=== PATIENT | female | born 1960 | race Caucasian/White ===

== ENCOUNTER 2020-09-07 17:43 | Inpatient (IN) ==
[2020-09-07] MEDS ORDERED: 0.9 % SODIUM CHLORIDE 2,000 ML IV ONE (17:51)
--- NOTE | 2020-09-07 19:08 | Emergency Department Note ---
HPI General Chief complaint: Blood Pressure Problem Stated complaint: low blood pressure Time Seen by Provider: 09/07/20 17:51 Source: EMS Mode of arrival: EMS Limitations: no limitations History of Present Illness HPI Narrative: Narrative: 60-year-old female presents the emergency department via EMS for low blood pressure and generalized weakness. Patient is bedbound and does go up to a wheelchair according to staff at the nursing facility said that she is been falling out of the chair and is not standing to pivot as well as she used to. They noticed the blood pressure was low so they called EMS. They said that she did have a fall just from standing height just down the bed did not hit her head did not lose consciousness approximately 3 hours ago. Patient says she is generally feels weak otherwise there is no other acute complaints by her at this time. Says she is feels tired. There is no pain any where. She has no chest pain or shortness of breath denying any fevers Related Data Home Medications Medication Instructions Recorded Confirmed amlodipine 5 mg PO QDAY 07/20/20 07/20/20 aspirin 81 mg PO QDAY 07/20/20 07/20/20 bisacodyl [Dulcolax (bisacodyl)] 10 mg MD QDAY PRN 07/20/20 07/20/20 calcium carbonate [Tums] 1,000 mg PO Q4HP PRN 07/20/20 07/20/20 cefdinir 300 mg PO BID 07/20/20 07/20/20 cholecalciferol (vitamin D3) 1,000 unit PO BID 07/20/20 07/20/20 cyclobenzaprine 5 mg PO Q8HP PRN 07/20/20 07/20/20 duloxetine [Cymbalta] 60 mg PO QDAY 07/20/20 07/20/20 empagliflozin [Jardiance] 10 mg PO QAM 07/20/20 07/20/20 ferrous sulfate 325 mg PO QDAY 07/20/20 07/20/20 fluconazole [Diflucan] 200 mg PO QDAY 07/20/20 07/20/20 fluticasone propionate [Flovent 1 puff INHALATION BID 07/20/20 07/20/20 HFA] furosemide [Lasix] 40 mg PO QDAY 07/20/20 07/20/20 heparin (porcine) in 0.9% NaCl 10 unit IV Q12H 07/20/20 07/20/20 [Heparin Flush] insulin glargine 15 unit SUBCUT DAILY 07/20/20 07/20/20 ipratropium-albuterol [Combivent 1 puff INHALATION Q4H PRN 07/20/20 07/20/20 Respimat] lisinopril 2.5 mg PO QDAY 07/20/20 07/20/20 magnesium hydroxide [Milk of 30 ml PO PRN PRN 07/20/20 07/20/20 Magnesia] melatonin 5 mg PO HS 07/20/20 07/20/20 meropenem 1 g IV Q12 07/20/20 07/20/20 oxycodone 10 mg PO Q8H PRN 07/20/20 07/20/20 polyethylene glycol 3350 17 g PO QDAY 07/20/20 07/20/20 pregabalin 50 mg PO TID 07/20/20 07/20/20 quetiapine [Seroquel] 100 mg PO DAILY 07/20/20 07/20/20 ropinirole 4 mg PO DAILY 07/20/20 07/20/20 sennosides-docusate sodium [Senna 2 tab-cap PO BID 07/20/20 07/20/20 Plus] sodium phosphates [Fleet Enema] 118 ml MD ONCE PRN 07/20/20 07/20/20 acetaminophen 1,000 mg PO Q6H PRN 09/07/20 09/07/20 Allergies Allergy/AdvReac Type Severity Reaction Status Date / Time doxycycline Allergy Unknown Verified 09/07/20 17:55 morphine Allergy Unknown Verified 09/07/20 17:55 Penicillins Allergy Unknown Verified 09/07/20 17:55 sulfamethoxazole Allergy Unknown Verified 09/07/20 17:55 [From Bactrim] trimethoprim [From Bactrim] Allergy Unknown Verified 09/07/20 17:55 Review of Systems ROS ROS Narrative: Narrative: All systems ED: reviewed and negative except as stated. PFSH Narrative Patient History Narrative: Narrative: Medical/Surgical/Family History All Active Problems (Updated 09/07/20 @ 20:28 by Volodymyr Crawford DO) Feared condition not demonstrated (Acute) Septic shock (Acute) Severe sepsis (Acute) UTI (urinary tract infection) (Acute) Social History Smoking Status: Former smoker Exam Narrative Narrative: Narrative: Vital signs noted General: Awake. Alert. No distress. Skin: Warm. Dry. No rash. Chronic wound to the hip. That is already dressed. HEENT: NCAT. PERRL. EOMI. No conjunctivitis. No nystagmus. No pharyngitis. Membranes moist. Mild blue discoloration to the lips and around the eyes. Neck: No PTP. Good ROM. No meningeal signs. No stridor. No thyromegaly. No JVD. Cardiovascular: RRR. No murmur. No rubs. No gallops. Respiratory: No respiratory distress. Breath sounds equal. Lungs clear. Gastrointestinal: Abdomen soft. No tenderness. No distention. Normal bowel sounds. No palpable organomegaly or masses. Back: No deformity. No CVAT. Musculoskeletal: No tenderness. No swelling. No erythema. No edema. Good peripheral pulses x 4 Lymphatic: No palpable adenopathy. Neurological: No focal neurological deficits observed. General Limitations: no limitations Course Vital Signs Vital signs: Vital Signs Temperature 97.5 F 09/07/20 17:52 Pulse Rate 85 09/07/20 17:52 Respiratory Rate 12 09/07/20 17:52 Blood Pressure 75/56 09/07/20 17:52 Pulse Oximetry (%) 92 09/07/20 17:52 Temperature 97.5 F 09/07/20 17:52 Pulse Rate 68 09/07/20 20:06 Respiratory Rate 13 09/07/20 20:06 Blood Pressure 105/74 09/07/20 20:01 Pulse Oximetry (%) 99 09/07/20 20:06 [facility] MDM Narrative Medical decision making narrative: Narrative: Patient does have chronic wounds. She is in a nursing facility pretty much b edbound mostly. Patient originally presented very hypotensive most likely is probably due to some infection source. She does have a chronic Thomas in and looks very cloudy and my guess is most likely is sepsis secondary to urinary tract infection. Patient originally is presenting she is probably in septic shock. I will hold off on starting antibiotics until I find my source of infection. Patient will receive the 30 mL/kg bolus of IV fluids. She will see if 2000 mL of normal saline via bolus this is based on her ideal body weight which is 141 pounds. Will receive lactate. We will get other basic labs. I do not think she needs further imaging of the head as there was no true fall and s he did not strike her head. Patient upon reexamination at 1910 here in the emergency department after 1500 mL of IV fluid is already doing better her blood pressure is now more stable and her color is a lot better generally. She was never tachycardic pulses remain normal. She has good CMS on reexamination. Heart exam shows regular rate and rhythm, lung exam has normal breath sounds bilaterally, general she is alert oriented able to answer questions seen exam is normal color warm and dry. Urinalysis nitrite positive and dirty otherwise most likely this is her source of infection so patient did receive cefepime. Patient is doing much better with blood pressure after the 30 mL/kg IV fluid bolus. She did have an elevated lactate but no white blood cell count I still think patient did meet criteria for severe sepsis and actually at the beginning was severe septic shock but now is responded well and is no longer in septic shock. Patient does need to be admitted for further evaluation. Patient did not need IV pressors mild elevation in potassium of 5.2 I do not think that needs to be taken care of at this time. Patient skin to be admitted for further evaluation most likely for U TI causing severe sepsis. Total critical care time of 32 min including performance of history and physical exam, review of results, re-examinations, time spent documenting, circuit recorder, review of old records, discussions with patient and family, discussions with retirement consultant(s), discussion with admitting physician, completion of admission/transfer paperwork. This does not include time for any separately documented procedures. Lab Data Result diagrams: 09/07/20 17:59 09/07/20 17:59 Labs: Lab Results 09/07/20 09/07/20 09/07/20 Range/Units 17:59 17:59 17:59 WBC 9.0 (4.5-11.0) K/mcL RBC 3.36 L (4.00-5.20) M/mcL Hgb 10.4 L (12.0-15.0) g/dL Hct 33.4 L (36.0-48.0) % MCV 99.4 (80.0-100.0) fL MCH 31.0 (26.0-34.0) pg MCHC 31.1 (31.0-36.0) g/dL RDW 18.6 H (11.5-14.5) % Plt Count 269 (140-440) K/mcL MPV 12.2 H (7.4-10.4) fL Neut % (Auto) 66.0 (38.0-78.0) % Lymph % (Auto) 22.1 (15.0-49.0) % [place] % (Auto) 5.8 (1.0-12.0) % Eos % (Auto) 5.0 (0.0-7.0) % Baso % (Auto) 1.1 (0.0-2.0) % Lymph # (Auto) 1.98 (1.50-4.80) K/mcL [place] # (Auto) 0.52 (0.10-0.90) K/mcL Eos # (Auto) 0.45 (0.00-0.70) K/mcL Baso # (Auto) 0.10 (0.00-0.20) K/mcL Absolute Neutrophils 5.92 (1.80-8.00) K/mcL VBG Lactic Acid (0.5-2.0) mmol/L Sodium 135 (133-145) mmol/L Potassium 5.2 H (3.3-5.1) mmol/L Chloride 99 (96-108) mmol/L Carbon Dioxide 26 (22-30) mmol/L Anion Gap 10.0 (8.0-16.0) BUN 43 H (6-20) mg/dL Creatinine 2.2 H (0.6-1.1) mg/dL GFR Calculation 24 Glucose 185 H (70-105) mg/dL Calcium 9.6 (8.6-10.4) mg/dL Magnesium 2.3 (1.6-2.5) mg/dL Total Bilirubin 0.2 (0.1-1.0) mg/dL AST 14 (<32) U/L ALT 10 (<40) U/L Alkaline Phosphatase 74 (39-117) U/L Total Creatine Kinase 206 H (24-170) U/L NT-Pro-B Natriuret Pep 166.1 H (<125.0) pg/mL Total Protein 7.3 (5.9-8.4) gm/dL Albumin 3.7 (3.2-5.2) gm/dL Globulin 3.6 (2.2-3.7) gm/dL Albumin/Globulin Ratio 1.0 (1.0-2.3) Procalcitonin 0.15 H (<0.10) ng/mL Urine Color Urine Appearance (Clear) Urine pH (5.0-9.0) Ur Specific [place] (1.000-1.035) Urine Protein (Negative) mg/dL Urine Glucose (UA) (Negative) mg/dL Urine Ketones (Negative) mg/dL Urine Occult Blood (Negative) mg/dL Urine Nitrate (Negative) Urine Bilirubin (Negative) mg/dL Urine Urobilinogen mg/dL Ur Leukocyte Esterase (Negative) /ug Urine RBC (0-1) /hpf Urine WBC (0-4) /hpf Ur Squamous Epith Cells (0-4) /hpf Urine Bacteria (0) /hpf Urine Yeast (Budding) (None) /hpf Ur Culture Indicated? 09/07/20 09/07/20 Range/Units 18:13 18:45 WBC (4.5-11.0) K/mcL RBC (4.00-5.20) M/mcL Hgb (12.0-15.0) g/dL Hct (36.0-48.0) % MCV (80.0-100.0) fL MCH (26.0-34.0) pg MCHC (31.0-36.0) g/dL RDW (11.5-14.5) % Plt Count (140-440) K/mcL MPV (7.4-10.4) fL Neut % (Auto) (38.0-78.0) % Lymph % (Auto) (15.0-49.0) % [place] % (Auto) (1.0-12.0) % Eos % (Auto) (0.0-7.0) % Baso % (Auto) (0.0-2.0) % Lymph # (Auto) (1.50-4.80) K/mcL [place] # (Auto) (0.10-0.90) K/mcL Eos # (Auto) (0.00-0.70) K/mcL Baso # (Auto) (0.00-0.20) K/mcL Absolute Neutrophils (1.80-8.00) K/mcL VBG Lactic Acid 2.6 H (0.5-2.0) mmol/L Sodium (133-145) mmol/L Potassium (3.3-5.1) mmol/L Chloride (96-108) mmol/L Carbon Dioxide (22-30) mmol/L Anion Gap (8.0-16.0) BUN (6-20) mg/dL Creatinine (0.6-1.1) mg/dL GFR Calculation Glucose (70-105) mg/dL Calcium (8.6-10.4) mg/dL Magnesium (1.6-2.5) mg/dL Total Bilirubin (0.1-1.0) mg/dL AST (<32) U/L ALT (<40) U/L Alkaline Phosphatase (39-117) U/L Total Creatine Kinase (24-170) U/L NT-Pro-B Natriuret Pep (<125.0) pg/mL Total Protein (5.9-8.4) gm/dL Albumin (3.2-5.2) gm/dL Globulin (2.2-3.7) gm/dL Albumin/Globulin Ratio (1.0-2.3) Procalcitonin (<0.10) ng/mL Urine Color Yellow Urine Appearance Turbid A (Clear) Urine pH 5.0 (5.0-9.0) Ur Specific [place] 1.019 (1.000-1.035) Urine Protein 100 A (Negative) mg/dL Urine Glucose (UA) 50 A (Negative) mg/dL Urine Ketones Negative (Negative) mg/dL Urine Occult Blood >=1.0 A (Negative) mg/dL Urine Nitrate Pos A (Negative) Urine Bilirubin Negative (Negative) mg/dL Urine Urobilinogen Negative mg/dL Ur Leukocyte Esterase 250 A (Negative) /ug Urine RBC > 182 H (0-1) /hpf Urine WBC > 182 H (0-4) /hpf Ur Squamous Epith Cells 0 (0-4) /hpf Urine Bacteria None (0) /hpf Urine Yeast (Budding) Many A (None) /hpf Ur Culture Indicated? yes EKG Data EKG #1: EKG results narrative: EKG done at 1757 interpreted by myself shows sinus rhythm at a rate of 69, MD interval 241, QRS 92, QTc 536. There is no acute ST changes no acute T wave changes no other signs of ischemia. No signs of hypertrophy, heart strain, heart block. No WPW/Brugada/HOCM. Impression is normal sinus EKG with no ischemia Discharge Plan Patient/Caregiver Discharge Instructions Pt seen by BRANCHER/PA only: No Clinical Impression: Septic shock, Severe sepsis, UTI (urinary tract infection) Patient Disposition: Xfer As Inpt ([facility]) Condition: Fair Follow up with: Johnnie Trent MD [Primary Care Provider] - Prescriptions: No Action fluconazole [Diflucan] 200 mg Tablet 200 mg PO QDAY RF: 0 amlodipine 5 mg Tablet 5 mg PO QDAY RF: 0 bisacodyl [Dulcolax (bisacodyl)] 10 mg Suppository 10 mg MD QDAY PRN (Reason: Constipation) RF: 0 ferrous sulfate 325 mg (65 mg iron) Tablet 325 mg PO QDAY RF: 0 meropenem 1 gram Recon Soln 1 g IV Q12 RF: 0 Fleet Enema 19-7 gram/118 mL Enema 118 ml MD ONCE PRN (Reason: Constipation) RF: 0 aspirin 81 mg Tablet,Chewable 81 mg PO QDAY RF: 0 cefdinir 300 mg Capsule 300 mg PO BID RF: 0 lisinopril 2.5 mg Tablet 2.5 mg PO QDAY RF: 0 Flovent HFA 110 mcg/actuation Hfa Aerosol Inhaler 1 puff INHALATION BID RF: 0 Heparin Flush 10 unit/mL Kit 10 unit IV Q12H RF: 0 cyclobenzaprine 5 mg Tablet 5 mg PO Q8HP PRN (Reason: Spasms) RF: 0 duloxetine [Cymbalta] 60 mg Capsule,Delayed Release(Dr/Ec) 60 mg PO QDAY RF: 0 melatonin 5 mg Tablet 10 mg PO HS RF: 0 Jardiance 10 mg Tablet 10 mg PO QAM RF: 0 Combivent Respimat 20-100 mcg/actuation Mist 1 puff INHALATION Q4H PRN (Reason: shortness of breath) RF: 0 furosemide [Lasix] 40 mg Tablet 40 mg PO QDAY RF: 0 cholecalciferol (vitamin D3) 25 mcg (1,000 unit) Capsule 1,000 unit PO BID RF: 0 magnesium hydroxide [Milk of Magnesia] 400 mg/5 mL suspension 30 ml PO PRN PRN (Reason: Constipation) RF: 0 ropinirole 4 mg tablet 4 mg PO DAILY RF: 0 oxycodone 10 mg tablet 10 mg PO Q4HP PRN (Reason: Pain) RF: 0 polyethylene glycol 3350 17 gram/dose Powder 17 g PO QDAY RF: 0 pregabalin 50 mg Capsule 50 mg PO TID RF: 0 insulin glargine 100 unit/mL Solution 15 unit SUBCUT DAILY RF: 0 Senna Plus 8.6-50 mg Capsule 2 tab-cap PO BID RF: 0 quetiapine [Seroquel] 100 mg Tablet 100 mg PO DAILY RF: 0 calcium carbonate [Tums] 300 mg (750 mg) Tablet,Chewable 1,000 mg PO Q4HP PRN (Reason: gi issues) RF: 0 acetaminophen 500 mg Tablet 1,000 mg PO Q6H PRN (Reason: Pain, Mild) RF: 0
[2020-09-07 19:14] LABS: Basophils % (Auto) 1.1 % (0.0-2.0); Eosinophils # (Auto) 0.45 K/mcL (0.00-0.70); Hematocrit 33.4 % (36.0-48.0); Hemoglobin 10.4 g/dL (12.0-15.0); Lymphocytes # (Auto) 1.98 K/mcL (1.50-4.80); Lymphocytes % (Auto) 22.1 % (15.0-49.0); Mean Cell Volume 99.4 fL (80.0-100.0); Mean Corpuscular HGB Conc 31.1 g/dL (31.0-36.0); Mean Platelet Volume 12.2 fL (7.4-10.4); Monocytes # (Auto) 0.52 K/mcL (0.10-0.90); Monocytes % (Auto) 5.8 % (1.0-12.0); Platelet Count 269 K/mcL (140-440); RBC 3.36 M/mcL (4.00-5.20); Red Cell Distribution Width 18.6 % (11.5-14.5)
[2020-09-07] MEDS ORDERED: CEFEPIME 1 GM VIAL IV ONE ×2 (19:16→22:30)
[2020-09-07 19:32] LABS: proBNP 166.1 pg/mL (<125.0)
[2020-09-07 19:34] LABS: ALT/SGPT 10 U/L (<40); AST/SGOT 14 U/L (<32); Albumin 3.7 gm/dL (3.2-5.2); Alkaline Phosphatase 74 U/L (39-117); Bilirubin,Total 0.2 mg/dL (0.1-1.0); Blood Urea Nitrogen 43 mg/dL (6-20); Calcium 9.6 mg/dL (8.6-10.4); Carbon Dioxide 26 mmol/L (22-30); Chloride 99 mmol/L (96-108); Creatine Kinase 206 U/L (24-170); Globulin 3.6 gm/dL (2.2-3.7); Glomerular Filtration Rate 24; Glucose 185 mg/dL (70-105)
[2020-09-07 20:15] LABS: Appearance,Urine TURBID (Clear); Bilirubin,Urine Negative (Negative); Color,Urine YELLOW; Culture Indicated,Urine yes; Glucose,Urine (UA) 50 mg/dL (Negative); Ketones,Urine Negative (Negative); Leukocyte Esterase,Urine 250 /ug (Negative); Nitrate,Urine POS (Negative); Protein,Urine 100 mg/dL (Negative); Specific Gravity,Urine 1.019 (1.000-1.035); Urine Blood >=1.0 mg/dL (Negative); Urine Budding Yeast MANY /hpf; Urine RBC > 182 /hpf (0-1); Urine Squamous Epithelial Cell 0 /hpf (0-4); Urine WBC > 182 /hpf (0-4); Urobilinogen,Urine Negative
--- NOTE | 2020-09-07 20:42 | Internal Med History&Physical ---
HPI History of Present Illness Patient information: Note initiated : 09/07/20 at 8:34 pm Service Date, if different from initiated Date: [] Patient: Dawn Cabrera a 60 y/o F admitted on for low blood pressure. Chief Complaint: [] History of present illness: Ms. Cabrera is a 60 year old F Presents to the ED from the nursing facility for hypotension, 60/40, and weakness. She did fall but did not hit her head or lose consciousness. She has been complaining of lightheadedness and dizziness. ED had systolics in the 70s. She was given IV normal same bolus with improvement. Creatinine appear to be above baseline. Mild increase in lactate. She is wheelchair-bound and usually is able to transfer from bed to wheelchair. She has been weaker lately and unable to do so. She does have a chronic Valentino. She also has chronic wounds. She denies chest pain or shortness of breath. Urinalysis consistent with infection. Review of Systems: Pertinent positives as above. Denies headache/fever/chills/nausea/vomiting/chest or abdominal pain/cou gh/dyspnea/diarrhea. Remaining 10 point review of system reviewed negative PFSH PFSH All Active Problems (Updated 09/07/20 @ 20:28 by Volodymyr Crawford DO) Feared condition not demonstrated (Acute) Septic shock (Acute) Severe sepsis (Acute) UTI (urinary tract infection) (Acute) Social History (Updated 09/07/20 @ 20:35 by Nakul Bejarano DO) additional history: Past medical history includes chronic kidney disease stage IIIb diabetes chronic anemia morbid obesity poor functional status deconditioning debility she has been wheelchair-bound for years. Depression anxiety hypertension Social history patient denies tobacco or alcohol she is bedbound wheelchair- bound and lives in a nursing facility MEDS/ALLERGIES Home Medications and Allergies Home Medications Medication Instructions Recorded Confirmed Type amlodipine 5 mg PO QDAY 07/20/20 09/07/20 History aspirin 81 mg PO QDAY 07/20/20 09/07/20 History bisacodyl [Dulcolax (bisacodyl)] 10 mg [place] QDAY PRN 07/20/20 09/07/20 History calcium carbonate [Tums] 1,000 mg PO Q4HP PRN 07/20/20 09/07/20 History cefdinir 300 mg PO BID 07/20/20 07/20/20 History cholecalciferol (vitamin D3) 1,000 unit PO BID 07/20/20 09/07/20 History cyclobenzaprine 5 mg PO Q8HP PRN 07/20/20 09/07/20 History duloxetine [Cymbalta] 60 mg PO QDAY 07/20/20 09/07/20 History empagliflozin [Jardiance] 10 mg PO QAM 07/20/20 09/07/20 History ferrous sulfate 325 mg PO QDAY 07/20/20 09/07/20 History fluconazole [Diflucan] 200 mg PO QDAY 07/20/20 07/20/20 History fluticasone propionate [Flovent 1 puff INHALATION BID 07/20/20 09/07/20 History HFA] furosemide [Lasix] 40 mg PO QDAY 07/20/20 09/07/20 History heparin (porcine) in 0.9% NaCl 10 unit IV Q12H 07/20/20 07/20/20 History [Heparin Flush] insulin glargine 15 unit SUBCUT DAILY 07/20/20 09/07/20 History ipratropium-albuterol [Combivent 1 puff INHALATION Q4H PRN 07/20/20 09/07/20 History Respimat] lisinopril 2.5 mg PO QDAY 07/20/20 09/07/20 History magnesium hydroxide [Milk of 30 ml PO PRN PRN 07/20/20 09/07/20 History Magnesia] melatonin 10 mg PO HS 07/20/20 09/07/20 History meropenem 1 g IV Q12 07/20/20 07/20/20 History oxycodone 10 mg PO Q4HP PRN 07/20/20 09/07/20 History polyethylene glycol 3350 17 g PO QDAY 07/20/20 09/07/20 History pregabalin 50 mg PO TID 07/20/20 09/07/20 History quetiapine [Seroquel] 100 mg PO DAILY 07/20/20 09/07/20 History ropinirole 4 mg PO DAILY 07/20/20 09/07/20 History sennosides-docusate sodium [Senna 2 tab-cap PO BID 07/20/20 09/07/20 History Plus] sodium phosphates [Fleet Enema] 118 ml [place] ONCE PRN 07/20/20 09/07/20 History acetaminophen 1,000 mg PO Q6H PRN 09/07/20 09/07/20 History Allergies Allergy/AdvReac Type Severity Reaction Status Date / Time doxycycline Allergy Unknown Verified 09/07/20 17:55 morphine Allergy Unknown Verified 09/07/20 17:55 Penicillins Allergy Unknown Verified 09/07/20 17:55 sulfamethoxazole Allergy Unknown Verified 09/07/20 17:55 [From Bactrim] trimethoprim [From Bactrim] Allergy Unknown Verified 09/07/20 17:55 EXAM Constitutional Vitals: Temp Pulse Resp BP Pulse Ox 97.5 F 68 13 105/74 99 09/07/20 17:52 09/07/20 20:06 09/07/20 20:06 09/07/20 20:01 09/07/20 20:06 Exam: General: Alert, Awake, No acute Distress, morbidly obese Eyes/N/T: EOMI, PERRL, dry MM Head/Neck: neck supple, normocephalic atraumatic CV: RRR, No murmurs, normal s1/s2 Pulm: Clear b/l, no wheezing/rhonchi/rales Abd: soft, nontender, +BS x4 Ext: no clubbing/cyanosis. Bilateral lower extremity wounds Neuro: Alert, no focal deficits, moves all extremities, CN 2-12 grossly intact, symmetrical strength b/l upper/lower, sensations intact b/l upper/lower Skin: warm/dry DATA Data Completed and Pending Labs: Labs from last 24 hours 09/07/20 09/07/20 09/07/20 18:45 18:13 17:59 WBC RBC Hgb Hct MCV MCH MCHC RDW Plt Count MPV Neut % (Auto) Lymph % (Auto) [place] % (Auto) Eos % (Auto) Baso % (Auto) Lymph # (Auto) [place] # (Auto) Eos # (Auto) Baso # (Auto) Absolute Neutrophils VBG Lactic Acid 2.6 H Sodium Potassium Chloride Carbon Dioxide Anion Gap BUN Creatinine GFR Calculation Glucose Calcium Magnesium Total Bilirubin AST ALT Alkaline Phosphatase Total Creatine Kinase NT-Pro-B Natriuret Pep Total Protein Albumin Globulin Albumin/Globulin Ratio Procalcitonin 0.15 H Urine Color Yellow Urine Appearance Turbid A Urine pH 5.0 Ur Specific [place] 1.019 Urine Protein 100 A Urine Glucose (UA) 50 A Urine Ketones Negative Urine Occult Blood >=1.0 A Urine Nitrate Pos A Urine Bilirubin Negative Urine Urobilinogen Negative Ur Leukocyte Esterase 250 A Urine RBC > 182 H Urine WBC > 182 H Ur Squamous Epith Cells 0 Urine Bacteria None Urine Yeast (Budding) Many A Ur Culture Indicated? yes 09/07/20 09/07/20 17:59 17:59 WBC 9.0 RBC 3.36 L Hgb 10.4 L Hct 33.4 L MCV 99.4 MCH 31.0 MCHC 31.1 RDW 18.6 H Plt Count 269 MPV 12.2 H Neut % (Auto) 66.0 Lymph % (Auto) 22.1 [place] % (Auto) 5.8 Eos % (Auto) 5.0 Baso % (Auto) 1.1 Lymph # (Auto) 1.98 [place] # (Auto) 0.52 Eos # (Auto) 0.45 Baso # (Auto) 0.10 Absolute Neutrophils 5.92 VBG Lactic Acid Sodium 135 Potassium 5.2 H Chloride 99 Carbon Dioxide 26 Anion Gap 10.0 BUN 43 H Creatinine 2.2 H GFR Calculation 24 Glucose 185 H Calcium 9.6 Magnesium 2.3 Total Bilirubin 0.2 AST 14 ALT 10 Alkaline Phosphatase 74 Total Creatine Kinase 206 H NT-Pro-B Natriuret Pep 166.1 H Total Protein 7.3 Albumin 3.7 Globulin 3.6 Albumin/Globulin Ratio 1.0 Procalcitonin Urine Color Urine Appearance Urine pH Ur Specific [place] Urine Protein Urine Glucose (UA) Urine Ketones Urine Occult Blood Urine Nitrate Urine Bilirubin Urine Urobilinogen Ur Leukocyte Esterase Urine RBC Urine WBC Ur Squamous Epith Cells Urine Bacteria Urine Yeast (Budding) Ur Culture Indicated? A/P Narrative A/P Narrative: A: *Sepsis w/hypotension: -Hypotension responded to IV fluids in the ED *complicated UTI: catheter associated *REKHA on CKD stage IIIb: *DM: *Anemia, chronic: *Morbidly obese: *Poor functional status/deconditioning/debility: Is wheelchair-bound but is usually able to self transfer *Chronic valentino: has had for years "so i don't pee all over myself" -She just stools in bed and staff clean her up each time as well -[facility] *COPD: *ZAID w/CPAP: *Depression/anxiety: *HTN: On Norvasc Lasix and lisinopril *LE wounds: For which she sees wound clinic at [facility] * P: -Empiric antibiotics, pending BC/UC -IVF, Monitor urine output, follow-up renal function -Hold diuretic / BP meds -change out Valentino -Wound care -Insulin, SSI -address code status - -PT/OT -ppx: Lovenox renal dose Time Spent With Patient Time: Total time spent is greater than 50% in coordination of care (as documented) at patient's floor/unit and/or counseling patient:
[2020-09-07] MEDS ORDERED: [UNRECOGNIZED DRUG - OTHER] PO SCH (21:18)
[2020-09-07] MEDS ORDERED: POTASSIUM CHLORIDE 20 MEQ TABLET PO PRN ×2 (21:18)
[2020-09-07] MEDS ORDERED: IPRATROPIUM/ALBUTEROL 3 ML AMPUL.NEB NEB PRN (21:18)
[2020-09-07] MEDS ORDERED: DEXTROSE 50% 50 ML VIAL IV PRN (21:18)
[2020-09-07] MEDS ORDERED: MAGNESIUM SULFATE 2 GM/50 ML BAG IV PRN (21:18)
[2020-09-07] MEDS ORDERED: ACETAMINOPHEN 325 MG TABLET PO PRN (21:18)
[2020-09-07] MEDS ORDERED: POTASSIUM CHLORIDE 40 MEQ in DEXTROSE 5% IN WATER 500 ML IV PRN (21:18)
[2020-09-07] MEDS ORDERED: ONDANSETRON 4 MG/2 ML VIAL IV PRN (21:18)
[2020-09-07] MEDS ORDERED: BISACODYL 10 MG SUPP.RECT PR PRN (21:18)
[2020-09-07] MEDS ORDERED: DEXTROSE 31 GM ORAL.SUSP PO PRN (21:18)
[2020-09-07] MEDS ORDERED: SENNOSIDES DOCUSATE SODIUM PO SCH (21:18)
[2020-09-07] MEDS ORDERED: SENNOSIDES 1 TABLET PO PRN (21:18)
[2020-09-07] MEDS: 0.9 % SODIUM CHLORIDE 1,000 ML IV SCH (22:05)
[2020-09-07] MEDS ORDERED: CALCIUM CARBONATE 500 MG TAB.CHEW PO PRN (22:07)
[2020-09-07] MEDS ORDERED: CYCLOBENZAPRINE 10 MG TABLET PO PRN (22:07)
[2020-09-07] MEDS ORDERED: oxyCODONE HCL 5 MG TABLET PO PRN (22:09)
[2020-09-07] MEDS: INSULIN LISPRO 1 UNIT/0.01 ML UNIT SQ SCH (22:09)
[2020-09-07 22:10] LABS: Eosinophils % (Manual) 4 % (0-7); Hypochromasia 1+ (None Seen); Lymphocytes % 33 % (15-49); Monocytes % (Manual) 3 % (1-12); Platelet Estimate NORMAL (Normal); RBC Morphology ABNORMAL (Normal); Segmented Neutrophils % 60 % (38-78)
[2020-09-07] MEDS: 0.9 % SODIUM CHLORIDE 10 ML SYRINGE IV SCH (22:11)
[2020-09-07] MEDS: FLUTICASONE HFA 110MCG INHALER INH SCH (22:13)
--- NOTE | 2020-09-08 01:57 | XRay Report ---
CLINICAL INFORMATION: Sepsis COMPARISON: 04/20/2020 TECHNIQUE: Portable FINDINGS: The heart size, mediastinum and pulmonary vessels are unremarkable. The lungs are clear. There are no effusions. The bones and soft tissues are within normal limits. IMPRESSION: Normal chest. Interpreted and Authenticated by: Tod Duran 09/08/20
[2020-09-08 06:42] LABS: Basophils # (Auto) 0.09 K/mcL (0.00-0.20); Basophils % (Auto) 1.1 % (0.0-2.0); Eosinophils # (Auto) 0.47 K/mcL (0.00-0.70); Eosinophils % (Auto) 5.5 % (0.0-7.0); Hematocrit 32.9 % (36.0-48.0); Hemoglobin 10.1 g/dL (12.0-15.0); Lymphocytes # (Auto) 2.54 K/mcL (1.50-4.80); Mean Cell Volume 100.9 fL (80.0-100.0); Mean Corpuscular HGB Conc 30.7 g/dL (31.0-36.0); Monocytes # (Auto) 0.61 K/mcL (0.10-0.90); Monocytes % (Auto) 7.2 % (1.0-12.0); Neutrophils % (Auto) 56.2 % (38.0-78.0); Platelet Count 245 K/mcL (140-440); RBC 3.26 M/mcL (4.00-5.20); Red Cell Distribution Width 18.6 % (11.5-14.5); WBC 8.5 K/mcL (4.5-11.0)
[2020-09-08] MEDS: 0.9 % SODIUM CHLORIDE 10 ML SYRINGE IV SCH ×3 (06:53→20:50)
[2020-09-08 07:07] LABS: ALT/SGPT 9 U/L (<40); AST/SGOT 15 U/L (<32); Albumin 3.4 gm/dL (3.2-5.2); Albumin/Globulin Ratio 0.9 (1.0-2.3); Alkaline Phosphatase 71 U/L (39-117); Bilirubin,Direct < 0.2 mg/dL (0-0.3); Bilirubin,Total 0.2 mg/dL (0.1-1.0); Blood Urea Nitrogen 41 mg/dL (6-20); Calcium 8.9 mg/dL (8.6-10.4); Carbon Dioxide 28 mmol/L (22-30); Chloride 103 mmol/L (96-108); Globulin 3.6 gm/dL (2.2-3.7); Glomerular Filtration Rate 25; Glucose 91 mg/dL (70-105); Lactate Dehydrogenase 197 U/L (135-225); Phosphorous 4.9 mg/dL (2.5-4.5); Triglycerides 185 mg/dL (<150); Uric Acid 7.2 mg/dL (2.5-8.0)
[2020-09-08] MEDS: INSULIN LISPRO 1 UNIT/0.01 ML UNIT SQ SCH ×4 (07:30→21:01)
--- NOTE | 2020-09-08 07:59 | Internal Med Progress Note ---
SUBJECTIVE Subjective Patient information: Note initiated : 09/08/20 at 7:56 am Service Date, if different from initiated Date: [] Patient: Dawn Cabrera a 60 y/o F admitted on 09/07/20 for low blood pressure. Chief Complaint: [] Interval history: History of present illness: Ms. Cabrera is a 60 year old F Presents to the ED from the nursing facility for hypotension, 60/40, and weakness. She did fall but did not hit her head or lose consciousness. She has been complaining of lightheadedness and dizziness. ED had systolics in the 70s. She was given IV normal same bolus with improvement. Creatinine appear to be above baseline. Mild increase in lactate. She is wheelchair-bound and usually is able to transfer from bed to wheelchair. She has been weaker lately and unable to do so. She does have a chronic Valentino. She also has chronic wounds. She denies chest pain or shortness of breath. Urinalysis consistent with infection. 09/08 No overnight event or new complaints. Vital signs stable. Review of Systems: denies headache/fever/chills/nausea/vomiting/chest or abdominal pain/cough/dyspnea/diarrhea. Otherwise see above. Constitutional Vitals: Vital Signs Temp Pulse Resp BP Pulse Ox 96.8 F L 61 10 L 95/52 100 09/08/20 02:01 09/08/20 06:30 09/08/20 07:02 09/08/20 07:02 09/08/20 06:30 Period Temp Pulse Resp BP Sys/Nava Pulse Ox Last 24 Hr 96.8 F-97.5 F 57-85 7-45 66-116/40-92 85-100 Intake and Output 09/07/20 09/08/20 09/08/20 21:59 05:59 13:59 Intake Total 2250 250 Output Total 975 275 Balance 1275 -25 Weight 177.355 kg 170.279 kg Intake & Output: Intake & Output 09/07/20 09/08/20 09/08/20 21:59 05:59 13:59 Intake Total 2250 250 Output Total 975 275 Balance 1275 -25 Weight 177.355 kg 170.279 kg Intake: IV 2000 Sodium Chloride 0.9% 2,000 ml @ 2000 Wide Open IV .Q0M ONE Rx#: [id number] Oral 250 250 Output: Urine Catheter Amount 975 275 Other: Urine Appearance Cloudy Cloudy Sediment Sediment Mucous Threads Mucous Threads Purulent Purulent Uretheral (Valentino) Cloudy Sediment Mucous Threads Purulent Urine Color Dark Yellow Dark Yellow Uretheral (Valentino) Dark Yellow Urine Odor Foul Strong Exam: General: Alert, Awake, No acute Distress, morbidly obese Eyes/N/T: EOMI, Head/Neck: neck supple, CV: RRR, No murmurs, Pulm: Clear b/l, no wheezing/rhonchi/rales Abd: soft, nontender, +BS x4 Ext: no clubbing/cyanosis. Bilateral lower extremity wounds Neuro: Alert, no focal deficits, moves all extremities, Skin: warm/dry OBJ DATA Labs CBC & Chem 7: 09/08/20 05:44 09/08/20 05:44 Labs: Abnormal Lab Results 09/08/20 09/08/20 09/07/20 05:44 05:44 18:45 RBC 3.26 L Hgb 10.1 L Hct 32.9 L MCV 100.9 H MCHC 30.7 L RDW 18.6 H MPV 12.0 H RBC Morphology Hypochromasia VBG Lactic Acid Potassium BUN 41 H Creatinine 2.1 H Glucose Phosphorus 4.9 H Total Creatine Kinase NT-Pro-B Natriuret Pep Albumin/Globulin Ratio 0.9 L Triglycerides 185 H Procalcitonin Urine Appearance Turbid A Urine Protein 100 A Urine Glucose (UA) 50 A Urine Occult Blood >=1.0 A Urine Nitrate Pos A Ur Leukocyte Esterase 250 A Urine RBC > 182 H Urine WBC > 182 H Urine Yeast (Budding) Many A 09/07/20 09/07/20 09/07/20 18:13 17:59 17:59 RBC Hgb Hct MCV MCHC RDW MPV RBC Morphology Abnormal A Hypochromasia 1+ A VBG Lactic Acid 2.6 H Potassium BUN Creatinine Glucose Phosphorus Total Creatine Kinase NT-Pro-B Natriuret Pep Albumin/Globulin Ratio Triglycerides Procalcitonin 0.15 H Urine Appearance Urine Protein Urine Glucose (UA) Urine Occult Blood Urine Nitrate Ur Leukocyte Esterase Urine RBC Urine WBC Urine Yeast (Budding) 09/07/20 09/07/20 17:59 17:59 RBC 3.36 L Hgb 10.4 L Hct 33.4 L MCV MCHC RDW 18.6 H MPV 12.2 H RBC Morphology Hypochromasia VBG Lactic Acid Potassium 5.2 H BUN 43 H Creatinine 2.2 H Glucose 185 H Phosphorus Total Creatine Kinase 206 H NT-Pro-B Natriuret Pep 166.1 H Albumin/Globulin Ratio Triglycerides Procalcitonin Urine Appearance Urine Protein Urine Glucose (UA) Urine Occult Blood Urine Nitrate Ur Leukocyte Esterase Urine RBC Urine WBC Urine Yeast (Budding) Meds: Medications Acetaminophen (Acetaminophen 325 Mg Tablet) 650 mg PO Q6HP PRN PRN Reason: PAIN/FEVER > 101 Albuterol/Ipratropium (Ipratropium/Albuterol 3 Ml Ampul.Neb) 3 ml NEB Q4HP PRN PRN Reason: Shortness Of Breath Aspirin (Aspirin 81 Mg Tab.Chew) 81 mg PO QDAY MAURY Bisacodyl (Bisacodyl 10 Mg Supp.Rect) 10 mg TN QDAY PRN PRN Reason: Constipation Calcium Carbonate/Glycine (Calcium Carbonate 500 Mg Tab.Chew) 1,000 mg PO Q4HP PRN PRN Reason: Dyspepsia Cefepime HCl (Cefepime 2 Gm Vial) 2 gm IV Q12H MAURY; Protocol Cyclobenzaprine HCl (Cyclobenzaprine 10 Mg Tablet) 5 mg PO Q8HP PRN PRN Reason: Spasms Dextrose (Dextrose 50% 50 Ml Vial) 0 ml IV UD PRN PRN Reason: Hypoglycemia Diagnostic Test (Pha) (Accu-Chek 1 Each Strip) 1 each FS ACHS [facility] Last Admin: 09/08/20 07:22 Dose: 1 each Documented by: Duloxetine HCl (Duloxetine 30 Mg Capsule) 60 mg PO DAILY [facility] Enoxaparin Sodium (Enoxaparin 30 Mg/0.3 Ml Syringe) 30 mg SQ DAILY [facility] Fluticasone Propionate (Fluticasone Hfa 110mcg Inhaler) 1 puff INH BID [facility] Last Admin: 09/07/20 22:13 Dose: Not Given Documented by: Glucose (Dextrose 31 Gm Oral.Susp) 15 gm PO PRN PRN PRN Reason: Hypoglycemia Potassium Chloride 40 meq/ (Dextrose) 520 mls @ 130 mls/hr IV UD PRN PRN Reason: Potassium < 3 Magnesium Sulfate (Magnesium Sulfate) 2 gm in 50 mls @ 50 mls/hr IV UD PRN PRN Reason: Magnesium </= 1.6 Sodium Chloride (Sodium Chloride 0.9%) 1,000 mls @ 100 mls/hr IV .Q10H [facility] Last Admin: 09/07/20 22:05 Dose: 100 mls/hr Documented by: Insulin Glargine (Insulin Glargine, Human 1 Unit/0.01 Ml) 15 unit SQ DAILY [facility] Insulin Human Lispro (Insulin Lispro 1 Unit/0.01 Ml Unit) 0 unit SQ ACHS [facility]; Protocol Last Admin: 09/08/20 07:30 Dose: Not Given Documented by: Melatonin (Melatonin 3 Mg Tablet) 9 mg PO HS [facility] Non-Formulary Medication (Ropinirole) 4 mg PO DAILY [facility] Ondansetron HCl (Ondansetron 4 Mg/2 Ml Vial) 4 mg IV Q4HP PRN PRN Reason: Nausea And Vomiting Oxycodone HCl (Oxycodone Hcl 5 Mg Tablet) 10 mg PO Q4HP PRN PRN Reason: Pain Polyethylene Glycol (Polyethylene Glycol 3350 17 Gm Packet) 17 gm PO QDAY [facility] Potassium Chloride (Potassium Chloride 20 Meq Tablet) 40 meq PO UD PRN PRN Reason: Potssium is 3-3.5 Potassium Chloride (Potassium Chloride 20 Meq Tablet) 40 meq PO UD PRN PRN Reason: Potassium < 3 Pregabalin (Pregabalin 25 Mg Capsule) 50 mg PO TID [facility] Quetiapine Fumarate (Quetiapine 100 Mg Tablet) 100 mg PO DAILY [facility] Senna (Sennosides 1 Tablet) 2 tab PO DAILYP PRN PRN Reason: Constipation Senna/Docusate Sodium (Sennosides/Docusate Sodium 1 Tab Tablet) 2 tab PO BID [facility] Sodium Chloride (0.9 % Sodium Chloride 10 Ml Syringe) 10 ml IV Q8 [facility] Last Admin: 09/08/20 06:53 Dose: 10 ml Documented by: A/P Narrative A/P Narrative: A: *Sepsis w/hypotension: -Hypotension responded to IV fluids in the ED *complicated UTI: catheter associated *REKHA on CKD stage IIIb: *DM: *Anemia, chronic: *Morbidly obese: *Poor functional status/deconditioning/debility: Is wheelchair-bound but is usually able to self transfer *Chronic valentino: has had for years "so i don't pee all over myself" -She just stools in bed and staff clean her up each time as well -she likely would be better served by suprapubic cath if she can't get by w/o a catheter *COPD(2L@night ): *ZAID w/BiPAP: *Depression/anxiety: *HTN: On Norvasc/Lasix/Lisinopril *LE wounds: For which she sees wound clinic at [facility] * P: -Empiric antibiotics, pending BC/UC -IVF's, Monitor urine output, follow-up renal function -Hold diuretic / BP meds -change out Valentino -Wound care -Insulin, SSI -address code status - -PT/OT -ppx: Lovenox renal dose Time Spent With Patient Time: Total time spent is greater than 50% in coordination of care (as docu mented) at patient's floor/unit and/or counseling patient: QUALITY Stroke Symptom Onset Unknown: No VTE Deep Vein Thrombosis/Pulmonary Embolism Present on Admission: No
[2020-09-08] MEDS: FLUTICASONE HFA 110MCG INHALER INH SCH ×2 (08:10→20:45)
[2020-09-08] MEDS: ASPIRIN 81 MG TAB.CHEW PO SCH (08:25)
[2020-09-08] MEDS: QUEtiapine 100 MG TABLET PO SCH (08:25)
[2020-09-08] MEDS: PREGABALIN 25 MG CAPSULE PO SCH ×3 (08:25→20:50)
[2020-09-08] MEDS: DULoxetine 30 MG CAPSULE PO SCH (08:25)
[2020-09-08] MEDS: SENNOSIDES/DOCUSATE SODIUM 1 TAB TABLET PO SCH ×2 (08:26→20:45)
[2020-09-08] MEDS: rOPINIRole 1 MG TABLET PO SCH (08:26)
[2020-09-08] MEDS: 0.9 % SODIUM CHLORIDE 1,000 ML IV SCH ×2 (08:31→19:00)
[2020-09-08] MEDS: POLYETHYLENE GLYCOL 3350 17 GM PACKET PO SCH (08:37)
[2020-09-08] MEDS: CEFEPIME 2 GM VIAL IV SCH ×2 (08:43→20:50)
[2020-09-08] MEDS: ENOXAPARIN 30 MG/0.3 ML SYRINGE SQ SCH (08:50)
[2020-09-08] MEDS: INSULIN GLARGINE, HUMAN 1 UNIT/0.01 ML SQ SCH (10:45)
--- NOTE | 2020-09-08 14:24 | General Surgery Consult Note ---
HPI Data of Consult Consult date: 09/08/20 Requesting physician: Nakul Bejarano Primary Care Provider: Johnnie Trent Consult Narrative cc:: CC: Nakul Bejarano I saw this lady for consult in ICU 120-A along with Madhavi NAIR, In patient wound care nurse. This is a super morbid obese female with Chronic massive lymphedema of both legs and VLU / Pressure ulcers of BOTH lower extremities. She is an established patient of wound care center at [facility] in [facility]. She was admitted to [facility], ICU Room 120-A for hemodynamic monitoring and symptomatic management of SIRS, Urosepsis. I reviewed details pertaining to this hospitalization and the treatment, she has had thus far. I EXAMINED HER WOUNDS WITH WOUND CRE NURSE. PFSH PFSH All Active Problems Depression with anxiety (Acute) Diabetic neuropathy (Acute) COPD (chronic obstructive pulmonary disease) (Acute) ZAID on CPAP (Acute) Essential (primary) hypertension (Acute) Chronic kidney disease, stage 4 (severe) (Acute) T2DM (type 2 diabetes mellitus) (Acute) Feared condition not demonstrated (Acute) Septic shock (Acute) Severe sepsis (Acute) UTI (urinary tract infection) (Acute) Social History additional history: Past medical history includes chronic kidney disease stage IIIb diabetes chronic anemia morbid obesity poor functional status deconditioning debility she has been wheelchair-bound for years. Depression anxiety hypertension Social history patient denies tobacco or alcohol she is bedbound wheelchair- bound and lives in a nursing facility MEDS/ALLERGIES Home Medications and Allergies Home Medications Medication Instructions Recorded Confirmed Type amlodipine 5 mg PO QDAY 07/20/20 09/07/20 History aspirin 81 mg PO QDAY 07/20/20 09/07/20 History bisacodyl [Dulcolax (bisacodyl)] 10 mg UT QDAY PRN 07/20/20 09/07/20 History calcium carbonate [Tums] 1,000 mg PO Q4HP PRN 07/20/20 09/07/20 History cholecalciferol (vitamin D3) 1,000 unit PO BID 07/20/20 09/07/20 History cyclobenzaprine 5 mg PO Q8HP PRN 07/20/20 09/07/20 History duloxetine [Cymbalta] 60 mg PO QDAY 07/20/20 09/07/20 History empagliflozin [Jardiance] 10 mg PO QAM 07/20/20 09/07/20 History ferrous sulfate 325 mg PO QDAY 07/20/20 09/07/20 History fluticasone propionate [Flovent 1 puff INHALATION BID 07/20/20 09/07/20 History HFA] furosemide [Lasix] 40 mg PO QDAY 07/20/20 09/07/20 History insulin glargine 15 unit SUBCUT DAILY 07/20/20 09/07/20 History ipratropium-albuterol [Combivent 1 puff INHALATION Q4H PRN 07/20/20 09/07/20 History Respimat] lisinopril 2.5 mg PO QDAY 07/20/20 09/07/20 History magnesium hydroxide [Milk of 30 ml PO PRN PRN 07/20/20 09/07/20 History Magnesia] melatonin 10 mg PO HS 07/20/20 09/07/20 History oxycodone 10 mg PO Q4HP PRN 07/20/20 09/07/20 History polyethylene glycol 3350 17 g PO QDAY 07/20/20 09/07/20 History pregabalin 50 mg PO TID 07/20/20 09/07/20 History quetiapine [Seroquel] 100 mg PO DAILY 07/20/20 09/07/20 History ropinirole 4 mg PO DAILY 07/20/20 09/07/20 History sennosides-docusate sodium [Senna 2 tab-cap PO BID 07/20/20 09/07/20 History Plus] sodium phosphates [Fleet Enema] 118 ml UT ONCE PRN 07/20/20 09/07/20 History acetaminophen 1,000 mg PO Q6H PRN 09/07/20 09/07/20 History Allergies Allergy/AdvReac Type Severity Reaction Status Date / Time Penicillins Allergy Severe Anaphylaxis Verified 09/07/20 22:04 doxycycline Allergy Unknown Verified 09/07/20 17:55 morphine Allergy Unknown Verified 09/07/20 17:55 sulfamethoxazole Allergy Unknown Verified 09/07/20 17:55 [From Bactrim] trimethoprim [From Bactrim] Allergy Unknown Verified 09/07/20 17:55 Physical Examination Vital Signs Vital signs: Temp Pulse Resp BP Pulse Ox 96.8 F L 67 13 122/60 93 09/08/20 02:01 09/08/20 11:34 09/08/20 13:23 09/08/20 13:23 09/08/20 11:34 General physical appearance General physical exam: other (super morbidly obese. VSS. Loose dentures in mouth. ) Eyes Eye exam: PERRL and normal ocular movement ENT ENT exam: normal pinna, normal nares, normal mucosa and other (LOOSE DENTURES. Have recommended to Regla NAIR to remove her dentures and place them in safe, identifiable and accessible site. ) Head Head exam IM: Present atraumatic and normocephalic Neck Neck exam: no masses and no venous distension Cardiovascular Cardiovascular exam IM: Present normal rate and rhythm Respiratory Respiratory exam: normal respiratory effort Abdomen Abdomen: Present soft and bowel sounds Integumentary Integumentary: Present other (Massive lymphedema of both legs. CHRONIC Stage 3 open wounds RIGHT anterior mid leg, LEFT posterior plantar and LEFT posterior calf / leg.) Musculoskeletal Musculoskeletal: Present other (Bed confined. LEFT inverseion. ) Psychiatric Psychiatric: Present other (NOT checked. Patient resting. ) Results Labs Result diagrams: 09/12/20 04:44 09/12/20 04:44 Labs: Abnormal lab results 09/07/20 09/07/20 09/07/20 Range/Units 17:59 17:59 17:59 RBC 3.36 L (4.00-5.20) M/mcL Hgb 10.4 L (12.0-15.0) g/dL Hct 33.4 L (36.0-48.0) % MCV (80.0-100.0) fL MCHC (31.0-36.0) g/dL RDW 18.6 H (11.5-14.5) % MPV 12.2 H (7.4-10.4) fL RBC Morphology (Normal) Hypochromasia (None Seen) VBG Lactic Acid (0.5-2.0) mmol/L Potassium 5.2 H (3.3-5.1) mmol/L BUN 43 H (6-20) mg/dL Creatinine 2.2 H (0.6-1.1) mg/dL Glucose 185 H (70-105) mg/dL Phosphorus (2.5-4.5) mg/dL Total Creatine Kinase 206 H (24-170) U/L NT-Pro-B Natriuret Pep 166.1 H (<125.0) pg/mL Albumin/Globulin Ratio (1.0-2.3) Triglycerides (<150) mg/dL Procalcitonin 0.15 H (<0.10) ng/mL Urine Appearance (Clear) Urine Protein (Negative) mg/dL Urine Glucose (UA) (Negative) mg/dL Urine Occult Blood (Negative) mg/dL Urine Nitrate (Negative) Ur Leukocyte Esterase (Negative) /ug Urine RBC (0-1) /hpf Urine WBC (0-4) /hpf Urine Yeast (Budding) (None) /hpf 09/07/20 09/07/20 09/07/20 Range/Units 17:59 18:13 18:45 RBC (4.00-5.20) M/mcL Hgb (12.0-15.0) g/dL Hct (36.0-48.0) % MCV (80.0-100.0) fL MCHC (31.0-36.0) g/dL RDW (11.5-14.5) % MPV (7.4-10.4) fL RBC Morphology Abnormal A (Normal) Hypochromasia 1+ A (None Seen) VBG Lactic Acid 2.6 H (0.5-2.0) mmol/L Potassium (3.3-5.1) mmol/L BUN (6-20) mg/dL Creatinine (0.6-1.1) mg/dL Glucose (70-105) mg/dL Phosphorus (2.5-4.5) mg/dL Total Creatine Kinase (24-170) U/L NT-Pro-B Natriuret Pep (<125.0) pg/mL Albumin/Globulin Ratio (1.0-2.3) Triglycerides (<150) mg/dL Procalcitonin (<0.10) ng/mL Urine Appearance Turbid A (Clear) Urine Protein 100 A (Negative) mg/dL Urine Glucose (UA) 50 A (Negative) mg/dL Urine Occult Blood >=1.0 A (Negative) mg/dL Urine Nitrate Pos A (Negative) Ur Leukocyte Esterase 250 A (Negative) /ug Urine RBC > 182 H (0-1) /hpf Urine WBC > 182 H (0-4) /hpf Urine Yeast (Budding) Many A (None) /hpf 09/08/20 09/08/20 Range/Units 05:44 05:44 RBC 3.26 L (4.00-5.20) M/mcL Hgb 10.1 L (12.0-15.0) g/dL Hct 32.9 L (36.0-48.0) % MCV 100.9 H (80.0-100.0) fL MCHC 30.7 L (31.0-36.0) g/dL RDW 18.6 H (11.5-14.5) % MPV 12.0 H (7.4-10.4) fL RBC Morphology (Normal) Hypochromasia (None Seen) VBG Lactic Acid (0.5-2.0) mmol/L Potassium (3.3-5.1) mmol/L BUN 41 H (6-20) mg/dL Creatinine 2.1 H (0.6-1.1) mg/dL Glucose (70-105) mg/dL Phosphorus 4.9 H (2.5-4.5) mg/dL Total Creatine Kinase (24-170) U/L NT-Pro-B Natriuret Pep (<125.0) pg/mL Albumin/Globulin Ratio 0.9 L (1.0-2.3) Triglycerides 185 H (<150) mg/dL Procalcitonin (<0.10) ng/mL Urine Appearance (Clear) Urine Protein (Negative) mg/dL Urine Glucose (UA) (Negative) mg/dL Urine Occult Blood (Negative) mg/dL Urine Nitrate (Negative) Ur Leukocyte Esterase (Negative) /ug Urine RBC (0-1) /hpf Urine WBC (0-4) /hpf Urine Yeast (Budding) (None) /hpf Diabetes panel 09/07/20 09/08/20 Range/Units 17:59 05:44 Sodium 135 139 (133-145) mmol/L Potassium 5.2 H 4.8 (3.3-5.1) mmol/L Chloride 99 103 (96-108) mmol/L Carbon Dioxide 26 28 (22-30) mmol/L BUN 43 H 41 H (6-20) mg/dL Creatinine 2.2 H 2.1 H (0.6-1.1) mg/dL Glucose 185 H 91 (70-105) mg/dL Calcium 9.6 8.9 (8.6-10.4) mg/dL AST 14 15 (<32) U/L ALT 10 9 (<40) U/L Alkaline Phosphatase 74 71 (39-117) U/L Total Protein 7.3 7.0 (5.9-8.4) gm/dL Albumin 3.7 3.4 (3.2-5.2) gm/dL Triglycerides 185 H (<150) mg/dL Calcium panel 09/07/20 09/08/20 Range/Units 17:59 05:44 Calcium 9.6 8.9 (8.6-10.4) mg/dL Phosphorus 4.9 H (2.5-4.5) mg/dL Albumin 3.7 3.4 (3.2-5.2) gm/dL Pituitary panel 09/07/20 09/08/20 Range/Units 17:59 05:44 Sodium 135 139 (133-145) mmol/L Potassium 5.2 H 4.8 (3.3-5.1) mmol/L Chloride 99 103 (96-108) mmol/L Carbon Dioxide 26 28 (22-30) mmol/L BUN 43 H 41 H (6-20) mg/dL Creatinine 2.2 H 2.1 H (0.6-1.1) mg/dL Glucose 185 H 91 (70-105) mg/dL Calcium 9.6 8.9 (8.6-10.4) mg/dL Adrenal panel 09/07/20 09/08/20 Range/Units 17:59 05:44 Sodium 135 139 (133-145) mmol/L Potassium 5.2 H 4.8 (3.3-5.1) mmol/L Chloride 99 103 (96-108) mmol/L Carbon Dioxide 26 28 (22-30) mmol/L BUN 43 H 41 H (6-20) mg/dL Creatinine 2.2 H 2.1 H (0.6-1.1) mg/dL Glucose 185 H 91 (70-105) mg/dL Calcium 9.6 8.9 (8.6-10.4) mg/dL Total Bilirubin 0.2 0.2 (0.1-1.0) mg/dL AST 14 15 (<32) U/L ALT 10 9 (<40) U/L Alkaline Phosphatase 74 71 (39-117) U/L Total Protein 7.3 7.0 (5.9-8.4) gm/dL Albumin 3.7 3.4 (3.2-5.2) gm/dL All other labs normal. A/P Narrative A/P Narrative: Assessment: Stage 3 ulcer, RIGHT anterior mid leg, VLU vs PU. Stage 3 ulcer LEFT foot posterior plantar PU / Neuropathy Stage 3 ulcer LEFT posterior calf. PU See nurses note for details. Chronic ulcers. For palliative skin and wound care as ordered. Patient is responding well to aggressive medical management and IV antibiotics for UROSEPSIS / UTI Plan: Wound care as ordered. Patient can f/u at wound care center at [facility] after discharge. I will see her as necessary while she is still at [place], [place] Time Spent With Patient Time: Total time spent is greater than 50% in coordination of care (as documented) at patient's floor/unit and/or counseling patient: Total time spent with greater than 50% in coordination of care (as documented) at patient's floor/unit and/or counseling patient:: 15 - 24 minutes
[2020-09-08] MEDS ORDERED: MELATONIN 3 MG TABLET PO SCH (21:00)
[2020-09-09] MEDS: 0.9 % SODIUM CHLORIDE 10 ML SYRINGE IV SCH ×3 (05:11→20:13)
[2020-09-09] MEDS: 0.9 % SODIUM CHLORIDE 1,000 ML IV SCH (05:17)
[2020-09-09] MEDS: FLUTICASONE HFA 110MCG INHALER INH SCH ×2 (08:06→20:05)
[2020-09-09] MEDS: INSULIN LISPRO 1 UNIT/0.01 ML UNIT SQ SCH ×4 (08:06→20:08)
[2020-09-09] MEDS: SENNOSIDES/DOCUSATE SODIUM 1 TAB TABLET PO SCH ×2 (08:07→20:13)
[2020-09-09] MEDS: CEFEPIME 2 GM VIAL IV SCH (08:30)
[2020-09-09] MEDS: INSULIN GLARGINE, HUMAN 1 UNIT/0.01 ML SQ SCH (08:38)
[2020-09-09] MEDS: POLYETHYLENE GLYCOL 3350 17 GM PACKET PO SCH (08:39)
[2020-09-09] MEDS: ENOXAPARIN 30 MG/0.3 ML SYRINGE SQ SCH (08:39)
[2020-09-09] MEDS ORDERED: LEVOFLOXACIN 750 MG TABLET PO SCH (09:00)
[2020-09-09 09:04] LABS: ALT/SGPT 10 U/L (<40); AST/SGOT 14 U/L (<32); Albumin 3.5 gm/dL (3.2-5.2); Albumin/Globulin Ratio 1.2 (1.0-2.3); Alkaline Phosphatase 70 U/L (39-117); Bilirubin,Total 0.2 mg/dL (0.1-1.0); Blood Urea Nitrogen 40 mg/dL (6-20); Calcium 8.6 mg/dL (8.6-10.4); Carbon Dioxide 25 mmol/L (22-30); Chloride 106 mmol/L (96-108); Glomerular Filtration Rate 27; Glucose 82 mg/dL (70-105)
[2020-09-09 09:07] LABS: ALT/SGPT 9 U/L (<40); AST/SGOT 14 U/L (<32); Albumin 3.4 gm/dL (3.2-5.2); Albumin/Globulin Ratio 1.1 (1.0-2.3); Alkaline Phosphatase 69 U/L (39-117); Bilirubin,Direct < 0.2 mg/dL (0-0.3); Bilirubin,Total 0.2 mg/dL (0.1-1.0); Blood Urea Nitrogen 40 mg/dL (6-20); Calcium 8.7 mg/dL (8.6-10.4); Carbon Dioxide 26 mmol/L (22-30); Chloride 105 mmol/L (96-108); Globulin 3.1 gm/dL (2.2-3.7); Glomerular Filtration Rate 25; Glucose 83 mg/dL (70-105); Lactate Dehydrogenase 190 U/L (135-225); Phosphorous 4.7 mg/dL (2.5-4.5); Triglycerides 184 mg/dL (<150); Uric Acid 6.6 mg/dL (2.5-8.0)
[2020-09-09 09:11] LABS: Basophils % (Auto) 1.3 % (0.0-2.0); Eosinophils # (Auto) 0.51 K/mcL (0.00-0.70); Eosinophils % (Auto) 6.8 % (0.0-7.0); Hematocrit 31.4 % (36.0-48.0); Hemoglobin 9.7 g/dL (12.0-15.0); Lymphocytes # (Auto) 1.98 K/mcL (1.50-4.80); Lymphocytes % (Auto) 26.5 % (15.0-49.0); Mean Corpuscular HGB Conc 30.9 g/dL (31.0-36.0); Monocytes # (Auto) 0.48 K/mcL (0.10-0.90); Monocytes % (Auto) 6.4 % (1.0-12.0); Platelet Count 232 K/mcL (140-440); RBC 3.05 M/mcL (4.00-5.20); Red Cell Distribution Width 18.3 % (11.5-14.5); WBC 7.5 K/mcL (4.5-11.0)
[2020-09-09] MEDS: DULoxetine 30 MG CAPSULE PO SCH (10:38)
[2020-09-09] MEDS: ASPIRIN 81 MG TAB.CHEW PO SCH (10:38)
[2020-09-09] MEDS: rOPINIRole 1 MG TABLET PO SCH (10:39)
[2020-09-09] MEDS: PREGABALIN 25 MG CAPSULE PO SCH ×3 (10:39→20:04)
[2020-09-09] MEDS: QUEtiapine 100 MG TABLET PO SCH (10:40)
--- NOTE | 2020-09-09 11:49 | Internal Med Progress Note ---
SUBJECTIVE Subjective Patient information: Note initiated : 09/09/20 at 11:35 am Service Date, if different from initiated Date: [] Patient: Dawn Cabrera a 60 y/o F admitted on 09/07/20 for low blood pressure. Chief Complaint: [UTI with sepsis] History of present illness: Ms. Cabrera is a 60 year old F Presents to the ED from the nursing facility for hypotension, 60/40, and weakness. She did fall but did not hit her head or lose consciousness. She has been complaining of lightheadedness and dizziness. ED had systolics in the 70s. She was given IV normal same bolus with improvement. Creatinine appear to be above baseline. Mild increase in lactate. She is wheelchair-bound and usually is able to transfer from bed to wheelchair. She has been weaker lately and unable to do so. She does have a chronic Thomas. She also has chronic wounds. She denies chest pain or shortness of breath. Urinalysis consistent with infection. 09/08 No overnight event or new complaints. Vital signs stable. 09/09: Afebrile overnight. Patient took off CPAP mask at time, requiring up to 6L/min supplemental oxygen instead. Urine culture grew E coli. c/o general body weakness and decreased appetite. Denies fever or chills. Denies dysuria. Denies leg pain. Constitutional Vitals: Vital Signs Temp Pulse Resp BP Pulse Ox 36.4 C 61 13 97/49 96 09/09/20 08:00 09/09/20 06:00 09/09/20 10:03 09/09/20 10:03 09/09/20 10:03 Period Temp Pulse Resp BP Sys/Nava Pulse Ox Last 24 Hr 35.8 C-36.6 C 61-72 8-20 83-125/49-95 86-100 Intake and Output 09/08/20 09/09/20 09/09/20 21:59 05:59 13:59 Intake Total 1000 1320 580 Output Total 370 590 Balance 630 730 580 Weight 175.285 kg Intake & Output: Intake & Output 09/08/20 09/09/20 09/09/20 21:59 05:59 13:59 Intake Total 1000 1320 580 Output Total 370 590 Balance 630 730 580 Weight 175.285 kg Intake: IV 1000 1000 Sodium Chloride 0.9% 1,000 ml @ 1000 1000 100 mls/hr IV .Q10H [facility] Rx#: [id number] Oral 320 580 Output: Urine Catheter Amount 370 590 Other: Meal Breakfast Percent of Meal Consumed 100% Feeding Ability Assist with Tray Set Up Urine Appearance Clear Clear Reinserted Thomas Clear Urine Color Bright Yellow Bright Yellow Reinserted Thomas Bright Yellow General appearance: cooperative and no acute distress Head Head exam: Present atraumatic and normocephalic Eye Eye exam: Present EOMI and PERRL ENT ENT exam: Present mucous membranes moist, normal exam and normal external ear exam Additional comments: Nasal cannula in place. Neck Neck exam: Present normal inspection; Absent lymphadenopathy, tenderness and thyromegaly Respiratory Respiratory exam: Absent accessory muscle use, respiratory distress and wheezes Cardiovascular Cardiovascular exam: Present normal rate and rhythm; Absent JVD GI/Abdominal GI/Abdominal exam: Present normal bowel sounds and soft; Absent organomegaly and tenderness Additional comments: Obese abdomen Additional comments: Thomas catheter in place Extremities Exam Extremities exam: Present full ROM, normal capillary refill and normal inspection; Absent tenderness Neurological Exam Neurological exam: Present alert, CN II-XII intact and oriented X3; Absent motor sensory deficit Psychiatric Psychiatric exam: Present normal affect and normal mood; Absent anxious and depressed Skin Skin exam: Present dry; Absent intact Additional comments: Skin ulcers X1 in right leg and X2 in left leg, covered by wound dressings OBJ DATA Labs CBC & Chem 7: 09/09/20 06:10 09/09/20 06:10 Labs: Abnormal Lab Results 09/09/20 09/09/20 09/09/20 06:10 06:10 06:10 RBC 3.05 L Hgb 9.7 L Hct 31.4 L MCV 103.0 H MCHC 30.9 L RDW 18.3 H MPV 12.0 H RBC Morphology Hypochromasia VBG Lactic Acid Potassium BUN 40 H 40 H Creatinine 2.0 H 2.1 H Glucose Phosphorus 4.7 H Total Creatine Kinase NT-Pro-B Natriuret Pep Albumin/Globulin Ratio Triglycerides 184 H Procalcitonin Urine Appearance Urine Protein Urine Glucose (UA) Urine Occult Blood Urine Nitrate Ur Leukocyte Esterase Urine RBC Urine WBC Urine Yeast (Budding) 09/08/20 09/08/20 09/07/20 05:44 05:44 18:45 RBC 3.26 L Hgb 10.1 L Hct 32.9 L MCV 100.9 H MCHC 30.7 L RDW 18.6 H MPV 12.0 H RBC Morphology Hypochromasia VBG Lactic Acid Potassium BUN 41 H Creatinine 2.1 H Glucose Phosphorus 4.9 H Total Creatine Kinase NT-Pro-B Natriuret Pep Albumin/Globulin Ratio 0.9 L Triglycerides 185 H Procalcitonin Urine Appearance Turbid A Urine Protein 100 A Urine Glucose (UA) 50 A Urine Occult Blood >=1.0 A Urine Nitrate Pos A Ur Leukocyte Esterase 250 A Urine RBC > 182 H Urine WBC > 182 H Urine Yeast (Budding) Many A 09/07/20 09/07/20 09/07/20 18:13 17:59 17:59 RBC Hgb Hct MCV MCHC RDW MPV RBC Morphology Abnormal A Hypochromasia 1+ A VBG Lactic Acid 2.6 H Potassium BUN Creatinine Glucose Phosphorus Total Creatine Kinase NT-Pro-B Natriuret Pep Albumin/Globulin Ratio Triglycerides Procalcitonin 0.15 H Urine Appearance Urine Protein Urine Glucose (UA) Urine Occult Blood Urine Nitrate Ur Leukocyte Esterase Urine RBC Urine WBC Urine Yeast (Budding) 09/07/20 09/07/20 17:59 17:59 RBC 3.36 L Hgb 10.4 L Hct 33.4 L MCV MCHC RDW 18.6 H MPV 12.2 H RBC Morphology Hypochromasia VBG Lactic Acid Potassium 5.2 H BUN 43 H Creatinine 2.2 H Glucose 185 H Phosphorus Total Creatine Kinase 206 H NT-Pro-B Natriuret Pep 166.1 H Albumin/Globulin Ratio Triglycerides Procalcitonin Urine Appearance Urine Protein Urine Glucose (UA) Urine Occult Blood Urine Nitrate Ur Leukocyte Esterase Urine RBC Urine WBC Urine Yeast (Budding) Meds: Medications Acetaminophen (Acetaminophen 325 Mg Tablet) 650 mg PO Q6HP PRN PRN Reason: PAIN/FEVER > 101 Albuterol/Ipratropium (Ipratropium/Albuterol 3 Ml Ampul.Neb) 3 ml NEB Q4HP PRN PRN Reason: Shortness Of Breath Aspirin (Aspirin 81 Mg Tab.Chew) 81 mg PO QDAY [facility] Last Admin: 09/09/20 10:38 Dose: 81 mg Documented by: Bisacodyl (Bisacodyl 10 Mg Supp.Rect) 10 mg [place] QDAY PRN PRN Reason: Constipation Calcium Carbonate/Glycine (Calcium Carbonate 500 Mg Tab.Chew) 1,000 mg PO Q4HP PRN PRN Reason: Dyspepsia Cyclobenzaprine HCl (Cyclobenzaprine 10 Mg Tablet) 5 mg PO Q8HP PRN PRN Reason: Spasms Dextrose (Dextrose 50% 50 Ml Vial) 0 ml IV UD PRN PRN Reason: Hypoglycemia Diagnostic Test (Pha) (Accu-Chek 1 Each Strip) 1 each FS [facility] Last Admin: 09/09/20 08:05 Dose: 1 each Documented by: Duloxetine HCl (Duloxetine 30 Mg Capsule) 60 mg PO DAILY [facility] Last Admin: 09/09/20 10:38 Dose: 60 mg Documented by: Enoxaparin Sodium (Enoxaparin 30 Mg/0.3 Ml Syringe) 30 mg SQ DAILY [facility] Last Admin: 09/09/20 08:39 Dose: 30 mg Documented by: Fluticasone Propionate (Fluticasone Hfa 110mcg Inhaler) 1 puff INH BID [facility] Last Admin: 09/09/20 08:06 Dose: Not Given Documented by: Glucose (Dextrose 31 Gm Oral.Susp) 15 gm PO PRN PRN PRN Reason: Hypoglycemia Potassium Chloride 40 meq/ (Dextrose) 520 mls @ 130 mls/hr IV UD PRN PRN Reason: Potassium < 3 Magnesium Sulfate (Magnesium Sulfate) 2 gm in 50 mls @ 50 mls/hr IV UD PRN PRN Reason: Magnesium </= 1.6 Insulin Glargine (Insulin Glargine, Human 1 Unit/0.01 Ml) 10 unit SQ DAILY [facility] Insulin Human Lispro (Insulin Lispro 1 Unit/0.01 Ml Unit) 0 unit SQ [facility]; Protocol Last Admin: 09/09/20 08:06 Dose: Not Given Documented by: Levofloxacin (Levofloxacin 750 Mg Tablet) 750 mg PO DAILY [facility] Last Admin: 09/09/20 10:42 Dose: 750 mg Documented by: Melatonin (Melatonin 3 Mg Tablet) 9 mg PO [facility] Last Admin: 09/08/20 20:50 Dose: 9 mg Documented by: Ondansetron HCl (Ondansetron 4 Mg/2 Ml Vial) 4 mg IV Q4HP PRN PRN Reason: Nausea And Vomiting Oxycodone HCl (Oxycodone Hcl 5 Mg Tablet) 10 mg PO Q4HP PRN PRN Reason: Pain Last Admin: 09/08/20 10:40 Dose: 10 mg Documented by: Polyethylene Glycol (Polyethylene Glycol 3350 17 Gm Packet) 17 gm PO QDAY [facility] Last Admin: 09/09/20 08:39 Dose: Not Given Documented by: Potassium Chloride (Potassium Chloride 20 Meq Tablet) 40 meq PO UD PRN PRN Reason: Potssium is 3-3.5 Potassium Chloride (Potassium Chloride 20 Meq Tablet) 40 meq PO UD PRN PRN Reason: Potassium < 3 Pregabalin (Pregabalin 25 Mg Capsule) 50 mg PO TID [facility] Last Admin: 09/09/20 10:39 Dose: 50 mg Documented by: Quetiapine Fumarate (Quetiapine 100 Mg Tablet) 100 mg PO DAILY [facility] Last Admin: 09/09/20 10:40 Dose: 100 mg Documented by: Ropinirole HCl (Ropinirole 1 Mg Tablet) 4 mg PO DAILY [facility] Last Admin: 09/09/20 10:39 Dose: 4 mg Documented by: Senna (Sennosides 1 Tablet) 2 tab PO DAILYP PRN PRN Reason: Constipation Senna/Docusate Sodium (Sennosides/Docusate Sodium 1 Tab Tablet) 2 tab PO BID [facility] Last Admin: 09/09/20 08:07 Dose: Not Given Documented by: Sodium Chloride (0.9 % Sodium Chloride 10 Ml Syringe) 10 ml IV Q8 [facility] Last Admin: 09/09/20 05:11 Dose: 10 ml Documented by: A/P Assessment and plan (1) UTI (urinary tract infection): Status: Acute Qualifiers: Hematuria presence: with hematuria Urinary tract infection type: acute cystitis Qualified Code(s): N30.01 - Acute cystitis with hematuria (2) Severe sepsis: Status: Acute (3) T2DM (type 2 diabetes mellitus): Status: Acute (4) Chronic kidney disease, stage 4 (severe): Status: Acute (5) Essential (primary) hypertension: Status: Acute (6) ZAID on CPAP: Status: Acute (7) COPD (chronic obstructive pulmonary disease): Status: Acute (8) Diabetic neuropathy: Status: Acute (9) Depression with anxiety: Status: Acute Narrative A/P Narrative: 1. UTI with sepsis: Transfer to inpatient med surg Urine culture grew E coli sensitive to some oral antibiotics such as Ciprofloxacin and Levaquin Switch antibiotics from Cefepime IV to Levaquin PO cbc w/ auto diff in the AM to trend WBC Tylenol PRN fever Hold oral antihypertensives given soft blood pressure Saline lock PT OT evaluation and treatment-->recs. SNF placement 2. T2DM with diabetic neuropathy: HgA1c Insulin Lantus 15-->10 unit daily to achieve goal blood glucose of 140-180 while in hospital Correctional scale insulin AC HS Accu Chek AC HS Hypoglycemia protocol Diabetic diet Lyrica for diabetic neuropathy 3. Essential HTN: Currently soft blood pressure in the context of sepsis with UTI Hold oral antihypertensives given soft blood pressure 4. Chronic kidney disease stage 4: Avoid nephrotoxic agents Saline lock CMP in AM to trend kidney functions daily 5. ZAID with CPAP: Continue CPAP at night while sleeping 6. h/o COPD: Supplemental oxygen via nasal cannula titrate to achieve spo2 >90% DuoNEB 3ml NEB q4hr PRN wheezing or SOB 7. Depression with anxiety: Cymbalta Seroquel GI ppx: Not currently indicated DVT ppx: Lovenox Code status: Full Prognosis: guarded Disposition: inpatient med surg Time Spent With Patient Time: Total time spent is greater than 50% in coordination of care (as documented) at patient's floor/unit and/or counseling patient: Total time spent with greater than 50% in coordination of care (as documented) a t patient's floor/unit and/or counseling patient:: 15 - 24 minutes QUALITY Stroke Symptom Onset Unknown: No VTE Deep Vein Thrombosis/Pulmonary Embolism Present on Admission: No
[2020-09-09] MEDS ORDERED: CALCIUM CARBONATE 500 MG TAB.CHEW PO PRN (13:05)
[2020-09-09] MEDS ORDERED: DEXTROSE 50% 50 ML VIAL IV PRN (13:05)
[2020-09-09] MEDS ORDERED: ACETAMINOPHEN 325 MG TABLET PO PRN (13:05)
[2020-09-09] MEDS ORDERED: IPRATROPIUM/ALBUTEROL 3 ML AMPUL.NEB NEB PRN (13:05)
[2020-09-09] MEDS ORDERED: MAGNESIUM SULFATE 2 GM/50 ML BAG IV PRN (13:05)
[2020-09-09] MEDS ORDERED: POTASSIUM CHLORIDE 40 MEQ in DEXTROSE 5% IN WATER 500 ML IV PRN (13:05)
[2020-09-09] MEDS ORDERED: POTASSIUM CHLORIDE 20 MEQ TABLET PO PRN ×2 (13:05)
[2020-09-09] MEDS ORDERED: CYCLOBENZAPRINE 10 MG TABLET PO PRN (13:05)
[2020-09-09] MEDS ORDERED: ONDANSETRON 4 MG/2 ML VIAL IV PRN (13:05)
[2020-09-09] MEDS ORDERED: BISACODYL 10 MG SUPP.RECT PR PRN (13:05)
[2020-09-09] MEDS ORDERED: SENNOSIDES 1 TABLET PO PRN (13:05)
[2020-09-09] MEDS ORDERED: DEXTROSE 31 GM ORAL.SUSP PO PRN (13:05)
[2020-09-09] MEDS: MELATONIN 3 MG TABLET PO SCH (20:04)
[2020-09-10] MEDS: 0.9 % SODIUM CHLORIDE 10 ML SYRINGE IV SCH ×3 (05:16→20:23)
[2020-09-10 07:28] LABS: Basophils # (Auto) 0.08 K/mcL (0.00-0.20); Basophils % (Auto) 1.3 % (0.0-2.0); Eosinophils # (Auto) 0.47 K/mcL (0.00-0.70); Eosinophils % (Auto) 7.4 % (0.0-7.0); Hematocrit 31.2 % (36.0-48.0); Hemoglobin 9.7 g/dL (12.0-15.0); Lymphocytes # (Auto) 1.86 K/mcL (1.50-4.80); Lymphocytes % (Auto) 29.4 % (15.0-49.0); Mean Cell Volume 103.3 fL (80.0-100.0); Mean Corpuscular HGB Conc 31.1 g/dL (31.0-36.0); Mean Platelet Volume 11.6 fL (7.4-10.4); Monocytes # (Auto) 0.52 K/mcL (0.10-0.90); Monocytes % (Auto) 8.2 % (1.0-12.0); Neutrophils % (Auto) 53.7 % (38.0-78.0); Platelet Count 214 K/mcL (140-440); RBC 3.02 M/mcL (4.00-5.20); Red Cell Distribution Width 18.5 % (11.5-14.5); WBC 6.3 K/mcL (4.5-11.0)
[2020-09-10 07:45] LABS: ALT/SGPT 9 U/L (<40); AST/SGOT 15 U/L (<32); Albumin 3.1 gm/dL (3.2-5.2); Albumin/Globulin Ratio 0.9 (1.0-2.3); Alkaline Phosphatase 68 U/L (39-117); Bilirubin,Total 0.2 mg/dL (0.1-1.0); Blood Urea Nitrogen 34 mg/dL (6-20); Calcium 8.7 mg/dL (8.6-10.4); Carbon Dioxide 23 mmol/L (22-30); Chloride 106 mmol/L (96-108); Globulin 3.6 gm/dL (2.2-3.7); Glomerular Filtration Rate 30; Glucose 104 mg/dL (70-105)
[2020-09-10] MEDS: INSULIN LISPRO 1 UNIT/0.01 ML UNIT SQ SCH ×4 (07:50→21:24)
[2020-09-10] MEDS: FLUTICASONE HFA 110MCG INHALER INH SCH ×2 (07:50→20:23)
[2020-09-10] MEDS ORDERED: INSULIN GLARGINE, HUMAN 1 UNIT/0.01 ML SQ SCH (09:00)
[2020-09-10] MEDS: ASPIRIN 81 MG TAB.CHEW PO SCH (09:32)
[2020-09-10] MEDS: ENOXAPARIN 30 MG/0.3 ML SYRINGE SQ SCH (09:32)
[2020-09-10] MEDS: LEVOFLOXACIN 750 MG TABLET PO SCH (09:32)
[2020-09-10] MEDS: INSULIN GLARGINE, HUMAN 1 UNIT/0.01 ML SQ SCH (09:32)
[2020-09-10] MEDS: POLYETHYLENE GLYCOL 3350 17 GM PACKET PO SCH (09:36)
[2020-09-10] MEDS: DULoxetine 30 MG CAPSULE PO SCH (09:47)
[2020-09-10] MEDS: PREGABALIN 25 MG CAPSULE PO SCH ×3 (09:47→20:23)
[2020-09-10] MEDS: rOPINIRole 1 MG TABLET PO SCH (09:47)
[2020-09-10] MEDS: QUEtiapine 100 MG TABLET PO SCH (09:47)
[2020-09-10] MEDS: SENNOSIDES/DOCUSATE SODIUM 1 TAB TABLET PO SCH ×2 (09:48→21:24)
--- NOTE | 2020-09-10 10:03 | Internal Med Progress Note ---
SUBJECTIVE Subjective Patient information: Note initiated : 09/10/20 at 9:59 am Service Date, if different from initiated Date: [] Patient: Dawn Cabrera a 60 y/o F admitted on 09/07/20 for low blood pressure. Chief Complaint: [UTI with sepsis ] History of present illness: Ms. Cabrera is a 60 year old F Presents to the ED from the nursing facility for hypotension, 60/40, and weakness. She did fall but did not hit her head or lose consciousness. She has been complaining of lightheadedness and dizziness. ED had systolics in the 70s. She was given IV normal same bolus with improvement. Creatinine appear to be above baseline. Mild increase in lactate. She is wheelchair-bound and usually is able to transfer from bed to wheelchair. She has been weaker lately and unable to do so. She does have a chronic Thomas. She also has chronic wounds. She denies chest pain or shortness of breath. Urinalysis consistent with infection. 09/08 No overnight event or new complaints. Vital signs stable. 09/09: Afebrile overnight. Patient took off CPAP mask at time, requiring up to 6L/min supplemental oxygen instead. Urine culture grew E coli. c/o general body weakness and decreased appetite. Denies fever or chills. Denies dysuria. Denies leg pain. 09/10: Afebrile overnight. Patient took off CPAP mask at time, requiring up to 6L/min supplemental oxygen instead. Denies fever or chills. Denies dysuria. Denies leg pain. Denies general body weakness or change in appetite. Constitutional Vitals: Vital Signs Temp Pulse Resp BP Pulse Ox 37.1 C 67 14 118/61 95 09/10/20 08:01 09/10/20 00:00 09/10/20 08:01 09/10/20 08:01 09/10/20 08:01 Period Temp Pulse Resp BP Sys/Nava Pulse Ox Last 24 Hr 36.3 C-37.2 C 66-73 9-20 94-122/49-67 90-98 Intake and Output 09/09/20 09/10/20 09/10/20 21:59 05:59 13:59 Intake Total 1480 240 660 Output Total 1445 730 Balance 35 -490 660 Weight 176.311 kg Intake & Output: Intake & Output 09/09/20 09/10/20 09/10/20 21:59 05:59 13:59 Intake Total 1480 240 660 Output Total 1445 730 Balance 35 -490 660 Weight 176.311 kg Intake: IV 1000 Sodium Chloride 0.9% 1,000 ml @ 1000 100 mls/hr IV .Q10H [facility] Rx#: [id number] Oral 480 240 660 Output: Urine Catheter Amount 1445 730 Other: Meal Dinner Breakfast Percent of Meal Consumed 100% 75% Feeding Ability Independent Independent Urine Appearance Sediment Sediment Reinserted Thomas Sediment Urine Color Bright Yellow Bright Yellow Reinserted Thomas Bright Yellow Urine Odor Normal General appearance: cooperative and no acute distress Head Head exam: Present atraumatic and normocephalic Eye Eye exam: Present EOMI and PERRL ENT ENT exam: Present mucous membranes moist, normal exam and normal external ear exam Additional comments: Nasal cannula in place. Neck Neck exam: Present normal inspection; Absent lymphadenopathy, tenderness and thyromegaly Respiratory Respiratory exam: Absent accessory muscle use, respiratory distress and wheezes Cardiovascular Cardiovascular exam: Present normal rate and rhythm; Absent JVD GI/Abdominal GI/Abdominal exam: Present normal bowel sounds and soft; Absent organomegaly and tenderness Extremities Exam Extremities exam: Present full ROM, normal capillary refill and normal inspection; Absent tenderness Neurological Exam Neurological exam: Present alert, CN II-XII intact and oriented X3; Absent motor sensory deficit Psychiatric Psychiatric exam: Present normal affect and normal mood; Absent anxious and depressed Skin Skin exam: Present dry; Absent intact Additional comments: Skin ulcers X1 in right lower leg and X2 in left lower legs, all covered with wound dressing OBJ DATA Labs CBC & Chem 7: 09/10/20 06:09 09/10/20 06:09 Labs: Abnormal Lab Results 09/10/20 09/10/20 09/09/20 06:09 06:09 06:10 RBC 3.02 L Hgb 9.7 L Hct 31.2 L MCV 103.3 H MCHC RDW 18.5 H MPV 11.6 H Eos % (Auto) 7.4 H RBC Morphology Hypochromasia VBG Lactic Acid Potassium BUN 34 H 40 H Creatinine 1.8 H 2.0 H Glucose Phosphorus Total Creatine Kinase NT-Pro-B Natriuret Pep Albumin 3.1 L Albumin/Globulin Ratio 0.9 L Triglycerides Procalcitonin Urine Appearance Urine Protein Urine Glucose (UA) Urine Occult Blood Urine Nitrate Ur Leukocyte Esterase Urine RBC Urine WBC Urine Yeast (Budding) 09/09/20 09/09/20 09/08/20 06:10 06:10 05:44 RBC 3.05 L Hgb 9.7 L Hct 31.4 L MCV 103.0 H MCHC 30.9 L RDW 18.3 H MPV 12.0 H Eos % (Auto) RBC Morphology Hypochromasia VBG Lactic Acid Potassium BUN 40 H 41 H Creatinine 2.1 H 2.1 H Glucose Phosphorus 4.7 H 4.9 H Total Creatine Kinase NT-Pro-B Natriuret Pep Albumin Albumin/Globulin Ratio 0.9 L Triglycerides 184 H 185 H Procalcitonin Urine Appearance Urine Protein Urine Glucose (UA) Urine Occult Blood Urine Nitrate Ur Leukocyte Esterase Urine RBC Urine WBC Urine Yeast (Budding) 09/08/20 09/07/20 09/07/20 05:44 18:45 18:13 RBC 3.26 L Hgb 10.1 L Hct 32.9 L MCV 100.9 H MCHC 30.7 L RDW 18.6 H MPV 12.0 H Eos % (Auto) RBC Morphology Hypochromasia VBG Lactic Acid 2.6 H Potassium BUN Creatinine Glucose Phosphorus Total Creatine Kinase NT-Pro-B Natriuret Pep Albumin Albumin/Globulin Ratio Triglycerides Procalcitonin Urine Appearance Turbid A Urine Protein 100 A Urine Glucose (UA) 50 A Urine Occult Blood >=1.0 A Urine Nitrate Pos A Ur Leukocyte Esterase 250 A Urine RBC > 182 H Urine WBC > 182 H Urine Yeast (Budding) Many A 09/07/20 09/07/20 09/07/20 17:59 17:59 17:59 RBC Hgb Hct MCV MCHC RDW MPV Eos % (Auto) RBC Morphology Abnormal A Hypochromasia 1+ A VBG Lactic Acid Potassium 5.2 H BUN 43 H Creatinine 2.2 H Glucose 185 H Phosphorus Total Creatine Kinase 206 H NT-Pro-B Natriuret Pep 166.1 H Albumin Albumin/Globulin Ratio Triglycerides Procalcitonin 0.15 H Urine Appearance Urine Protein Urine Glucose (UA) Urine Occult Blood Urine Nitrate Ur Leukocyte Esterase Urine RBC Urine WBC Urine Yeast (Budding) 09/07/20 17:59 RBC 3.36 L Hgb 10.4 L Hct 33.4 L MCV MCHC RDW 18.6 H MPV 12.2 H Eos % (Auto) RBC Morphology Hypochromasia VBG Lactic Acid Potassium BUN Creatinine Glucose Phosphorus Total Creatine Kinase NT-Pro-B Natriuret Pep Albumin Albumin/Globulin Ratio Triglycerides Procalcitonin Urine Appearance Urine Protein Urine Glucose (UA) Urine Occult Blood Urine Nitrate Ur Leukocyte Esterase Urine RBC Urine WBC Urine Yeast (Budding) Meds: Medications Acetaminophen (Acetaminophen 325 Mg Tablet) 650 mg PO Q6HP PRN PRN Reason: PAIN/FEVER > 101 Albuterol/Ipratropium (Ipratropium/Albuterol 3 Ml Ampul.Neb) 3 ml NEB Q4HP PRN PRN Reason: Shortness Of Breath Aspirin (Aspirin 81 Mg Tab.Chew) 81 mg PO QDAY [facility] Last Admin: 09/10/20 09:32 Dose: 81 mg Documented by: Bisacodyl (Bisacodyl 10 Mg Supp.Rect) 10 mg [place] QDAY PRN PRN Reason: Constipation Calcium Carbonate/Glycine (Calcium Carbonate 500 Mg Tab.Chew) 1,000 mg PO Q4HP PRN PRN Reason: Dyspepsia Cyclobenzaprine HCl (Cyclobenzaprine 10 Mg Tablet) 5 mg PO Q8HP PRN PRN Reason: Spasms Dextrose (Dextrose 50% 50 Ml Vial) 0 ml IV UD PRN PRN Reason: Hypoglycemia Diagnostic Test (Pha) (Accu-Chek 1 Each Strip) 1 each FS ACHS [facility] Last Admin: 09/10/20 07:49 Dose: 1 each Documented by: Duloxetine HCl (Duloxetine 30 Mg Capsule) 60 mg PO DAILY [facility] Last Admin: 09/10/20 09:47 Dose: 60 mg Documented by: Enoxaparin Sodium (Enoxaparin 30 Mg/0.3 Ml Syringe) 30 mg SQ DAILY [facility] Last Admin: 09/10/20 09:32 Dose: 30 mg Documented by: Fluticasone Propionate (Fluticasone Hfa 110mcg Inhaler) 1 puff INH BID [facility] Last Admin: 09/10/20 07:50 Dose: Not Given Documented by: Glucose (Dextrose 31 Gm Oral.Susp) 15 gm PO PRN PRN PRN Reason: Hypoglycemia Magnesium Sulfate (Magnesium Sulfate) 2 gm in 50 mls @ 50 mls/hr IV UD PRN PRN Reason: Magnesium </= 1.6 Potassium Chloride 40 meq/ (Dextrose) 520 mls @ 130 mls/hr IV UD PRN PRN Reason: Potassium < 3 Insulin Glargine (Insulin Glargine, Human 1 Unit/0.01 Ml) 10 unit SQ DAILY [facility] Last Admin: 09/10/20 09:32 Dose: 10 unit Documented by: Insulin Human Lispro (Insulin Lispro 1 Unit/0.01 Ml Unit) 0 unit SQ ACHS [facility]; Protocol Last Admin: 09/10/20 07:50 Dose: Not Given Documented by: Levofloxacin (Levofloxacin 750 Mg Tablet) 750 mg PO DAILY [facility] Last Admin: 09/10/20 09:32 Dose: 750 mg Documented by: Melatonin (Melatonin 3 Mg Tablet) 9 mg PO HS [facility] Last Admin: 09/09/20 20:04 Dose: 9 mg Documented by: Ondansetron HCl (Ondansetron 4 Mg/2 Ml Vial) 4 mg IV Q4HP PRN PRN Reason: Nausea And Vomiting Oxycodone HCl (Oxycodone Hcl 5 Mg Tablet) 10 mg PO Q4HP PRN PRN Reason: Pain Polyethylene Glycol (Polyethylene Glycol 3350 17 Gm Packet) 17 gm PO QDAY [facility] Last Admin: 09/10/20 09:36 Dose: Not Given Documented by: Potassium Chloride (Potassium Chloride 20 Meq Tablet) 40 meq PO UD PRN PRN Reason: Potssium is 3-3.5 Potassium Chloride (Potassium Chloride 20 Meq Tablet) 40 meq PO UD PRN PRN Reason: Potassium < 3 Pregabalin (Pregabalin 25 Mg Capsule) 50 mg PO TID [facility] Last Admin: 09/10/20 09:47 Dose: 50 mg Documented by: Quetiapine Fumarate (Quetiapine 100 Mg Tablet) 100 mg PO DAILY [facility] Last Admin: 09/10/20 09:47 Dose: 100 mg Documented by: Ropinirole HCl (Ropinirole 1 Mg Tablet) 4 mg PO DAILY [facility] Last Admin: 09/10/20 09:47 Dose: 4 mg Documented by: Senna/Docusate Sodium (Sennosides/Docusate Sodium 1 Tab Tablet) 2 tab PO BID [facility] Last Admin: 09/10/20 09:48 Dose: 2 tab Documented by: Sodium Chloride (0.9 % Sodium Chloride 10 Ml Syringe) 10 ml IV Q8 [facility] Last Admin: 09/10/20 05:16 Dose: 10 ml Documented by: A/P Assessment and plan (1) UTI (urinary tract infection): Status: Acute Qualifiers: Hematuria presence: with hematuria Urinary tract infection type: acute cystitis Qualified Code(s): N30.01 - Acute cystitis with hematuria (2) Severe sepsis: Status: Acute (3) T2DM (type 2 diabetes mellitus): Status: Acute (4) Chronic kidney disease, stage 4 (severe): Status: Acute (5) Essential (primary) hypertension: Status: Acute (6) ZAID on CPAP: Status: Acute (7) COPD (chronic obstructive pulmonary disease): Status: Acute (8) Diabetic neuropathy: Status: Acute (9) Depression with anxiety: Status: Acute Narrative A/P Narrative: 1. UTI with sepsis: Medically stable, pending discharge back to SNF Urine culture grew E coli sensitive to some oral antibiotics such as Ciprofloxacin and Levaquin Continue Levaquin PO cbc w/ auto diff in the AM to trend WBC Tylenol PRN fever Hold oral antihypertensives given soft blood pressure Saline lock PT OT evaluation and treatment-->recs. SNF placement 2. T2DM with diabetic neuropathy: HgA1c Insulin Lantus 10 unit daily to achieve goal blood glucose of 140-180 while in hospital Correctional scale insulin AC HS Accu Chek AC HS Hypoglycemia protocol Diabetic diet Lyrica for diabetic neuropathy 3. Essential HTN: Currently soft blood pressure in the context of sepsis with UTI Hold oral antihypertensives given soft blood pressure 4. Chronic kidney disease stage 4: Avoid nephrotoxic agents Saline lock CMP in AM to trend kidney functions daily 5. ZAID with CPAP: Continue CPAP at night while sleeping 6. h/o COPD: Supplemental oxygen via nasal cannula titrate to achieve spo2 >90% DuoNEB 3ml NEB q4hr PRN wheezing or SOB 7. Depression with anxiety: Cymbalta Seroquel GI ppx: Not currently indicated DVT ppx: Lovenox Code status: Full Prognosis: stable Disposition: inpatient med surg, pending discharge back to SNF Time Spent With Patient Time: Total time spent is greater than 50% in coordination of care (as documented) at patient's floor/unit and/or counseling patient: QUALITY Stroke Symptom Onset Unknown: No VTE Deep Vein Thrombosis/Pulmonary Embolism Present on Admission: No
[2020-09-10] MEDS: MELATONIN 3 MG TABLET PO SCH (20:23)
[2020-09-11] MEDS: 0.9 % SODIUM CHLORIDE 10 ML SYRINGE IV SCH ×3 (05:45→20:14)
[2020-09-11 07:30] LABS: Basophils # (Auto) 0.09 K/mcL (0.00-0.20); Basophils % (Auto) 1.3 % (0.0-2.0); Eosinophils # (Auto) 0.47 K/mcL (0.00-0.70); Hematocrit 32.1 % (36.0-48.0); Lymphocytes # (Auto) 2.17 K/mcL (1.50-4.80); Lymphocytes % (Auto) 32.4 % (15.0-49.0); Mean Cell Volume 101.3 fL (80.0-100.0); Mean Corpuscular HGB Conc 31.2 g/dL (31.0-36.0); Mean Platelet Volume 11.8 fL (7.4-10.4); Monocytes # (Auto) 0.51 K/mcL (0.10-0.90); Monocytes % (Auto) 7.6 % (1.0-12.0); Neutrophils % (Auto) 51.7 % (38.0-78.0); Platelet Count 226 K/mcL (140-440); RBC 3.17 M/mcL (4.00-5.20); Red Cell Distribution Width 18.3 % (11.5-14.5); WBC 6.7 K/mcL (4.5-11.0)
--- NOTE | 2020-09-11 07:51 | Internal Med Progress Note ---
SUBJECTIVE Subjective Patient information: Note initiated : 09/11/20 at 7:49 am Service Date, if different from initiated Date: [] Patient: Dawn Cabrera a 60 y/o F admitted on 09/07/20 for low blood pressure. Chief Complaint: [UTI with sepsis] History of present illness: Ms. Cabrera is a 60 year old F Presents to the ED from the nursing facility for hypotension, 60/40, and weakness. She did fall but did not hit her head or lose consciousness. She has been complaining of lightheadedness and dizziness. ED had systolics in the 70s. She was given IV normal same bolus with improvement. Creatinine appear to be above baseline. Mild increase in lactate. She is wheelchair-bound and usually is able to transfer from bed to wheelchair. She has been weaker lately and unable to do so. She does have a chronic Thomas. She also has chronic wounds. She denies chest pain or shortness of breath. Urinalysis consistent with infection. 09/08 No overnight event or new complaints. Vital signs stable. 09/09: Afebrile overnight. Patient took off CPAP mask at time, requiring up to 6L/min supplemental oxygen instead. Urine culture grew E coli. c/o general body weakness and decreased appetite. Denies fever or chills. Denies dysuria. Denies leg pain. 09/10: Afebrile overnight. Patient took off CPAP mask at time, requiring up to 6L/min supplemental oxygen instead. Denies fever or chills. Denies dysuria. Denies leg pain. Denies general body weakness or change in appetite. 09/11: Afebrile overnight. Patient took off CPAP mask at time, requiring up to 2L/min supplemental oxygen instead. Otherwise there was no other major overnight events. Denies fever or chills. Denies dysuria. Denies leg pain. Denies general body weakness or change in appetite. Constitutional Vitals: Vital Signs Temp Pulse Resp BP Pulse Ox 36.4 C 66 14 106/76 96 09/11/20 04:58 09/11/20 04:58 09/10/20 23:13 09/11/20 04:58 09/11/20 04:58 Period Temp Pulse Resp BP Sys/Nava Pulse Ox Last 24 Hr 36.4 C-37.2 C 65-70 14-20 93-118/54-76 92-96 Intake and Output 09/10/20 09/11/20 09/11/20 21:59 05:59 13:59 Intake Total 240 200 Output Total 1275 1500 Balance -1035 -1300 Weight 177.099 kg Intake & Output: Intake & Output 09/10/20 09/11/20 09/11/20 21:59 05:59 13:59 Intake Total 240 200 Output Total 1275 1500 Balance -1035 -1300 Weight 177.099 kg Intake: Oral 240 200 Output: Urine Catheter Amount 1275 1500 Other: Meal Dinner Percent of Meal Consumed 100% Urine Appearance Sediment Sediment Reinserted Thomas Sediment Urine Color Bright Yellow Bright Yellow Reinserted Thomas Bright Yellow Urine Odor Normal General appearance: cooperative and no acute distress Head Head exam: Present atraumatic and normocephalic Eye Eye exam: Present EOMI and PERRL ENT ENT exam: Present mucous membranes moist, normal exam and normal external ear exam Neck Neck exam: Present normal inspection; Absent lymphadenopathy, tenderness and thyromegaly Respiratory Respiratory exam: Absent accessory muscle use, respiratory distress and wheezes Cardiovascular Cardiovascular exam: Present normal rate and rhythm; Absent JVD GI/Abdominal GI/Abdominal exam: Present normal bowel sounds and soft; Absent organomegaly and tenderness Additional comments: Obese abdomen Extremities Exam Extremities exam: Present full ROM, normal capillary refill and normal inspection; Absent tenderness Neurological Exam Neurological exam: Present alert, CN II-XII intact and oriented X3; Absent motor sensory deficit Psychiatric Psychiatric exam: Present normal affect and normal mood; Absent anxious and depressed Skin Skin exam: Present dry Additional comments: Ulcer X1 in right lower leg, X2 in left lower leg, all covered in wound dressing OBJ DATA Labs CBC & Chem 7: 09/11/20 04:49 09/10/20 06:09 Labs: Abnormal Lab Results 09/11/20 09/10/20 09/10/20 04:49 06:09 06:09 RBC 3.17 L 3.02 L Hgb 10.0 L 9.7 L Hct 32.1 L 31.2 L MCV 101.3 H 103.3 H MCHC RDW 18.3 H 18.5 H MPV 11.8 H 11.6 H Eos % (Auto) 7.4 H BUN 34 H Creatinine 1.8 H Phosphorus Albumin 3.1 L Albumin/Globulin Ratio 0.9 L Triglycerides 09/09/20 09/09/20 09/09/20 06:10 06:10 06:10 RBC 3.05 L Hgb 9.7 L Hct 31.4 L MCV 103.0 H MCHC 30.9 L RDW 18.3 H MPV 12.0 H Eos % (Auto) BUN 40 H 40 H Creatinine 2.0 H 2.1 H Phosphorus 4.7 H Albumin Albumin/Globulin Ratio Triglycerides 184 H Meds: Medications Acetaminophen (Acetaminophen 325 Mg Tablet) 650 mg PO Q6HP PRN PRN Reason: PAIN/FEVER > 101 Albuterol/Ipratropium (Ipratropium/Albuterol 3 Ml Ampul.Neb) 3 ml NEB Q4HP PRN PRN Reason: Shortness Of Breath Aspirin (Aspirin 81 Mg Tab.Chew) 81 mg PO QDAY [facility] Last Admin: 09/10/20 09:32 Dose: 81 mg Documented by: Bisacodyl (Bisacodyl 10 Mg Supp.Rect) 10 mg [place] QDAY PRN PRN Reason: Constipation Calcium Carbonate/Glycine (Calcium Carbonate 500 Mg Tab.Chew) 1,000 mg PO Q4HP PRN PRN Reason: Dyspepsia Cyclobenzaprine HCl (Cyclobenzaprine 10 Mg Tablet) 5 mg PO Q8HP PRN PRN Reason: Spasms Dextrose (Dextrose 50% 50 Ml Vial) 0 ml IV UD PRN PRN Reason: Hypoglycemia Diagnostic Test (Pha) (Accu-Chek 1 Each Strip) 1 each FS ACHS [facility] Last Admin: 09/10/20 21:24 Dose: 1 each Documented by: Duloxetine HCl (Duloxetine 30 Mg Capsule) 60 mg PO DAILY [facility] Last Admin: 09/10/20 09:47 Dose: 60 mg Documented by: Enoxaparin Sodium (Enoxaparin 30 Mg/0.3 Ml Syringe) 30 mg SQ DAILY [facility] Last Admin: 09/10/20 09:32 Dose: 30 mg Documented by: Fluticasone Propionate (Fluticasone Hfa 110mcg Inhaler) 1 puff INH BID [facility] Last Admin: 09/10/20 20:23 Dose: Not Given Documented by: Glucose (Dextrose 31 Gm Oral.Susp) 15 gm PO PRN PRN PRN Reason: Hypoglycemia Magnesium Sulfate (Magnesium Sulfate) 2 gm in 50 mls @ 50 mls/hr IV UD PRN PRN Reason: Magnesium </= 1.6 Potassium Chloride 40 meq/ (Dextrose) 520 mls @ 130 mls/hr IV UD PRN PRN Reason: Potassium < 3 Insulin Glargine (Insulin Glargine, Human 1 Unit/0.01 Ml) 10 unit SQ DAILY [facility] Last Admin: 09/10/20 09:32 Dose: 10 unit Documented by: Insulin Human Lispro (Insulin Lispro 1 Unit/0.01 Ml Unit) 0 unit SQ ACHS [facility]; Protocol Last Admin: 09/10/20 21:24 Dose: Not Given Documented by: Levofloxacin (Levofloxacin 750 Mg Tablet) 750 mg PO DAILY [facility] Last Admin: 09/10/20 09:32 Dose: 750 mg Documented by: Melatonin (Melatonin 3 Mg Tablet) 9 mg PO HS [facility] Last Admin: 09/10/20 20:23 Dose: 9 mg Documented by: Ondansetron HCl (Ondansetron 4 Mg/2 Ml Vial) 4 mg IV Q4HP PRN PRN Reason: Nausea And Vomiting Oxycodone HCl (Oxycodone Hcl 5 Mg Tablet) 10 mg PO Q4HP PRN PRN Reason: Pain Polyethylene Glycol (Polyethylene Glycol 3350 17 Gm Packet) 17 gm PO QDAY [facility] Last Admin: 09/10/20 09:36 Dose: Not Given Documented by: Potassium Chloride (Potassium Chloride 20 Meq Tablet) 40 meq PO UD PRN PRN Reason: Potssium is 3-3.5 Potassium Chloride (Potassium Chloride 20 Meq Tablet) 40 meq PO UD PRN PRN Reason: Potassium < 3 Pregabalin (Pregabalin 25 Mg Capsule) 50 mg PO TID [facility] Last Admin: 09/10/20 20:23 Dose: 50 mg Documented by: Quetiapine Fumarate (Quetiapine 100 Mg Tablet) 100 mg PO DAILY [facility] Last Admin: 09/10/20 09:47 Dose: 100 mg Documented by: Ropinirole HCl (Ropinirole 1 Mg Tablet) 4 mg PO DAILY [facility] Last Admin: 09/10/20 09:47 Dose: 4 mg Documented by: Senna/Docusate Sodium (Sennosides/Docusate Sodium 1 Tab Tablet) 2 tab PO BID [facility] Last Admin: 09/10/20 21:24 Dose: Not Given Documented by: Sodium Chloride (0.9 % Sodium Chloride 10 Ml Syringe) 10 ml IV Q8 [facility] Last Admin: 09/11/20 05:45 Dose: Not Given Documented by: A/P Assessment and plan (1) UTI (urinary tract infection): Status: Acute Qualifiers: Hematuria presence: with hematuria Urinary tract infection type: acute cystitis Qualified Code(s): N30.01 - Acute cystitis with hematuria (2) Severe sepsis: Status: Acute (3) T2DM (type 2 diabetes mellitus): Status: Acute (4) Chronic kidney disease, stage 4 (severe): Status: Acute (5) Essential (primary) hypertension: Status: Acute (6) ZAID on CPAP: Status: Acute (7) COPD (chronic obstructive pulmonary disease): Status: Acute (8) Diabetic neuropathy: Status: Acute (9) Depression with anxiety: Status: Acute Narrative A/P Narrative: 1. UTI with sepsis: Medically stable, pending discharge back to SNF Urine culture grew E coli sensitive to some oral antibiotics such as Ciprofloxacin and Levaquin Continue Levaquin PO cbc w/ auto diff in the AM to trend WBC Tylenol PRN fever Hold oral antihypertensives given soft blood pressure Saline lock PT OT evaluation and treatment-->recs. SNF placement 2. T2DM with diabetic neuropathy: HgA1c Insulin Lantus 10 unit daily to achieve goal blood glucose of 140-180 while in hospital Correctional scale insulin AC HS Accu Chek AC HS Hypoglycemia protocol Diabetic diet Lyrica for diabetic neuropathy 3. Essential HTN: Currently soft blood pressure in the context of sepsis with UTI Hold oral antihypertensives given soft blood pressure 4. Chronic kidney disease stage 4: Avoid nephrotoxic agents Saline lock CMP in AM to trend kidney functions daily 5. ZAID with CPAP: Continue CPAP at night while sleeping 6. h/o COPD: Supplemental oxygen via nasal cannula titrate to achieve spo2 >90% DuoNEB 3ml NEB q4hr PRN wheezing or SOB 7. Depression with anxiety: Cymbalta Seroquel GI ppx: Not currently indicated DVT ppx: Lovenox Code status: Full Prognosis: stable Disposition: inpatient med surg, pending discharge back to SNF Time Spent With Patient Time: Total time spent is greater than 50% in coordination of care (as do cumented) at patient's floor/unit and/or counseling patient: QUALITY Stroke Symptom Onset Unknown: No VTE Deep Vein Thrombosis/Pulmonary Embolism Present on Admission: No
[2020-09-11 08:01] LABS: ALT/SGPT 10 U/L (<40); AST/SGOT 19 U/L (<32); Albumin 3.4 gm/dL (3.2-5.2); Albumin/Globulin Ratio 0.9 (1.0-2.3); Alkaline Phosphatase 65 U/L (39-117); Bilirubin,Total 0.2 mg/dL (0.1-1.0); Blood Urea Nitrogen 30 mg/dL (6-20); Calcium 8.8 mg/dL (8.6-10.4); Carbon Dioxide 22 mmol/L (22-30); Chloride 105 mmol/L (96-108); Globulin 3.6 gm/dL (2.2-3.7); Glomerular Filtration Rate 32; Glucose 78 mg/dL (70-105)
[2020-09-11] MEDS: INSULIN LISPRO 1 UNIT/0.01 ML UNIT SQ SCH ×4 (08:41→20:13)
[2020-09-11] MEDS: FLUTICASONE HFA 110MCG INHALER INH SCH ×2 (09:17→20:31)
[2020-09-11] MEDS: rOPINIRole 1 MG TABLET PO SCH (09:30)
[2020-09-11] MEDS: SENNOSIDES/DOCUSATE SODIUM 1 TAB TABLET PO SCH ×2 (09:30→20:27)
[2020-09-11] MEDS: LEVOFLOXACIN 750 MG TABLET PO SCH (09:30)
[2020-09-11] MEDS: ASPIRIN 81 MG TAB.CHEW PO SCH (09:30)
[2020-09-11] MEDS: QUEtiapine 100 MG TABLET PO SCH (09:31)
[2020-09-11] MEDS: ENOXAPARIN 30 MG/0.3 ML SYRINGE SQ SCH (09:31)
[2020-09-11] MEDS: INSULIN GLARGINE, HUMAN 1 UNIT/0.01 ML SQ SCH (09:31)
[2020-09-11] MEDS: DULoxetine 30 MG CAPSULE PO SCH (09:31)
[2020-09-11] MEDS: PREGABALIN 25 MG CAPSULE PO SCH ×3 (09:31→20:08)
[2020-09-11] MEDS: POLYETHYLENE GLYCOL 3350 17 GM PACKET PO SCH (09:32)
[2020-09-11] MEDS: oxyCODONE HCL 5 MG TABLET PO PRN (18:49)
[2020-09-11] MEDS: MELATONIN 3 MG TABLET PO SCH (20:08)
[2020-09-12] MEDS: 0.9 % SODIUM CHLORIDE 10 ML SYRINGE IV SCH ×3 (05:26→20:15)
[2020-09-12 07:14] LABS: ALT/SGPT 10 U/L (<40); AST/SGOT 14 U/L (<32); Albumin 3.2 gm/dL (3.2-5.2); Albumin/Globulin Ratio 0.8 (1.0-2.3); Alkaline Phosphatase 68 U/L (39-117); Bilirubin,Total 0.2 mg/dL (0.1-1.0); Blood Urea Nitrogen 27 mg/dL (6-20); Calcium 9.1 mg/dL (8.6-10.4); Carbon Dioxide 25 mmol/L (22-30); Chloride 103 mmol/L (96-108); Globulin 3.8 gm/dL (2.2-3.7); Glomerular Filtration Rate 38; Glucose 99 mg/dL (70-105)
[2020-09-12 07:18] LABS: Basophils # (Auto) 0.12 K/mcL (0.00-0.20); Basophils % (Auto) 1.6 % (0.0-2.0); Eosinophils # (Auto) 0.55 K/mcL (0.00-0.70); Eosinophils % (Auto) 7.4 % (0.0-7.0); Hematocrit 31.6 % (36.0-48.0); Hemoglobin 9.7 g/dL (12.0-15.0); Lymphocytes # (Auto) 2.58 K/mcL (1.50-4.80); Lymphocytes % (Auto) 34.5 % (15.0-49.0); Mean Cell Volume 103.3 fL (80.0-100.0); Mean Corpuscular HGB Conc 30.7 g/dL (31.0-36.0); Mean Platelet Volume 11.5 fL (7.4-10.4); Monocytes # (Auto) 0.65 K/mcL (0.10-0.90); Monocytes % (Auto) 8.7 % (1.0-12.0); Neutrophils % (Auto) 47.8 % (38.0-78.0); Platelet Count 232 K/mcL (140-440); RBC 3.06 M/mcL (4.00-5.20); Red Cell Distribution Width 18.2 % (11.5-14.5); WBC 7.5 K/mcL (4.5-11.0)
[2020-09-12] MEDS: INSULIN LISPRO 1 UNIT/0.01 ML UNIT SQ SCH ×4 (07:49→20:15)
[2020-09-12] MEDS: FLUTICASONE HFA 110MCG INHALER INH SCH ×2 (07:52→20:15)
[2020-09-12] MEDS: LEVOFLOXACIN 750 MG TABLET PO SCH (08:16)
[2020-09-12] MEDS: ENOXAPARIN 30 MG/0.3 ML SYRINGE SQ SCH (08:16)
[2020-09-12] MEDS: rOPINIRole 1 MG TABLET PO SCH (08:16)
[2020-09-12] MEDS: ASPIRIN 81 MG TAB.CHEW PO SCH (08:16)
[2020-09-12] MEDS: PREGABALIN 25 MG CAPSULE PO SCH ×3 (08:16→20:09)
[2020-09-12] MEDS: SENNOSIDES/DOCUSATE SODIUM 1 TAB TABLET PO SCH ×2 (08:17→20:09)
[2020-09-12] MEDS: QUEtiapine 100 MG TABLET PO SCH (08:17)
[2020-09-12] MEDS: DULoxetine 30 MG CAPSULE PO SCH (08:17)
[2020-09-12] MEDS: INSULIN GLARGINE, HUMAN 1 UNIT/0.01 ML SQ SCH (08:20)
[2020-09-12] MEDS: POLYETHYLENE GLYCOL 3350 17 GM PACKET PO SCH (08:22)
--- NOTE | 2020-09-12 09:28 | Internal Med Progress Note ---
SUBJECTIVE Subjective Patient information: Note initiated : 09/12/20 at 9:24 am Service Date, if different from initiated Date: [] Patient: Dawn Cabrera a 60 y/o F admitted on 09/07/20 for low blood pressure. Chief Complaint: [UTI with sepsis] History of present illness: Ms. Cabrera is a 60 year old F Presents to the ED from the nursing facility for hypotension, 60/40, and weakness. She did fall but did not hit her head or lose consciousness. She has been complaining of lightheadedness and dizziness. ED had systolics in the 70s. She was given IV normal same bolus with improvement. Creatinine appear to be above baseline. Mild increase in lactate. She is wheelchair-bound and usually is able to transfer from bed to wheelchair. She has been weaker lately and unable to do so. She does have a chronic Thomas. She also has chronic wounds. She denies chest pain or shortness of breath. Urinalysis consistent with infection. 09/08 No overnight event or new complaints. Vital signs stable. 09/09: Afebrile overnight. Patient took off CPAP mask at time, requiring up to 6L/min supplemental oxygen instead. Urine culture grew E coli. c/o general body weakness and decreased appetite. Denies fever or chills. Denies dysuria. Denies leg pain. 09/10: Afebrile overnight. Patient took off CPAP mask at time, requiring up to 6L/min supplemental oxygen instead. Denies fever or chills. Denies dysuria. Denies leg pain. Denies general body weakness or change in appetite. 09/11: Afebrile overnight. Patient took off CPAP mask at time, requiring up to 2L/min supplemental oxygen instead. Otherwise there was no other major overnight events. Denies fever or chills. Denies dysuria. Denies leg pain. Denies general body weakness or change in appetite. 09/12: Afebrile overnight. Medically stable and ready to be discharged back to SNF. Otherwise no other major overnight events. Constitutional Vitals: Vital Signs Temp Pulse Resp BP Pulse Ox 36.0 C L 66 14 120/67 96 09/12/20 08:41 09/12/20 04:00 09/12/20 08:41 09/12/20 08:41 09/12/20 08:41 Period Temp Pulse Resp BP Sys/Nava Pulse Ox Last 24 Hr 36.0 C-36.7 C 64-72 14-20 119-137/64-78 94-98 Intake and Output 09/11/20 09/12/20 09/12/20 21:59 05:59 13:59 Intake Total 450 100 240 Output Total 1400 425 Balance -950 -325 240 Weight 176.311 kg Intake & Output: Intake & Output 09/11/20 09/12/20 09/12/20 21:59 05:59 13:59 Intake Total 450 100 240 Output Total 1400 425 Balance -950 -325 240 Weight 176.311 kg Intake: Oral 450 100 240 Output: Urine Catheter Amount 1400 225 Void Amount 200 Other: Meal snack Percent of Meal Consumed 100% 75% Feeding Ability Assist with Tray Set Up Urine Appearance Clear Clear Urine Color Bright Yellow Bright Yellow Urine Odor Strong General appearance: cooperative and no acute distress Head Head exam: Present atraumatic and normocephalic Eye Eye exam: Present EOMI and PERRL ENT ENT exam: Present mucous membranes moist, normal exam and normal external ear exam Additional comments: Nasal cannula oxygen in place. Neck Neck exam: Present normal inspection; Absent lymphadenopathy, tenderness and thyromegaly Respiratory Respiratory exam: Absent accessory muscle use, respiratory distress and wheezes Cardiovascular Cardiovascular exam: Present normal rate and rhythm; Absent JVD GI/Abdominal GI/Abdominal exam: Present normal bowel sounds and soft; Absent organomegaly and tenderness Additional comments: obese abdomen Extremities Exam Extremities exam: Present full ROM, normal capillary refill and normal inspection; Absent tenderness Neurological Exam Neurological exam: Present alert, CN II-XII intact and oriented X3; Absent motor sensory deficit Psychiatric Psychiatric exam: Present normal affect and normal mood; Absent anxious and depressed Skin Skin exam: Present dry; Absent intact Additional comments: stage 3 decubitus ulcers, X2 in left lower leg/ankle, and X1 in right ankle OBJ DATA Labs CBC & Chem 7: 09/12/20 04:44 09/12/20 04:44 Labs: Abnormal Lab Results 09/12/20 09/12/20 09/11/20 04:44 04:44 04:49 RBC 3.06 L Hgb 9.7 L Hct 31.6 L MCV 103.3 H MCHC 30.7 L RDW 18.2 H MPV 11.5 H Eos % (Auto) 7.4 H Anion Gap 7.0 L BUN 27 H 30 H Creatinine 1.5 H 1.7 H Albumin Globulin 3.8 H Albumin/Globulin Ratio 0.8 L 0.9 L 09/11/20 09/10/20 09/10/20 04:49 06:09 06:09 RBC 3.17 L 3.02 L Hgb 10.0 L 9.7 L Hct 32.1 L 31.2 L MCV 101.3 H 103.3 H MCHC RDW 18.3 H 18.5 H MPV 11.8 H 11.6 H Eos % (Auto) 7.4 H Anion Gap BUN 34 H Creatinine 1.8 H Albumin 3.1 L Globulin Albumin/Globulin Ratio 0.9 L Meds: Medications Acetaminophen (Acetaminophen 325 Mg Tablet) 650 mg PO Q6HP PRN PRN Reason: PAIN/FEVER > 101 Albuterol/Ipratropium (Ipratropium/Albuterol 3 Ml Ampul.Neb) 3 ml NEB Q4HP PRN PRN Reason: Shortness Of Breath Aspirin (Aspirin 81 Mg Tab.Chew) 81 mg PO QDAY [facility] Last Admin: 09/12/20 08:16 Dose: 81 mg Documented by: Bisacodyl (Bisacodyl 10 Mg Supp.Rect) 10 mg [place] QDAY PRN PRN Reason: Constipation Calcium Carbonate/Glycine (Calcium Carbonate 500 Mg Tab.Chew) 1,000 mg PO Q4HP PRN PRN Reason: Dyspepsia Cyclobenzaprine HCl (Cyclobenzaprine 10 Mg Tablet) 5 mg PO Q8HP PRN PRN Reason: Spasms Dextrose (Dextrose 50% 50 Ml Vial) 0 ml IV UD PRN PRN Reason: Hypoglycemia Diagnostic Test (Pha) (Accu-Chek 1 Each Strip) 1 each FS ACHS [facility] Last Admin: 09/12/20 07:46 Dose: 1 each Documented by: Duloxetine HCl (Duloxetine 30 Mg Capsule) 60 mg PO DAILY [facility] Last Admin: 09/12/20 08:17 Dose: 60 mg Documented by: Enoxaparin Sodium (Enoxaparin 30 Mg/0.3 Ml Syringe) 30 mg SQ DAILY [facility] Last Admin: 09/12/20 08:16 Dose: 30 mg Documented by: Fluticasone Propionate (Fluticasone Hfa 110mcg Inhaler) 1 puff INH BID [facility] Last Admin: 09/12/20 07:52 Dose: Not Given Documented by: Glucose (Dextrose 31 Gm Oral.Susp) 15 gm PO PRN PRN PRN Reason: Hypoglycemia Magnesium Sulfate (Magnesium Sulfate) 2 gm in 50 mls @ 50 mls/hr IV UD PRN PRN Reason: Magnesium </= 1.6 Potassium Chloride 40 meq/ (Dextrose) 520 mls @ 130 mls/hr IV UD PRN PRN Reason: Potassium < 3 Insulin Glargine (Insulin Glargine, Human 1 Unit/0.01 Ml) 10 unit SQ DAILY [facility] Last Admin: 09/12/20 08:20 Dose: 10 unit Documented by: Insulin Human Lispro (Insulin Lispro 1 Unit/0.01 Ml Unit) 0 unit SQ ACHS [facility]; Protocol Last Admin: 09/12/20 07:49 Dose: Not Given Documented by: Levofloxacin (Levofloxacin 750 Mg Tablet) 750 mg PO DAILY [facility] Last Admin: 09/12/20 08:16 Dose: 750 mg Documented by: Melatonin (Melatonin 3 Mg Tablet) 9 mg PO HS [facility] Last Admin: 09/11/20 20:08 Dose: 9 mg Documented by: Ondansetron HCl (Ondansetron 4 Mg/2 Ml Vial) 4 mg IV Q4HP PRN PRN Reason: Nausea And Vomiting Oxycodone HCl (Oxycodone Hcl 5 Mg Tablet) 10 mg PO Q4HP PRN PRN Reason: Pain Last Admin: 09/11/20 18:49 Dose: 10 mg Documented by: Polyethylene Glycol (Polyethylene Glycol 3350 17 Gm Packet) 17 gm PO QDAY [facility] Last Admin: 09/12/20 08:22 Dose: 17 gm Documented by: Potassium Chloride (Potassium Chloride 20 Meq Tablet) 40 meq PO UD PRN PRN Reason: Potssium is 3-3.5 Potassium Chloride (Potassium Chloride 20 Meq Tablet) 40 meq PO UD PRN PRN Reason: Potassium < 3 Pregabalin (Pregabalin 25 Mg Capsule) 50 mg PO TID [facility] Last Admin: 09/12/20 08:16 Dose: 50 mg Documented by: Quetiapine Fumarate (Quetiapine 100 Mg Tablet) 100 mg PO DAILY [facility] Last Admin: 09/12/20 08:17 Dose: 100 mg Documented by: Ropinirole HCl (Ropinirole 1 Mg Tablet) 4 mg PO DAILY [facility] Last Admin: 09/12/20 08:16 Dose: 4 mg Documented by: Senna/Docusate Sodium (Sennosides/Docusate Sodium 1 Tab Tablet) 2 tab PO BID [facility] Last Admin: 09/12/20 08:17 Dose: 2 tab Documented by: Sodium Chloride (0.9 % Sodium Chloride 10 Ml Syringe) 10 ml IV Q8 [facility] Last Admin: 09/12/20 05:26 Dose: 10 ml Documented by: A/P Assessment and plan (1) UTI (urinary tract infection): Status: Acute Qualifiers: Hematuria presence: with hematuria Urinary tract infection type: acute cystitis Qualified Code(s): N30.01 - Acute cystitis with hematuria (2) Severe sepsis: Status: Acute (3) T2DM (type 2 diabetes mellitus): Status: Acute (4) Chronic kidney disease, stage 4 (severe): Status: Acute (5) Essential (primary) hypertension: Status: Acute (6) ZAID on CPAP: Status: Acute (7) COPD (chronic obstructive pulmonary disease): Status: Acute (8) Diabetic neuropathy: Status: Acute (9) Depression with anxiety: Status: Acute Narrative A/P Narrative: 1. UTI with sepsis: Medically stable, pending discharge back to [facility] Urine culture grew E coli sensitive to some oral antibiotics such as Ciprofloxacin and Levaquin Continue Levaquin PO cbc w/ auto diff in the AM to trend WBC Tylenol PRN fever Hold oral antihypertensives given soft blood pressure Saline lock PT OT evaluation and treatment-->recs. SNF placement 2. T2DM with diabetic neuropathy: HgA1c Insulin Lantus 10 unit daily to achieve goal blood glucose of 140-180 while in hospital Correctional scale insulin AC HS Accu Chek AC HS Hypoglycemia protocol Diabetic diet Lyrica for diabetic neuropathy 3. Essential HTN: Currently soft blood pressure in the context of sepsis with UTI Hold oral antihypertensives given soft blood pressure 4. Chronic kidney disease stage 4: Avoid nephrotoxic agents Saline lock CMP in AM to trend kidney functions daily 5. ZAID with CPAP: Continue CPAP at night while sleeping 6. h/o COPD: Supplemental oxygen via nasal cannula titrate to achieve spo2 >90% DuoNEB 3ml NEB q4hr PRN wheezing or SOB 7. Depression with anxiety: Cymbalta Seroquel 8. Stage 3 decubitus ulcers bilateral lower extremities: X2 in left lower leg/ankle, X1 right ankle. Came from SNF with those lesions. Dr. Garcia consulted, recs. appreciated. Continue routine wound care with inpatient GI ppx: Not currently indicated DVT ppx: Lovenox Code status: Full Prognosis: stable Disposition: inpatient med surg, pending discharge back to SNF Time Spent With Patient Time: Total time spent is greater than 50% in coordination of care (as documented) at patient's floor/unit and/or counseling patient: QUALITY Stroke Symptom Onset Unknown: No VTE Deep Vein Thrombosis/Pulmonary Embolism Present on Admission: No
--- NOTE | 2020-09-12 09:53 | Discharge Summary ---
Discharge Provider Provider Patient information: Note initiated : 09/12/20 at 9:48 am Service Date, if different from initiated Date: [] Patient: Dawn Cabrera 60 y/o F admitted on 09/07/20 for low blood pressure. Chief Complaint: [UTI with sepsis] Date of admission: 09/07/20 21:14 Discharge date: 09/12/20 Primary care physician: Johnnie Trent Consults: 09/07/20 Consult to Physician [CONS] Stat Comment: Consulting Provider: Nakul Bejarano Reason For Exam: Physician to Consult 09/08/20 09:52 Consult to Physician [CONS] Routine Comment: Consulting Provider: Martin Garcia Reason For Exam: BLE wounds Discharge Meds Discharge Medications Home Medications Combivent Respimat 1 puff INHALATION Q4H PRN 07/20/20 [History Confirmed 09/07/20 Last Taken Unknown] Fleet Enema 118 ml [place] ONCE PRN 07/20/20 [History Confirmed 09/07/20 Last Taken Unknown] Flovent HFA 1 puff INHALATION BID 07/20/20 [History Confirmed 09/07/20 Last Taken Unknown] Jardiance 10 mg PO QAM 07/20/20 [History Confirmed 09/07/20 Last Taken Unknown] Senna Plus 2 tab-cap PO BID 07/20/20 [History Confirmed 09/07/20 Last Taken Unknown] aspirin 81 mg PO QDAY 07/20/20 [History Confirmed 09/07/20 Last Taken Unknown] bisacodyl [Dulcolax (bisacodyl)] 10 mg NJ QDAY PRN 07/20/20 [History Confirmed 09/07/20 Last Taken Unknown] calcium carbonate [Tums] 1,000 mg PO Q4HP PRN 07/20/20 [History Confirmed 09/07/20 Last Taken Unknown] cholecalciferol (vitamin D3) 1,000 unit PO BID 07/20/20 [History Confirmed 09/07/20 Last Taken Unknown] cyclobenzaprine 5 mg PO Q8HP PRN 07/20/20 [History Confirmed 09/07/20 Last Taken Unknown] duloxetine [Cymbalta] 60 mg PO QDAY 07/20/20 [History Confirmed 09/07/20 Last Taken Unknown] ferrous sulfate 325 mg PO QDAY 07/20/20 [History Confirmed 09/07/20 Last Taken Unknown] furosemide [Lasix] 40 mg PO QDAY 07/20/20 [History Confirmed 09/07/20 Last Taken Unknown] insulin glargine 15 unit SUBCUT DAILY 07/20/20 [History Confirmed 09/07/20 Last Taken Unknown] magnesium hydroxide [Milk of Magnesia] 30 ml PO PRN PRN 07/20/20 [History Confirmed 09/07/20 Last Taken Unknown] melatonin 10 mg PO HS 07/20/20 [History Confirmed 09/07/20 Last Taken Unknown] oxycodone 10 mg PO Q4HP PRN 07/20/20 [History Confirmed 09/07/20 Last Taken Unknown] polyethylene glycol 3350 17 g PO QDAY 07/20/20 [History Confirmed 09/07/20 Last Taken Unknown] pregabalin 50 mg PO TID 07/20/20 [History Confirmed 09/07/20 Last Taken Unknown] quetiapine [Seroquel] 100 mg PO DAILY 07/20/20 [History Confirmed 09/07/20 Last Taken Unknown] ropinirole 4 mg PO DAILY 07/20/20 [History Confirmed 09/07/20 Last Taken Unknown] acetaminophen 1,000 mg PO Q6H PRN 09/07/20 [History Confirmed 09/07/20 Last Taken Unknown] levofloxacin 750 mg PO DAILY #5 tab 09/12/20 [Rx Last Taken Unknown] COURSE Hospital Course Hospital course: Admitted for UTI with sepsis. After blood and urine cultures collected, patient was started on Cefepime IV as well as IV fluid replacement. Urine culture later grew E coli. Antibiotics switched to PO Levaquin. By 09/12/20, patient had been afebrile for more than 24 hours, leukocytosis resolved, and reached clinical stability. As such, the decision was made to discharge her back to SNF with Rx Levaquin PO given to her. 2 week PCP follow up appointment requested. All questions were answered prior to patient being physically discharged. Discharge diagnosis: UTI sepsis Time Spent with Patient Time attestation: Total time spent providing and/or coordinating discharge services: Time spent: Less than 30 minutes EXAM Constitutional Vitals: Temp Pulse Resp BP Pulse Ox 36.0 C L 66 14 120/67 96 09/12/20 08:41 09/12/20 04:00 09/12/20 08:41 09/12/20 08:41 09/12/20 08:41 General appearance: cooperative and no acute distress Head Head exam: Present atraumatic and normocephalic Eye Eye exam: Present EOMI and PERRL ENT ENT exam: Present mucous membranes moist, normal exam and normal external ear exam Additional comments: Nasal cannula oxygen in place Neck Neck exam: Present normal inspection; Absent lymphadenopathy, tenderness and thyromegaly Respiratory Respiratory exam: Absent accessory muscle use, respiratory distress and wheezes Cardiovascular Cardiovascular exam: Present normal rate and rhythm; Absent JVD GI/Abdominal GI/Abdominal exam: Present normal bowel sounds and soft; Absent organomegaly and tenderness Additional comments: obese abdomen Extremities Exam Extremities exam: Present full ROM, normal capillary refill and normal inspection; Absent tenderness Neurological Exam Neurological exam: Present alert, CN II-XII intact and oriented X3; Absent motor sensory deficit Psychiatric Psychiatric exam: Present normal affect and normal mood; Absent anxious and depressed Skin Skin exam: Present dry; Absent intact Additional comments: stage 3 decubitus ulcers, X2 in left lower leg/ankle, and X1 in right ankle Discharge Data Data Completed and Pending Labs on day of discharge: Labs from last 24 hours 09/12/20 09/12/20 04:44 04:44 WBC 7.5 RBC 3.06 L Hgb 9.7 L Hct 31.6 L MCV 103.3 H MCH 31.7 MCHC 30.7 L RDW 18.2 H Plt Count 232 MPV 11.5 H Neut % (Auto) 47.8 Lymph % (Auto) 34.5 [place] % (Auto) 8.7 Eos % (Auto) 7.4 H Baso % (Auto) 1.6 Lymph # (Auto) 2.58 [place] # (Auto) 0.65 Eos # (Auto) 0.55 Baso # (Auto) 0.12 Absolute Neutrophils 3.58 Sodium 135 Potassium 4.6 Chloride 103 Carbon Dioxide 25 Anion Gap 7.0 L BUN 27 H Creatinine 1.5 H GFR Calculation 38 Glucose 99 Calcium 9.1 Total Bilirubin 0.2 AST 14 ALT 10 Alkaline Phosphatase 68 Total Protein 7.0 Albumin 3.2 Globulin 3.8 H Albumin/Globulin Ratio 0.8 L Preliminary micro results at discharge 09/07/20 18:19 Blood Culture - Preliminary Blood 09/07/20 18:13 Blood Culture - Preliminary Blood Discharge Plan Patient/Caregiver Discharge Instructions Activity: as per physical therapy Diet: Consistent Carbohydrate Activity Restrictions/Additional Instructions: 2 week PCP follow up appointment Prescriptions: New levofloxacin 750 mg Tablet 750 mg PO DAILY Qty: 5 RF: 0 Continued bisacodyl [Dulcolax (bisacodyl)] 10 mg Suppository 10 mg NJ QDAY PRN (Reason: Constipation) RF: 0 ferrous sulfate 325 mg (65 mg iron) Tablet 325 mg PO QDAY RF: 0 Fleet Enema 19-7 gram/118 mL Enema 118 ml NJ ONCE PRN (Reason: Constipation) RF: 0 aspirin 81 mg Tablet,Chewable 81 mg PO QDAY RF: 0 Flovent HFA 110 mcg/actuation Hfa Aerosol Inhaler 1 puff INHALATION BID RF: 0 cyclobenzaprine 5 mg Tablet 5 mg PO Q8HP PRN (Reason: Spasms) RF: 0 duloxetine [Cymbalta] 60 mg Capsule,Delayed Release(Dr/Ec) 60 mg PO QDAY RF: 0 melatonin 5 mg Tablet 10 mg PO HS RF: 0 Jardiance 10 mg Tablet 10 mg PO QAM RF: 0 Combivent Respimat 20-100 mcg/actuation Mist 1 puff INHALATION Q4H PRN (Reason: shortness of breath) RF: 0 furosemide [Lasix] 40 mg Tablet 40 mg PO QDAY RF: 0 cholecalciferol (vitamin D3) 25 mcg (1,000 unit) Capsule 1,000 unit PO BID RF: 0 magnesium hydroxide [Milk of Magnesia] 400 mg/5 mL suspension 30 ml PO PRN PRN (Reason: Constipation) RF: 0 ropinirole 4 mg tablet 4 mg PO DAILY RF: 0 oxycodone 10 mg tablet 10 mg PO Q4HP PRN (Reason: Pain) RF: 0 polyethylene glycol 3350 17 gram/dose Powder 17 g PO QDAY RF: 0 pregabalin 50 mg Capsule 50 mg PO TID RF: 0 insulin glargine 100 unit/mL Solution 15 unit SUBCUT DAILY RF: 0 Senna Plus 8.6-50 mg Capsule 2 tab-cap PO BID RF: 0 quetiapine [Seroquel] 100 mg Tablet 100 mg PO DAILY RF: 0 calcium carbonate [Tums] 300 mg (750 mg) Tablet,Chewable 1,000 mg PO Q4HP PRN (Reason: gi issues) RF: 0 acetaminophen 500 mg Tablet 1,000 mg PO Q6H PRN (Reason: Pain, Mild) RF: 0 Discontinued amlodipine 5 mg Tablet 5 mg PO QDAY RF: 0 lisinopril 2.5 mg Tablet 2.5 mg PO QDAY RF: 0 Other Ambulatory Orders: Wound Care Instructions (CONT) Location: None Selected Ordered By: Martin Garcia Follow Up Plan Follow up with: Johnnie Trent MD [Primary Care Provider] - Patient Disposition: [facility] Prognosis: Fair Rehab Potential: Good Overall status at discharge: patient is back to baseline Discharge Orders: Discharge Order (Routine); Ordered 09/12/20 Ordered By: Eduard MANJARREZ VTE Deep Vein Thrombosis/Pulmonary Embolism Present on Admission: No
[2020-09-12] MEDS: oxyCODONE HCL 5 MG TABLET PO PRN (18:17)
[2020-09-12] MEDS: MELATONIN 3 MG TABLET PO SCH (20:09)
[2020-09-13] MEDS: 0.9 % SODIUM CHLORIDE 10 ML SYRINGE IV SCH ×3 (05:03→23:13)
[2020-09-13 07:09] LABS: Basophils # (Auto) 0.12 K/mcL (0.00-0.20); Basophils % (Auto) 1.5 % (0.0-2.0); Eosinophils # (Auto) 0.61 K/mcL (0.00-0.70); Eosinophils % (Auto) 7.5 % (0.0-7.0); Hematocrit 31.4 % (36.0-48.0); Hemoglobin 9.6 g/dL (12.0-15.0); Lymphocytes # (Auto) 2.95 K/mcL (1.50-4.80); Lymphocytes % (Auto) 36.3 % (15.0-49.0); Mean Cell Volume 103.3 fL (80.0-100.0); Mean Corpuscular HGB Conc 30.6 g/dL (31.0-36.0); Mean Platelet Volume 11.6 fL (7.4-10.4); Monocytes # (Auto) 0.74 K/mcL (0.10-0.90); Monocytes % (Auto) 9.1 % (1.0-12.0); Neutrophils % (Auto) 45.6 % (38.0-78.0); Platelet Count 235 K/mcL (140-440); RBC 3.04 M/mcL (4.00-5.20); Red Cell Distribution Width 18.4 % (11.5-14.5); WBC 8.1 K/mcL (4.5-11.0)
[2020-09-13] MEDS: INSULIN LISPRO 1 UNIT/0.01 ML UNIT SQ SCH ×4 (07:11→20:20)
[2020-09-13 07:55] LABS: ALT/SGPT 9 U/L (<40); AST/SGOT 16 U/L (<32); Albumin 3.4 gm/dL (3.2-5.2); Albumin/Globulin Ratio 0.9 (1.0-2.3); Alkaline Phosphatase 63 U/L (39-117); Bilirubin,Direct < 0.2 mg/dL (0-0.3); Bilirubin,Total 0.2 mg/dL (0.1-1.0); Blood Urea Nitrogen 27 mg/dL (6-20); Calcium 9.3 mg/dL (8.6-10.4); Carbon Dioxide 24 mmol/L (22-30); Chloride 105 mmol/L (96-108); Globulin 3.7 gm/dL (2.2-3.7); Glomerular Filtration Rate 38; Glucose 88 mg/dL (70-105); Lactate Dehydrogenase 277 U/L (135-225); Phosphorous 2.7 mg/dL (2.5-4.5); Triglycerides 176 mg/dL (<150); Uric Acid 5.5 mg/dL (2.5-8.0)
[2020-09-13] MEDS: POLYETHYLENE GLYCOL 3350 17 GM PACKET PO SCH (08:23)
[2020-09-13] MEDS: ASPIRIN 81 MG TAB.CHEW PO SCH (08:24)
[2020-09-13] MEDS: ENOXAPARIN 30 MG/0.3 ML SYRINGE SQ SCH (08:24)
[2020-09-13] MEDS: LEVOFLOXACIN 750 MG TABLET PO SCH (08:24)
[2020-09-13] MEDS: FLUTICASONE HFA 110MCG INHALER INH SCH ×2 (08:24→20:21)
[2020-09-13] MEDS: rOPINIRole 1 MG TABLET PO SCH (08:35)
[2020-09-13] MEDS: DULoxetine 30 MG CAPSULE PO SCH (08:36)
[2020-09-13] MEDS: QUEtiapine 100 MG TABLET PO SCH (08:36)
[2020-09-13] MEDS: PREGABALIN 25 MG CAPSULE PO SCH ×3 (08:36→20:20)
[2020-09-13] MEDS: INSULIN GLARGINE, HUMAN 1 UNIT/0.01 ML SQ SCH (08:36)
[2020-09-13] MEDS: SENNOSIDES/DOCUSATE SODIUM 1 TAB TABLET PO SCH ×2 (08:37→20:16)
--- NOTE | 2020-09-13 10:43 | Discharge Summary ---
Discharge Provider Provider Patient information: Note initiated : 09/13/20 at 10:41 am Service Date, if different from initiated Date: [] Patient: Dawn Cabrera 60 y/o F admitted on 09/07/20 for low blood pressure. Discharge diagnosis 1. Complicated E. coli UTI with sepsis: Clinically resolved. Discharging to SNF. 2. T2DM with diabetic neuropathy: Stable 3. Essential HTN: Restart home meds 4. Chronic kidney disease stage 4: Clinically at baseline 5. ZAID with CPAP: Continue CPAP at night while sleeping 6. h/o COPD: Continue as needed bronchodilators 7. Depression with anxiety: Stable on Cymbalta/Seroquel 8. Stage 3 decubitus ulcers bilateral lower extremities: Continue frequent offloading/outpatient wound care follow-up and decubitus care Dr. Garcia consulted, recs. appreciated. Continue routine wound care with inpatient Brief hospital course Admitted for UTI with sepsis. After blood and urine cultures collected, patient was started on Cefepime IV as well as IV fluid replacement. Urine culture later grew E coli. Antibiotics switched to PO Levaquin. By 09/12/20, patient had been afebrile for more than 24 hours, leukocytosis resolved, and reached clinical stability. As such, the decision was made to discharge her back to SNF with Rx Levaquin PO given to her. 2 week PCP follow up appointment requested. All questions were answered prior to patient being physically discharged. Patient discharge was delayed due to lack of bed availability. She has been doing stable. Has for chronic indwelling Thomas's catheter. Will require follow-up with wound care as outpatient. Discharging to SNF Date of admission: 09/07/20 21:14 Discharge date: 09/14/20 Primary care physician: Johnnie Trent Consults: 09/07/20 Consult to Physician [CONS] Stat Comment: Consulting Provider: Nakul Bejarano Reason For Exam: Physician to Consult 09/08/20 09:52 Consult to Physician [CONS] Routine Comment: Consulting Provider: Martin Garcia Reason For Exam: BLE wounds Discharge Meds Discharge Medications Home Medications Combivent Respimat 1 puff INHALATION Q4H PRN 07/20/20 [History Confirmed 09/07/20 Last Taken Unknown] Fleet Enema 118 ml MD ONCE PRN 07/20/20 [History Confirmed 09/07/20 Last Taken Unknown] Flovent HFA 1 puff INHALATION BID 07/20/20 [History Confirmed 09/07/20 Last Taken Unknown] Jardiance 10 mg PO QAM 07/20/20 [History Confirmed 09/07/20 Last Taken Unknown] Senna Plus 2 tab-cap PO BID 07/20/20 [History Confirmed 09/07/20 Last Taken Unknown] aspirin 81 mg PO QDAY 07/20/20 [History Confirmed 09/07/20 Last Taken Unknown] bisacodyl [Dulcolax (bisacodyl)] 10 mg MD QDAY PRN 07/20/20 [History Confirmed 09/07/20 Last Taken Unknown] calcium carbonate [Tums] 1,000 mg PO Q4HP PRN 07/20/20 [History Confirmed 09/07 Last Taken Unknown] cholecalciferol (vitamin D3) 1,000 unit PO BID 07/20/20 [History Confirmed 09/07/20 Last Taken Unknown] cyclobenzaprine 5 mg PO Q8HP PRN 07/20/20 [History Confirmed 09/07/20 Last Taken Unknown] duloxetine [Cymbalta] 60 mg PO QDAY 07/20/20 [History Confirmed 09/07/20 Last Taken Unknown] ferrous sulfate 325 mg PO QDAY 07/20/20 [History Confirmed 09/07/20 Last Taken Unknown] furosemide [Lasix] 40 mg PO QDAY 07/20/20 [History Confirmed 09/07/20 Last Taken Unknown] insulin glargine 15 unit SUBCUT DAILY 07/20/20 [History Confirmed 09/07/20 Last Taken Unknown] magnesium hydroxide [Milk of Magnesia] 30 ml PO PRN PRN 07/20/20 [History Confirmed 09/07/20 Last Taken Unknown] melatonin 10 mg PO HS 07/20/20 [History Confirmed 09/07/20 Last Taken Unknown] oxycodone 10 mg PO Q4HP PRN 07/20/20 [History Confirmed 09/07/20 Last Taken Unknown] polyethylene glycol 3350 17 g PO QDAY 07/20/20 [History Confirmed 09/07/20 Last Taken Unknown] pregabalin 50 mg PO TID 07/20/20 [History Confirmed 09/07/20 Last Taken Unknown] quetiapine [Seroquel] 100 mg PO DAILY 07/20/20 [History Confirmed 09/07/20 Last Taken Unknown] ropinirole 4 mg PO DAILY 07/20/20 [History Confirmed 09/07/20 Last Taken Unknown] acetaminophen 1,000 mg PO Q6H PRN 09/07/20 [History Confirmed 09/07/20 Last Taken Unknown] levofloxacin 750 mg PO DAILY #5 tab 09/12/20 [Rx Last Taken Unknown] oxycodone 10 mg PO Q4H PRN #10 tab 09/12/20 [Rx Last Taken Unknown] pregabalin 50 mg PO TID #14 cap 09/12/20 [Rx Last Taken Unknown] COURSE Hospital Course Hospital course: . Discharge diagnosis: Complicated E. coli UTI with sepsis Time Spent with Patient Time attestation: Total time spent providing and/or coordinating discharge services: EXAM Constitutional Vitals: Temp Pulse Resp BP Pulse Ox 96.9 F L 58 L 18 114/68 91 09/13/20 07:31 09/13/20 07:31 09/13/20 04:00 09/13/20 07:31 09/13/20 07:31 Discharge Data Data Completed and Pending Labs on day of discharge: Labs from last 24 hours 09/13/20 09/13/20 05:05 05:05 WBC 8.1 RBC 3.04 L Hgb 9.6 L Hct 31.4 L MCV 103.3 H MCH 31.6 MCHC 30.6 L RDW 18.4 H Plt Count 235 MPV 11.6 H Neut % (Auto) 45.6 Lymph % (Auto) 36.3 [place] % (Auto) 9.1 Eos % (Auto) 7.5 H Baso % (Auto) 1.5 Lymph # (Auto) 2.95 [place] # (Auto) 0.74 Eos # (Auto) 0.61 Baso # (Auto) 0.12 Absolute Neutrophils 3.71 Sodium 137 Potassium 4.9 Chloride 105 Carbon Dioxide 24 Anion Gap 8.0 BUN 27 H Creatinine 1.5 H GFR Calculation 38 Glucose 88 Uric Acid 5.5 Calcium 9.3 Phosphorus 2.7 Magnesium 2.4 Total Bilirubin 0.2 Direct Bilirubin < 0.2 GGT 10 AST 16 ALT 9 Alkaline Phosphatase 63 Lactate Dehydrogenase 277 H Total Protein 7.1 Albumin 3.4 Globulin 3.7 Albumin/Globulin Ratio 0.9 L Triglycerides 176 H Discharge Plan Patient/Caregiver Discharge Instructions Activity: as per physical therapy Diet: Consistent Carbohydrate Instructions: Urinary Tract Infection in Women (DC), Sepsis (GEN) Activity Restrictions/Additional Instructions: Activity as per physical therapy. Consistent diet as tolerated. Follow-up wound care for decubitus management Dr. Garcia. Continue frequent offloading 2 week PCP follow up appointment. Call your physician for sustained fever greater than 100.5, pain with urination, or any questions/concerns. This discharge packet is provided to you to help keep you informed about your care. We want to ensure you get everything you need when you go home. You will also be receiving a call from us in a few days to follow up with you and see how you are doing since your discharge. This gives us a chance to listen to any concerns you maybe experiencing since you were discharged or any additional needs you may have, as well as providing us feedback on your care experience. We strive to always provide excellent care and thank you for your feedback and for choosing [facility]. Prescriptions: New levofloxacin 750 mg Tablet 750 mg PO DAILY Qty: 5 RF: 0 oxycodone 10 mg tablet 10 mg PO Q4H PRN (Reason: pain) Qty: 10 RF: 0 pregabalin 50 mg capsule 50 mg PO TID Qty: 14 RF: 0 Continued bisacodyl [Dulcolax (bisacodyl)] 10 mg Suppository 10 mg MD QDAY PRN (Reason: Constipation) RF: 0 ferrous sulfate 325 mg (65 mg iron) Tablet 325 mg PO QDAY RF: 0 Fleet Enema 19-7 gram/118 mL Enema 118 ml MD ONCE PRN (Reason: Constipation) RF: 0 aspirin 81 mg Tablet,Chewable 81 mg PO QDAY RF: 0 Flovent HFA 110 mcg/actuation Hfa Aerosol Inhaler 1 puff INHALATION BID RF: 0 cyclobenzaprine 5 mg Tablet 5 mg PO Q8HP PRN (Reason: Spasms) RF: 0 duloxetine [Cymbalta] 60 mg Capsule,Delayed Release(Dr/Ec) 60 mg PO QDAY RF: 0 melatonin 5 mg Tablet 10 mg PO HS RF: 0 Jardiance 10 mg Tablet 10 mg PO QAM RF: 0 Combivent Respimat 20-100 mcg/actuation Mist 1 puff INHALATION Q4H PRN (Reason: shortness of breath) RF: 0 furosemide [Lasix] 40 mg Tablet 40 mg PO QDAY RF: 0 cholecalciferol (vitamin D3) 25 mcg (1,000 unit) Capsule 1,000 unit PO BID RF: 0 magnesium hydroxide [Milk of Magnesia] 400 mg/5 mL suspension 30 ml PO PRN PRN (Reason: Constipation) RF: 0 ropinirole 4 mg tablet 4 mg PO DAILY RF: 0 oxycodone 10 mg tablet 10 mg PO Q4HP PRN (Reason: Pain) RF: 0 polyethylene glycol 3350 17 gram/dose Powder 17 g PO QDAY RF: 0 pregabalin 50 mg Capsule 50 mg PO TID RF: 0 insulin glargine 100 unit/mL Solution 15 unit SUBCUT DAILY RF: 0 Senna Plus 8.6-50 mg Capsule 2 tab-cap PO BID RF: 0 quetiapine [Seroquel] 100 mg Tablet 100 mg PO DAILY RF: 0 calcium carbonate [Tums] 300 mg (750 mg) Tablet,Chewable 1,000 mg PO Q4HP PRN (Reason: gi issues) RF: 0 acetaminophen 500 mg Tablet 1,000 mg PO Q6H PRN (Reason: Pain, Mild) RF: 0 Discontinued amlodipine 5 mg Tablet 5 mg PO QDAY RF: 0 lisinopril 2.5 mg Tablet 2.5 mg PO QDAY RF: 0 Other Ambulatory Orders: Wound Care Instructions (CONT) Location: None Selected Ordered By: Martin Garcia OT Discharge Order (Routine) Facility: [facility] - Location: Conversion-Long Term Ordered By: Eduard Pettit Physical Therapy at Discharge - General (Routine) Facility: [facility] - Location: Conversion-Long Term Ordered By: Eduard Pettit Follow Up Plan Follow up with: Johnnie Trent MD [Primary Care Provider] - (Please call and schedule a hospital follow up to be seen in two weeks.) Patient Disposition: Xfer SNF Prognosis: Fair Rehab Potential: Good I certify that the patient requires SNF services: Yes Overall status at discharge: patient is back to baseline Discharge Orders: Discharge Order (Routine); Ordered 09/14/20 Ordered By: Jet MANJARREZ VTE Deep Vein Thrombosis/Pulmonary Embolism Present on Admission: No
[2020-09-13] MEDS: oxyCODONE HCL 5 MG TABLET PO PRN ×2 (18:40→23:12)
[2020-09-13] MEDS: MELATONIN 3 MG TABLET PO SCH (20:16)
[2020-09-14 07:11] LABS: Basophils % (Auto) 1.3 % (0.0-2.0); Eosinophils # (Auto) 0.52 K/mcL (0.00-0.70); Eosinophils % (Auto) 6.7 % (0.0-7.0); Hematocrit 34.1 % (36.0-48.0); Hemoglobin 10.5 g/dL (12.0-15.0); Lymphocytes # (Auto) 2.78 K/mcL (1.50-4.80); Lymphocytes % (Auto) 35.6 % (15.0-49.0); Mean Cell Volume 102.7 fL (80.0-100.0); Mean Corpuscular HGB Conc 30.8 g/dL (31.0-36.0); Mean Platelet Volume 11.5 fL (7.4-10.4); Monocytes # (Auto) 0.66 K/mcL (0.10-0.90); Monocytes % (Auto) 8.5 % (1.0-12.0); Neutrophils % (Auto) 47.9 % (38.0-78.0); Platelet Count 238 K/mcL (140-440); RBC 3.32 M/mcL (4.00-5.20); Red Cell Distribution Width 18.1 % (11.5-14.5); WBC 7.8 K/mcL (4.5-11.0)
[2020-09-14] MEDS: INSULIN LISPRO 1 UNIT/0.01 ML UNIT SQ SCH ×2 (07:18→11:29)
[2020-09-14] MEDS ORDERED: LORazepam 0.5 MG TABLET PO PRN (07:21)
[2020-09-14] MEDS: 0.9 % SODIUM CHLORIDE 10 ML SYRINGE IV SCH (07:23)
[2020-09-14 07:49] LABS: ALT/SGPT 9 U/L (<40); AST/SGOT 21 U/L (<32); Albumin 3.3 gm/dL (3.2-5.2); Albumin/Globulin Ratio 0.9 (1.0-2.3); Alkaline Phosphatase 64 U/L (39-117); Bilirubin,Direct < 0.2 mg/dL (0-0.3); Bilirubin,Total 0.2 mg/dL (0.1-1.0); Blood Urea Nitrogen 28 mg/dL (6-20); Calcium 9.3 mg/dL (8.6-10.4); Carbon Dioxide 23 mmol/L (22-30); Chloride 103 mmol/L (96-108); Globulin 3.8 gm/dL (2.2-3.7); Glomerular Filtration Rate 38; Glucose 93 mg/dL (70-105); Lactate Dehydrogenase 317 U/L (135-225); Phosphorous 2.6 mg/dL (2.5-4.5); Triglycerides 196 mg/dL (<150); Uric Acid 5.1 mg/dL (2.5-8.0)
[2020-09-14] MEDS: ENOXAPARIN 30 MG/0.3 ML SYRINGE SQ SCH (08:51)
[2020-09-14] MEDS: POLYETHYLENE GLYCOL 3350 17 GM PACKET PO SCH (08:51)
[2020-09-14] MEDS: DULoxetine 30 MG CAPSULE PO SCH (08:52)
[2020-09-14] MEDS: INSULIN GLARGINE, HUMAN 1 UNIT/0.01 ML SQ SCH (08:52)
[2020-09-14] MEDS: SENNOSIDES/DOCUSATE SODIUM 1 TAB TABLET PO SCH (08:52)
[2020-09-14] MEDS: rOPINIRole 1 MG TABLET PO SCH (08:52)
[2020-09-14] MEDS: PREGABALIN 25 MG CAPSULE PO SCH (08:53)
[2020-09-14] MEDS: LEVOFLOXACIN 750 MG TABLET PO SCH (08:53)
[2020-09-14] MEDS: FLUTICASONE HFA 110MCG INHALER INH SCH (08:53)
[2020-09-14] MEDS: ASPIRIN 81 MG TAB.CHEW PO SCH (08:53)
[2020-09-14] MEDS: QUEtiapine 100 MG TABLET PO SCH (08:53)
--- NOTE | 2020-09-14 12:46 | Internal Med Progress Note ---
SUBJECTIVE Subjective Patient information: Note initiated : 09/13/20 at 12:44 pm Service Date, if different from initiated Date: [] Patient: Dawn Cabrera a 60 y/o F admitted on 09/07/20 for low blood pressure. Chief Complaint: [] Interval history: Ms. Cabrera is a 60 year old F Presents to the ED from the nursing facility for hypotension, 60/40, and weakness. She did fall but did not hit her head or lose consciousness. She has been complaining of lightheadedness and dizziness. ED had systolics in the 70s. She was given IV normal same bolus with improvement. Creatinine appear to be above baseline. Mild increase in lactate. She is wheelchair-bound and usually is able to transfer from bed to wheelchair. She has been weaker lately and unable to do so. She does have a chronic Thomas. She also has chronic wounds. She denies chest pain or shortness of breath. Urinalysis consistent with infection. 09/08 No overnight event or new complaints. Vital signs stable. 09/09: Afebrile overnight. Patient took off CPAP mask at time, requiring up to 6L/min supplemental oxygen instead. Urine culture grew E coli. c/o general body weakness and decreased appetite. Denies fever or chills. Denies dysuria. Denies leg pain. 09/10: Afebrile overnight. Patient took off CPAP mask at time, requiring up to 6L/min supplemental oxygen instead. Denies fever or chills. Denies dysuria. Denies leg pain. Denies general body weakness or change in appetite. 09/11: Afebrile overnight. Patient took off CPAP mask at time, requiring up to 2L/min supplemental oxygen instead. Otherwise there was no other major overnight events. Denies fever or chills. Denies dysuria. Denies leg pain. Denies general body weakness or change in appetite. 09/12: Afebrile overnight. Medically stable and ready to be discharged back to SNF. Otherwise no other major overnight events. 09/13-patient awaiting SNF placement. On antibiotic coverage for complicated E. coli UTI. Anticipate discharge in 24 hours to SNF. No overnight fever chills or concerns per staff. Ongoing therapies. Constitutional Vitals: Vital Signs Temp Pulse Resp BP Pulse Ox 98.1 F 61 20 100/71 94 09/14/20 07:23 09/14/20 07:23 09/14/20 07:23 09/14/20 07:23 09/14/20 07:23 Period Temp Pulse Resp BP Sys/Nava Pulse Ox Last 24 Hr 97.1 F-99.5 F 61-76 12-20 100-135/56-71 91-95 Intake and Output 09/13/20 09/14/20 09/14/20 21:59 05:59 13:59 Intake Total 1000 200 360 Output Total 1400 1050 Balance -400 -850 360 Weight 176.992 kg Alert and respond to commands Nonlabored breathing Morbidly obese Thomas draining clear urine Occasionally uncooperative Intake & Output: Intake & Output 09/13/20 09/14/20 09/14/20 21:59 05:59 13:59 Intake Total 1000 200 360 Output Total 1400 1050 Balance -400 -850 360 Weight 176.992 kg Intake: Oral 1000 200 360 Output: Urine Catheter Amount 1400 1050 Other: Meal Dinner Breakfast Percent of Meal Consumed 50% 100% Feeding Ability Independent Assist with Tray Set Up Urine Appearance Sediment Reinserted Thomas Clear Urine Color Bright Yellow Straw Reinserted Thomas Bright Yellow Urine Odor Normal Stool Size Large Stool Color Brown Stool Consistency Dry and Hard Formed # of times incontinent of 1 Bowels OBJ DATA Labs CBC & Chem 7: 09/14/20 05:15 09/14/20 05:15 Labs: Abnormal Lab Results 09/14/20 09/14/20 09/13/20 05:15 05:15 05:05 RBC 3.32 L 3.04 L Hgb 10.5 L 9.6 L Hct 34.1 L 31.4 L MCV 102.7 H 103.3 H MCHC 30.8 L 30.6 L RDW 18.1 H 18.4 H MPV 11.5 H 11.6 H Eos % (Auto) 7.5 H Anion Gap BUN 28 H Creatinine 1.5 H Lactate Dehydrogenase 317 H Globulin 3.8 H Albumin/Globulin Ratio 0.9 L Triglycerides 196 H 09/13/20 09/12/20 09/12/20 05:05 04:44 04:44 RBC 3.06 L Hgb 9.7 L Hct 31.6 L MCV 103.3 H MCHC 30.7 L RDW 18.2 H MPV 11.5 H Eos % (Auto) 7.4 H Anion Gap 7.0 L BUN 27 H 27 H Creatinine 1.5 H 1.5 H Lactate Dehydrogenase 277 H Globulin 3.8 H Albumin/Globulin Ratio 0.9 L 0.8 L Triglycerides 176 H Meds: Medications Acetaminophen (Acetaminophen 325 Mg Tablet) 650 mg PO Q6HP PRN PRN Reason: PAIN/FEVER > 101 Albuterol/Ipratropium (Ipratropium/Albuterol 3 Ml Ampul.Neb) 3 ml NEB Q4HP PRN PRN Reason: Shortness Of Breath Aspirin (Aspirin 81 Mg Tab.Chew) 81 mg PO QDAY [facility] Last Admin: 09/14/20 08:53 Dose: 81 mg Documented by: Bisacodyl (Bisacodyl 10 Mg Supp.Rect) 10 mg IN QDAY PRN PRN Reason: Constipation Last Admin: 09/13/20 19:43 Dose: 10 mg Documented by: Calcium Carbonate/Glycine (Calcium Carbonate 500 Mg Tab.Chew) 1,000 mg PO Q4HP PRN PRN Reason: Dyspepsia Cyclobenzaprine HCl (Cyclobenzaprine 10 Mg Tablet) 5 mg PO Q8HP PRN PRN Reason: Spasms Dextrose (Dextrose 50% 50 Ml Vial) 0 ml IV UD PRN PRN Reason: Hypoglycemia Diagnostic Test (Pha) (Accu-Chek 1 Each Strip) 1 each FS ACHS [facility] Last Admin: 09/14/20 11:29 Dose: 1 each Documented by: Duloxetine HCl (Duloxetine 30 Mg Capsule) 60 mg PO DAILY [facility] Last Admin: 09/14/20 08:52 Dose: 60 mg Documented by: Enoxaparin Sodium (Enoxaparin 30 Mg/0.3 Ml Syringe) 30 mg SQ DAILY [facility] Last Admin: 09/14/20 08:51 Dose: 30 mg Documented by: Fluticasone Propionate (Fluticasone Hfa 110mcg Inhaler) 1 puff INH BID [facility] Last Admin: 09/14/20 08:53 Dose: Not Given Documented by: Glucose (Dextrose 31 Gm Oral.Susp) 15 gm PO PRN PRN PRN Reason: Hypoglycemia Magnesium Sulfate (Magnesium Sulfate) 2 gm in 50 mls @ 50 mls/hr IV UD PRN PRN Reason: Magnesium </= 1.6 Potassium Chloride 40 meq/ (Dextrose) 520 mls @ 130 mls/hr IV UD PRN PRN Reason: Potassium < 3 Insulin Glargine (Insulin Glargine, Human 1 Unit/0.01 Ml) 10 unit SQ DAILY [facility] Last Admin: 09/14/20 08:52 Dose: 10 unit Documented by: Insulin Human Lispro (Insulin Lispro 1 Unit/0.01 Ml Unit) 0 unit SQ ACHS [facility]; Protocol Last Admin: 09/14/20 11:29 Dose: Not Given Documented by: Levofloxacin (Levofloxacin 750 Mg Tablet) 750 mg PO DAILY [facility] Last Admin: 09/14/20 08:53 Dose: 750 mg Documented by: Lorazepam (Lorazepam 0.5 Mg Tablet) 0.5 mg PO Q6HP PRN PRN Reason: ANXIETY/SEDATION Last Admin: 09/14/20 07:30 Dose: 0.5 mg Documented by: Melatonin (Melatonin 3 Mg Tablet) 9 mg PO HS [facility] Last Admin: 09/13/20 20:16 Dose: 9 mg Documented by: Ondansetron HCl (Ondansetron 4 Mg/2 Ml Vial) 4 mg IV Q4HP PRN PRN Reason: Nausea And Vomiting Oxycodone HCl (Oxycodone Hcl 5 Mg Tablet) 10 mg PO Q4HP PRN PRN Reason: Pain Last Admin: 09/13/20 23:12 Dose: 10 mg Documented by: Polyethylene Glycol (Polyethylene Glycol 3350 17 Gm Packet) 17 gm PO QDAY [facility] Last Admin: 09/14/20 08:51 Dose: 17 gm Documented by: Potassium Chloride (Potassium Chloride 20 Meq Tablet) 40 meq PO UD PRN PRN Reason: Potssium is 3-3.5 Potassium Chloride (Potassium Chloride 20 Meq Tablet) 40 meq PO UD PRN PRN Reason: Potassium < 3 Pregabalin (Pregabalin 25 Mg Capsule) 50 mg PO TID [facility] Last Admin: 09/14/20 08:53 Dose: 50 mg Documented by: Quetiapine Fumarate (Quetiapine 100 Mg Tablet) 100 mg PO DAILY [facility] Last Admin: 09/14/20 08:53 Dose: 100 mg Documented by: Ropinirole HCl (Ropinirole 1 Mg Tablet) 4 mg PO DAILY [facility] Last Admin: 09/14/20 08:52 Dose: 4 mg Documented by: Senna/Docusate Sodium (Sennosides/Docusate Sodium 1 Tab Tablet) 2 tab PO BID [facility] Last Admin: 09/14/20 08:52 Dose: 2 tab Documented by: Sodium Chloride (0.9 % Sodium Chloride 10 Ml Syringe) 10 ml IV Q8 [facility] Last Admin: 09/14/20 07:23 Dose: Not Given Documented by: A/P Narrative A/P Narrative: 1. Complicated E. coli UTI with sepsis: Clinically resolved. Discharging to SNF. 2. T2DM with diabetic neuropathy: Stable 3. Essential HTN: Restart home meds 4. Chronic kidney disease stage 4: Clinically at baseline 5. ZAID with CPAP: Continue CPAP at night while sleeping 6. h/o COPD: Continue as needed bronchodilators 7. Depression with anxiety: Stable on Cymbalta/Seroquel 8. Stage 3 decubitus ulcers bilateral lower extremities: Continue frequent offloading/outpatient wound care follow-up and decubitus care Dr. Garcia consulted, recs. appreciated. Continue routine wound care with inpatient Plan * DC antibiotics * Frequent offloading * Pre-existing medical condition management as above * Case management coordinate SNF transfer likely in 24 hours Time Spent With Patient Time: Total time spent is greater than 50% in coordination of care (as documented) at patient's floor/unit and/or counseling patient: Total time spent with greater than 50% in coordination of care (as documented) at patient's floor/unit and/or counseling patient:: 25 - 35 minutes QUALITY Stroke Symptom Onset Unknown: No VTE Deep Vein Thrombosis/Pulmonary Embolism Present on Admission: No
== END 2020-09-14 14:25 | DRG 871 ==
LOC: ED 17:43 → ICU 21:14 → MEDSUR 09-13 17:00
PROVIDERS: ADMIT Internal Medicine; ATTEND Internal Medicine

== ENCOUNTER 2020-10-26 01:19 | Inpatient (IN) ==
--- NOTE | 2020-10-26 02:51 | Emergency Department Note ---
HPI General Chief complaint: Vaginal Bleeding Stated complaint: vaginal bleeding Time Seen by Provider: 10/26/20 01:32 Source: patient Mode of arrival: EMS Limitations: no limitations History of Present Illness HPI Narrative: Narrative: Patient presents from long term for evaluation of hematuria. nursing staff noticed it when they changed her earlier today that there was some hematuria. Although patient reports it may be vaginal bleeding, she is not quite sure, patient admits some slight suprapubic discomfort. Patient denies any blood thinners or other bleeding. Patient denies any obvious dysuria but does have a known history of hemorrhagic cystitis recently treated with cefuroxime twice daily for 1 week, ending on October 10. Has some slight low back pain but no flank pain, no fever no chills no nausea no vomiting, denies any rectal bleeding denies any vaginal discharge or other complaints. Related Data Home Medications Medication Instructions Recorded Confirmed Combivent Respimat 1 puff INHALATION Q4H PRN 07/20/20 10/26/20 Fleet Enema 118 ml IN ONCE PRN 07/20/20 10/26/20 Flovent HFA 1 puff INHALATION BID 07/20/20 10/26/20 Jardiance 10 mg PO QAM 07/20/20 10/26/20 Senna Plus 2 tab-cap PO BID 07/20/20 10/26/20 aspirin 81 mg PO QDAY 07/20/20 10/26/20 bisacodyl [Dulcolax (bisacodyl)] 10 mg IN QDAY PRN 07/20/20 10/26/20 calcium carbonate [Tums] 1,000 mg PO Q4HP PRN 07/20/20 10/26/20 cholecalciferol (vitamin D3) 1,000 unit PO BID 07/20/20 10/26/20 duloxetine [Cymbalta] 60 mg PO QDAY 07/20/20 10/26/20 ferrous sulfate 325 mg PO QDAY 07/20/20 10/26/20 furosemide [Lasix] 40 mg PO QDAY 07/20/20 10/26/20 insulin glargine 15 unit SUBCUT DAILY 07/20/20 10/26/20 magnesium hydroxide [Milk of 30 ml PO PRN PRN 07/20/20 10/26/20 Magnesia] melatonin 10 mg PO HS 07/20/20 10/26/20 polyethylene glycol 3350 17 g PO QDAY 07/20/20 10/26/20 ropinirole 4 mg PO DAILY 07/20/20 10/26/20 acetaminophen 1,000 mg PO Q6H PRN 09/07/20 10/26/20 Previous Rx's Medication Instructions Recorded oxycodone 10 mg PO Q4H PRN #10 tab 09/12/20 Allergies Allergy/AdvReac Type Severity Reaction Status Date / Time Penicillins Allergy Severe Anaphylaxis Verified 10/26/20 01:21 cefuroxime Allergy Intermediate Rash Verified 10/26/20 01:39 doxycycline Allergy Unknown Verified 10/26/20 01:21 morphine Allergy Unknown Verified 10/26/20 01:21 sulfamethoxazole Allergy Unknown Verified 10/26/20 01:21 [From Bactrim] trimethoprim [From Bactrim] Allergy Unknown Verified 10/26/20 01:21 Review of Systems ROS ROS Narrative: Narrative: At least 10 systems reviewed and otherwise acutely negative except as in the HPI PFSH Narrative Patient History Narrative: Narrative: Medical/Surgical/Family History All Active Problems (Updated 10/26/20 @ 06:50 by Cole Phan DO) Acute cystitis (Acute) REKHA (acute kidney injury) (Acute) Depression with anxiety (Acute) Diabetic neuropathy (Acute) COPD (chronic obstructive pulmonary disease) (Acute) ZAID on CPAP (Acute) Essential (primary) hypertension (Acute) Chronic kidney disease, stage 4 (severe) (Acute) T2DM (type 2 diabetes mellitus) (Acute) Feared condition not demonstrated (Acute) Septic shock (Acute) Severe sepsis (Acute) UTI (urinary tract infection) (Acute) Social History Smoking Status: Heavy tobacco smoker Exam Narrative Narrative: Narrative: Constitutional: normally developed, no acute distress, morbidly obese Head: Normocephalic, atraumatic, Eyes: No Icterus, no pallor ENT: Moist mucus membranes, Neck: Supple, Cardiac: Normal heart sounds, palpable radial pulses, chronic lower extremity edema Pulmonary: Normal respiratory effort. Breath sounds clear, no wheeze, rhonchi, rales, Gastrointestinal: Abdomen soft, non-distended, non-tender, Genitourinary: Slight trace blood at the urethra, no obvious vaginal bleeding, on bimanual exam there is no vaginal blood or obvious discharge, perineal region, skin is well-appearing and intact no sign of infection, no signs of bleeding, rectal exam grossly nonbloody light brown stool Musculoskeletal: No gross deformities, well perfused Skin: warm, dry, some old petechiae to upper extremities and lower abdomen Neuro: Alert and oriented. General Limitations: no limitations Course Vital Signs Vital signs: Vital Signs Temperature 36.3 C 10/26/20 01:21 Pulse Rate 77 10/26/20 01:21 Respiratory Rate 20 10/26/20 01:21 Blood Pressure 140/89 10/26/20 01:21 Pulse Oximetry (%) 99 10/26/20 01:21 Temperature 36.3 C 10/26/20 01:21 Pulse Rate 74 10/26/20 06:14 Respiratory Rate 20 10/26/20 01:21 Blood Pressure 109/67 10/26/20 06:31 Pulse Oximetry (%) 95 10/26/20 06:14 [facility] MDM Narrative Medical decision making narrative: Narrative: Patient presented in for evaluation of some hematuria that was noticed by nursing staff at her long term; with a recent history of cystitis with hematuria Her vitals are stable does not appear anemic genitourinary exam performed with female nursing snow blower present throughout shows suspected hematuria as the source there is no evidence of vaginal bleeding or rectal bleeding no evidence of soft tissue infection Clinically does not appear acutely anemic, however given the hematuria will obtain urinalysis as well as CBC and electrolytes to assess her renal function as she does have some CKD Straight cath urine is light pink in color. CBC does show leukocytosis of 11.7, hemoglobin is actually up trending 12.2 from 10.5, and has a normal platelet count no thrombocytopenia Electrolytes do show an REKHA on CKD creatinine 2.1 baseline is around 1.5; of note she did previously have a creatinine of 2.2 when she was admitted for sepsis secondary to UTI in August. Urinalysis does show hematuria and acute UTI with leukocyte esterase, greater than 180 WBCs, Given patient does have a UTI despite her recent outpatient course of oral antibiotics, the associated REKHA with hematuria and her known history of urinary tract related sepsis, I do believe admission for IV antibiotics at this point and monitoring of her kidney function is appropriate I did review her previous urine culture and her multiple antibiotic allergies, given she is allergic to penicillins, Bactrim and failed an outpatient course of cephalosporins we will start her at this time on Levaquin which she has tolerated well in the past Did give her 1 L of LR, will obtain a CT of the abdomen without contrast as well Patient does not meet sepsis criteria as she does not have sirs criteria at this time 0630: Prelim CT read shows findings suggestive of severe acute cystitis suggest urologic evaluation; I did speak with Dr. Davis with urology who will follow once admitted 0645: Spoken with Dr. Bejarano who accepts admission. VS remain stable at this time. Lab Data Lab results reviewed: Yes I reviewed the patient's lab results. Result diagrams: 10/26/20 02:09 10/26/20 02:09 Labs: Lab Results 10/26/20 10/26/20 10/26/20 Range/Units 02:00 02:09 02:09 WBC 11.7 H (4.5-11.0) K/mcL RBC 3.76 L (4.00-5.20) M/mcL Hgb 12.2 (12.0-15.0) g/dL Hct 38.6 (36.0-48.0) % MCV 102.7 H (80.0-100.0) fL MCH 32.4 (26.0-34.0) pg MCHC 31.6 (31.0-36.0) g/dL RDW 13.3 (11.5-14.5) % Plt Count 192 (140-440) K/mcL MPV 11.4 H (7.4-10.4) fL Neut % (Auto) 73.5 (38.0-78.0) % Lymph % (Auto) 14.3 L (15.0-49.0) % [place] % (Auto) 7.2 (1.0-12.0) % Eos % (Auto) 4.2 (0.0-7.0) % Baso % (Auto) 0.8 (0.0-2.0) % Lymph # (Auto) 1.68 (1.50-4.80) K/mcL [place] # (Auto) 0.85 (0.10-0.90) K/mcL Eos # (Auto) 0.49 (0.00-0.70) K/mcL Baso # (Auto) 0.09 (0.00-0.20) K/mcL Absolute Neutrophils 8.62 H (1.80-8.00) K/mcL Sodium 136 (133-145) mmol/L Potassium 5.0 (3.3-5.1) mmol/L Chloride 97 (96-108) mmol/L Carbon Dioxide 27 (22-30) mmol/L Anion Gap 12.0 (8.0-16.0) BUN 24 H (6-20) mg/dL Creatinine 2.1 H (0.6-1.1) mg/dL GFR Calculation 25 Glucose 149 H (70-105) mg/dL Calcium 9.1 (8.6-10.4) mg/dL Urine Color Red Urine Appearance Cloudy A (Clear) Urine pH 6.0 (5.0-9.0) Ur Specific [place] 1.025 (1.000-1.035) Urine Protein >=500 A (Negative) mg/dL Urine Glucose (UA) >=500 A (Negative) mg/dL Urine Ketones 5 A (Negative) mg/dL Urine Occult Blood >=1.0 A (Negative) mg/dL Urine Nitrate Neg (Negative) Urine Bilirubin Neg (Negative) mg/dL Urine Urobilinogen Neg mg/dL Ur Leukocyte Esterase 25 A (Negative) /ug Urine RBC > 182 H (0-1) /hpf Urine WBC > 182 H (0-4) /hpf Ur Squamous Epith Cells 0 (0-4) /hpf Ur Transition Epith Cell 3 H (0-2) /hpf Urine Bacteria Few A (0) /hpf Urine Mucus Mod A (None) /hpf Discharge Plan Patient/Caregiver Discharge Instructions Pt seen by [facility] ADMINISTRATOR/PA only: No Clinical Impression: REKHA (acute kidney injury) Acute cystitis Qualifiers: Hematuria presence: with hematuria Qualified Code(s): N30.01 - Acute cystitis with hematuria Patient Disposition: Xfer As Inpt ([facility]) Condition: Fair Follow up with: Johnnie Trent MD [Primary Care Provider] - Prescriptions: No Action bisacodyl [Dulcolax (bisacodyl)] 10 mg Suppository 10 mg IN QDAY PRN (Reason: Constipation) RF: 0 ferrous sulfate 325 mg (65 mg iron) Tablet 325 mg PO QDAY RF: 0 Fleet Enema 19-7 gram/118 mL Enema 118 ml IN ONCE PRN (Reason: Constipation) RF: 0 aspirin 81 mg Tablet,Chewable 81 mg PO QDAY RF: 0 Flovent HFA 110 mcg/actuation Hfa Aerosol Inhaler 1 puff INHALATION BID RF: 0 duloxetine [Cymbalta] 60 mg Capsule,Delayed Release(Dr/Ec) 60 mg PO QDAY RF: 0 melatonin 5 mg Tablet 10 mg PO HS RF: 0 Jardiance 10 mg Tablet 10 mg PO QAM RF: 0 Combivent Respimat 20-100 mcg/actuation Mist 1 puff INHALATION Q4H PRN (Reason: shortness of breath) RF: 0 furosemide [Lasix] 40 mg Tablet 40 mg PO QDAY RF: 0 cholecalciferol (vitamin D3) 25 mcg (1,000 unit) Capsule 1,000 unit PO BID RF: 0 magnesium hydroxide [Milk of Magnesia] 400 mg/5 mL suspension 30 ml PO PRN PRN (Reason: Constipation) RF: 0 ropinirole 4 mg tablet 4 mg PO DAILY RF: 0 polyethylene glycol 3350 17 gram/dose Powder 17 g PO QDAY RF: 0 insulin glargine 100 unit/mL Solution 15 unit SUBCUT DAILY RF: 0 Senna Plus 8.6-50 mg Capsule 2 tab-cap PO BID RF: 0 calcium carbonate [Tums] 300 mg (750 mg) Tablet,Chewable 1,000 mg PO Q4HP PRN (Reason: gi issues) RF: 0 acetaminophen 500 mg Tablet 1,000 mg PO Q6H PRN (Reason: Pain, Mild) RF: 0 oxycodone 10 mg tablet 10 mg PO Q4H PRN (Reason: pain) Qty: 10 RF: 0
[2020-10-26 03:04] LABS: Basophils # (Auto) 0.09 K/mcL (0.00-0.20); Basophils % (Auto) 0.8 % (0.0-2.0); Eosinophils # (Auto) 0.49 K/mcL (0.00-0.70); Eosinophils % (Auto) 4.2 % (0.0-7.0); Hematocrit 38.6 % (36.0-48.0); Hemoglobin 12.2 g/dL (12.0-15.0); Lymphocytes # (Auto) 1.68 K/mcL (1.50-4.80); Lymphocytes % (Auto) 14.3 % (15.0-49.0); Mean Cell Volume 102.7 fL (80.0-100.0); Mean Corpuscular HGB Conc 31.6 g/dL (31.0-36.0); Mean Platelet Volume 11.4 fL (7.4-10.4); Monocytes # (Auto) 0.85 K/mcL (0.10-0.90); Monocytes % (Auto) 7.2 % (1.0-12.0); Neutrophils % (Auto) 73.5 % (38.0-78.0); Platelet Count 192 K/mcL (140-440); RBC 3.76 M/mcL (4.00-5.20); Red Cell Distribution Width 13.3 % (11.5-14.5); WBC 11.7 K/mcL (4.5-11.0)
[2020-10-26 03:14] LABS: Appearance,Urine CLOUDY (Clear); Bacteria,Urine FEW /hpf (0); Bilirubin,Urine NEG (Negative); Color,Urine RED; Glucose,Urine (UA) >=500 mg/dL (Negative); Ketones,Urine 5 mg/dL (Negative); Leukocyte Esterase,Urine 25 /ug (Negative); Mucus,Urine MOD /hpf; Nitrate,Urine NEG (Negative); Protein,Urine >=500 mg/dL (Negative); Specific Gravity,Urine 1.025 (1.000-1.035); Urine Blood >=1.0 mg/dL (Negative); Urine RBC > 182 /hpf (0-1); Urine Squamous Epithelial Cell 0 /hpf (0-4); Urine Transitional Epi Cells 3 /hpf (0-2); Urine WBC > 182 /hpf (0-4); Urobilinogen,Urine NEG
[2020-10-26 03:44] LABS: Blood Urea Nitrogen 24 mg/dL (6-20); Calcium 9.1 mg/dL (8.6-10.4); Carbon Dioxide 27 mmol/L (22-30); Chloride 97 mmol/L (96-108); Glomerular Filtration Rate 25; Glucose 149 mg/dL (70-105)
[2020-10-26] MEDS ORDERED: LACTATED RINGERS 1,000 ML IV ONE (04:15)
[2020-10-26] MEDS ORDERED: LEVOFLOXACIN 750 MG/150 ML BAG IV ONE (04:15)
--- NOTE | 2020-10-26 08:12 | Cat Scan Report ---
History: Abdominal pain, vaginal bleeding, urinary tract infection TECHNIQUE: The patient was imaged without contrast from the diaphragm through the symphysis pubis at 2.5 mm intervals. Sagittal and coronal reformats were created. The radiation exposure was limited using dose reduction technology. FINDINGS: Lung bases are clear. The heart size is normal. There is fatty infiltration of the intra-atrial septum of the heart. There are few calcified plaques in the coronary arteries. Patient is morbidly obese and the body wall extends beyond the field of view. There is a large very wide neck hernia in the right anterior abdominal wall. The neck is approximately two 22 cm in width. There is protrusion of the antrum of stomach, portion of the liver as well as both large and small intestine into the hernia sac. There is no associated bowel obstruction or inflammation. There are multiple surgical clips and sutures along the wall of the cardia and fundus of the stomach which may be related to prior gastric reduction surgery. There are also clips around the hilum of the spleen. The liver contour is distorted and there is mild hepatomegaly. No mass or inflammation are seen within the liver. The spleen is normal in size and homogeneous. The gallbladder is contracted. Within the fundus there is a 1 x 1.5 cm calculus. There is no associated inflammation. The bile ducts are nondilated. No abnormality is seen within the pancreas. The adrenals are normal. Both kidneys are relatively small. There is no evidence kidney stone, cyst, mass, hydronephrosis or pyelonephritis. There are couple calcified plaques in the right renal artery. Both ureters are decompressed. Urinary bladder is decompressed. There is abnormal circumferential thickening of the wall of the bladder and some stranding of the adjacent fat. The wall measures up to 1.8 cm in width. No stone is seen within the lumen. There is a tiny bubble of air within the lumen of the bladder. There is no evidence of inflammation or obstruction large or small intestine. Uterus and adnexa appear normal. No ascites is present. There is arthritis at multiple levels in the thoracic and lumbar spine. Disc space narrowing is seen at L4-5 and there is gas in the nucleus pulposus. IMPRESSION: Thickened and inflamed wall of the bladder which is probably due to cystitis. However, neoplasm cannot be excluded. Anatomically normal but relatively small kidneys. Giant ventral hernia in the right anterior abdominal wall with protrusion of liver stomach and intestine into the hernia sac Cholelithiasis Interpreted and Authenticated by: Nate Maldonado 10/26/20
--- NOTE | 2020-10-26 10:18 | Internal Med History&Physical ---
HPI History of Present Illness Patient information: Note initiated : 10/26/20 at 10:08 am Service Date, if different from initiated Date: [] Patient: Dawn Cabrera a 60 y/o F admitted on 10/26/20 for Vaginal Bleeding . Chief Complaint: [] History of present illness: Ms. Cabrera is a 60 year old F Sent from [employer] for bleeding was noticed when the nurse changed her depends. She was also recently treated for acute cystitis with hematuria. Patient report abdominal pain after breakfast low back pain. Denied fever chills nausea vomiting chest pain shortness of breath. Patient seen in the ED and diagnosed with hemorrhagic cystitis. Dr. Davis urologist was contacted for consultation. ET abdomen pelvis was done which did not show any stones but showed thickening and inflamed wall of the bladder. She does say that she has had pain when she is urinated for the past few days. H&H stable in the ED. Review of Systems: Pertinent positives as above. Denies headache/fever/chills/nausea/vomiting/chest or abdominal pain/cough/dyspnea/di arrhea. Remaining 10 point review of system reviewed negative PFSH PFSH All Active Problems (Updated 10/26/20 @ 06:50 by Cole Phan DO) Acute cystitis (Acute) REKHA (acute kidney injury) (Acute) Depression with anxiety (Acute) Diabetic neuropathy (Acute) COPD (chronic obstructive pulmonary disease) (Acute) ZAID on CPAP (Acute) Essential (primary) hypertension (Acute) Chronic kidney disease, stage 4 (severe) (Acute) T2DM (type 2 diabetes mellitus) (Acute) Feared condition not demonstrated (Acute) Septic shock (Acute) Severe sepsis (Acute) UTI (urinary tract infection) (Acute) Social History additional history: Past medical history includes chronic kidney disease stage IIIb diabetes chronic anemia morbid obesity poor functional status deconditioning debility she has been wheelchair-bound for years. Depression anxiety hypertension Social history patient denies tobacco or alcohol she is bedbound wheelchair- bound and lives in a nursing facility MEDS/ALLERGIES Home Medications and Allergies Home Medications Medication Instructions Recorded Confirmed Type Combivent Respimat 1 puff INHALATION Q4H PRN 07/20/20 10/26/20 History Fleet Enema 118 ml [place] ONCE PRN 07/20/20 10/26/20 History Flovent HFA 1 puff INHALATION BID 07/20/20 10/26/20 History Jardiance 10 mg PO QAM 07/20/20 10/26/20 History Senna Plus 2 tab-cap PO BID 07/20/20 10/26/20 History aspirin 81 mg PO QDAY 07/20/20 10/26/20 History bisacodyl [Dulcolax (bisacodyl)] 10 mg [place] QDAY PRN 07/20/20 10/26/20 History calcium carbonate [Tums] 1,000 mg PO Q4HP PRN 07/20/20 10/26/20 History cholecalciferol (vitamin D3) 1,000 unit PO BID 07/20/20 10/26/20 History duloxetine [Cymbalta] 60 mg PO QDAY 07/20/20 10/26/20 History ferrous sulfate 325 mg PO QDAY 07/20/20 10/26/20 History furosemide [Lasix] 40 mg PO QDAY 07/20/20 10/26/20 History insulin glargine 15 unit SUBCUT DAILY 07/20/20 10/26/20 History magnesium hydroxide [Milk of 30 ml PO PRN PRN 07/20/20 10/26/20 History Magnesia] melatonin 10 mg PO HS 07/20/20 10/26/20 History polyethylene glycol 3350 17 g PO QDAY 07/20/20 10/26/20 History ropinirole 4 mg PO DAILY 07/20/20 10/26/20 History acetaminophen 1,000 mg PO Q6H PRN 09/07/20 10/26/20 History oxycodone 10 mg PO Q4H PRN #10 tab 09/12/20 10/26/20 Rx Allergies Allergy/AdvReac Type Severity Reaction Status Date / Time Penicillins Allergy Severe Anaphylaxis Verified 10/26/20 01:21 cefuroxime Allergy Intermediate Rash Verified 10/26/20 01:39 doxycycline Allergy Unknown Verified 10/26/20 01:21 morphine Allergy Unknown Verified 10/26/20 01:21 sulfamethoxazole Allergy Unknown Verified 10/26/20 01:21 [From Bactrim] trimethoprim [From Bactrim] Allergy Unknown Verified 10/26/20 01:21 EXAM Constitutional Vitals: Temp Pulse Resp BP Pulse Ox 97.2 F 16 L 16 102/54 98 10/26/20 08:30 10/26/20 08:30 10/26/20 08:30 10/26/20 08:30 10/26/20 08:30 Exam: General: Alert, Awake, No acute Distress, morbidly obese Eyes/N/T: EOMI, PERRL, Head/Neck: neck supple, normocephalic atraumatic CV: RRR, No murmurs, normal s1/s2 Pulm: Clear b/l, no wheezing/rhonchi/rales Abd: soft, nontender, +BS x4 Ext: no clubbing/cyanosis. Bilateral lower extremity wounds Neuro: Alert, no focal deficits, moves all extremities, CN 2-12 grossly intact, symmetrical strength b/l upper/lower, sensations intact b/l upper/lower Skin: warm/dry DATA Data Completed and Pending Labs: Labs from last 24 hours 10/26/20 10/26/20 10/26/20 02:09 02:09 02:00 WBC 11.7 H RBC 3.76 L Hgb 12.2 Hct 38.6 MCV 102.7 H MCH 32.4 MCHC 31.6 RDW 13.3 Plt Count 192 MPV 11.4 H Neut % (Auto) 73.5 Lymph % (Auto) 14.3 L Josephine % (Auto) 7.2 Eos % (Auto) 4.2 Baso % (Auto) 0.8 Lymph # (Auto) 1.68 Josephine # (Auto) 0.85 Eos # (Auto) 0.49 Baso # (Auto) 0.09 Absolute Neutrophils 8.62 H Sodium 136 Potassium 5.0 Chloride 97 Carbon Dioxide 27 Anion Gap 12.0 BUN 24 H Creatinine 2.1 H GFR Calculation 25 Glucose 149 H Calcium 9.1 Urine Color Red Urine Appearance Cloudy A Urine pH 6.0 Ur Specific [place] 1.025 Urine Protein >=500 A Urine Glucose (UA) >=500 A Urine Ketones 5 A Urine Occult Blood >=1.0 A Urine Nitrate Neg Urine Bilirubin Neg Urine Urobilinogen Neg Ur Leukocyte Esterase 25 A Urine RBC > 182 H Urine WBC > 182 H Ur Squamous Epith Cells 0 Ur Transition Epith Cell 3 H Urine Bacteria Few A Urine Mucus Mod A A/P Narrative A/P Narrative: A: *Hemorrhagic cystitis: *REKHA on CKD IV(base Cr~1.5-1.8): Follows with Dr. Irvin *Anemia, chronic: *DM w/neuropathy: *COPD (not on home O2): Follows with Dr. Mejia *ZAID with CPAP: *Depression/anxiety: *LE wounds: For which she sees wound clinic at [facility] *Morbid obesity: *Poor functional status/deconditioning/debility: Is wheelchair-bound and requires abhinav lift * P: -Urology consulted -Empiric antibiotics, pending BC/UC -IVF, Monitor urine output, follow-up renal function -Hold lasix for now -hold ASA for now d/t bleeding -Wound care -Insulin, SSI - -PT/OT -ppx: SCD DNR Time Spent With Patient Time: Total time spent is greater than 50% in coordination of care (as documented) at patient's floor/unit and/or counseling patient:
[2020-10-26] MEDS ORDERED: MAGNESIUM SULFATE 2 GM/50 ML BAG IV PRN (10:37)
[2020-10-26] MEDS ORDERED: ACETAMINOPHEN 325 MG TABLET PO PRN (10:37)
[2020-10-26] MEDS ORDERED: LACTULOSE 20 GM/30 ML ORAL.SOL PO PRN (10:37)
[2020-10-26] MEDS ORDERED: SENNOSIDES 1 TABLET PO PRN (10:37)
[2020-10-26] MEDS ORDERED: POTASSIUM CHLORIDE 40 MEQ in DEXTROSE 5% IN WATER 500 ML IV PRN (10:37)
[2020-10-26] MEDS ORDERED: POLYETHYLENE GLYCOL 3350 17 GM PACKET PO PRN (10:37)
[2020-10-26] MEDS ORDERED: IPRATROPIUM/ALBUTEROL 3 ML AMPUL.NEB NEB PRN (10:37)
[2020-10-26] MEDS ORDERED: DEXTROSE 50% 50 ML VIAL IV PRN (10:37)
[2020-10-26] MEDS ORDERED: DEXTROSE 31 GM ORAL.SUSP PO PRN (10:37)
[2020-10-26] MEDS ORDERED: POTASSIUM CHLORIDE 20 MEQ TABLET PO PRN ×2 (10:37)
[2020-10-26] MEDS ORDERED: NON FORMULARY MEDICATION 1 DOSE MISCELL (Oxycodone 10 mg tablet) PO PRN (10:41)
[2020-10-26] MEDS ORDERED: FLEETS ADULT ENEMA PR PRN (10:41)
[2020-10-26] MEDS ORDERED: IPRATROPIUM/ALBUTEROL SULFATE 1 PUFF INHALER INH PRN (10:41)
[2020-10-26] MEDS ORDERED: MAGNESIUM HYDROXIDE 30 ML ORAL.SUSP PO PRN (10:41)
[2020-10-26] MEDS ORDERED: LEVOFLOXACIN 750 MG/150 ML BAG IV SCH (10:45)
[2020-10-26] MEDS ORDERED: CALCIUM CARBONATE 500 MG TAB.CHEW CHEWED PRN (10:53)
[2020-10-26] MEDS: 0.9 % SODIUM CHLORIDE 1,000 ML IV SCH ×2 (11:08→19:10)
[2020-10-26] MEDS: INSULIN LISPRO 1 UNIT/0.01 ML UNIT SQ SCH ×3 (11:11→20:37)
--- NOTE | 2020-10-26 12:28 | General Surgery Consult Note ---
HPI Data of Consult Primary Care Provider: Johnnie Trent Consult Narrative Chief complaint: Urinary tract infection Reason for consult: Gross hematuria History of present illness: Patient with history of sepsis and recurrent urinary tract infection is now admitted for gross hematuria management with bladder wall thickening consistent with cystitis CT demonstrates no stones or upper tract anomalies other than some atrophic changes cc:: CC: Gregg [facility] PFSH All Active Problems (Updated 10/26/20 @ 06:50 by Cole Phan DO) Acute cystitis (Acute) REKHA (acute kidney injury) (Acute) Depression with anxiety (Acute) Diabetic neuropathy (Acute) COPD (chronic obstructive pulmonary disease) (Acute) ZAID on CPAP (Acute) Essential (primary) hypertension (Acute) Chronic kidney disease, stage 4 (severe) (Acute) T2DM (type 2 diabetes mellitus) (Acute) Feared condition not demonstrated (Acute) Septic shock (Acute) Severe sepsis (Acute) UTI (urinary tract infection) (Acute) Social History additional history: Past medical history includes chronic kidney disease stage IIIb diabetes chronic anemia morbid obesity poor functional status deconditioning debility she has been wheelchair-bound for years. Depression anxiety hypertension Social history patient denies tobacco or alcohol she is bedbound wheelchair- bound and lives in a nursing facility MEDS/ALLERGIES Home Medications and Allergies Home Medications Medication Instructions Recorded Confirmed Type Combivent Respimat 1 puff INHALATION Q4H PRN 07/20/20 10/26/20 History Fleet Enema 118 ml [place] ONCE PRN 07/20/20 10/26/20 History Flovent HFA 1 puff INHALATION BID 07/20/20 10/26/20 History Jardiance 10 mg PO QAM 07/20/20 10/26/20 History Senna Plus 2 tab-cap PO BID 07/20/20 10/26/20 History aspirin 81 mg PO QDAY 07/20/20 10/26/20 History bisacodyl [Dulcolax (bisacodyl)] 10 mg [place] QDAY PRN 07/20/20 10/26/20 History calcium carbonate [Tums] 1,000 mg PO Q4HP PRN 07/20/20 10/26/20 History cholecalciferol (vitamin D3) 1,000 unit PO BID 07/20/20 10/26/20 History duloxetine [Cymbalta] 60 mg PO QDAY 07/20/20 10/26/20 History ferrous sulfate 325 mg PO QDAY 07/20/20 10/26/20 History furosemide [Lasix] 40 mg PO QDAY 07/20/20 10/26/20 History insulin glargine 15 unit SUBCUT DAILY 07/20/20 10/26/20 History magnesium hydroxide [Milk of 30 ml PO PRN PRN 07/20/20 10/26/20 History Magnesia] melatonin 10 mg PO HS 07/20/20 10/26/20 History polyethylene glycol 3350 17 g PO QDAY 07/20/20 10/26/20 History ropinirole 4 mg PO DAILY 07/20/20 10/26/20 History acetaminophen 1,000 mg PO Q6H PRN 09/07/20 10/26/20 History oxycodone 10 mg PO Q4H PRN #10 tab 09/12/20 10/26/20 Rx Allergies Allergy/AdvReac Type Severity Reaction Status Date / Time Penicillins Allergy Severe Anaphylaxis Verified 10/26/20 01:21 cefuroxime Allergy Intermediate Rash Verified 10/26/20 01:39 doxycycline Allergy Unknown Verified 10/26/20 01:21 morphine Allergy Unknown Verified 10/26/20 01:21 sulfamethoxazole Allergy Unknown Verified 10/26/20 01:21 [From Bactrim] trimethoprim [From Bactrim] Allergy Unknown Verified 10/26/20 01:21 Physical Examination Vital Signs Vital signs: Temp Pulse Resp BP Pulse Ox 97.2 F 65 16 102/54 97 10/26/20 08:30 10/26/20 08:30 10/26/20 08:30 10/26/20 08:30 10/26/20 10:53 Additional Findings Additional exam: Patient presently afebrile uncomfortable but no acute distress HEENT within normal limits Morbidly obese but no respiratory distress or abdominal rebound tenderness Patient has somewhat slowed speech but is oriented and cooperative Patient with incontinence presently and pads Results Labs Result diagrams: 10/26/20 02:09 10/26/20 02:09 Labs: Abnormal lab results 10/26/20 10/26/20 10/26/20 Range/Units 02:00 02:09 02:09 WBC 11.7 H (4.5-11.0) K/mcL RBC 3.76 L (4.00-5.20) M/mcL MCV 102.7 H (80.0-100.0) fL MPV 11.4 H (7.4-10.4) fL Lymph % (Auto) 14.3 L (15.0-49.0) % Absolute Neutrophils 8.62 H (1.80-8.00) K/mcL BUN 24 H (6-20) mg/dL Creatinine 2.1 H (0.6-1.1) mg/dL Glucose 149 H (70-105) mg/dL Urine Appearance Cloudy A (Clear) Urine Protein >=500 A (Negative) mg/dL Urine Glucose (UA) >=500 A (Negative) mg/dL Urine Ketones 5 A (Negative) mg/dL Urine Occult Blood >=1.0 A (Negative) mg/dL Ur Leukocyte Esterase 25 A (Negative) /ug Urine RBC > 182 H (0-1) /hpf Urine WBC > 182 H (0-4) /hpf Ur Transition Epith Cell 3 H (0-2) /hpf Urine Bacteria Few A (0) /hpf Urine Mucus Mod A (None) /hpf Diabetes panel 10/26/20 Range/Units 02:09 Sodium 136 (133-145) mmol/L Potassium 5.0 (3.3-5.1) mmol/L Chloride 97 (96-108) mmol/L Carbon Dioxide 27 (22-30) mmol/L BUN 24 H (6-20) mg/dL Creatinine 2.1 H (0.6-1.1) mg/dL Glucose 149 H (70-105) mg/dL Calcium 9.1 (8.6-10.4) mg/dL Calcium panel 10/26/20 Range/Units 02:09 Calcium 9.1 (8.6-10.4) mg/dL Pituitary panel 10/26/20 Range/Units 02:09 Sodium 136 (133-145) mmol/L Potassium 5.0 (3.3-5.1) mmol/L Chloride 97 (96-108) mmol/L Carbon Dioxide 27 (22-30) mmol/L BUN 24 H (6-20) mg/dL Creatinine 2.1 H (0.6-1.1) mg/dL Glucose 149 H (70-105) mg/dL Calcium 9.1 (8.6-10.4) mg/dL Adrenal panel 10/26/20 Range/Units 02:09 Sodium 136 (133-145) mmol/L Potassium 5.0 (3.3-5.1) mmol/L Chloride 97 (96-108) mmol/L Carbon Dioxide 27 (22-30) mmol/L BUN 24 H (6-20) mg/dL Creatinine 2.1 H (0.6-1.1) mg/dL Glucose 149 H (70-105) mg/dL Calcium 9.1 (8.6-10.4) mg/dL All other labs normal. A/P Narrative A/P Narrative: Assessment: Patient with multiple medical problems and renal dysfunction as well as recurrent urinary tract infections recently Patient with incontinence history worsening likely neuropathic given her body habitus and back pathology Constipation additionally contributing factor--multiple antibiotic allergies also troublesome Should respond more appropriately with trial on anticholinergic medications and hopefully keep constipation issues to a minimum Treat present UTI as per culture when available and will work on constipation issues as well Renal dysfunction trouble some men will continue to monitor while in hospital with repeat labs in conjunction with hospitalist service Plan as above and will continue to follow Time Spent With Patient Time: Total time spent is greater than 50% in coordination of care (as documented) at patient's floor/unit and/or counseling patient:
[2020-10-26] MEDS: 0.9 % SODIUM CHLORIDE 10 ML SYRINGE IV SCH ×2 (13:04→20:33)
[2020-10-26] MEDS: oxyCODONE HCL 5 MG TABLET PO PRN (19:05)
[2020-10-26] MEDS: FLUTICASONE HFA 110MCG INHALER INH SCH (20:31)
[2020-10-26] MEDS: DOCUSATE SODIUM 100 MG CAPSULE PO SCH (20:36)
[2020-10-26] MEDS ORDERED: [UNRECOGNIZED DRUG - OTHER] PO SCH (21:00)
[2020-10-26] MEDS ORDERED: SENNOSIDES DOCUSATE SODIUM PO SCH (21:00)
[2020-10-26] MEDS: MELATONIN 3 MG TABLET PO SCH (23:10)
[2020-10-27] MEDS: oxyCODONE HCL 5 MG TABLET PO PRN ×3 (03:07→20:32)
[2020-10-27] MEDS: 0.9 % SODIUM CHLORIDE 10 ML SYRINGE IV SCH ×3 (05:35→21:59)
[2020-10-27 07:08] LABS: Basophils # (Auto) 0.07 K/mcL (0.00-0.20); Basophils % (Auto) 0.9 % (0.0-2.0); Eosinophils # (Auto) 0.57 K/mcL (0.00-0.70); Eosinophils % (Auto) 7.4 % (0.0-7.0); Hematocrit 30.9 % (36.0-48.0); Lymphocytes # (Auto) 2.13 K/mcL (1.50-4.80); Lymphocytes % (Auto) 27.8 % (15.0-49.0); Mean Cell Volume 99.4 fL (80.0-100.0); Mean Corpuscular HGB Conc 32.4 g/dL (31.0-36.0); Mean Platelet Volume 11.1 fL (7.4-10.4); Monocytes # (Auto) 0.56 K/mcL (0.10-0.90); Monocytes % (Auto) 7.3 % (1.0-12.0); Neutrophils % (Auto) 56.6 % (38.0-78.0); Platelet Count 226 K/mcL (140-440); RBC 3.11 M/mcL (4.00-5.20); Red Cell Distribution Width 13.2 % (11.5-14.5); WBC 7.7 K/mcL (4.5-11.0)
--- NOTE | 2020-10-27 07:23 | Internal Med Progress Note ---
SUBJECTIVE Subjective Patient information: Note initiated : 10/27/20 at 7:21 am Service Date, if different from initiated Date: [] Patient: Dawn Cabrera a 60 y/o F admitted on 10/26/20 for Vaginal Bleeding . Chief Complaint: [] Interval history: History of present illness: Ms. Cabrera is a 60 year old F Sent from [place] for bleeding was noticed when the nurse changed her depends. She was also recently treated for acute cystitis with hematuria. Patient report abdominal pain after breakfast low back pain. Denied fever chills nausea vomiting chest pain shortness of breath. Patient seen in the ED and diagnosed with hemorrhagic cystitis. Dr. Davis urologist was contacted for consultation. ET abdomen pelvis was done which did not show any stones but showed thickening and inflamed wall of the bladder. She does say that she has had pain when she is urinated for the past few days. H&H stable in the ED. 10/27 Patient feeling better. Feels like she is not having as much urinary bleeding. No overnight event or new complaints. Review of Systems: denies headache/fever/chills/nausea/vomiting/chest or abdominal pain/cough/dyspnea/diarrhea. Otherwise see above. Constitutional Vitals: Vital Signs Temp Pulse Resp BP Pulse Ox 97.0 F 63 12 111/59 96 10/27/20 03:05 10/27/20 03:05 10/27/20 03:05 10/27/20 03:05 10/27/20 03:05 Period Temp Pulse Resp BP Sys/Nava Pulse Ox Last 24 Hr 96.9 F-98.5 F 63-96 12-16 98-113/50-69 93-98 Intake and Output 10/26/20 10/27/20 10/27/20 21:59 05:59 13:59 Intake Total 1300 1300 Output Total 3 2 Balance 1297 1298 Weight 173.272 kg Intake & Output: Intake & Output 10/26/20 10/27/20 10/27/20 21:59 05:59 13:59 Intake Total 1300 1300 Output Total 3 2 Balance 1297 1298 Weight 173.272 kg Intake: IV 1000 1000 Sodium Chloride 0.9% 1,000 ml @ 1000 1000 125 mls/hr IV .Q8H MAURY Rx#: [id number] Oral 300 300 Output: # of times incontinent of urine 3 2 Other: Meal Dinner Percent of Meal Consumed 100% Feeding Ability Independent Urine Appearance Hematuria Exam: General: Alert, Awake, No acute Distress, morbidly obese Eyes/N/T: EOMI, Head/Neck: neck supple, CV: RRR, No murmurs, Pulm: Clear b/l, no wheezing/rhonchi/rales Abd: soft, nontender, +BS x4 Ext: no clubbing/cyanosis. Bilateral lower extremity wounds Neuro: Alert, no focal deficits, moves all extremities, Skin: warm/dry OBJ DATA Labs CBC & Chem 7: 10/27/20 05:31 10/27/20 05:31 Labs: Abnormal Lab Results 10/27/20 10/26/20 10/26/20 05:31 02:09 02:09 WBC 11.7 H RBC 3.11 L 3.76 L Hgb 10.0 L Hct 30.9 L MCV 102.7 H MPV 11.1 H 11.4 H Lymph % (Auto) 14.3 L Eos % (Auto) 7.4 H Absolute Neutrophils 8.62 H BUN 24 H Creatinine 2.1 H Glucose 149 H Urine Appearance Urine Protein Urine Glucose (UA) Urine Ketones Urine Occult Blood Ur Leukocyte Esterase Urine RBC Urine WBC Ur Transition Epith Cell Urine Bacteria Urine Mucus 10/26/20 02:00 WBC RBC Hgb Hct MCV MPV Lymph % (Auto) Eos % (Auto) Absolute Neutrophils BUN Creatinine Glucose Urine Appearance Cloudy A Urine Protein >=500 A Urine Glucose (UA) >=500 A Urine Ketones 5 A Urine Occult Blood >=1.0 A Ur Leukocyte Esterase 25 A Urine RBC > 182 H Urine WBC > 182 H Ur Transition Epith Cell 3 H Urine Bacteria Few A Urine Mucus Mod A Meds: Medications Acetaminophen (Acetaminophen 325 Mg Tablet) 650 mg PO Q6HP PRN PRN Reason: PAIN/FEVER > 101 Albuterol/Ipratropium (Ipratropium/Albuterol 3 Ml Ampul.Neb) 3 ml NEB Q4HP PRN PRN Reason: Shortness Of Breath Albuterol/Ipratropium (Ipratropium/Albuterol Sulfate 1 Puff Inhaler) 1 puff INH Q4HP PRN PRN Reason: shortness of breath Bisacodyl (Bisacodyl 10 Mg Supp.Rect) 10 mg [place] QDAY PRN PRN Reason: Constipation Calcium Carbonate/Glycine (Calcium Carbonate 500 Mg Tab.Chew) 1,000 mg CHEWED Q4HP PRN PRN Reason: Dyspepsia Dextrose (Dextrose 50% 50 Ml Vial) 0 ml IV UD PRN PRN Reason: Hypoglycemia Diagnostic Test (Pha) (Accu-Chek 1 Each Strip) 1 each FS [facility] Last Admin: 10/26/20 20:32 Dose: 1 each Documented by: Docusate Sodium (Docusate Sodium 100 Mg Capsule) 100 mg PO BID [facility] Last Admin: 10/26/20 20:36 Dose: 100 mg Documented by: Duloxetine HCl (Duloxetine 30 Mg Capsule) 60 mg PO DAILY [facility] Fluticasone Propionate (Fluticasone Hfa 110mcg Inhaler) 1 puff INH BID [facility] Last Admin: 10/26/20 20:31 Dose: Not Given Documented by: Furosemide (Furosemide 40 Mg Tablet) 40 mg PO QDAY [facility] Glucose (Dextrose 31 Gm Oral.Susp) 15 gm PO PRN PRN PRN Reason: Hypoglycemia Potassium Chloride 40 meq/ (Dextrose) 520 mls @ 130 mls/hr IV UD PRN PRN Reason: Potassium < 3 Magnesium Sulfate (Magnesium Sulfate) 2 gm in 50 mls @ 50 mls/hr IV UD PRN PRN Reason: Magnesium </= 1.6 Levofloxacin (Levaquin) 750 mg in 150 mls @ 100 mls/hr IV Q48H [facility]; Protocol Insulin Glargine (Insulin Glargine, Human 1 Unit/0.01 Ml) 15 unit SQ DAILY [facility] Insulin Human Lispro (Insulin Lispro 1 Unit/0.01 Ml Unit) 0 unit SQ [facility]; Protocol Last Admin: 10/26/20 20:37 Dose: 2 units Documented by: Lactulose (Lactulose 20 Gm/30 Ml Oral.Gina) 20 gm PO DAILYP PRN PRN Reason: Constipation Magnesium Hydroxide (Magnesium Hydroxide 30 Ml Oral.Susp) 30 ml PO PRN PRN PRN Reason: Constipation Melatonin (Melatonin 3 Mg Tablet) 9 mg PO HS [facility] Last Admin: 10/26/20 23:10 Dose: Not Given Documented by: Ondansetron HCl (Ondansetron 4 Mg/2 Ml Vial) 4 mg IV Q4HP PRN PRN Reason: Nausea And Vomiting Oxybutynin Chloride (Oxybutynin Chloride 5 Mg Tab.Xl.24h) 10 mg PO DAILY [facility] Oxycodone HCl (Oxycodone Hcl 5 Mg Tablet) 10 mg PO Q4HP PRN; Protocol PRN Reason: Per Pain Protocol Last Admin: 10/27/20 03:07 Dose: 10 mg Documented by: Empagliflozin [ Jardiance] 10 Mg Tablet 1 dose PO DAILY [facility] Polyethylene Glycol (Polyethylene Glycol 3350 17 Gm Packet) 17 gm PO DAILY [facility] Potassium Chloride (Potassium Chloride 20 Meq Tablet) 40 meq PO UD PRN PRN Reason: Potssium is 3-3.5 Potassium Chloride (Potassium Chloride 20 Meq Tablet) 40 meq PO UD PRN PRN Reason: Potassium < 3 Ropinirole HCl (Ropinirole 1 Mg Tablet) 4 mg PO DAILY [facility] Senna (Sennosides 1 Tablet) 2 tab PO DAILYP PRN PRN Reason: Constipation Sodium Biphosphate/Sodium Phosphate (Fleets Adult Enema) 1 dose [place] DAILYP PRN PRN Reason: Constipation Sodium Chloride (0.9 % Sodium Chloride 10 Ml Syringe) 10 ml IV Q8 [facility] Last Admin: 10/27/20 05:35 Dose: 10 ml Documented by: A/P Narrative A/P Narrative: A: *Hemorrhagic cystitis: -leukocytosis resolved, H&H stable *REKHA on CKD IV(base Cr~1.5-1.8): Follows with Dr. Irvin *Anemia, chronic: *DM w/neuropathy: *COPD (not on home O2): Follows with Dr. Mejia *ZAID w/CPAP: *Depression/anxiety: *Stage 3 Chronic Pressure injury LLE: For which she sees wound clinic at [facility] *Morbid obesity: *Poor functional status/deconditioning/debility: Is wheelchair-bound and requires abhinav lift * P: -Urology following -Empiric antibiotics, pending BC/UC -Monitor urine output, follow-up renal function -Hold lasix for now -hold ASA for now d/t bleeding -Wound care -Insulin, SSI - -PT/OT -ppx: SCD DNR Time Spent With Patient Time: Total time spent is greater than 50% in coordination of care (as documented) at patient's floor/unit and/or counseling patient:
[2020-10-27] MEDS: POLYETHYLENE GLYCOL 3350 17 GM PACKET PO SCH (07:46)
[2020-10-27] MEDS: OXYBUTYNIN CHLORIDE 5 MG TAB.XL.24H PO SCH (07:47)
[2020-10-27] MEDS: rOPINIRole 1 MG TABLET PO SCH (07:47)
[2020-10-27] MEDS: DULoxetine 30 MG CAPSULE PO SCH (07:48)
[2020-10-27] MEDS: DOCUSATE SODIUM 100 MG CAPSULE PO SCH ×2 (07:48→20:32)
[2020-10-27 07:59] LABS: ALT/SGPT 21 U/L (<40); AST/SGOT 22 U/L (<32); Albumin 3.1 gm/dL (3.2-5.2); Albumin/Globulin Ratio 0.8 (1.0-2.3); Alkaline Phosphatase 85 U/L (39-117); Bilirubin,Direct < 0.2 mg/dL (0-0.3); Bilirubin,Total 0.3 mg/dL (0.1-1.0); Blood Urea Nitrogen 23 mg/dL (6-20); Calcium 8.8 mg/dL (8.6-10.4); Carbon Dioxide 27 mmol/L (22-30); Chloride 102 mmol/L (96-108); Globulin 3.7 gm/dL (2.2-3.7); Glomerular Filtration Rate 27; Glucose 116 mg/dL (70-105); Lactate Dehydrogenase 264 U/L (135-225); Phosphorous 2.8 mg/dL (2.5-4.5); Triglycerides 166 mg/dL (<150); Uric Acid 6.9 mg/dL (2.5-8.0)
[2020-10-27] MEDS: INSULIN LISPRO 1 UNIT/0.01 ML UNIT SQ SCH ×4 (08:34→20:22)
[2020-10-27] MEDS: FLUTICASONE HFA 110MCG INHALER INH SCH ×2 (08:35→20:21)
[2020-10-27] MEDS: ONDANSETRON 4 MG/2 ML VIAL IV PRN (10:47)
[2020-10-27] MEDS: INSULIN GLARGINE, HUMAN 1 UNIT/0.01 ML SQ SCH (12:04)
--- NOTE | 2020-10-27 14:33 | Internal Med Progress Note ---
SUBJECTIVE Subjective Patient information: Note initiated : 10/28/20 at 2:30 pm Service Date, if different from initiated Date: [] Patient: Dawn Cabrera a 60 y/o F admitted on 10/26/20 for Vaginal Bleeding . Chief Complaint: [] Interval history: History of present illness: Ms. Cabrera is a 60 year old female who was sent over from [facility] for bleeding was noticed when the nurse changed her depends. She was also recently treated for acute cystitis with hematuria. Patient report abdominal pain after breakfast low back pain. Denied fever chills nausea vomiting chest pain shortness of breath. Patient seen in the ED and diagnosed with hemorrhagic cystitis. Dr. Davis urologist was contacted for consultation. ET abdomen pelvis was done which did not show any stones but showed thickening and inflamed wall of the bladder. She does say that she has had pain when she is urinated for the past few days. H&H stable in the ED. 10/27 Patient feeling better. Feels like she is not having as much urinary bleeding. No overnight event or new complaints. 10/28 Waiting for urine culture, patient feels ok, no more bleeding. Renal function function is about the same. Constitutional Vitals: Vital Signs Temp Pulse Resp BP Pulse Ox 97.9 F 70 16 102/60 99 10/27/20 13:31 10/27/20 13:31 10/27/20 13:31 10/27/20 13:31 10/27/20 13:31 Period Temp Pulse Resp BP Sys/Nava Pulse Ox Last 24 Hr 97.0 F-98.5 F 63-96 12-20 98-130/50-73 91-99 Intake and Output 10/27/20 10/27/20 10/27/20 05:59 13:59 21:59 Intake Total 1300 800 Output Total 2 Balance 1298 800 Weight 173.272 kg Intake & Output: Intake & Output 10/27/20 10/27/20 10/27/20 05:59 13:59 21:59 Intake Total 1300 800 Output Total 2 Balance 1298 800 Weight 173.272 kg Intake: IV 1000 Sodium Chloride 0.9% 1,000 ml @ 1000 125 mls/hr IV .Q8H MAURY Rx#: [id number] Oral 300 800 Output: # of times incontinent of urine 2 Other: Urine Appearance Hematuria Hematuria Exam: General: Alert, Awake, No acute Distress, morbidly obese Eyes/N/T: EOMI, Head/Neck: neck supple, CV: RRR, No murmurs, Pulm: Clear b/l, no wheezing/rhonchi/rales Abd: soft, nontender, +BS x4 Ext: no clubbing/cyanosis. Bilateral lower extremity wounds Neuro: Alert, no focal deficits, moves all extremities, Skin: warm/dry OBJ DATA Labs CBC & Chem 7: 10/27/20 05:31 10/28/20 05:53 Labs: Abnormal Lab Results 10/27/20 10/27/20 10/26/20 05:31 05:31 02:09 WBC RBC 3.11 L Hgb 10.0 L Hct 30.9 L MCV MPV 11.1 H Lymph % (Auto) Eos % (Auto) 7.4 H Absolute Neutrophils BUN 23 H 24 H Creatinine 2.0 H 2.1 H Glucose 116 H 149 H Lactate Dehydrogenase 264 H Albumin 3.1 L Albumin/Globulin Ratio 0.8 L Triglycerides 166 H Urine Appearance Urine Protein Urine Glucose (UA) Urine Ketones Urine Occult Blood Ur Leukocyte Esterase Urine RBC Urine WBC Ur Transition Epith Cell Urine Bacteria Urine Mucus 10/26/20 10/26/20 02:09 02:00 WBC 11.7 H RBC 3.76 L Hgb Hct MCV 102.7 H MPV 11.4 H Lymph % (Auto) 14.3 L Eos % (Auto) Absolute Neutrophils 8.62 H BUN Creatinine Glucose Lactate Dehydrogenase Albumin Albumin/Globulin Ratio Triglycerides Urine Appearance Cloudy A Urine Protein >=500 A Urine Glucose (UA) >=500 A Urine Ketones 5 A Urine Occult Blood >=1.0 A Ur Leukocyte Esterase 25 A Urine RBC > 182 H Urine WBC > 182 H Ur Transition Epith Cell 3 H Urine Bacteria Few A Urine Mucus Mod A Meds: Medications Acetaminophen (Acetaminophen 325 Mg Tablet) 650 mg PO Q6HP PRN PRN Reason: PAIN/FEVER > 101 Albuterol/Ipratropium (Ipratropium/Albuterol 3 Ml Ampul.Neb) 3 ml NEB Q4HP PRN PRN Reason: Shortness Of Breath Albuterol/Ipratropium (Ipratropium/Albuterol Sulfate 1 Puff Inhaler) 1 puff INH Q4HP PRN PRN Reason: shortness of breath Bisacodyl (Bisacodyl 10 Mg Supp.Rect) 10 mg MD QDAY PRN PRN Reason: Constipation Calcium Carbonate/Glycine (Calcium Carbonate 500 Mg Tab.Chew) 1,000 mg CHEWED Q4HP PRN PRN Reason: Dyspepsia Dextrose (Dextrose 50% 50 Ml Vial) 0 ml IV UD PRN PRN Reason: Hypoglycemia Diagnostic Test (Pha) (Accu-Chek 1 Each Strip) 1 each FS ACHS [facility] Last Admin: 10/27/20 12:04 Dose: 1 each Documented by: Docusate Sodium (Docusate Sodium 100 Mg Capsule) 100 mg PO BID [facility] Last Admin: 10/27/20 07:48 Dose: 100 mg Documented by: Duloxetine HCl (Duloxetine 30 Mg Capsule) 60 mg PO DAILY [facility] Last Admin: 10/27/20 07:48 Dose: 60 mg Documented by: Fluticasone Propionate (Fluticasone Hfa 110mcg Inhaler) 1 puff INH BID [facility] Last Admin: 10/27/20 08:35 Dose: Not Given Documented by: Furosemide (Furosemide 40 Mg Tablet) 40 mg PO QDAY [facility] Glucose (Dextrose 31 Gm Oral.Susp) 15 gm PO PRN PRN PRN Reason: Hypoglycemia Potassium Chloride 40 meq/ (Dextrose) 520 mls @ 130 mls/hr IV UD PRN PRN Reason: Potassium < 3 Magnesium Sulfate (Magnesium Sulfate) 2 gm in 50 mls @ 50 mls/hr IV UD PRN PRN Reason: Magnesium </= 1.6 Levofloxacin (Levaquin) 750 mg in 150 mls @ 100 mls/hr IV Q48H [facility]; Protocol Insulin Glargine (Insulin Glargine, Human 1 Unit/0.01 Ml) 15 unit SQ DAILY [facility] Last Admin: 10/27/20 12:04 Dose: 15 unit Documented by: Insulin Human Lispro (Insulin Lispro 1 Unit/0.01 Ml Unit) 0 unit SQ [facility]; Protocol Last Admin: 10/27/20 12:05 Dose: Not Given Documented by: Lactulose (Lactulose 20 Gm/30 Ml Oral.Gina) 20 gm PO DAILYP PRN PRN Reason: Constipation Magnesium Hydroxide (Magnesium Hydroxide 30 Ml Oral.Susp) 30 ml PO PRN PRN PRN Reason: Constipation Melatonin (Melatonin 3 Mg Tablet) 9 mg PO HS [facility] Last Admin: 10/26/20 23:10 Dose: Not Given Documented by: Ondansetron HCl (Ondansetron 4 Mg/2 Ml Vial) 4 mg IV Q4HP PRN PRN Reason: Nausea And Vomiting Last Admin: 10/27/20 10:47 Dose: 4 mg Documented by: Oxybutynin Chloride (Oxybutynin Chloride 5 Mg Tab.Xl.24h) 10 mg PO DAILY [facility] Last Admin: 10/27/20 07:47 Dose: 10 mg Documented by: Oxycodone HCl (Oxycodone Hcl 5 Mg Tablet) 10 mg PO Q4HP PRN; Protocol PRN Reason: Per Pain Protocol Last Admin: 10/27/20 07:46 Dose: 10 mg Documented by: Empagliflozin [ Jardiance] 10 Mg Tablet 1 dose PO DAILY [facility] Last Admin: 10/27/20 12:09 Dose: Not Given Documented by: Polyethylene Glycol (Polyethylene Glycol 3350 17 Gm Packet) 17 gm PO DAILY [facility] Last Admin: 10/27/20 07:46 Dose: 17 gm Documented by: Potassium Chloride (Potassium Chloride 20 Meq Tablet) 40 meq PO UD PRN PRN Reason: Potssium is 3-3.5 Potassium Chloride (Potassium Chloride 20 Meq Tablet) 40 meq PO UD PRN PRN Reason: Potassium < 3 Ropinirole HCl (Ropinirole 1 Mg Tablet) 4 mg PO DAILY [facility] Last Admin: 10/27/20 07:47 Dose: 4 mg Documented by: Senna (Sennosides 1 Tablet) 2 tab PO DAILYP PRN PRN Reason: Constipation Sodium Biphosphate/Sodium Phosphate (Fleets Adult Enema) 1 dose MD DAILYP PRN PRN Reason: Constipation Sodium Chloride (0.9 % Sodium Chloride 10 Ml Syringe) 10 ml IV Q8 [facility] Last Admin: 10/27/20 05:35 Dose: 10 ml Documented by: A/P Narrative A/P Narrative: Assessment: 60 year old female who was recently treated for acute cystitis was sent over from [facility] for bleeding was noticed when the nurse changed her depends. The cause of bleeding is felt to be hemorrhagic cystitis. The patient also had an acute on chronic kidney injury. #Hemorrhagic cystitis: -leukocytosis resolved, H&H stable -on levofloxacin #REKHA on CKD IV(base Cr~1.5-1.8): Follows with Dr. Irvin #Anemia, chronic: #DM w/neuropathy: #COPD (not on home O2): Follows with Dr. Mejia #ZAID w/CPAP: #Depression/anxiety: #Stage 3 Chronic Pressure injury LLE: For which she sees wound clinic at [facility] #Morbid obesity: #Poor functional status/deconditioning/debility: Is wheelchair-bound and requires abhinav lift P: -Urology following -Empiric antibiotics, pending BC/UC -Monitor urine output, follow-up renal function -Hold lasix for now -hold ASA for now d/t bleeding -Wound care -Insulin, SSI -PT/OT -ppx: SCD -code status: DNR Time Spent With Patient Time: Total time spent is greater than 50% in coordination of care (as documented) at patient's floor/unit and/or counseling patient:
--- NOTE | 2020-10-27 15:00 | General Surgery Progress Note ---
SUBJECTIVE Subjective Patient information: Note initiated : 10/27/20 at 2:57 pm Service Date, if different from initiated Date: [] Patient: Dawn Cabrera a 60 y/o F admitted on 10/26/20 for Vaginal Bleeding . Chief Complaint: [] Interval history: Patient presently stable with no new complaints and clearing of her urine on antibiotics Following for urology coverage Constitutional Vitals: Vital Signs Temp Pulse Resp BP Pulse Ox 97.9 F 70 16 102/60 99 10/27/20 13:31 10/27/20 13:31 10/27/20 13:31 10/27/20 13:31 10/27/20 13:31 Period Temp Pulse Resp BP Sys/Nava Pulse Ox Last 24 Hr 97.0 F-98.5 F 63-96 12-20 98-130/50-73 91-99 Intake and Output 10/27/20 10/27/20 10/27/20 05:59 13:59 21:59 Intake Total 1300 800 Output Total 2 Balance 1298 800 Weight 382 lb Intake & Output: Intake & Output 10/27/20 10/27/20 10/27/20 05:59 13:59 21:59 Intake Total 1300 800 Output Total 2 Balance 1298 800 Weight 382 lb Intake: IV 1000 Sodium Chloride 0.9% 1,000 ml @ 1000 125 mls/hr IV .Q8H MAURY Rx#: [id number] Oral 300 800 Output: # of times incontinent of urine 2 Other: Urine Appearance Hematuria Hematuria Additional findings Additional findings: Patient remains with morbid obesity but in no acute distress and alert cooperative Chest no breathing difficulties Abdomen markedly obese but no tenderness A/P Narrative A/P Narrative: Assessment: Continues on regimen with resolving cystitis Continue present fluid management and glucose control Await urine culture results Plan: Continue with medical regimen as per hospitalist Time Spent With Patient Time: Total time spent is greater than 50% in coordination of care (as documented) at patient's floor/unit and/or counseling patient:
--- NOTE | 2020-10-27 17:34 | General Surgery Consult Note ---
HPI Data of Consult Primary Care Provider: Johnnie Trent Consult Narrative Chief complaint: REKHA. CYSTITIS / UTI Sepsis. Chronic wounds Right leg and LEFT plantar Reason for consult: Wound Care. History of present illness: This patient has chronic Stage 1 / 2 ulcer of RIGHT mid lateral leg and LEFT posterior plantar heel. I have been following this patient at [facility] in [facility] I saw this patient along with Madhavi RN and Elijah RN in room 109 earlier this mo rning. Examined wounds and debrided LEFT heel plantar ulcer. cc:: CC: Gregg Davis MD PFSH PFSH All Active Problems Acute cystitis (Acute) REKHA (acute kidney injury) (Acute) Depression with anxiety (Acute) Diabetic neuropathy (Acute) COPD (chronic obstructive pulmonary disease) (Acute) ZAID on CPAP (Acute) Essential (primary) hypertension (Acute) Chronic kidney disease, stage 4 (severe) (Acute) T2DM (type 2 diabetes mellitus) (Acute) Feared condition not demonstrated (Acute) Septic shock (Acute) Severe sepsis (Acute) UTI (urinary tract infection) (Acute) Social History additional history: Past medical history includes chronic kidney disease stage IIIb diabetes chronic anemia morbid obesity poor functional status deconditioning debility she has been wheelchair-bound for years. Depression anxiety hypertension Social history patient denies tobacco or alcohol she is bedbound wheelchair- bound and lives in a nursing facility MEDS/ALLERGIES Home Medications and Allergies Home Medications Medication Instructions Recorded Confirmed Type Combivent Respimat 1 puff INHALATION Q4H PRN 07/20/20 10/27/20 History Fleet Enema 118 ml CO ONCE PRN 07/20/20 10/27/20 History Flovent HFA 1 puff INHALATION BID 07/20/20 10/27/20 History Jardiance 10 mg PO QAM 07/20/20 10/27/20 History Senna Plus 2 tab-cap PO BID 07/20/20 10/27/20 History aspirin 81 mg PO QDAY 07/20/20 10/27/20 History bisacodyl [Dulcolax (bisacodyl)] 10 mg CO QDAY PRN 07/20/20 10/27/20 History calcium carbonate [Tums] 1,000 mg PO Q4HP PRN 07/20/20 10/27/20 History cholecalciferol (vitamin D3) 1,000 unit PO BID 07/20/20 10/27/20 History duloxetine [Cymbalta] 60 mg PO QDAY 07/20/20 10/27/20 History ferrous sulfate 325 mg PO QDAY 07/20/20 10/27/20 History furosemide [Lasix] 20 mg PO QDAY 07/20/20 10/27/20 History insulin glargine 15 unit SUBCUT DAILY 07/20/20 10/27/20 History magnesium hydroxide [Milk of 30 ml PO PRN PRN 07/20/20 10/27/20 History Magnesia] melatonin 10 mg PO HS 07/20/20 10/27/20 History polyethylene glycol 3350 17 g PO QDAY 07/20/20 10/27/20 History ropinirole 4 mg PO DAILY 07/20/20 10/27/20 History acetaminophen 1,000 mg PO Q6H PRN 09/07/20 10/27/20 History oxycodone 10 mg PO Q4H PRN #10 tab 09/12/20 10/27/20 Rx blood sugar diagnostic 10/27/20 10/27/20 History glucagon [Glucagon Emergency Kit] 1 mg IM PRN PRN 10/27/20 10/27/20 History melatonin 5 mg PO HS PRN 10/27/20 10/27/20 History Allergies Allergy/AdvReac Type Severity Reaction Status Date / Time Penicillins Allergy Severe Anaphylaxis Verified 10/26/20 01:21 cefuroxime Allergy Intermediate Rash Verified 10/26/20 01:39 doxycycline Allergy Unknown Verified 10/26/20 01:21 morphine Allergy Unknown Verified 10/26/20 01:21 sulfamethoxazole Allergy Unknown Verified 10/26/20 01:21 [From Bactrim] trimethoprim [From Bactrim] Allergy Unknown Verified 10/26/20 01:21 Physical Examination Vital Signs Vital signs: Temp Pulse Resp BP Pulse Ox 97.9 F 70 16 102/60 99 10/27/20 13:31 10/27/20 13:31 10/27/20 13:31 10/27/20 13:31 10/27/20 13:31 General physical appearance General physical exam: no distress, no pain, chronically ill and other (Super morbidly obese, Bed confined. Mainly sitting up during meals or had been OOB in wheelchair.) Eyes Eye exam: PERRL and normal ocular movement ENT ENT exam: normal pinna, normal mucosa and no congestion Head Head exam IM: Present atraumatic and normocephalic Neck Neck exam: no masses, trachea midline and no venous distension Cardiovascular Cardiovascular exam IM: Present normal rate and rhythm Respiratory Respiratory exam: normal expansion and normal respiratory effort Abdomen Abdomen: Present soft, non tender and bowel sounds Integumentary Integumentary: Present other (HEALED wound LEFT posterior calf ( pressure ulcer ) IMPROVED wound RIGHT mid anterior / lateral leg Granulated and epithelialized over 90% over a prolonged period of time. ( Local wound care + GCB dressings. LEFT FOOT plantar posterior heel Stage 3 ulcer . Chronic with marginal callus. f) Neurologic Neurologic: Present other (Moves all extremities and can roll over in bed. LEFT foot drop and inversion of foot. ( Chronic )) Musculoskeletal Musculoskeletal: Present other (NON ambulatory. Left foot ?? drop and inversion: Stage 3 pressure ulcer. Fascia / Covered withthick biofilm) Psychiatric Psychiatric: Present oriented to time, oriented to person, oriented to place and speech is normal Additional Findings Additional exam: Debrided LEFT plantar ulcer on 10/27/2020 Wound c/s Staph and swarming Proteus. Patient is on IV Levaquin for UTI / Cystitis Results Labs Result diagrams: 10/27/20 05:31 10/28/20 05:53 Labs: Abnormal lab results 10/27/20 10/27/20 Range/Units 05:31 05:31 RBC 3.11 L (4.00-5.20) M/mcL Hgb 10.0 L (12.0-15.0) g/dL Hct 30.9 L (36.0-48.0) % MPV 11.1 H (7.4-10.4) fL Eos % (Auto) 7.4 H (0.0-7.0) % BUN 23 H (6-20) mg/dL Creatinine 2.0 H (0.6-1.1) mg/dL Glucose 116 H (70-105) mg/dL Lactate Dehydrogenase 264 H (135-225) U/L Albumin 3.1 L (3.2-5.2) gm/dL Albumin/Globulin Ratio 0.8 L (1.0-2.3) Triglycerides 166 H (<150) mg/dL Diabetes panel 10/27/20 Range/Units 05:31 Sodium 138 (133-145) mmol/L Potassium 4.0 (3.3-5.1) mmol/L Chloride 102 (96-108) mmol/L Carbon Dioxide 27 (22-30) mmol/L BUN 23 H (6-20) mg/dL Creatinine 2.0 H (0.6-1.1) mg/dL Glucose 116 H (70-105) mg/dL Calcium 8.8 (8.6-10.4) mg/dL AST 22 (<32) U/L ALT 21 (<40) U/L Alkaline Phosphatase 85 (39-117) U/L Total Protein 6.8 (5.9-8.4) gm/dL Albumin 3.1 L (3.2-5.2) gm/dL Triglycerides 166 H (<150) mg/dL Calcium panel 10/27/20 Range/Units 05:31 Calcium 8.8 (8.6-10.4) mg/dL Phosphorus 2.8 (2.5-4.5) mg/dL Albumin 3.1 L (3.2-5.2) gm/dL Pituitary panel 10/27/20 Range/Units 05:31 Sodium 138 (133-145) mmol/L Potassium 4.0 (3.3-5.1) mmol/L Chloride 102 (96-108) mmol/L Carbon Dioxide 27 (22-30) mmol/L BUN 23 H (6-20) mg/dL Creatinine 2.0 H (0.6-1.1) mg/dL Glucose 116 H (70-105) mg/dL Calcium 8.8 (8.6-10.4) mg/dL Adrenal panel 10/27/20 Range/Units 05:31 Sodium 138 (133-145) mmol/L Potassium 4.0 (3.3-5.1) mmol/L Chloride 102 (96-108) mmol/L Carbon Dioxide 27 (22-30) mmol/L BUN 23 H (6-20) mg/dL Creatinine 2.0 H (0.6-1.1) mg/dL Glucose 116 H (70-105) mg/dL Calcium 8.8 (8.6-10.4) mg/dL Total Bilirubin 0.3 (0.1-1.0) mg/dL AST 22 (<32) U/L ALT 21 (<40) U/L Alkaline Phosphatase 85 (39-117) U/L Total Protein 6.8 (5.9-8.4) gm/dL Albumin 3.1 L (3.2-5.2) gm/dL All other labs normal. A/P Narrative A/P Narrative: Assessment: Patient being treated for UROSEPSIS, UTI. Chronic wounds Right mid anterior / lateral leg and LEFT posterior plantar heel. Wound c/s from LEFT heel : SO far positive for Staph and proteus. Se nsitivities pending. Patient in on Levaquin IV for Cystitis. / Urosepsis. Urine c/s awaited. Plan: Continue with local wound care. Will follow, while she is in hospital. Please notify wound care clinic, when she is discharged and or transferred back to Rehab. Time Spent With Patient Time: Total time spent is greater than 50% in coordination of care (as documented) at patient's floor/unit and/or counseling patient: Total time spent with greater than 50% in coordination of care (as documented) at patient's floor/unit and/or counseling patient:: 25 - 35 minutes
[2020-10-27] MEDS: MELATONIN 3 MG TABLET PO SCH (20:31)
[2020-10-28] MEDS: 0.9 % SODIUM CHLORIDE 10 ML SYRINGE IV SCH ×3 (05:55→20:56)
[2020-10-28] MEDS: INSULIN LISPRO 1 UNIT/0.01 ML UNIT SQ SCH ×4 (07:18→20:55)
--- NOTE | 2020-10-28 07:41 | General Surgery Progress Note ---
SUBJECTIVE Subjective Patient information: Note initiated : 10/28/20 at 7:37 am Service Date, if different from initiated Date: [] Patient: Dawn Cabrera a 60 y/o F admitted on 10/26/20 for Vaginal Bleeding . Chief Complaint: [] Interval history: Patient continues to improve now having much less voiding problem and leaking Patient seen no more gross blood since yesterday late morning Urine culture still pending Constitutional Vitals: Vital Signs Temp Pulse Resp BP Pulse Ox 97.8 F 62 12 107/61 94 10/28/20 02:40 10/28/20 02:40 10/28/20 02:40 10/28/20 02:40 10/28/20 02:40 Period Temp Pulse Resp BP Sys/Nava Pulse Ox Last 24 Hr 97.1 F-97.9 F 62-75 12-20 102-130/60-73 91-99 Intake and Output 10/27/20 10/28/20 10/28/20 21:59 05:59 13:59 Intake Total 240 800 Output Total 1 2 1 Balance 239 798 -1 Weight 382 lb 8 oz Intake & Output: Intake & Output 10/27/20 10/28/20 10/28/20 21:59 05:59 13:59 Intake Total 240 800 Output Total 1 2 1 Balance 239 798 -1 Weight 382 lb 8 oz Intake: Oral 240 800 Output: # of times incontinent of urine 1 2 1 Other: Meal Dinner Percent of Meal Consumed 50% Feeding Ability Assist with Tray Set Up Additional findings Additional findings: Afebrile vital signs stable Patient alert cooperative and in no distress HEENT within normal limits Minimal CVA tenderness Abdomen remains with massive obesity but nontender A/P Narrative A/P Narrative: Assessment: Continued improvement in presumed cystitis secondary hemorrhagic cystitis With voiding symptoms improved would continue present management pending urine culture results and patient not unlikely to have some neurogenic component especially given her neurologic status and continued anticholinergic or alternate bladder management would likely improve her recurrent cystitis Consideration for local hormone therapy as well would be reasonable Plan: Continue present management pending urine culture results and encourage increased fluid intake We will continue to follow as needed while in-house Time Spent With Patient Time: Total time spent is greater than 50% in coordination of care (as documented) at patient's floor/unit and/or counseling patient:
[2020-10-28 07:59] LABS: Blood Urea Nitrogen 21 mg/dL (6-20); Calcium 8.9 mg/dL (8.6-10.4); Carbon Dioxide 25 mmol/L (22-30); Chloride 105 mmol/L (96-108); Glomerular Filtration Rate 27; Glucose 101 mg/dL (70-105)
[2020-10-28] MEDS: OXYBUTYNIN CHLORIDE 5 MG TAB.XL.24H PO SCH (08:30)
[2020-10-28] MEDS: FUROSEMIDE 40 MG TABLET PO SCH (08:39)
[2020-10-28] MEDS: DULoxetine 30 MG CAPSULE PO SCH (08:39)
[2020-10-28] MEDS: DOCUSATE SODIUM 100 MG CAPSULE PO SCH ×2 (08:39→20:55)
[2020-10-28] MEDS: POLYETHYLENE GLYCOL 3350 17 GM PACKET PO SCH (08:41)
[2020-10-28] MEDS: rOPINIRole 1 MG TABLET PO SCH (08:41)
[2020-10-28] MEDS: INSULIN GLARGINE, HUMAN 1 UNIT/0.01 ML SQ SCH (08:42)
[2020-10-28] MEDS: BISACODYL 10 MG SUPP.RECT PR PRN (08:43)
[2020-10-28] MEDS: LEVOFLOXACIN 750 MG/150 ML BAG IV SCH (09:00)
[2020-10-28] MEDS: FLUTICASONE HFA 110MCG INHALER INH SCH ×2 (09:01→20:56)
--- NOTE | 2020-10-28 10:27 | XRay Report ---
HISTORY: Nonhealing stage IV pressure injury FINDINGS: AP and crosstable lateral images were obtained. On the lateral view the posterior half of the calcaneus is obscured by a fat roll artifact. There is mild sclerosis of bone along the inferior weightbearing portion of the calcaneus. No obvious calcaneal erosion is seen in the visualized portion of the bone. There is moderate deformity in the ankle joint due to arthritis. There is an old healed fracture at the distal end of the proximal phalanx of the fifth toe. No acute fracture is seen. There is severe soft tissue swelling seen on the lateral view overlying the metatarsal phalangeal joints. Cortical erosion is seen at the base of the medial side of the navicular. Adjacent to this there is a small spur. Patient has diffuse osteoporosis throughout the foot. There is no gas in the soft tissues. IMPRESSION: Nonspecific sclerosis in the inferior margin of the calcaneus which may be due to chronic osteomyelitis or arthritis. Small cortical erosion at the base of the navicular Cellulitis/edema throughout the foot and ankle Interpreted and Authenticated by: Nate Maldonado 10/28/20
[2020-10-28] MEDS: oxyCODONE HCL 5 MG TABLET PO PRN ×2 (10:45→15:26)
[2020-10-28] MEDS: ONDANSETRON 4 MG/2 ML VIAL IV PRN ×2 (12:50→16:57)
[2020-10-28] MEDS: MELATONIN 3 MG TABLET PO SCH (20:55)
[2020-10-29] MEDS: 0.9 % SODIUM CHLORIDE 10 ML SYRINGE IV SCH ×3 (04:20→21:14)
[2020-10-29] MEDS: INSULIN LISPRO 1 UNIT/0.01 ML UNIT SQ SCH ×4 (06:57→21:12)
[2020-10-29] MEDS: DOCUSATE SODIUM 100 MG CAPSULE PO SCH ×2 (08:45→21:11)
[2020-10-29] MEDS: POLYETHYLENE GLYCOL 3350 17 GM PACKET PO SCH (08:45)
[2020-10-29] MEDS: rOPINIRole 1 MG TABLET PO SCH (08:45)
[2020-10-29] MEDS: DULoxetine 30 MG CAPSULE PO SCH (08:46)
[2020-10-29] MEDS: FLUTICASONE HFA 110MCG INHALER INH SCH ×2 (08:46→21:11)
[2020-10-29] MEDS: OXYBUTYNIN CHLORIDE 5 MG TAB.XL.24H PO SCH (08:46)
[2020-10-29] MEDS: FUROSEMIDE 40 MG TABLET PO SCH (08:46)
[2020-10-29] MEDS: BISACODYL 10 MG SUPP.RECT PR PRN (08:47)
[2020-10-29] MEDS: INSULIN GLARGINE, HUMAN 1 UNIT/0.01 ML SQ SCH (08:47)
[2020-10-29] MEDS: oxyCODONE HCL 5 MG TABLET PO PRN (10:50)
--- NOTE | 2020-10-29 11:38 | General Surgery Progress Note ---
SUBJECTIVE Subjective Patient information: Note initiated : 10/29/20 at 11:34 am Service Date, if different from initiated Date: [] Patient: Dawn Cabrera a 60 y/o F admitted on 10/26/20 for Vaginal Bleeding . Chief Complaint: [] Interval history: Cont to improve and no new voiding complaints Constitutional Vitals: Vital Signs Temp Pulse Resp BP Pulse Ox 97.4 F 57 L 16 105/58 97 10/29/20 07:34 10/29/20 07:34 10/29/20 07:34 10/29/20 07:34 10/29/20 07:34 Period Temp Pulse Resp BP Sys/Nava Pulse Ox Last 24 Hr 96.8 F-98.9 F 57-74 16-20 105-130/58-70 90-97 Intake and Output 10/28/20 10/29/20 10/29/20 21:59 05:59 13:59 Intake Total 400 400 50 Output Total 1 1 Balance 399 399 50 Weight 384 lb 3.2 oz Intake & Output: Intake & Output 10/28/20 10/29/20 10/29/20 21:59 05:59 13:59 Intake Total 400 400 50 Output Total 1 1 Balance 399 399 50 Weight 384 lb 3.2 oz Intake: Oral 400 400 50 Output: # of times incontinent of urine 1 1 Other: Meal Lunch Breakfast Percent of Meal Consumed 50% 50% Feeding Ability Independent Assist with Tray Set Up Urine Color Pale Urine Odor Normal # Voids 1 # of times incontinent of 1 Bowels Additional findings Additional findings: AFVSS alert cooperative abd no tenderness--obese A/P Narrative A/P Narrative: Ass:urine culture with Gram Neg bacillus --await sensitivity- OK to cont Levaquin Plan: cont hydration and medical management as symptoms and overall clinically responding Time Spent With Patient Time: Total time spent is greater than 50% in coordination of care (as documented) at patient's floor/unit and/or counseling patient:
--- NOTE | 2020-10-29 12:46 | Internal Med Progress Note ---
SUBJECTIVE Subjective Patient information: Note initiated : 10/29/20 at 12:45 pm Service Date, if different from initiated Date: [] Patient: Dawn Cabrera a 60 y/o F admitted on 10/26/20 for Vaginal Bleeding . Chief Complaint: [] Interval history: History of present illness: Ms. Cabrera is a 60 year old female who was sent over from [facility] for bleeding was noticed when the nurse changed her depends. She was also recently treated for acute cystitis with hematuria. Patient report abdominal pain after breakfast low back pain. Denied fever chills nausea vomiting chest pain shortness of breath. Patient seen in the ED and diagnosed with hemorrhagic cystitis. Dr. Davis urologist was contacted for consultation. ET abdomen pelvis was done which did not show any stones but showed thickening and inflamed wall of the bladder. She does say that she has had pain when she is urinated for the past few days. H&H stable in the ED. 10/27 Patient feeling better. Feels like she is not having as much urinary bleeding. No overnight event or new complaints. 10/28 Waiting for urine culture, patient feels ok, no more bleeding. Renal function function is about the same. 10/29 Feels good today, no more bleeding. Urine culture positive for gram negative bacillus. Constitutional Vitals: Vital Signs Temp Pulse Resp BP Pulse Ox 97.4 F 61 16 112/60 96 10/29/20 12:00 10/29/20 12:00 10/29/20 12:00 10/29/20 12:00 10/29/20 12:00 Period Temp Pulse Resp BP Sys/Nava Pulse Ox Last 24 Hr 96.8 F-98.9 F 57-74 16-20 105-130/58-70 90-97 Intake and Output 10/28/20 10/29/20 10/29/20 21:59 05:59 13:59 Intake Total 400 400 50 Output Total 1 1 Balance 399 399 50 Weight 174.27 kg Intake & Output: Intake & Output 10/28/20 10/29/20 10/29/20 21:59 05:59 13:59 Intake Total 400 400 50 Output Total 1 1 Balance 399 399 50 Weight 174.27 kg Intake: Oral 400 400 50 Output: # of times incontinent of urine 1 1 Other: Meal Lunch Breakfast Percent of Meal Consumed 50% 50% Feeding Ability Independent Assist with Tray Set Up Urine Color Pale Urine Odor Normal # Voids 1 # of times incontinent of 1 Bowels Exam: General: Alert, Awake, No acute Distress, morbidly obese Eyes/N/T: EOMI, Head/Neck: neck supple, CV: RRR, No murmurs, Pulm: Clear b/l, no wheezing/rhonchi/rales Abd: soft, nontender, +BS x4 Ext: no clubbing/cyanosis. Bilateral lower extremity wounds Neuro: Alert, no focal deficits, moves all extremities, Skin: warm/dry OBJ DATA Labs CBC & Chem 7: 10/27/20 05:31 10/28/20 05:53 Labs: Abnormal Lab Results 10/28/20 10/27/20 10/27/20 05:53 05:31 05:31 RBC 3.11 L Hgb 10.0 L Hct 30.9 L MPV 11.1 H Eos % (Auto) 7.4 H BUN 21 H 23 H Creatinine 2.0 H 2.0 H Glucose 116 H Lactate Dehydrogenase 264 H Albumin 3.1 L Albumin/Globulin Ratio 0.8 L Triglycerides 166 H Meds: Medications Acetaminophen (Acetaminophen 325 Mg Tablet) 650 mg PO Q6HP PRN PRN Reason: PAIN/FEVER > 101 Albuterol/Ipratropium (Ipratropium/Albuterol 3 Ml Ampul.Neb) 3 ml NEB Q4HP PRN PRN Reason: Shortness Of Breath Albuterol/Ipratropium (Ipratropium/Albuterol Sulfate 1 Puff Inhaler) 1 puff INH Q4HP PRN PRN Reason: shortness of breath Bisacodyl (Bisacodyl 10 Mg Supp.Rect) 10 mg ID QDAY PRN PRN Reason: Constipation Last Admin: 10/29/20 08:47 Dose: 10 mg Documented by: Calcium Carbonate/Glycine (Calcium Carbonate 500 Mg Tab.Chew) 1,000 mg CHEWED Q4HP PRN PRN Reason: Dyspepsia Dextrose (Dextrose 50% 50 Ml Vial) 0 ml IV UD PRN PRN Reason: Hypoglycemia Diagnostic Test (Pha) (Accu-Chek 1 Each Strip) 1 each FS ACHS [facility] Last Admin: 10/29/20 10:55 Dose: 1 each Documented by: Docusate Sodium (Docusate Sodium 100 Mg Capsule) 100 mg PO BID [facility] Last Admin: 10/29/20 08:45 Dose: 100 mg Documented by: Duloxetine HCl (Duloxetine 30 Mg Capsule) 60 mg PO DAILY [facility] Last Admin: 10/29/20 08:46 Dose: 60 mg Documented by: Fluticasone Propionate (Fluticasone Hfa 110mcg Inhaler) 1 puff INH BID [facility] Last Admin: 10/29/20 08:46 Dose: Not Given Documented by: Furosemide (Furosemide 40 Mg Tablet) 40 mg PO QDAY [facility] Last Admin: 10/29/20 08:46 Dose: 40 mg Documented by: Glucose (Dextrose 31 Gm Oral.Susp) 15 gm PO PRN PRN PRN Reason: Hypoglycemia Potassium Chloride 40 meq/ (Dextrose) 520 mls @ 130 mls/hr IV UD PRN PRN Reason: Potassium < 3 Magnesium Sulfate (Magnesium Sulfate) 2 gm in 50 mls @ 50 mls/hr IV UD PRN PRN Reason: Magnesium </= 1.6 Levofloxacin (Levaquin) 750 mg in 150 mls @ 100 mls/hr IV Q48H [facility]; Protocol Last Infusion: 10/28/20 12:26 Dose: Infused Documented by: Insulin Glargine (Insulin Glargine, Human 1 Unit/0.01 Ml) 15 unit SQ DAILY [facility] Last Admin: 10/29/20 08:47 Dose: 15 unit Documented by: Insulin Human Lispro (Insulin Lispro 1 Unit/0.01 Ml Unit) 0 unit SQ ACHS [facility]; Protocol Last Admin: 10/29/20 10:55 Dose: Not Given Documented by: Lactulose (Lactulose 20 Gm/30 Ml Oral.Gina) 20 gm PO DAILYP PRN PRN Reason: Constipation Magnesium Hydroxide (Magnesium Hydroxide 30 Ml Oral.Susp) 30 ml PO PRN PRN PRN Reason: Constipation Melatonin (Melatonin 3 Mg Tablet) 9 mg PO HS [facility] Last Admin: 10/28/20 20:55 Dose: 9 mg Documented by: Ondansetron HCl (Ondansetron 4 Mg/2 Ml Vial) 4 mg IV Q4HP PRN PRN Reason: Nausea And Vomiting Last Admin: 10/28/20 16:57 Dose: 4 mg Documented by: Oxybutynin Chloride (Oxybutynin Chloride 5 Mg Tab.Xl.24h) 10 mg PO DAILY [facility] Last Admin: 10/29/20 08:46 Dose: 10 mg Documented by: Oxycodone HCl (Oxycodone Hcl 5 Mg Tablet) 10 mg PO Q4HP PRN; Protocol PRN Reason: Per Pain Protocol Last Admin: 10/29/20 10:50 Dose: 10 mg Documented by: Empagliflozin [ Jardiance] 10 Mg Tablet 1 dose PO DAILY [facility] Last Admin: 10/29/20 09:07 Dose: Not Given Documented by: Polyethylene Glycol (Polyethylene Glycol 3350 17 Gm Packet) 17 gm PO DAILY [facility] Last Admin: 10/29/20 08:45 Dose: 17 gm Documented by: Potassium Chloride (Potassium Chloride 20 Meq Tablet) 40 meq PO UD PRN PRN Reason: Potssium is 3-3.5 Potassium Chloride (Potassium Chloride 20 Meq Tablet) 40 meq PO UD PRN PRN Reason: Potassium < 3 Ropinirole HCl (Ropinirole 1 Mg Tablet) 4 mg PO DAILY [facility] Last Admin: 10/29/20 08:45 Dose: 4 mg Documented by: Senna (Sennosides 1 Tablet) 2 tab PO DAILYP PRN PRN Reason: Constipation Sodium Biphosphate/Sodium Phosphate (Fleets Adult Enema) 1 dose ID DAILYP PRN PRN Reason: Constipation Sodium Chloride (0.9 % Sodium Chloride 10 Ml Syringe) 10 ml IV Q8 [facility] Last Admin: 10/29/20 04:20 Dose: 10 ml Documented by: A/P Narrative A/P Narrative: Assessment: 60 year old female who was recently treated for acute cystitis was sent over from [facility] for bleeding was noticed when the nurse changed her depends. The cause of bleeding is felt to be hemorrhagic cystitis. The patient also had an acute on chronic kidney injury. #Hemorrhagic cystitis: -urine culture: gram negative bacillus -on levofloxacin #REKHA on CKD IV(base Cr~1.5-1.8): Follows with Dr. Irvin #Anemia, chronic: #DM w/neuropathy: #COPD (not on home O2): Follows with Dr. Mejia #ZAID w/CPAP: #Depression/anxiety: #Stage 3 Chronic Pressure injury LLE: For which she sees wound clinic at [facility] -wound culture growing MRSA and proteus #Morbid obesity: #Poor functional status/deconditioning/debility: Is wheelchair-bound and requires abhinav lift P: -Urology following -Empiric antibiotics, also for left heel wound -Monitor urine output, follow-up renal function -Hold lasix for now -hold ASA for now d/t bleeding -Wound care -Insulin, SSI -PT/OT -ppx: SCD -code status: DNR -Disposition: return to SNF, complete 5-7 days of abx. Time Spent With Patient Time: Total time spent is greater than 50% in coordination of care (as documented) at patient's floor/unit and/or counseling patient:
[2020-10-29] MEDS: LINEZOLID 600 MG TABLET PO SCH ×2 (16:10→21:11)
[2020-10-29] MEDS: MELATONIN 3 MG TABLET PO SCH (21:11)
[2020-10-30] MEDS: 0.9 % SODIUM CHLORIDE 10 ML SYRINGE IV SCH ×3 (05:07→22:09)
[2020-10-30 06:39] LABS: Hematocrit 32.2 % (36.0-48.0); Mean Cell Volume 100.9 fL (80.0-100.0); Mean Corpuscular HGB Conc 31.1 g/dL (31.0-36.0); Mean Platelet Volume 10.8 fL (7.4-10.4); Platelet Count 280 K/mcL (140-440); RBC 3.19 M/mcL (4.00-5.20); Red Cell Distribution Width 12.9 % (11.5-14.5); WBC 6.2 K/mcL (4.5-11.0)
[2020-10-30 07:13] LABS: Blood Urea Nitrogen 20 mg/dL (6-20); Calcium 9.2 mg/dL (8.6-10.4); Carbon Dioxide 27 mmol/L (22-30); Chloride 100 mmol/L (96-108); Glomerular Filtration Rate 25; Glucose 84 mg/dL (70-105)
[2020-10-30] MEDS: INSULIN LISPRO 1 UNIT/0.01 ML UNIT SQ SCH ×4 (07:15→22:09)
[2020-10-30 07:39] LABS: Eosinophils % (Manual) 7 % (0-7); Lymphocytes % 27 % (15-49); Macrocytosis FEW (None Seen); Monocytes % (Manual) 6 % (1-12); Platelet Estimate NORMAL (Normal); RBC Morphology ABNORMAL (Normal); Segmented Neutrophils % 60 % (38-78)
[2020-10-30] MEDS: DOCUSATE SODIUM 100 MG CAPSULE PO SCH ×2 (08:43→22:07)
[2020-10-30] MEDS: DULoxetine 30 MG CAPSULE PO SCH (08:43)
[2020-10-30] MEDS: rOPINIRole 1 MG TABLET PO SCH (08:43)
[2020-10-30] MEDS: OXYBUTYNIN CHLORIDE 5 MG TAB.XL.24H PO SCH (08:44)
[2020-10-30] MEDS: POLYETHYLENE GLYCOL 3350 17 GM PACKET PO SCH (08:44)
[2020-10-30] MEDS: FUROSEMIDE 40 MG TABLET PO SCH (08:44)
[2020-10-30] MEDS: LINEZOLID 600 MG TABLET PO SCH ×2 (08:44→22:07)
[2020-10-30] MEDS: INSULIN GLARGINE, HUMAN 1 UNIT/0.01 ML SQ SCH (08:45)
[2020-10-30] MEDS: FLUTICASONE HFA 110MCG INHALER INH SCH ×2 (08:45→22:09)
[2020-10-30] MEDS: LEVOFLOXACIN 750 MG/150 ML BAG IV SCH ×2 (08:46→11:12)
[2020-10-30] MEDS ORDERED: LEVOFLOXACIN 750 MG/150 ML BAG IV SCH (09:00)
[2020-10-30] MEDS: oxyCODONE HCL 5 MG TABLET PO PRN ×2 (09:46→16:48)
--- NOTE | 2020-10-30 14:28 | Internal Med Progress Note ---
SUBJECTIVE Subjective Patient information: Note initiated : 10/30/20 at 2:27 pm Service Date, if different from initiated Date: [] Patient: Dawn Cabrera a 60 y/o F admitted on 10/26/20 for Vaginal Bleeding . Chief Complaint: [] Interval history: History of present illness: Ms. Cabrera is a 60 year old female who was sent over from [facility] nursing [facility] for bleeding was noticed when the nurse changed her depends. She was also recently treated for acute cystitis with hematuria. Patient report abdominal pain after breakfast low back pain. Denied fever chills nausea vomiting chest pain shortness of breath. Patient seen in the ED and diagnosed with hemorrhagic cystitis. Dr. Davis urologist was contacted for consultation. ET abdomen pelvis was done which did not show any stones but showed thickening and inflamed wall of the bladder. She does say that she has had pain when she is urinated for the past few days. H&H stable in the ED. 10/27 Patient feeling better. Feels like she is not having as much urinary bleeding. No overnight event or new complaints. 10/28 Waiting for urine culture, patient feels ok, no more bleeding. Renal function function is about the same. 10/29 Feels good today, no more bleeding. Urine culture positive for gram negative bacillus. Wound swab was positive for MRSA-added linezolid PO BID. 10/30 About the same as yesterday, on track for discharge to SNF tomorrow. Constitutional Vitals: Vital Signs Temp Pulse Resp BP Pulse Ox 98.9 F 62 16 112/59 92 10/30/20 12:00 10/30/20 12:00 10/30/20 12:00 10/30/20 12:00 10/30/20 12:00 Period Temp Pulse Resp BP Sys/Nava Pulse Ox Last 24 Hr 97.5 F-98.9 F 62-70 -20 110-140/56-74 92-94 Intake and Output 10/30/20 10/30/20 10/30/20 05:59 13:59 21:59 Intake Total 550 150 Output Total 2 Balance 548 150 Intake & Output: Intake & Output 10/30/20 10/30/20 10/30/20 05:59 13:59 21:59 Intake Total 550 150 Output Total 2 Balance 548 150 Intake: IV 150 Oral 550 Output: # of times incontinent of urine 2 Other: Urine Appearance Clear Urine Color Bright Yellow # Voids 1 Exam: General: Alert, Awake, No acute Distress, morbidly obese Eyes/N/T: EOMI, Head/Neck: neck supple, CV: RRR, No murmurs, Pulm: Clear b/l, no wheezing/rhonchi/rales Abd: soft, nontender, +BS x4 Ext: no clubbing/cyanosis. Bilateral lower extremity wounds Neuro: Alert, no focal deficits, moves all extremities, Skin: warm/dry OBJ DATA Labs CBC & Chem 7: 10/30/20 05:18 10/30/20 05:18 Labs: Abnormal Lab Results 10/30/20 10/30/20 10/28/20 05:18 05:18 05:53 RBC 3.19 L Hgb 10.0 L Hct 32.2 L MCV 100.9 H MPV 10.8 H RBC Morphology Abnormal A Macrocytosis Few A BUN 21 H Creatinine 2.1 H 2.0 H Meds: Medications Acetaminophen (Acetaminophen 325 Mg Tablet) 650 mg PO Q6HP PRN PRN Reason: PAIN/FEVER > 101 Albuterol/Ipratropium (Ipratropium/Albuterol 3 Ml Ampul.Neb) 3 ml NEB Q4HP PRN PRN Reason: Shortness Of Breath Albuterol/Ipratropium (Ipratropium/Albuterol Sulfate 1 Puff Inhaler) 1 puff INH Q4HP PRN PRN Reason: shortness of breath Bisacodyl (Bisacodyl 10 Mg Supp.Rect) 10 mg [place] QDAY PRN PRN Reason: Constipation Last Admin: 10/29/20 08:47 Dose: 10 mg Documented by: Calcium Carbonate/Glycine (Calcium Carbonate 500 Mg Tab.Chew) 1,000 mg CHEWED Q4HP PRN PRN Reason: Dyspepsia Dextrose (Dextrose 50% 50 Ml Vial) 0 ml IV UD PRN PRN Reason: Hypoglycemia Diagnostic Test (Pha) (Accu-Chek 1 Each Strip) 1 each FS ACHS [facility] Last Admin: 10/30/20 12:23 Dose: 1 each Documented by: Docusate Sodium (Docusate Sodium 100 Mg Capsule) 100 mg PO BID [facility] Last Admin: 10/30/20 08:43 Dose: 100 mg Documented by: Duloxetine HCl (Duloxetine 30 Mg Capsule) 60 mg PO DAILY [facility] Last Admin: 10/30/20 08:43 Dose: 60 mg Documented by: Fluticasone Propionate (Fluticasone Hfa 110mcg Inhaler) 1 puff INH BID [facility] Last Admin: 10/30/20 08:45 Dose: Not Given Documented by: Furosemide (Furosemide 40 Mg Tablet) 40 mg PO QDAY [facility] Last Admin: 10/30/20 08:44 Dose: 40 mg Documented by: Glucose (Dextrose 31 Gm Oral.Susp) 15 gm PO PRN PRN PRN Reason: Hypoglycemia Potassium Chloride 40 meq/ (Dextrose) 520 mls @ 130 mls/hr IV UD PRN PRN Reason: Potassium < 3 Magnesium Sulfate (Magnesium Sulfate) 2 gm in 50 mls @ 50 mls/hr IV UD PRN PRN Reason: Magnesium </= 1.6 Levofloxacin (Levaquin) 750 mg in 150 mls @ 100 mls/hr IV Q48H [facility]; Protocol Last Infusion: 10/30/20 11:10 Dose: Infused Documented by: Insulin Glargine (Insulin Glargine, Human 1 Unit/0.01 Ml) 15 unit SQ DAILY [facility] Last Admin: 10/30/20 08:45 Dose: 15 unit Documented by: Insulin Human Lispro (Insulin Lispro 1 Unit/0.01 Ml Unit) 0 unit SQ ACHS [facility]; Protocol Last Admin: 10/30/20 12:23 Dose: Not Given Documented by: Lactulose (Lactulose 20 Gm/30 Ml Oral.Gina) 20 gm PO DAILYP PRN PRN Reason: Constipation Linezolid (Linezolid 600 Mg Tablet) 600 mg PO Q12 [facility]; Protocol Stop: 11/05/20 13:09 Last Admin: 10/30/20 08:44 Dose: 600 mg Documented by: Magnesium Hydroxide (Magnesium Hydroxide 30 Ml Oral.Susp) 30 ml PO PRN PRN PRN Reason: Constipation Melatonin (Melatonin 3 Mg Tablet) 9 mg PO HS [facility] Last Admin: 10/29/20 21:11 Dose: 9 mg Documented by: Ondansetron HCl (Ondansetron 4 Mg/2 Ml Vial) 4 mg IV Q4HP PRN PRN Reason: Nausea And Vomiting Last Admin: 10/28/20 16:57 Dose: 4 mg Documented by: Oxybutynin Chloride (Oxybutynin Chloride 5 Mg Tab.Xl.24h) 10 mg PO DAILY [facility] Last Admin: 10/30/20 08:44 Dose: 10 mg Documented by: Oxycodone HCl (Oxycodone Hcl 5 Mg Tablet) 10 mg PO Q4HP PRN; Protocol PRN Reason: Per Pain Protocol Last Admin: 10/30/20 09:46 Dose: 10 mg Documented by: Empagliflozin [ Jardiance] 10 Mg Tablet 1 dose PO DAILY [facility] Last Admin: 10/30/20 08:46 Dose: Not Given Documented by: Polyethylene Glycol (Polyethylene Glycol 3350 17 Gm Packet) 17 gm PO DAILY [facility] Last Admin: 10/30/20 08:44 Dose: 17 gm Documented by: Potassium Chloride (Potassium Chloride 20 Meq Tablet) 40 meq PO UD PRN PRN Reason: Potssium is 3-3.5 Potassium Chloride (Potassium Chloride 20 Meq Tablet) 40 meq PO UD PRN PRN Reason: Potassium < 3 Ropinirole HCl (Ropinirole 1 Mg Tablet) 4 mg PO DAILY [facility] Last Admin: 10/30/20 08:43 Dose: 4 mg Documented by: Senna (Sennosides 1 Tablet) 2 tab PO DAILYP PRN PRN Reason: Constipation Sodium Biphosphate/Sodium Phosphate (Fleets Adult Enema) 1 dose [place] DAILYP PRN PRN Reason: Constipation Sodium Chloride (0.9 % Sodium Chloride 10 Ml Syringe) 10 ml IV Q8 [facility] Last Admin: 10/30/20 05:07 Dose: 10 ml Documented by: A/P Narrative A/P Narrative: Assessment: 60 year old female who was recently treated for acute cystitis was sent over from [facility] for bleeding was noticed when the nurse changed her depends. The cause of bleeding is felt to be hemorrhagic cystitis. The patient also had an acute on chronic kidney injury. #Hemorrhagic cystitis: -urine culture: gram negative bacillus -on levofloxacin #REKHA on CKD IV(base Cr~1.5-1.8): Follows with Dr. Irvin #Anemia, chronic: #DM w/neuropathy: #COPD (not on home O2): Follows with Dr. Mejia #ZAID w/CPAP: #Depression/anxiety: #Stage 3 Chronic Pressure injury LLE: For which she sees wound clinic at [facility] -wound culture growing MRSA and proteus #Morbid obesity: #Poor functional status/deconditioning/debility: Is wheelchair-bound and requires abhinav lift P: -Urology following. -Levofloxacin for cystitis -Linezolid for left heel wound w/ MRSA -Monitor urine output, follow-up renal function -Hold lasix for now -hold ASA for now d/t bleeding -Wound care -Insulin, SSI -PT/OT -ppx: SCD -code status: DNR -Disposition: return to SNF, complete 5-7 days of abx. Time Spent With Patient Time: Total time spent is greater than 50% in coordination of care (as documented) at patient's floor/unit and/or counseling patient:
[2020-10-30] MEDS: MELATONIN 3 MG TABLET PO SCH (22:07)
[2020-10-31] MEDS: 0.9 % SODIUM CHLORIDE 10 ML SYRINGE IV SCH ×2 (06:04→13:46)
[2020-10-31] MEDS ORDERED: LORazepam 2 MG/ML VIAL IV PRN (07:07)
[2020-10-31] MEDS ORDERED: DIAZEPAM 5 MG TABLET PO PRN (07:10)
[2020-10-31] MEDS: INSULIN LISPRO 1 UNIT/0.01 ML UNIT SQ SCH ×2 (07:17→11:58)
[2020-10-31 07:18] LABS: Blood Urea Nitrogen 18 mg/dL (6-20); Calcium 9.1 mg/dL (8.6-10.4); Carbon Dioxide 28 mmol/L (22-30); Chloride 98 mmol/L (96-108); Glomerular Filtration Rate 25; Glucose 87 mg/dL (70-105)
--- NOTE | 2020-10-31 07:37 | General Surgery Progress Note ---
SUBJECTIVE Subjective Patient information: Note initiated : 10/31/20 at 7:34 am Service Date, if different from initiated Date: [] Patient: Dawn Cabrera 60 y/o F admitted on 10/26/20 for Vaginal Bleeding . Chief Complaint: [] Principal diagnosis: Hemorrhagic cystitis Interval history: Patient remains afebrile and nontoxic from standpoint No new gross hematuria noted Gram-negative bacilli culture still pending final resulting Constitutional Vitals: Vital Signs Temp Pulse Resp BP Pulse Ox 98.1 F 67 22 93/57 94 10/31/20 06:51 10/31/20 06:51 10/31/20 06:51 10/31/20 06:51 10/31/20 06:51 Period Temp Pulse Resp BP Sys/Nava Pulse Ox Last 24 Hr 97.8 F-98.9 F 61-67 16-22 93-120/57-66 92-95 Intake and Output 10/30/20 10/31/20 10/31/20 21:59 05:59 13:59 Intake Total 230 Output Total 4 Balance 226 Weight 380 lb 8 oz Intake & Output: Intake & Output 10/30/20 10/31/20 10/31/20 21:59 05:59 13:59 Intake Total 230 Output Total 4 Balance 226 Weight 380 lb 8 oz Intake: Oral 230 Output: # of times incontinent of urine 4 Other: Meal Dinner Percent of Meal Consumed 25% Urine Color Dark Yellow Urine Odor Normal Normal # Voids 2 Additional findings Additional findings: Patient remains comfortable without chief complaint HEENT within normal Abdomen nontender remains obese A/P Narrative A/P Narrative: Assessment: Hemorrhagic cystitis resolving on present antibiotic regimen awaiting final culture and sensitivity results Continue hydration and ambulation as able Continue wound care Plan: Await final urine culture results and sensitivity for final antibiotic recommendations Time Spent With Patient Time: Total time spent is greater than 50% in coordination of care (as documented) at patient's floor/unit and/or counseling patient:
[2020-10-31] MEDS: INSULIN GLARGINE, HUMAN 1 UNIT/0.01 ML SQ SCH (09:13)
[2020-10-31] MEDS: POLYETHYLENE GLYCOL 3350 17 GM PACKET PO SCH (09:13)
[2020-10-31] MEDS: OXYBUTYNIN CHLORIDE 5 MG TAB.XL.24H PO SCH (09:14)
[2020-10-31] MEDS: FUROSEMIDE 40 MG TABLET PO SCH (09:14)
[2020-10-31] MEDS: rOPINIRole 1 MG TABLET PO SCH (09:14)
[2020-10-31] MEDS: LINEZOLID 600 MG TABLET PO SCH (09:14)
[2020-10-31] MEDS: FLUTICASONE HFA 110MCG INHALER INH SCH (09:14)
[2020-10-31] MEDS: DULoxetine 30 MG CAPSULE PO SCH (09:14)
[2020-10-31] MEDS: DOCUSATE SODIUM 100 MG CAPSULE PO SCH (09:14)
--- NOTE | 2020-10-31 10:58 | Discharge Summary ---
Discharge Provider Provider Patient information: Note initiated : 10/31/20 at 10:53 am Service Date, if different from initiated Date: [] Patient: Dawn Cabrera 60 y/o F admitted on 10/26/20 for Vaginal Bleeding . Chief Complaint: [] Date of admission: 10/26/20 08:15 Discharge date: 10/31/20 Primary care physician: Johnnie Trent Consults: 10/26/20 Consult to Physician [CONS] Stat Comment: Consulting Provider: Gregg Davis Reason For Exam: Physician to Consult Consult to Physician [CONS] Stat Comment: Consulting Provider: Nakul Bejarano Reason For Exam: Physician to Consult 10/27/20 08:34 Consult to Physician [CONS] Routine Comment: Consulting Provider: Martin Garcia Reason For Exam: pressure ulcer left heel Discharge Meds Discharge Medications Home Medications Combivent Respimat 1 puff INHALATION Q4H PRN 07/20/20 [History Confirmed 10/27/20 Last Taken Unknown] Fleet Enema 118 ml RI ONCE PRN 07/20/20 [History Confirmed 10/27/20 Last Taken Unknown] Flovent HFA 1 puff INHALATION BID 07/20/20 [History Confirmed 10/27/20 Last Taken 10/25/20 21:00] Jardiance 10 mg PO QAM 07/20/20 [History Confirmed 10/27/20 Last Taken 10/25/20 09:00] Senna Plus 2 tab-cap PO BID 07/20/20 [History Confirmed 10/27/20 Last Taken 10/25/20 21:00] aspirin 81 mg PO QDAY 07/20/20 [History Confirmed 10/27/20 Last Taken 10/25/20 09:00] bisacodyl [Dulcolax (bisacodyl)] 10 mg RI QDAY PRN 07/20/20 [History Confirmed 10/27/20 Last Taken 10/23/20 04:00] calcium carbonate [Tums] 1,000 mg PO Q4HP PRN 07/20/20 [History Confirmed 10/27/20 Last Taken Unknown] cholecalciferol (vitamin D3) 1,000 unit PO BID 07/20/20 [History Confirmed 10/27/20 Last Taken 10/25/20 21:00] duloxetine [Cymbalta] 60 mg PO QDAY 07/20/20 [History Confirmed 10/27/20 Last Taken 10/25/20 09:00] ferrous sulfate 325 mg PO QDAY 07/20/20 [History Confirmed 10/27/20 Last Taken 10/25/20 09:00] furosemide [Lasix] 20 mg PO QDAY 07/20/20 [History Confirmed 10/27/20 Last Taken 10/25/20 09:00] insulin glargine 15 unit SUBCUT DAILY 07/20/20 [History Confirmed 10/27/20 Last Taken 10/25/20 09:00] magnesium hydroxide [Milk of Magnesia] 30 ml PO PRN PRN 07/20/20 [History Confirmed 10/27/20 Last Taken 10/23/20 13:15] melatonin 10 mg PO HS 07/20/20 [History Confirmed 10/27/20 Last Taken 10/25/20 21:00] polyethylene glycol 3350 17 g PO QDAY 07/20/20 [History Confirmed 10/27/20 Last Taken 10/25/20 09:00] ropinirole 4 mg PO DAILY 07/20/20 [History Confirmed 10/27/20 Last Taken 10/25/20 09:00] acetaminophen 1,000 mg PO Q6H PRN 09/07/20 [History Confirmed 10/27/20 Last Taken 10/19/20 12:00] oxycodone 10 mg PO Q4H PRN #10 tab 09/12/20 [Rx Confirmed 10/27/20 Last Taken 10/25/20 15:10] blood sugar diagnostic 10/27/20 [History Confirmed 10/27/20 Last Taken Unknown] glucagon 1 mg IM PRN PRN 10/27/20 [History Confirmed 10/27/20 Last Taken Unknown] melatonin 5 mg PO HS PRN 10/27/20 [History Confirmed 10/27/20 Last Taken Unknown] linezolid 600 mg PO Q12 4 Days #8 tab 10/31/20 [Rx Last Taken Unknown] COURSE Hospital Course Hospital course: Ms. Cabrera is a 60 year old female who was sent over from [facility] nursing facility for bleeding was noticed when the nurse changed her depends. She was also recently treated for acute cystitis with hematuria. Patient report abdominal pain after breakfast low back pain. Denied fever chills nausea vomiting chest pain shortness of breath. Patient seen in the ED and diagnosed with hemorrhagic cystitis. Dr. Davis urologist was contacted for consultation. ET abdomen pelvis was done which did not show any stones but showed thickening and inflamed wall of the bladder. She does say that she has had pain when she is urinated for the past few days. H&H stable in the ED. 10/27 Patient feeling better. Feels like she is not having as much urinary bleeding. No overnight event or new complaints. 10/28 Waiting for urine culture, patient feels ok, no more bleeding. Renal function function is about the same. 10/29 Feels good today, no more bleeding. Urine culture positive for gram negative bacillus. Wound swab was positive for MRSA-added linezolid PO BID. 10/30 About the same as yesterday, on track for discharge to SNF tomorrow. 10/31 Discharged to SNF, follow up with wound care clinic and urology. Physical Exam Head: Atraumatic, normal inspection. Eyes: normal appearance, no scleral icterus. Neck: full ROM Respiratory: no respiratory distress. Cardiovascular: normal rate and rhythm, S1, S2. GI/Abdominal: obesely distended, soft, nontender, no guarding. Extremities: left lower extremity heel wound Neurological: CN II-XII intact, intact motor, intact sensation. Psychiatric: normal mood. Skin: warm, normal color Discharge diagnosis: Acute cystitis Secondary discharge diagnosis: Hematuria chronic left heel wound Time Spent with Patient Time attestation: Total time spent providing and/or coordinating discharge services: EXAM Constitutional Vitals: Temp Pulse Resp BP Pulse Ox 98.1 F 67 22 93/57 94 10/31/20 06:51 10/31/20 06:51 10/31/20 06:51 10/31/20 06:51 10/31/20 06:51 Discharge Data Data Completed and Pending Labs on day of discharge: Labs from last 24 hours 10/31/20 05:19 Sodium 136 Potassium 3.8 Chloride 98 Carbon Dioxide 28 Anion Gap 10.0 BUN 18 Creatinine 2.1 H GFR Calculation 25 Glucose 87 Calcium 9.1 Preliminary micro results at discharge 10/26/20 03:07 Urine Culture - Preliminary Urine - Catheterized Escherichia coli Discharge Plan Patient/Caregiver Discharge Instructions Activity: as per physical therapy Diet: Consistent Carbohydrate Prescriptions: New linezolid 600 mg Tablet 600 mg PO Q12 4 Days Qty: 8 RF: 0 Continued bisacodyl [Dulcolax (bisacodyl)] 10 mg Suppository 10 mg RI QDAY PRN (Reason: Constipation) RF: 0 ferrous sulfate 325 mg (65 mg iron) Tablet 325 mg PO QDAY RF: 0 Fleet Enema 19-7 gram/118 mL Enema 118 ml RI ONCE PRN (Reason: Constipation) RF: 0 aspirin 81 mg Tablet,Chewable 81 mg PO QDAY RF: 0 Flovent HFA 110 mcg/actuation Hfa Aerosol Inhaler 1 puff INHALATION BID RF: 0 duloxetine [Cymbalta] 60 mg Capsule,Delayed Release(Dr/Ec) 60 mg PO QDAY RF: 0 melatonin 5 mg Tablet 10 mg PO HS RF: 0 Jardiance 10 mg Tablet 10 mg PO QAM RF: 0 Combivent Respimat 20-100 mcg/actuation Mist 1 puff INHALATION Q4H PRN (Reason: shortness of breath) RF: 0 furosemide [Lasix] 40 mg Tablet 20 mg PO QDAY RF: 0 cholecalciferol (vitamin D3) 25 mcg (1,000 unit) Capsule 1,000 unit PO BID RF: 0 magnesium hydroxide [Milk of Magnesia] 400 mg/5 mL suspension 30 ml PO PRN PRN (Reason: Constipation) RF: 0 ropinirole 4 mg tablet 4 mg PO DAILY RF: 0 polyethylene glycol 3350 17 gram/dose Powder 17 g PO QDAY RF: 0 insulin glargine 100 unit/mL Solution 15 unit SUBCUT DAILY RF: 0 Senna Plus 8.6-50 mg Capsule 2 tab-cap PO BID RF: 0 calcium carbonate [Tums] 300 mg (750 mg) Tablet,Chewable 1,000 mg PO Q4HP PRN (Reason: gi issues) RF: 0 acetaminophen 500 mg Tablet 1,000 mg PO Q6H PRN (Reason: Pain, Mild) RF: 0 oxycodone 10 mg tablet 10 mg PO Q4H PRN (Reason: pain) Qty: 10 RF: 0 (DME) blood sugar diagnostic Strip MISCELLANEOUS RF: 0 glucagon 1 mg Kit 1 mg IM PRN PRN (Reason: Hypoglycemia) RF: 0 melatonin 5 mg Tablet 5 mg PO HS PRN (Reason: Sleep) RF: 0 Other Ambulatory Orders: Wound Care/Dressings (Daily) Location: None Selected Ordered By: Jan Camacho OT Discharge Order (Routine) Location: None Selected Ordered By: Jan Camacho Physical Therapy at Discharge - General (Routine) Location: None Selected Ordered By: Jan Camacho Follow Up Plan Follow up with: Martin Garcia MD [Physician] - Johnnie Trent MD [Primary Care Provider] - Gregg Davis MD [Physician] - Patient Disposition: Xfer SNF Prognosis: Fair Rehab Potential: Fair I certify that the patient requires SNF services: Yes Overall status at discharge: patient is progressing back to baseline Discharge Orders: Discharge Order (Routine); Ordered 10/31/20 Ordered By: Jan Camacho
--- NOTE | 2020-10-31 11:59 | General Surgery Progress Note ---
SUBJECTIVE Subjective Patient information: Note initiated : 10/31/20 at 11:53 am Service Date, if different from initiated Date: [] Patient: Dawn Cabrera 60 y/o F admitted on 10/26/20 for Vaginal Bleeding . Chief Complaint: [] Principal diagnosis: Hemorrhagic cystitis Additional PMFSH (Level 3 Only): Patient had an uneventful night. No interval developments over weekend. Constitutional Vitals: Vital Signs Temp Pulse Resp BP Pulse Ox 98.1 F 67 22 93/57 94 10/31/20 06:51 10/31/20 06:51 10/31/20 06:51 10/31/20 06:51 10/31/20 06:51 Period Temp Pulse Resp BP Sys/Nava Pulse Ox Last 24 Hr 98 F-98.9 F 61-67 16-22 93-120/57-66 92-95 Intake and Output 10/30/20 10/31/20 10/31/20 21:59 05:59 13:59 Intake Total 230 200 Output Total 4 Balance 226 200 Weight 380 lb 8 oz Intake & Output: Intake & Output 10/30/20 10/31/20 10/31/20 21:59 05:59 13:59 Intake Total 230 200 Output Total 4 Balance 226 200 Weight 380 lb 8 oz Intake: Oral 230 200 Output: # of times incontinent of urine 4 Other: Meal Dinner Breakfast Percent of Meal Consumed 25% 50% Feeding Ability Independent Urine Color Dark Yellow Urine Odor Normal Normal # Voids 2 Exam: NO changes in TEE. Local wound care is ongoing. Microbiology: Wound C/S Proteus and MRSA ( Colonized ) Both are sensitive to Gentamicin. UTI treatment per hospitalist and Urologist. A/P Narrative A/P Narrative: Assessment: Satisfactory progress from wound care point of view. Plan: Continue current treatment. Out patient f/u at [facility] in [place], [place] Time Spent With Patient Time: Total time spent is greater than 50% in coordination of care (as documented) at patient's floor/unit and/or counseling patient: Total time spent with greater than 50% in coordination of care (as documented) at patient's floor/unit and/or counseling patient:: 15 - 24 minutes
== END 2020-10-31 14:15 | DRG 689 ==
LOC: ED 01:19 → MEDSUR 01:19 → OBSVTOIN 08:15 → MEDSUR 08:27
PROVIDERS: ADMIT Urology; ATTEND Internal Medicine

== ENCOUNTER 2020-11-28 11:55 | Inpatient (IN) ==
[2020-11-28] MEDS ORDERED: DEXTROSE 5%-NS 1,000 ML IV SCH (12:30)
[2020-11-28] MEDS ORDERED: GLUCAGON,HUMAN RECOMBINANT 1 MG VIAL IV ONE (12:39)
[2020-11-28] MEDS ORDERED: DEXTROSE 50% 50 ML VIAL IV ONE ×3 (12:43→13:39)
[2020-11-28 13:24] LABS: Appearance,Urine CLOUDY (Clear); Bilirubin,Urine Negative (Negative); Color,Urine YELLOW; Culture Indicated,Urine No; Glucose,Urine (UA) Negative (Negative); Ketones,Urine Negative (Negative); Leukocyte Esterase,Urine 250 /ug (Negative); Mucus,Urine MOD /hpf; Nitrate,Urine Negative (Negative); Protein,Urine >=500 mg/dL (Negative); Urine Blood >=1.0 mg/dL (Negative); Urine Hyaline Cast 15 /lph (0-2); Urine RBC > 182 /hpf (0-1); Urine Squamous Epithelial Cell 16 /hpf (0-4); Urine Transitional Epi Cells 7 /hpf (0-2); Urine WBC 87 /hpf (0-4); Urobilinogen,Urine Negative
[2020-11-28] MEDS ORDERED: DEXTROSE 50% 50 ML SYRINGE IV ONE (13:27)
[2020-11-28 13:43] LABS: ALT/SGPT 22 U/L (<40); AST/SGOT 39 U/L (<32); Albumin 2.6 gm/dL (3.2-5.2); Albumin/Globulin Ratio 0.6 (1.0-2.3); Alkaline Phosphatase 201 U/L (39-117); Bilirubin,Total 0.5 mg/dL (0.1-1.0); Blood Urea Nitrogen 52 mg/dL (6-20); Calcium 8.1 mg/dL (8.6-10.4); Carbon Dioxide 26 mmol/L (22-30); Chloride 93 mmol/L (96-108); Globulin 4.5 gm/dL (2.2-3.7); Glomerular Filtration Rate 6; Glucose 56 mg/dL (70-105)
[2020-11-28 13:44] LABS: Hematocrit 30.1 % (36.0-48.0); Hemoglobin 9.4 g/dL (12.0-15.0); Mean Cell Volume 99.3 fL (80.0-100.0); Mean Corpuscular HGB Conc 31.2 g/dL (31.0-36.0); Platelet Count 110 K/mcL (140-440); RBC 3.03 M/mcL (4.00-5.20); Red Cell Distribution Width 15.2 % (11.5-14.5)
[2020-11-28 13:49] LABS: Anisocytosis RARE (None Seen); Basophils % (Manual) 1 % (0-2); Eosinophils % (Manual) 11 % (0-7); Lymphocytes % 16 % (15-49); Monocytes % (Manual) 2 % (1-12); Platelet Estimate DECREASED (Normal); RBC Morphology ABNORMAL (Normal); Segmented Neutrophils % 70 % (38-78)
[2020-11-28] MEDS ORDERED: DEXTROSE 10 % IN WATER 1,000 ML IV SCH ×2 (14:15→18:47)
--- NOTE | 2020-11-28 14:27 | Emergency Department Note ---
HPI General Chief complaint: Weakness Stated complaint: weakness Time Seen by Provider: 11/28/20 12:18 Source: EMS Mode of arrival: EMS Limitations: no limitations History of Present Illness HPI Narrative: This a 60-year-old female patient resident at [facility] with a history of CKD, COPD, T2DM, chronic lower extremity diabetic ulcerations, and recurrent UTIs who was sent over by the nurse practitioner for signs of bilateral lower extremity petechiae and concerns for vasculitis. She is also noted to have altered mental status. They were unable to draw blood at [facility], so sent her over to the emergency room for evaluation. On my examination the patient is slurring her words and confused. She is a type II diabetic, and a blood glucose [id number] it is 45 mg/DL. She is urgently administered 50 A D50 and started on continuous D5 one half normal saline infusion. Patient is on Januvia, Jardiance, and 15 units of glargine insulin in the a.m. Per report from her care facility, her blood glucose was 45 mg/DL this morning and she was administered her antihyperglycemic medications in spite of this blood sugar. Patient is a chronic right lower extremity ulceration on the anterior diaz. Patient is a poor historian with baseline confusion and cannot tell me much more about this. Review of systems is not obtainable secondary to her altered mental status. Per chart review she has been seeing Dr. Fuchs at wound care for chronic heel ulcerations. She does have a left poorly healing heel ulceration. An x-ray from 10/28/2020 shows possible chronic osteomyelitis versus arthritis. She was noted to have lower extremity edema versus cellulitis at that time. Patient is currently not on antibiotic therapies. Patient had recent admission in October 2020 for acute hemorrhagic cystitis. I discussed patient's CODE STATUS. She is DNR/DNI with limited interventions. POLST form is available in her chart. Related Data Home Medications Medication Instructions Recorded Confirmed Combivent Respimat 1 puff INHALATION Q4H PRN 07/20/20 10/27/20 Fleet Enema 118 ml NC ONCE PRN 07/20/20 10/27/20 Flovent HFA 1 puff INHALATION BID 07/20/20 10/27/20 Jardiance 10 mg PO QAM 07/20/20 10/27/20 Senna Plus 2 tab-cap PO BID 07/20/20 10/27/20 aspirin 81 mg PO QDAY 07/20/20 10/27/20 bisacodyl [Dulcolax (bisacodyl)] 10 mg NC QDAY PRN 07/20/20 10/27/20 calcium carbonate [Tums] 1,000 mg PO Q4HP PRN 07/20/20 10/27/20 cholecalciferol (vitamin D3) 1,000 unit PO BID 07/20/20 10/27/20 duloxetine [Cymbalta] 60 mg PO QDAY 07/20/20 10/27/20 ferrous sulfate 325 mg PO QDAY 07/20/20 10/27/20 furosemide [Lasix] 20 mg PO QDAY 07/20/20 10/27/20 insulin glargine 15 unit SUBCUT DAILY 07/20/20 10/27/20 magnesium hydroxide [Milk of 30 ml PO PRN PRN 07/20/20 10/27/20 Magnesia] melatonin 10 mg PO HS 07/20/20 10/27/20 polyethylene glycol 3350 17 g PO QDAY 07/20/20 10/27/20 ropinirole 4 mg PO DAILY 07/20/20 10/27/20 acetaminophen 1,000 mg PO Q6H PRN 09/07/20 10/27/20 blood sugar diagnostic 10/27/20 10/27/20 glucagon 1 mg IM PRN PRN 10/27/20 10/27/20 melatonin 5 mg PO HS PRN 10/27/20 10/27/20 Previous Rx's Medication Instructions Recorded oxycodone 10 mg PO Q4H PRN #10 tab 09/12/20 oxycodone 10 mg PO Q4H PRN #7 tab 10/31/20 Allergies Allergy/AdvReac Type Severity Reaction Status Date / Time Penicillins Allergy Severe Anaphylaxis Verified 11/28/20 11:59 cefuroxime Allergy Mild Rash Verified 11/28/20 11:59 doxycycline Allergy Unknown Unknown Verified 11/28/20 11:59 morphine Allergy Unknown Unknown Verified 11/28/20 11:59 sulfamethoxazole Allergy Unknown Unknown Verified 11/28/20 11:59 [From Bactrim] trimethoprim [From Bactrim] Allergy Unknown Unknown Verified 11/28/20 11:59 Review of Systems ROS ROS Narrative: Narrative: Limitations: ROS unobtainable due to patients medical condition [facility] Narrative Patient History Narrative: Narrative: Medical/Surgical/Family History All Active Problems (Updated 11/28/20 @ 19:04 by Anny Paulino PA-C) Petechiae (Acute) Acute kidney injury (Acute) Hypoglycemia associated with diabetes (Acute) Altered mental status (Acute) Thrombocytopenia (Acute) Acute renal failure superimposed on stage 4 chronic kidney disease (Acute) Acute cystitis (Acute) REKHA (acute kidney injury) (Acute) Depression with anxiety (Acute) Diabetic neuropathy (Acute) COPD (chronic obstructive pulmonary disease) (Acute) ZAID on CPAP (Acute) Essential (primary) hypertension (Acute) Chronic kidney disease, stage 4 (severe) (Acute) T2DM (type 2 diabetes mellitus) (Acute) Feared condition not demonstrated (Acute) Septic shock (Acute) Severe sepsis (Acute) UTI (urinary tract infection) (Acute) Social History Smoking Status: Former smoker Exam Narrative Narrative: General: Alert and oriented to self and year, not to month NAD, somnolent, confused. Pleasant and conversant. HEENT: PERRLA, EOMI, normocephalic. Moist mucous membranes. Normal facies and normal dentition. Chest: Symmetric, no pain to palpation Respiratory: Lungs clear to auscultation bilaterally. No respiratory distress. Unlabored breathing. Heart: Regular rate and rhythm, no murmurs/clicks/rubs. Abdomen: Non-tender, Non distended, normal bowel tones. No organomegaly. Extremities: Warm and well perfused. No edema. DP 2+ bilaterally. No venous stasis. Neuro: No focal deficits. Cranial nerves II-XII normal. Skin: Warm dry, no rashes or lesions, no cyanosis. Psych: Normal mood and affect Heme/Lymph: No bruising General Limitations: no limitations Course Course Course Narrative: 60-year-old female patient presents with lethargy, and lower extremity petechiae with concerns with thrombocytopenia. Reevaluation(s) Reevaluation #1: Patient is somnolent on my exam with lethargy and word slurring. Her blood glucose was 43 mg/dL on [id number] check. She was urgently given one amp of D50 started on D5 one half normal saline and blood glucose improved to 72. Time: 12:51 Reevaluation #2: Patient dipped down to 32 with her blood glucose in another D50 amp was administered. Blood glucose improved to 184. She was given a meal and 10% dextrose and water was started in addition to D5W one half normal saline. Time: 13:20 Reevaluation #3: Patient's CMP came back with a REKHA with a creatinine of 6.6 up from 2.1 in October. Patient's BUN is 52. She has a normal lactate of 0.9. CBC without leukocytosis or left shift and shows a normocytic normochromic anemia, which appears to be chronic. Platelet count is 110 down from 280 in October. I have ordered a CT scan of the abdomen pelvis without contrast per the hospitalist request to query renal causes for her REKHA and the results are pendin g. Additional Reevaluation(s): Spoke with hospitalist who is asked me to consult nephrology and hematology for REKHA and petechiae work-up. Dr. Regalado does not feel that there is anything urgently they would do that would require transfer. He does recommend a peripheral smear review, reticulocyte count, haptoglobin, and LDH. He has asked to be informed of the results tomorrow. I spoke with Dr. Mehta, nephrology, and he will consult on the patient during the patient's admission. Vital Signs Vital signs: Vital Signs Temperature 96.8 F L 11/28/20 11:56 Pulse Rate 60 11/28/20 11:56 Respiratory Rate 16 11/28/20 11:56 Blood Pressure 112/58 11/28/20 11:56 Pulse Oximetry (%) 95 11/28/20 11:56 Temperature 96.8 F L 11/28/20 11:56 Pulse Rate 72 11/28/20 18:16 Respiratory Rate 15 11/28/20 18:16 Blood Pressure 108/88 11/28/20 18:16 Pulse Oximetry (%) 98 11/28/20 18:16 [facility] MDM Narrative Medical decision making narrative: Altered mental status Petechiae Iatrogenic hypoglycemia Acute kidney injury Thrombocytopenia Patient's disposition will be admission to the hospitalist service. Dr. Regalado, hematology was consulted with the recommendations above. Dr. Mehta, nephrology has also been consulted and will follow the patient during her admission. The patient has been signed out to the hospitalist service, Dr. Bejarano for admission. Lab Data Result diagrams: 11/28/20 12:39 11/28/20 12:39 Labs: Lab Results 11/28/20 11/28/20 11/28/20 Range/Units 12:27 12:39 12:39 WBC 9.0 (4.5-11.0) K/mcL RBC 3.03 L (4.00-5.20) M/mcL Hgb 9.4 L (12.0-15.0) g/dL Hct 30.1 L (36.0-48.0) % MCV 99.3 (80.0-100.0) fL MCH 31.0 (26.0-34.0) pg MCHC 31.2 (31.0-36.0) g/dL RDW 15.2 H (11.5-14.5) % Plt Count 110 L (140-440) K/mcL MPV 12.0 H (7.4-10.4) fL Seg Neutrophils % 70 (38-78) % Lymphocytes % 16 (15-49) % Monocytes % (Manual) 2 (1-12) % Eosinophils % (Manual) 11 H (0-7) % Basophils % (Manual) 1 (0-2) % Platelet Estimate Decreased A (Normal) RBC Morphology Abnormal A (Normal) Anisocytosis Rare A (None Seen) ESR (0-20) mm/hr VBG Lactic Acid (0.5-2.0) mmol/L Sodium 133 (133-145) mmol/L Potassium 4.6 (3.3-5.1) mmol/L Chloride 93 L (96-108) mmol/L Carbon Dioxide 26 (22-30) mmol/L Anion Gap 14.0 (8.0-16.0) BUN 52 H (6-20) mg/dL Creatinine 6.6 H* (0.6-1.1) mg/dL GFR Calculation 6 Glucose 56 L (70-105) mg/dL Calcium 8.1 L (8.6-10.4) mg/dL Total Bilirubin 0.5 (0.1-1.0) mg/dL AST 39 H (<32) U/L ALT 22 (<40) U/L Alkaline Phosphatase 201 H (39-117) U/L C-Reactive Protein (0.03-0.80) mg/dL Total Protein 7.1 (5.9-8.4) gm/dL Albumin 2.6 L (3.2-5.2) gm/dL Globulin 4.5 H (2.2-3.7) gm/dL Albumin/Globulin Ratio 0.6 L (1.0-2.3) Urine Color Yellow Urine Appearance Cloudy A (Clear) Urine pH 6.0 (5.0-9.0) Ur Specific [place] 1.010 (1.000-1.035) Urine Protein >=500 A (Negative) mg/dL Urine Glucose (UA) Negative (Negative) mg/dL Urine Ketones Negative (Negative) mg/dL Urine Occult Blood >=1.0 A (Negative) mg/dL Urine Nitrate Negative (Negative) Urine Bilirubin Negative (Negative) mg/dL Urine Urobilinogen Negative mg/dL Ur Leukocyte Esterase 250 A (Negative) /ug Urine RBC > 182 H (0-1) /hpf Urine WBC 87 H (0-4) /hpf Ur Squamous Epith Cells 16 H (0-4) /hpf Ur Transition Epith Cell 7 H (0-2) /hpf Urine Bacteria None (0) /hpf Hyaline Casts 15 H (0-2) /lph Urine Mucus Mod A (None) /hpf Ur Culture Indicated? No 11/28/20 11/28/20 11/28/20 Range/Units 12:39 13:10 16:55 WBC (4.5-11.0) K/mcL RBC (4.00-5.20) M/mcL Hgb (12.0-15.0) g/dL Hct (36.0-48.0) % MCV (80.0-100.0) fL MCH (26.0-34.0) pg MCHC (31.0-36.0) g/dL RDW (11.5-14.5) % Plt Count (140-440) K/mcL MPV (7.4-10.4) fL Seg Neutrophils % (38-78) % Lymphocytes % (15-49) % Monocytes % (Manual) (1-12) % Eosinophils % (Manual) (0-7) % Basophils % (Manual) (0-2) % Platelet Estimate (Normal) RBC Morphology (Normal) Anisocytosis (None Seen) ESR 115 H (0-20) mm/hr VBG Lactic Acid 0.9 (0.5-2.0) mmol/L Sodium (133-145) mmol/L Potassium (3.3-5.1) mmol/L Chloride (96-108) mmol/L Carbon Dioxide (22-30) mmol/L Anion Gap (8.0-16.0) BUN (6-20) mg/dL Creatinine (0.6-1.1) mg/dL GFR Calculation Glucose (70-105) mg/dL Calcium (8.6-10.4) mg/dL Total Bilirubin (0.1-1.0) mg/dL AST (<32) U/L ALT (<40) U/L Alkaline Phosphatase (39-117) U/L C-Reactive Protein 16.50 H (0.03-0.80) mg/dL Total Protein (5.9-8.4) gm/dL Albumin (3.2-5.2) gm/dL Globulin (2.2-3.7) gm/dL Albumin/Globulin Ratio (1.0-2.3) Urine Color Urine Appearance (Clear) Urine pH (5.0-9.0) Ur Specific [place] (1.000-1.035) Urine Protein (Negative) mg/dL Urine Glucose (UA) (Negative) mg/dL Urine Ketones (Negative) mg/dL Urine Occult Blood (Negative) mg/dL Urine Nitrate (Negative) Urine Bilirubin (Negative) mg/dL Urine Urobilinogen mg/dL Ur Leukocyte Esterase (Negative) /ug Urine RBC (0-1) /hpf Urine WBC (0-4) /hpf Ur Squamous Epith Cells (0-4) /hpf Ur Transition Epith Cell (0-2) /hpf Urine Bacteria (0) /hpf Hyaline Casts (0-2) /lph Urine Mucus (None) /hpf Ur Culture Indicated? ED POC Tests ED POC Tests: PATRICA - SARS Antigen Negative Discharge Plan Patient/Caregiver Discharge Instructions Pt seen by PRACTICING DERMATOLOGIST/PA only: Yes Clinical Impression: Petechiae, Acute kidney injury, Hypoglycemia associated with diabetes, Altered mental status, Thrombocytopenia Patient Disposition: Xfer As Inpt ([facility]) Condition: Fair Discharge Date/Time: 11/28/20 19:00
--- NOTE | 2020-11-28 16:09 | XRay Report ---
CLINICAL INFORMATION: query worsening osteomyelitis COMPARISON: 02/27/2021 FINDINGS: There is calcification of the Achilles tendon insertion. There is minimal subcortical sclerosis in the posterior inferior calcaneus is most likely a stress response and not osteomyelitis. No definite osteomyelitis seen throughout the foot and ankle. Moderate hallux valgus, severe metatarsus abductus and pes cavus seen as before. Mild degenerative change noted first MTP and all interphalangeal joints. There is marked diffuse soft tissue swelling the foot and ankle which presumably represents cellulitis IMPRESSION: Severe diffuse soft tissue swelling likely due to cellulitis. No definite evidence of osteomyelitis-please see above Hallux valgus metatarsus abductus and pes cavus. Interpreted and Authenticated by: Tod Duran 11/28/20
--- NOTE | 2020-11-28 16:16 | Nephrology Consult Note ---
HPI Data of Consult Patient: new to practice Consult date: 11/28/20 Requesting physician: Rickie Green Primary Care Provider: Unknown Unknown Consult Narrative Chief complaint: Weakness Reason for consult: Acute kidney injury History of present illness: Dawn Cabrera is a 60-year-old female with hypertension, chronic obstructive pulmonary disease, diabetes mellitus type 2, chronic kidney disease stage 4, recurrent urinary tract infections, morbid obesity (BMI 56), obstructive sleep apnea on CPAP admitted on 11/28/20. Baseline serum creatinine: 1.5 to 2.1 (eGFR 24-38) July to October 2020. Nephrology consultation was requested for acute kidney injury. cc:: CC: Constitutional Constitutional: Present weakness; Absent fever(s) EENT Nose, mouth and throat: Absent nasal congestion and sore throat Cardiovascular Cardiovascular: Absent chest pain and palpatations Respiratory Respiratory: Absent cough and dyspnea Gastrointestinal Gastrointestinal: Absent nausea and vomiting Genitourinary Genitourinary: Absent flank pain and hematuria Integumentary Integumentary: Present lesions Additional comments: petechia especially lower extremities Neurological Neurological: Present weakness; Absent confusion Psychiatric Psychiatric: Absent anxiety and panic attacks Hematologic/Lymphatic Hematologic/Lymphatic: Absent easy bleeding Allergic/Immunologic Allergic/Immunologic: Absent tongue swelling and uticaria PFSH PFSH All Active Problems (Updated 11/28/20 @ 16:15 by Johnna Mehta MD) Acute renal failure superimposed on stage 4 chronic kidney disease (Acute) Acute cystitis (Acute) REKHA (acute kidney injury) (Acute) Depression with anxiety (Acute) Diabetic neuropathy (Acute) COPD (chronic obstructive pulmonary disease) (Acute) ZAID on CPAP (Acute) Essential (primary) hypertension (Acute) Chronic kidney disease, stage 4 (severe) (Acute) T2DM (type 2 diabetes mellitus) (Acute) Feared condition not demonstrated (Acute) Septic shock (Acute) Severe sepsis (Acute) UTI (urinary tract infection) (Acute) Social History additional history: Past medical history includes chronic kidney disease stage IIIb diabetes chronic anemia morbid obesity poor functional status deconditioning debility she has been wheelchair-bound for years. Depression anxiety hypertension Social history patient denies tobacco or alcohol she is bedbound wheelchair- bound and lives in a nursing facility MEDS/ALLERGIES Home Medications and Allergies Home Medications Medication Instructions Recorded Confirmed Type Combivent Respimat 1 puff INHALATION Q4H PRN 07/20/20 10/27/20 History Fleet Enema 118 ml MT ONCE PRN 07/20/20 10/27/20 History Flovent HFA 1 puff INHALATION BID 07/20/20 10/27/20 History Jardiance 10 mg PO QAM 07/20/20 10/27/20 History Senna Plus 2 tab-cap PO BID 07/20/20 10/27/20 History aspirin 81 mg PO QDAY 07/20/20 10/27/20 History bisacodyl [Dulcolax (bisacodyl)] 10 mg MT QDAY PRN 07/20/20 10/27/20 History calcium carbonate [Tums] 1,000 mg PO Q4HP PRN 07/20/20 10/27/20 History cholecalciferol (vitamin D3) 1,000 unit PO BID 07/20/20 10/27/20 History duloxetine [Cymbalta] 60 mg PO QDAY 07/20/20 10/27/20 History ferrous sulfate 325 mg PO QDAY 07/20/20 10/27/20 History furosemide [Lasix] 20 mg PO QDAY 07/20/20 10/27/20 History insulin glargine 15 unit SUBCUT DAILY 07/20/20 10/27/20 History magnesium hydroxide [Milk of 30 ml PO PRN PRN 07/20/20 10/27/20 History Magnesia] melatonin 10 mg PO HS 07/20/20 10/27/20 History polyethylene glycol 3350 17 g PO QDAY 07/20/20 10/27/20 History ropinirole 4 mg PO DAILY 07/20/20 10/27/20 History acetaminophen 1,000 mg PO Q6H PRN 09/07/20 10/27/20 History oxycodone 10 mg PO Q4H PRN #10 tab 09/12/20 10/27/20 Rx blood sugar diagnostic 10/27/20 10/27/20 History glucagon 1 mg IM PRN PRN 10/27/20 10/27/20 History melatonin 5 mg PO HS PRN 10/27/20 10/27/20 History oxycodone 10 mg PO Q4H PRN #7 tab 10/31/20 Rx Allergies Allergy/AdvReac Type Severity Reaction Status Date / Time Penicillins Allergy Severe Anaphylaxis Verified 11/28/20 11:59 cefuroxime Allergy Mild Rash Verified 11/28/20 11:59 doxycycline Allergy Unknown Unknown Verified 11/28/20 11:59 morphine Allergy Unknown Unknown Verified 11/28/20 11:59 sulfamethoxazole Allergy Unknown Unknown Verified 11/28/20 11:59 [From Bactrim] trimethoprim [From Bactrim] Allergy Unknown Unknown Verified 11/28/20 11:59 Physical Examination Vital Signs Vital signs: Temp Pulse Resp BP Pulse Ox 96.8 F L 70 20 142/76 100 11/28/20 11:56 11/28/20 15:27 11/28/20 15:06 11/28/20 15:16 11/28/20 15:27 General Appearance General appearance: obese and chronically ill EENT EENT: mucous membranes moist Neck Neck: no JVD Respiratory Respiratory: course breath sounds Cardiovascular Cardiology: edema Gastrointestinal Gastrointestinal: no tenderness and obese Integumentary Integumentary: rash and warm and dry Neurologic Neurologic: no focal deficit and alert and oriented x3 Psychiatric Psychiatric: mood/affect appropriate and cooperative Results Lab Results Result Diagrams: 11/28/20 12:39 11/28/20 12:39 Lab results: Most recent lab results Calcium 8.1 mg/dL (8.6-10.4) L 11/28/20 12:39 A/P Assessment and plan (1) Acute renal failure superimposed on stage 4 chronic kidney disease: Assessment and plan: Dawn Cabrera is a 60-year-old female with hypertension, chronic obstructive pulmonary disease, diabetes mellitus type 2, chronic kidney disease stage 4, recurrent urinary tract infections, morbid obesity (BMI 56), obstructive sleep apnea on CPAP admitted on 11/28/20. Baseline serum creatinine: 1.5 to 2.1 (eGFR 24-38) July to October 2020. Nephrology consultation was requested for acute kidney injury. Acute kidney injury on chronic kidney disease stage 4, present on arrival. There is no recent history of IV contrast administration or NSAID use. Intravascular volume depletion is unlikely. Acute interstitial nephritis considered with eosinophilia. Acute toxic nephropathy due to Gentamicin bladder irrigation considered. Work up: Urinalysis (dipstick) on 11/28/20: pH 6.0, SG 1.025, protein 300, blood large, leukocyte esterase trace. Urinalysis on 11/28/20: Yellow, cloudy, pH 6.0, SG 1.010, protein >500, blood >1.0, leukocyte esterase 250. Progress: Serum creatinine increased from a baseline of 1.5 to 2.1 to 6.6 (11/28/20). Baseline serum creatinine: 1.5 to 2.1 (eGFR 24-38) July to October 2020. Urine output: Some yellow urine in the Thomas bag. No uremic symptoms. Discussion: Possible need for acute hemodialysis with risks and benefits discussed with the patient. She is hesitant, but will consider. Recommendations/Plan: No urgent acute hemodialysis need. Work up with renal imaging, urine eosinophil smear. Avoid NSAIDs, nephrotoxic medications and IV contrast. Monitor BMP and urine output. Status: Acute Time Spent With Patient Time: Total time spent is greater than 50% in coordination of care (as documented) at patient's floor/unit and/or counseling patient:
--- NOTE | 2020-11-28 16:20 | Cat Scan Report ---
CLINICAL INFORMATION: Weakness COMPARISON: Noncontrast abdomen and pelvic CT one month prior-10/26/2020. TECHNIQUE: 0.625 mm helical slices were obtained from the mid heart through the subtrochanteric regions. Following reconstruction, 2.5 mm sagittal, coronal and axial reformatted images were processed and reviewed at bone and soft tissue windows.The exam was performed using radiation dose optimization techniques including, but not limited to, automated exposure control, adjustment of the mA and/or kV according to patient size and use of iterative reconstruction technique. FINDINGS: Small bilateral pleural effusions are new from the previous exam recess of atelectasis in both posterior lower lobes. The heart is normal in size with lipomatous infiltration of the interatrial septum. Abdominal images show the noncontrasted liver to be normal in size and attenuation. 15 mm calcification likely within a collapsed gallbladder fundus is seen before. Intrahepatic and common bile ducts are normal caliber CBD is 5 mm. The noncontrasted pancreas, spleen and aorta are normal. Both noncontrasted kidneys are normal and symmetric in size position and configuration: the left is 10 cm in length and the right is 11 cm in length. No focal renal lesions. There is no free air, free fluid or adenopathy Pelvic images show a Thomas catheter properly positioned in the urinary bladder. Bladder wall mildly thickened as previously seen. Anteflexed uterus is normal in size 7 x 4 cm. Region of both ovaries is normal. A massive anterior abdominal wall hernia, at midline, spanned 19 cm. It contains a few loops of small bowel and the mid transverse colon segments which do not appear obstructed or incarcerated. It has increased in size in the previous study however. The remainder of the stomach small and large bowel are grossly normal. Bone windows show moderate degenerative change in both hips. No focal osseous lesions. IMPRESSION: 1. Both kidneys are unremarkable. 2. 15 mm solitary stone within a collapsed gallbladder 3. Massive (19 cm) mid anterior abdominal wall hernia containing nonincarcerated small bowel loops and transverse colon. This has increased since the CT just one month prior. 4. Mild urinary bladder wall thickening Interpreted and Authenticated by: Tod Duran 11/28/20
--- NOTE | 2020-11-28 17:43 | Internal Med History&Physical ---
HPI History of Present Illness Patient information: Note initiated : 11/28/20 at 5:28 pm Service Date, if different from initiated Date: [] Patient: Dawn Cabrera a 60 y/o F admitted on for Weakness. Chief Complaint: [] History of present illness: Ms. Cabrera is a 60 year old F presents to the ED sent over by nurse practitioner with concern for vasculitis as she had lower extremity petechiae. Also a bit lethargic. She was here in October for hemorrhagic cystitis and discharged on Zyvox. Work-up in the ED was significant for creatinine 6.6 with baseline around 2. She does have chronic anemia but it is similar to the past. Her platelets are typically in the low to mid twos and they have dropped to 110. Lactate was normal. Elevated CRP. No bilirubinemia. Review of Systems: Pertinent positives above. Denies headache/fever/chills/nausea/vomiting/chest or abdominal pain/cough/dyspnea/diarrhea. Many 10 point review of system reviewed negative. PFSH PFSH All Active Problems (Updated 11/28/20 @ 16:15 by Johnna Mehta MD) Acute renal failure superimposed on stage 4 chronic kidney disease (Acute) Acute cystitis (Acute) REKHA (acute kidney injury) (Acute) Depression with anxiety (Acute) Diabetic neuropathy (Acute) COPD (chronic obstructive pulmonary disease) (Acute) ZAID on CPAP (Acute) Essential (primary) hypertension (Acute) Chronic kidney disease, stage 4 (severe) (Acute) T2DM (type 2 diabetes mellitus) (Acute) Feared condition not demonstrated (Acute) Septic shock (Acute) Severe sepsis (Acute) UTI (urinary tract infection) (Acute) Social History additional history: Past medical history includes chronic kidney disease stage IIIb diabetes chronic anemia morbid obesity poor functional status deconditioning debility she has been wheelchair-bound for years. Depression anxiety hypertension Social history patient denies tobacco or alcohol she is bedbound wheelchair- bound and lives in a nursing facility MEDS/ALLERGIES Home Medications and Allergies Home Medications Medication Instructions Recorded Confirmed Type Combivent Respimat 1 puff INHALATION Q4H PRN 07/20/20 10/27/20 History Fleet Enema 118 ml CO ONCE PRN 07/20/20 10/27/20 History Flovent HFA 1 puff INHALATION BID 07/20/20 10/27/20 History Jardiance 10 mg PO QAM 07/20/20 10/27/20 History Senna Plus 2 tab-cap PO BID 07/20/20 10/27/20 History aspirin 81 mg PO QDAY 07/20/20 10/27/20 History bisacodyl [Dulcolax (bisacodyl)] 10 mg CO QDAY PRN 07/20/20 10/27/20 History calcium carbonate [Tums] 1,000 mg PO Q4HP PRN 07/20/20 10/27/20 History cholecalciferol (vitamin D3) 1,000 unit PO BID 07/20/20 10/27/20 History duloxetine [Cymbalta] 60 mg PO QDAY 07/20/20 10/27/20 History ferrous sulfate 325 mg PO QDAY 07/20/20 10/27/20 History furosemide [Lasix] 20 mg PO QDAY 07/20/20 10/27/20 History insulin glargine 15 unit SUBCUT DAILY 07/20/20 10/27/20 History magnesium hydroxide [Milk of 30 ml PO PRN PRN 07/20/20 10/27/20 History Magnesia] melatonin 10 mg PO HS 07/20/20 10/27/20 History polyethylene glycol 3350 17 g PO QDAY 07/20/20 10/27/20 History ropinirole 4 mg PO DAILY 07/20/20 10/27/20 History acetaminophen 1,000 mg PO Q6H PRN 09/07/20 10/27/20 History oxycodone 10 mg PO Q4H PRN #10 tab 09/12/20 10/27/20 Rx blood sugar diagnostic 10/27/20 10/27/20 History glucagon 1 mg IM PRN PRN 10/27/20 10/27/20 History melatonin 5 mg PO HS PRN 10/27/20 10/27/20 History oxycodone 10 mg PO Q4H PRN #7 tab 10/31/20 Rx Allergies Allergy/AdvReac Type Severity Reaction Status Date / Time Penicillins Allergy Severe Anaphylaxis Verified 11/28/20 11:59 cefuroxime Allergy Mild Rash Verified 11/28/20 11:59 doxycycline Allergy Unknown Unknown Verified 11/28/20 11:59 morphine Allergy Unknown Unknown Verified 11/28/20 11:59 sulfamethoxazole Allergy Unknown Unknown Verified 11/28/20 11:59 [From Bactrim] trimethoprim [From Bactrim] Allergy Unknown Unknown Verified 11/28/20 11:59 EXAM Constitutional Vitals: Temp Pulse Resp BP Pulse Ox 96.8 F L 68 16 145/78 96 11/28/20 11:56 11/28/20 16:57 11/28/20 16:57 11/28/20 16:46 11/28/20 16:57 Exam: General: Awake, No acute Distress, morbidly obese Eyes/N/T: EOMI, PERRL, dry mucous membranes Head/Neck: neck supple, normocephalic atraumatic CV: RRR, No murmurs, normal s1/s2 Pulm: Clear b/l, no wheezing/rhonchi/rales Abd: soft, nontender, +BS x4 Ext: no clubbing/cyanosis. b/l LE petechiae and chronic wounds Neuro: Bit lethargic but answers questions appropriately but slowly, no focal deficits, moves all extremities, CN 2-12 grossly Skin: warm/dry DATA Data Completed and Pending Labs: Labs from last 24 hours 11/28/20 11/28/20 11/28/20 16:55 13:10 12:39 WBC RBC Hgb Hct MCV MCH MCHC RDW Plt Count MPV Seg Neutrophils % Lymphocytes % Monocytes % (Manual) Eosinophils % (Manual) Basophils % (Manual) Platelet Estimate RBC Morphology Anisocytosis ESR Pending VBG Lactic Acid 0.9 Sodium Potassium Chloride Carbon Dioxide Anion Gap BUN Creatinine GFR Calculation Glucose Calcium Total Bilirubin AST ALT Alkaline Phosphatase C-Reactive Protein 16.50 H Total Protein Albumin Globulin Albumin/Globulin Ratio Urine Color Urine Appearance Urine pH Ur Specific [place] Urine Protein Urine Glucose (UA) Urine Ketones Urine Occult Blood Urine Nitrate Urine Bilirubin Urine Urobilinogen Ur Leukocyte Esterase Urine RBC Urine WBC Ur Squamous Epith Cells Ur Transition Epith Cell Urine Bacteria Hyaline Casts Urine Mucus Ur Culture Indicated? 11/28/20 11/28/20 11/28/20 12:39 12:39 12:27 WBC 9.0 RBC 3.03 L Hgb 9.4 L Hct 30.1 L MCV 99.3 MCH 31.0 MCHC 31.2 RDW 15.2 H Plt Count 110 L MPV 12.0 H Seg Neutrophils % 70 Lymphocytes % 16 Monocytes % (Manual) 2 Eosinophils % (Manual) 11 H Basophils % (Manual) 1 Platelet Estimate Decreased A RBC Morphology Abnormal A Anisocytosis Rare A ESR VBG Lactic Acid Sodium 133 Potassium 4.6 Chloride 93 L Carbon Dioxide 26 Anion Gap 14.0 BUN 52 H Creatinine 6.6 H* GFR Calculation 6 Glucose 56 L Calcium 8.1 L Total Bilirubin 0.5 AST 39 H ALT 22 Alkaline Phosphatase 201 H C-Reactive Protein Total Protein 7.1 Albumin 2.6 L Globulin 4.5 H Albumin/Globulin Ratio 0.6 L Urine Color Yellow Urine Appearance Cloudy A Urine pH 6.0 Ur Specific [place] 1.010 Urine Protein >=500 A Urine Glucose (UA) Negative Urine Ketones Negative Urine Occult Blood >=1.0 A Urine Nitrate Negative Urine Bilirubin Negative Urine Urobilinogen Negative Ur Leukocyte Esterase 250 A Urine RBC > 182 H Urine WBC 87 H Ur Squamous Epith Cells 16 H Ur Transition Epith Cell 7 H Urine Bacteria None Hyaline Casts 15 H Urine Mucus Mod A Ur Culture Indicated? No A/P Narrative A/P Narrative: A: *REKHA on CKD IV(base Cr~2): etiology drug reaction (?zyvox) vs vasculitis - Follows with Dr. Irvin *Thrombocytopenia with b/l LE petechia: ?drug reaction *Anemia, chronic: appears stable *Encephalopathy: metabolic from above + hypoglycemia *Poor functional status/deconditioning/debility: Is wheelchair-bound and requires abhinav lift *DM w/neuropathy: Hypoglycemia on admit, received home insulin but was not eating *COPD (not on home O2): Follows with Dr. Mejia *ZAID w/CPAP: *Morbid obesity: *Depression/anxiety: *UA difficult to interpret d/t chronic valentino, was recently on abx for UTI + has contamination *Chronic LLE wounds: follows with wound care P: -IVF including D10 gtt wean -Nephrology consulted -monitor UOP -consider skin biopsy -vasculitis studies ordered -case also discussed with Dr. Regalado, would like f/u on haptoglobin/peripheral smear/ldh/rectic count -replace valentino, and repeat UA -Radha for wound care -hold home lasix for now -SSI, hold basal insulin until PO intake and hypoglycemia resolved - -CM -ppx: SCD tonight, hold chemical until f/u platelet and cbc DNR Time Spent With Patient Time: Total time spent is greater than 50% in coordination of care (as documented) at patient's floor/unit and/or counseling patient:
[2020-11-28] MEDS ORDERED: POTASSIUM CHLORIDE 40 MEQ in DEXTROSE 5% IN WATER 500 ML IV PRN (18:47)
[2020-11-28] MEDS ORDERED: IPRATROPIUM/ALBUTEROL 3 ML AMPUL.NEB NEB PRN (18:47)
[2020-11-28] MEDS ORDERED: ONDANSETRON 4 MG/2 ML VIAL IV PRN (18:47)
[2020-11-28] MEDS ORDERED: METOCLOPRAMIDE 10 MG/2 ML VIAL IV PRN (18:47)
[2020-11-28] MEDS ORDERED: MAGNESIUM SULFATE 2 GM/50 ML BAG IV PRN (18:47)
[2020-11-28] MEDS ORDERED: DEXTROSE 31 GM ORAL.SUSP PO PRN (18:47)
[2020-11-28] MEDS ORDERED: POTASSIUM CHLORIDE 20 MEQ TABLET PO PRN ×2 (18:47)
[2020-11-28] MEDS ORDERED: ACETAMINOPHEN 325 MG TABLET PO PRN (18:47)
[2020-11-28] MEDS ORDERED: SENNOSIDES 1 TABLET PO PRN (18:47)
[2020-11-28] MEDS ORDERED: POLYETHYLENE GLYCOL 3350 17 GM PACKET PO PRN (18:47)
[2020-11-28] MEDS: 0.9 % SODIUM CHLORIDE 1,000 ML IV SCH (19:07)
[2020-11-28 19:14] LABS: Retic Absolute 0.09 M/mcL (0.02-0.10)
[2020-11-28 19:22] LABS: Complement C3 152.6 mg/dL (90.0-180.0)
[2020-11-28 19:30] LABS: Prothrombin Time 13.8 sec (11.9-14.5)
[2020-11-28 19:37] LABS: Hepatitis C Virus Antibody Non-Reactive (Non-Reactive)
[2020-11-28 20:01] LABS: Hepatitis B Surface Antigen Negative (Negative)
[2020-11-28] MEDS ORDERED: IPRATROPIUM/ALBUTEROL SULFATE 1 PUFF INHALER INH PRN (20:05)
[2020-11-28] MEDS ORDERED: MAGNESIUM HYDROXIDE 30 ML ORAL.SUSP PO PRN (20:05)
[2020-11-28] MEDS ORDERED: FLEETS ADULT ENEMA PR PRN (20:05)
[2020-11-28] MEDS ORDERED: LORazepam 0.5 MG TABLET PO PRN (20:05)
[2020-11-28] MEDS ORDERED: BISACODYL 10 MG SUPP.RECT PR PRN (20:05)
[2020-11-28] MEDS ORDERED: diphenhydrAMINE 25 MG CAPSULE PO PRN (20:13)
[2020-11-28] MEDS ORDERED: CALCIUM CARBONATE 500 MG TAB.CHEW PO PRN (20:17)
[2020-11-28] MEDS ORDERED: MELATONIN 3 MG TABLET PO PRN (20:19)
[2020-11-28] MEDS: 0.9 % SODIUM CHLORIDE 10 ML SYRINGE IV SCH (23:12)
[2020-11-28] MEDS: oxyCODONE HCL 5 MG TABLET PO PRN (23:13)
[2020-11-28] MEDS: FLUTICASONE HFA 110MCG INHALER INH SCH (23:13)
[2020-11-28] MEDS: DOCUSATE SODIUM 100 MG CAPSULE PO SCH (23:31)
[2020-11-28] MEDS: INSULIN LISPRO 1 UNIT/0.01 ML UNIT SQ SCH (23:32)
[2020-11-29] MEDS: DEXTROSE 50% 50 ML VIAL IV PRN ×3 (00:29→22:18)
[2020-11-29] MEDS ORDERED: MELATONIN 3 MG TABLET PO PRN (01:13)
[2020-11-29 02:03] LABS: Appearance,Urine CLOUDY (Clear); Bilirubin,Urine Negative (Negative); Color,Urine YELLOW; Culture Indicated,Urine No; Glucose,Urine (UA) 50 mg/dL (Negative); Ketones,Urine Negative (Negative); Leukocyte Esterase,Urine 500 /ug (Negative); Mucus,Urine FEW /hpf; Nitrate,Urine Negative (Negative); Protein,Urine 100 mg/dL (Negative); Specific Gravity,Urine 1.006 (1.000-1.035); Urine Blood >=1.0 mg/dL (Negative); Urine Hyaline Cast 4 /lph (0-2); Urine RBC 83 /hpf (0-3); Urine Squamous Epithelial Cell 17 /hpf (0-4); Urine WBC 49 /hpf (0-4); Urobilinogen,Urine Negative
[2020-11-29] MEDS: 0.9 % SODIUM CHLORIDE 1,000 ML IV SCH ×3 (03:15→20:06)
--- NOTE | 2020-11-29 04:36 | Nephrology Progress Note ---
SUBJECTIVE Subjective Patient information: Note initiated : 11/29/20 at 4:30 am Patient: Dawn Cabrera 60 y/o F admitted on 11/28/20 for Weakness. Chief Complaint: Weakness Pertinent ROS: Thomas catheter Skin rash Weakness Obesity Constitutional Vitals: Vital Signs Temp Pulse Resp BP Pulse Ox 97.5 F 67 18 148/74 97 11/29/20 00:00 11/29/20 00:00 11/29/20 00:00 11/29/20 00:00 11/29/20 00:00 Period Temp Pulse Resp BP Sys/Nava Pulse Ox Last 24 Hr 96.8 F-97.5 F 59-77 12-20 100-148/57-88 90-100 Intake and Output 11/28/20 11/28/20 11/29/20 13:59 21:59 05:59 Intake Total 1524 1240 Output Total 175 Balance 1524 1065 Weight 378 lb 374 lb 14.4 oz Patient Weight 11/29/20 05:59 Weight 374 lb 14.4 oz Intake & Output: Intake & Output 11/28/20 11/28/20 11/29/20 13:59 21:59 05:59 Intake Total 1524 1240 Output Total 175 Balance 1524 1065 Weight 378 lb 374 lb 14.4 oz Intake: IV 1524 1000 Sodium Chloride 0.9% 1,000 ml @ 1000 125 mls/hr IV .Q8H MAURY Rx#: [id number] Dextrose 10%-Water IV Solution 524 1,000 ml @ 50 mls/hr IV .Q20H MAURY Rx#:[id number] Dextrose 5%-Ns IV Solution 1, 1000 000 ml @ Wide Open IV BOLUS MAURY Rx#:[id number] Oral 240 Output: Urine Catheter Amount 175 Other: Urine Appearance Clear Uretheral (Thomas) Clear Urine Color Dark Yellow Uretheral (Thomas) Dark Yellow General appearance: cooperative and no acute distress Head Head exam: Present normal inspection Eye Eye exam: Present normal appearance ENT ENT exam: Present mucous membranes moist Respiratory Respiratory exam: Absent respiratory distress Cardiovascular Cardiovascular exam: Present normal rate and rhythm GI/Abdominal GI/Abdominal exam: Present soft; Absent tenderness Extremities Exam Extremities exam: Present pedal edema; Absent joint swelling Neurological Exam Neurological exam: Present alert and oriented X3 Psychiatric Psychiatric exam: Present normal affect and normal mood Skin Skin exam: Present petechiae and rash A/P Assessment and plan (1) Acute renal failure superimposed on stage 4 chronic kidney disease: Assessment and plan: Dawn Cabrera is a 60-year-old female with hyp ertension, chronic obstructive pulmonary disease, diabetes mellitus type 2, chronic kidney disease stage 4, recurrent urinary tract infections, morbid obesity (BMI 56), obstructive sleep apnea on CPAP admitted on 11/28/20. Baseline serum creatinine: 1.5 to 2.1 (eGFR 24-38) July to October 2020. Nephrology consultation was requested for acute kidney injury. Acute kidney injury on chronic kidney disease stage 4, present on arrival. There is no recent history of IV contrast administration or NSAID use. Intravascular volume depletion is unlikely. Acute toxic nephropathy due to Gentamicin bladder irrigation considered, but less likely. Acute interstitial nephritis considered with eosinophilia and skin rash. Serologic work up is pending. Linezolid is the only new medication reported. Renal vasculitis is unlikely. ANCA screen requested. She stated having a kidney biopsy at age 11 in [place]. She does not remember the clinic or diagnosis. Work up: Urinalysis on 11/28/20: Yellow, cloudy, pH 6.0, SG 1.010, protein >500, blood >1.0, leukocyte esterase 250. Urinalysis on 11/29/20: Yellow, cloudy, pH 6.0, SG 1.006, protein 100, blood >1.0, leukocyte esterase 500. Labs on 11/28/20: WBC 9.0 (Eosinophils 11%), Hb 9.4, PLT 110, D-Dimer >20, Fibrinogen 688, aPTT 51.3, PT 13.8. Labs on 11/28/20: C3 34.1 (N), C4 152.6 (N), HBsAg negative, anti-HCV Ab non reactive, ESR 115, CRP 16.5, ANCA Screen pending, cryoglobulin pending. CT Abdomen and Pelvis wo contrast on 11/28/20: Both kidneys are unremarkable. Mild urinary bladder wall thickening, Progress: Serum creatinine increased from a baseline of 1.5-2.1 to 6.6 (11/28/20), 6.1 (11/29/20). Baseline serum creatinine: 1.5 to 2.1 (eGFR 24-38) July to October 2020. Urine output: 375 ml reported in the past 12 hours. No uremic symptoms. Discussion: Possible need for acute hemodialysis with risks and benefits discussed with the patient. She is hesitant. Possible need for kidney biopsy with risks and benefits discussed with the patient. Bleeding risk is high with elevated aPTT and obesity. She did not give me an answer. Recommendations/Plan: No urgent acute hemodialysis need. Avoid NSAIDs, nephrotoxic medications and IV contrast. Monitor BMP and urine output. Status: Acute Time Spent With Patient Time: Total time spent is greater than 50% in coordination of care (as documented) at patient's floor/unit and/or counseling patient:
[2020-11-29] MEDS: 0.9 % SODIUM CHLORIDE 10 ML SYRINGE IV SCH ×3 (05:46→21:43)
[2020-11-29 06:52] LABS: Hematocrit 32.9 % (36.0-48.0); Hemoglobin 10.7 g/dL (12.0-15.0); Mean Cell Volume 94.5 fL (80.0-100.0); Mean Corpuscular HGB Conc 32.5 g/dL (31.0-36.0); Mean Platelet Volume 12.3 fL (7.4-10.4); Platelet Count 88 K/mcL (140-440); RBC 3.48 M/mcL (4.00-5.20); WBC 11.3 K/mcL (4.5-11.0)
[2020-11-29 07:13] LABS: Partial Thromboplastin Time 54.8 sec (20.0-37.0)
[2020-11-29 07:24] LABS: Prothrombin Time 13.2 sec (11.9-14.5)
--- NOTE | 2020-11-29 07:40 | Ultrasound Report ---
History: Leg pain, wound in the right anterior mid tibial region FINDINGS: Patient was difficult to examine due to very large body habitus. She also stopped the examination while scanning the left calf and popliteal region due to pain. The visualized veins in the right leg from the groin through the lower calf appear normal without evidence of thrombosis. There is normal augmentation and compressibility. In the left leg from the groin through the distal thigh the visualized veins are normal without evidence of thrombosis and they have normal augmentation and compressibility. The left popliteal and calf vessels were not evaluated due to the patient's request to stop. IMPRESSION: Incomplete examination but without evidence of thrombosis in either leg Interpreted and Authenticated by: Nate Maldonado 11/29/20
[2020-11-29 07:46] LABS: ALT/SGPT 32 U/L (<40); AST/SGOT 83 U/L (<32); Albumin 2.8 gm/dL (3.2-5.2); Albumin/Globulin Ratio 0.7 (1.0-2.3); Alkaline Phosphatase 195 U/L (39-117); Bilirubin,Direct 0.3 mg/dL (<0.3); Bilirubin,Total 0.6 mg/dL (0.1-1.0); Blood Urea Nitrogen 51 mg/dL (6-20); Calcium 7.9 mg/dL (8.6-10.4); Carbon Dioxide 25 mmol/L (22-30); Chloride 94 mmol/L (96-108); Glomerular Filtration Rate 7; Glucose 103 mg/dL (70-105); Lactate Dehydrogenase 442 U/L (135-225); Phosphorous 5.1 mg/dL (2.5-4.5); Triglycerides 129 mg/dL (<150); Uric Acid 8.8 mg/dL (2.5-8.0)
[2020-11-29] MEDS: oxyCODONE HCL 5 MG TABLET PO PRN ×2 (07:53→21:45)
[2020-11-29] MEDS: INSULIN LISPRO 1 UNIT/0.01 ML UNIT SQ SCH ×4 (07:54→21:43)
--- NOTE | 2020-11-29 07:56 | Internal Med Progress Note ---
SUBJECTIVE Subjective Patient information: Note initiated : 11/29/20 at 7:48 am Service Date, if different from initiated Date: [] Patient: Dawn Cabrera a 60 y/o F admitted on 11/28/20 for Weakness. Chief Complaint: [] Interval history: History of present illness: Ms. Cabrera is a 60 year old F presents to the ED sent over by nurse practitioner with concern for vasculitis as she had lower extremity petechiae. Also a bit lethargic. She was here in October for hemorrhagic cystitis and discharged on Zyvox. Work-up in the ED was significant for creatinine 6.6 with baseline around 2. She does have chronic anemia but it is similar to the past. Her platelets are typically in the low to mid twos and they have dropped to 110. Lactate was normal. Elevated CRP. No bilirubinemia. 11/29 Feeling a little better but still quite tired. When asked about the rash on her chest and how long its been there she thinks about 2 weeks. No new complaints. Review of Systems: denies headache/fever/chills/nausea/vomiting/chest or abdominal pain/cough/ dyspnea/diarrhea. Otherwise see above. Constitutional Vitals: Vital Signs Temp Pulse Resp BP Pulse Ox 95.8 F L 67 12 155/78 98 11/29/20 04:22 11/29/20 04:22 11/29/20 04:22 11/29/20 04:22 11/29/20 05:56 Period Temp Pulse Resp BP Sys/Nava Pulse Ox Last 24 Hr 95.8 F-97.5 F 59-77 12-20 100-155/57-88 90-100 Intake and Output 11/28/20 11/29/20 11/29/20 21:59 05:59 13:59 Intake Total 1524 1340 Output Total 375 Balance 1524 965 Weight 170.052 kg Intake & Output: Intake & Output 11/28/20 11/29/20 11/29/20 21:59 05:59 13:59 Intake Total 1524 1340 Output Total 375 Balance 1524 965 Weight 170.052 kg Intake: IV 1524 1000 Sodium Chloride 0.9% 1,000 ml @ 1000 125 mls/hr IV .Q8H [facility] Rx#: [id number] Dextrose 10%-Water IV Solution 524 1,000 ml @ 50 mls/hr IV .Q20H [facility] Rx#:[id number] Dextrose 5%-Ns IV Solution 1, 1000 000 ml @ Wide Open IV BOLUS [facility] Rx#:[id number] Oral 340 Output: Urine Catheter Amount 375 Other: Urine Appearance Clear Uretheral (Valentino) Clear Urine Color Pale [place] Uretheral (Valentino) Dark Yellow Exam: General: Awake, No acute Distress, morbidly obese Eyes/N/T: EOMI, Head/Neck: neck supple, CV: RRR, No murmurs, Pulm: Clear b/l, no wheezing/rhonchi/rales Abd: soft, nontender, +BS x4 Ext: no clubbing/cyanosis. b/l LE rash more petechiae/purpura than morbilliform and chronic wounds Neuro: mentation improving more clear, still a little slow to respond to questions, no focal deficits, moves all extremities, Skin: warm/dry. Chest with morbilliform rash. leg rash more petechiae/purpura than morbilliform OBJ DATA Labs CBC & Chem 7: 11/29/20 04:56 11/29/20 04:56 Labs: Abnormal Lab Results 11/29/20 11/29/20 11/29/20 04:57 04:56 04:56 WBC 11.3 H RBC 3.48 L Hgb 10.7 L Hct 32.9 L RDW 15.0 H Plt Count 88 L MPV 12.3 H Eosinophils % (Manual) Platelet Estimate RBC Morphology Anisocytosis ESR Percent Retic APTT 54.8 H Fibrinogen 643 H D-Dimer Sodium 132 L Chloride 94 L BUN 51 H Creatinine 6.1 H* Glucose Uric Acid 8.8 H Calcium 7.9 L Phosphorus 5.1 H Magnesium 2.9 H Direct Bilirubin 0.3 H AST 83 H Alkaline Phosphatase 195 H Lactate Dehydrogenase 442 H C-Reactive Protein 12.30 H Albumin 2.8 L Globulin 4.0 H Albumin/Globulin Ratio 0.7 L Urine Appearance Urine Protein Urine Glucose (UA) Urine Occult Blood Ur Leukocyte Esterase Urine RBC Urine WBC Ur Squamous Epith Cells Ur Transition Epith Cell Hyaline Casts Urine Mucus 11/29/20 11/28/20 11/28/20 01:13 18:00 17:26 WBC RBC Hgb Hct RDW Plt Count MPV Eosinophils % (Manual) Platelet Estimate RBC Morphology Anisocytosis ESR Percent Retic 2.64 H APTT Fibrinogen D-Dimer > 20.0 H Sodium Chloride BUN Creatinine Glucose Uric Acid Calcium Phosphorus Magnesium Direct Bilirubin AST Alkaline Phosphatase Lactate Dehydrogenase C-Reactive Protein Albumin Globulin Albumin/Globulin Ratio Urine Appearance Cloudy A Urine Protein 100 A Urine Glucose (UA) 50 A Urine Occult Blood >=1.0 A Ur Leukocyte Esterase 500 A Urine RBC 83 H Urine WBC 49 H Ur Squamous Epith Cells 17 H Ur Transition Epith Cell Hyaline Casts 4 H Urine Mucus Few A 11/28/20 11/28/20 11/28/20 16:55 13:10 13:10 WBC RBC Hgb Hct RDW Plt Count MPV Eosinophils % (Manual) Platelet Estimate RBC Morphology Anisocytosis ESR 115 H Percent Retic APTT 51.3 H Fibrinogen 688 H D-Dimer Sodium Chloride BUN Creatinine Glucose Uric Acid Calcium Phosphorus Magnesium Direct Bilirubin AST Alkaline Phosphatase Lactate Dehydrogenase C-Reactive Protein Albumin Globulin Albumin/Globulin Ratio Urine Appearance Urine Protein Urine Glucose (UA) Urine Occult Blood Ur Leukocyte Esterase Urine RBC Urine WBC Ur Squamous Epith Cells Ur Transition Epith Cell Hyaline Casts Urine Mucus 11/28/20 11/28/20 11/28/20 12:39 12:39 12:39 WBC RBC 3.03 L Hgb 9.4 L Hct 30.1 L RDW 15.2 H Plt Count 110 L MPV 12.0 H Eosinophils % (Manual) 11 H Platelet Estimate Decreased A RBC Morphology Abnormal A Anisocytosis Rare A ESR Percent Retic APTT Fibrinogen D-Dimer Sodium Chloride 93 L BUN 52 H Creatinine 6.6 H* Glucose 56 L Uric Acid Calcium 8.1 L Phosphorus Magnesium Direct Bilirubin AST 39 H Alkaline Phosphatase 201 H Lactate Dehydrogenase C-Reactive Protein 16.50 H Albumin 2.6 L Globulin 4.5 H Albumin/Globulin Ratio 0.6 L Urine Appearance Urine Protein Urine Glucose (UA) Urine Occult Blood Ur Leukocyte Esterase Urine RBC Urine WBC Ur Squamous Epith Cells Ur Transition Epith Cell Hyaline Casts Urine Mucus 11/28/20 12:27 WBC RBC Hgb Hct RDW Plt Count MPV Eosinophils % (Manual) Platelet Estimate RBC Morphology Anisocytosis ESR Percent Retic APTT Fibrinogen D-Dimer Sodium Chloride BUN Creatinine Glucose Uric Acid Calcium Phosphorus Magnesium Direct Bilirubin AST Alkaline Phosphatase Lactate Dehydrogenase C-Reactive Protein Albumin Globulin Albumin/Globulin Ratio Urine Appearance Cloudy A Urine Protein >=500 A Urine Glucose (UA) Urine Occult Blood >=1.0 A Ur Leukocyte Esterase 250 A Urine RBC > 182 H Urine WBC 87 H Ur Squamous Epith Cells 16 H Ur Transition Epith Cell 7 H Hyaline Casts 15 H Urine Mucus Mod A Meds: Medications Acetaminophen (Acetaminophen 325 Mg Tablet) 650 mg PO Q6HP PRN PRN Reason: PAIN/FEVER > 101 Albuterol/Ipratropium (Ipratropium/Albuterol 3 Ml Ampul.Neb) 3 ml NEB Q4HP PRN PRN Reason: Shortness Of Breath Albuterol/Ipratropium (Ipratropium/Albuterol Sulfate 1 Puff Inhaler) 1 puff INH Q4HP PRN PRN Reason: shortness of breath Aspirin (Aspirin 81 Mg Tab.Chew) 81 mg PO QDAY MAURY Bisacodyl (Bisacodyl 10 Mg Supp.Rect) 10 mg W[place] QDAY PRN PRN Reason: Constipation Calcium Carbonate/Glycine (Calcium Carbonate 500 Mg Tab.Chew) 1,000 mg PO Q4HP PRN PRN Reason: gi issues Dextrose (Dextrose 50% 50 Ml Vial) 0 ml IV UD PRN PRN Reason: Hypoglycemia Last Admin: 11/29/20 00:29 Dose: 25 ml Documented by: Diagnostic Test (Pha) (Accu-Chek 1 Each Strip) 1 each FS ACHS [facility] Last Admin: 11/29/20 03:15 Dose: 1 each Documented by: Diphenhydramine HCl (Diphenhydramine 25 Mg Capsule) 25 mg PO Q6HP PRN PRN Reason: Allergy Symptoms Docusate Sodium (Docusate Sodium 100 Mg Capsule) 100 mg PO BID [facility] Last Admin: 11/28/20 23:31 Dose: Not Given Documented by: Duloxetine HCl (Duloxetine 30 Mg Capsule) 60 mg PO QDAY [facility] Fluticasone Propionate (Fluticasone Hfa 110mcg Inhaler) 1 puff INH BID [facility] Last Admin: 11/28/20 23:13 Dose: Not Given Documented by: Glucose (Dextrose 31 Gm Oral.Susp) 15 gm PO PRN PRN PRN Reason: Hypoglycemia Dextrose (Dextrose 10%-Water Iv Solution) 1,000 mls @ 30 mls/hr IV .Q24H [facility] Last Admin: 11/28/20 19:42 Dose: Not Given Documented by: Potassium Chloride 40 meq/ (Dextrose) 520 mls @ 130 mls/hr IV UD PRN PRN Reason: Potassium < 3 Magnesium Sulfate (Magnesium Sulfate) 2 gm in 50 mls @ 50 mls/hr IV UD PRN PRN Reason: Magnesium </= 1.6 Sodium Chloride (Sodium Chloride 0.9%) 1,000 mls @ 125 mls/hr IV .Q8H [facility] Last Admin: 11/29/20 03:15 Dose: 125 mls/hr Documented by: Insulin Human Lispro (Insulin Lispro 1 Unit/0.01 Ml Unit) 0 unit SQ ACHS [facility]; Protocol Last Admin: 11/28/20 23:32 Dose: Not Given Documented by: Lactobacillus Rhamnosus (Lactobacillus 1 Capsule) 1 cap PO QDAY MAURY Lorazepam (Lorazepam 0.5 Mg Tablet) 0.5 mg PO Q6HP PRN PRN Reason: Anxiety Last Admin: 11/28/20 23:13 Dose: 0.5 mg Documented by: Magnesium Hydroxide (Magnesium Hydroxide 30 Ml Oral.Susp) 30 ml PO PRN PRN PRN Reason: Constipation Melatonin (Melatonin 3 Mg Tablet) 6 mg PO HSP PRN PRN Reason: Sleep Metoclopramide HCl (Metoclopramide 10 Mg/2 Ml Vial) 10 mg IV Q6HP PRN PRN Reason: Nausea And Vomiting Ondansetron HCl (Ondansetron 4 Mg/2 Ml Vial) 4 mg IV Q4HP PRN PRN Reason: Nausea And Vomiting Oxycodone HCl (Oxycodone Hcl 5 Mg Tablet) 10 mg PO Q4HP PRN PRN Reason: pain Last Admin: 11/28/20 23:13 Dose: 10 mg Documented by: Polyethylene Glycol (Polyethylene Glycol 3350 17 Gm Packet) 17 gm PO DAILYP PRN PRN Reason: Constipation Potassium Chloride (Potassium Chloride 20 Meq Tablet) 40 meq PO UD PRN PRN Reason: Potssium is 3-3.5 Potassium Chloride (Potassium Chloride 20 Meq Tablet) 40 meq PO UD PRN PRN Reason: Potassium < 3 Ropinirole HCl (Ropinirole 1 Mg Tablet) 4 mg PO DAILY MAURY Senna (Sennosides 1 Tablet) 2 tab PO DAILYP PRN PRN Reason: Constipation Sodium Biphosphate/Sodium Phosphate (Fleets Adult Enema) 1 dose [place] ONCE PRN PRN Reason: Constipation Sodium Chloride (0.9 % Sodium Chloride 10 Ml Syringe) 10 ml IV Q8 MAURY Last Admin: 11/29/20 05:46 Dose: 10 ml Documented by: A/P Narrative A/P Narrative: A: *REKHA on CKD IV(base Cr~2): etiology drug reaction (zyvox) vs vasculitis -Follows with Dr. Irvin -Cr 6.1<6.6 -hepatitis/complements neg *Thrombocytopenia with b/l LE petechia: ?drug reaction (zyvox) *Morbilliform rash chest/arms: suspect drug reaction (zyvox) *Anemia, chronic: appears stable *Encephalopathy: metabolic from above + hypoglycemia *Poor functional status/deconditioning/debility: Is wheelchair-bound and requires abhinav lift *DM w/neuropathy: Hypoglycemia on admit, received home insulin but was not eating *COPD (not on home O2): Follows with Dr. Mejia *ZAID w/CPAP: *Morbid obesity: *Depression/anxiety: *UA difficult to interpret d/t chronic valentino, was recently on abx for UTI + has contamination *Chronic LLE wounds: follows with wound care P: -IVF -Nephrology consulted -monitor UOP -consider skin biopsy if felt to be vasculitis vs simple drug reaction -vasculitis studies ordered -case also discussed with Dr. Regalado from ED, would like f/u on haptoglobin/p eripheral smear/ldh/rectic count -Radha for wound care -hold home lasix for now -SSI, hold basal insulin until PO intake and hypoglycemia resolved - -CM -ppx: SCD tonight, hold chemical until f/u platelet and cbc DNR Time Spent With Patient Time: Total time spent is greater than 50% in coordination of care (as document ed) at patient's floor/unit and/or counseling patient: QUALITY VTE Deep Vein Thrombosis/Pulmonary Embolism Present on Admission: No
[2020-11-29 08:15] LABS: Band Neutrophils % 3 % (0-10); Basophils % (Manual) 1 % (0-2); Eosinophils % (Manual) 10 % (0-7); Lymphocytes % 10 % (15-49); Monocytes % (Manual) 6 % (1-12); Platelet Estimate DECREASED (Normal); RBC Morphology NORMAL (Normal); Segmented Neutrophils % 70 % (38-78)
[2020-11-29] MEDS: DOCUSATE SODIUM 100 MG CAPSULE PO SCH ×2 (08:33→21:44)
[2020-11-29] MEDS: FLUTICASONE HFA 110MCG INHALER INH SCH ×2 (08:39→21:42)
[2020-11-29] MEDS: LACTOBACILLUS 1 CAPSULE PO SCH (08:42)
[2020-11-29] MEDS: ASPIRIN 81 MG TAB.CHEW PO SCH (08:42)
[2020-11-29] MEDS: DULoxetine 30 MG CAPSULE PO SCH (08:42)
[2020-11-29] MEDS: rOPINIRole 1 MG TABLET PO SCH (08:42)
--- NOTE | 2020-11-29 13:05 | General Surgery Consult Note ---
HPI Data of Consult Consult date: 11/29/20 Requesting physician: Nakul Bejarano Primary Care Provider: Unknown Unknown Family Provider: WOUND CARE F/U. I saw this lady in room 116 with Madhavi NAIR, Inpatient wound care nurse. I know this patient from prior encounters in [facility] and at [facility]. Patient admitted with REKHA, superimposed on Stage CKD. She has chronic wound of LEFT posterior plantar heel. RIGHT mid lateral leg and LEFT posterior calf wounds have HEALED. Consult Narrative cc:: CC: Nakul Bejarano PFSH PFSH All Active Problems (Updated 11/28/20 @ 19:04 by Anny Paulino PA-C) Petechiae (Acute) Acute kidney injury (Acute) Hypoglycemia associated with diabetes (Acute) Altered mental status (Acute) Thrombocytopenia (Acute) Acute renal failure superimposed on stage 4 chronic kidney disease (Acute) Acute cystitis (Acute) REKHA (acute kidney injury) (Acute) Depression with anxiety (Acute) Diabetic neuropathy (Acute) COPD (chronic obstructive pulmonary disease) (Acute) ZAID on CPAP (Acute) Essential (primary) hypertension (Acute) Chronic kidney disease, stage 4 (severe) (Acute) T2DM (type 2 diabetes mellitus) (Acute) Feared condition not demonstrated (Acute) Septic shock (Acute) Severe sepsis (Acute) UTI (urinary tract infection) (Acute) Social History additional history: Past medical history includes chronic kidney disease stage IIIb diabetes chronic anemia morbid obesity poor functional status deconditioning debility she has been wheelchair-bound for years. Depression anxiety hypertension Social history patient denies tobacco or alcohol she is bedbound wheelchair- bound and lives in a nursing facility MEDS/ALLERGIES Home Medications and Allergies Home Medications Medication Instructions Recorded Confirmed Type Combivent Respimat 1 puff INHALATION Q4H PRN 07/20/20 11/28/20 History Fleet Enema 118 ml AZ ONCE PRN 07/20/20 11/28/20 History Flovent HFA 1 puff INHALATION BID 07/20/20 11/28/20 History Jardiance 10 mg PO QAM 07/20/20 11/28/20 History Senna Plus 2 tab-cap PO BID 07/20/20 11/28/20 History aspirin 81 mg PO QDAY 07/20/20 11/28/20 History bisacodyl [Dulcolax (bisacodyl)] 10 mg AZ QDAY PRN 07/20/20 11/28/20 History calcium carbonate [Tums] 1,000 mg PO Q4HP PRN 07/20/20 11/28/20 History cholecalciferol (vitamin D3) 1,000 unit PO QDAY 07/20/20 11/28/20 History duloxetine [Cymbalta] 60 mg PO QDAY 07/20/20 11/28/20 History ferrous sulfate 325 mg PO QDAY 07/20/20 11/28/20 History furosemide [Lasix] 20 mg PO QDAY 07/20/20 11/28/20 History insulin glargine 15 unit SUBCUT DAILY 07/20/20 11/28/20 History magnesium hydroxide [Milk of 30 ml PO PRN PRN 07/20/20 11/28/20 History Magnesia] melatonin 10 mg PO HS 07/20/20 11/28/20 History polyethylene glycol 3350 17 g PO QDAY 07/20/20 11/28/20 History ropinirole 4 mg PO DAILY 07/20/20 11/28/20 History acetaminophen 1,000 mg PO Q6H PRN 09/07/20 11/28/20 History oxycodone 10 mg PO Q4H PRN #10 tab 09/12/20 11/28/20 Rx blood sugar diagnostic 10/27/20 11/28/20 History glucagon 1 mg IM PRN PRN 10/27/20 11/28/20 History melatonin 5 mg PO HS PRN 10/27/20 11/28/20 History Lacto.acidophilus-Bif.animalis 1 cap PO QDAY 11/28/20 11/28/20 History [Daily Probiotic] diphenhydramine HCl 25 mg PO Q6H PRN 11/28/20 11/28/20 History linezolid 600 mg PO BID 11/28/20 11/28/20 History lorazepam 0.5 mg PO Q6H PRN 11/28/20 11/28/20 History Allergies Allergy/AdvReac Type Severity Reaction Status Date / Time Penicillins Allergy Severe Anaphylaxis Verified 11/28/20 11:59 cefuroxime Allergy Mild Rash Verified 11/28/20 11:59 doxycycline Allergy Unknown Unknown Verified 11/28/20 11:59 morphine Allergy Unknown Unknown Verified 11/28/20 11:59 sulfamethoxazole Allergy Unknown Unknown Verified 11/28/20 11:59 [From Bactrim] trimethoprim [From Bactrim] Allergy Unknown Unknown Verified 11/28/20 11:59 Physical Examination Vital Signs Vital signs: Temp Pulse Resp BP Pulse Ox 96.1 F L 64 14 152/62 95 11/29/20 12:00 11/29/20 12:00 11/29/20 12:00 11/29/20 12:00 11/29/20 12:00 General physical appearance General physical exam: chronically ill, obese (Super morbidly obese, BMI over 60. ) and other (Generalized petichael rash torso and extremtities. ( Drug induced vs purpuric )) Eyes Eye exam: PERRL and normal ocular movement ENT ENT exam: normal nares, normal mucosa and no congestion Head Head exam IM: Present atraumatic and normocephalic Neck Neck exam: no masses and no venous distension Cardiovascular Cardiovascular exam IM: Present bradycardia Respiratory Respiratory exam: normal respiratory effort Respiratory exam: dullness: bilateral (Bases. SOB when speaking) Abdomen Abdomen: Present soft Integumentary Integumentary: Present other (Generalized petichael rash torso / extremities. ELIZA chronic wounds of RIGHT mid lateral leg and LEFT posterior calf. LEFT plantar DFU Of heel has epithelailiaed over 70%. ) Neurologic Neurologic: Present other (Moves all extrememities. Alert and oriented. ) Musculoskeletal Musculoskeletal: Present other (Non ambulatory. LEFT foot in equinus deformity. Chronic. ) Results Labs Result diagrams: 11/29/20 04:56 11/29/20 04:56 Labs: Abnormal lab results 11/28/20 11/28/20 11/28/20 Range/Units 12:27 12:39 12:39 WBC (4.5-11.0) K/mcL RBC 3.03 L (4.00-5.20) M/mcL Hgb 9.4 L (12.0-15.0) g/dL Hct 30.1 L (36.0-48.0) % RDW 15.2 H (11.5-14.5) % Plt Count 110 L (140-440) K/mcL MPV 12.0 H (7.4-10.4) fL Lymphocytes % (15-49) % Eosinophils % (Manual) 11 H (0-7) % Platelet Estimate Decreased A (Normal) RBC Morphology Abnormal A (Normal) Anisocytosis Rare A (None Seen) ESR (0-20) mm/hr Percent Retic (0.50-1.50) % APTT (20.0-37.0) sec Fibrinogen (200-400) mg/dL D-Dimer (0.27-0.5) ug/mL Sodium (133-145) mmol/L Chloride 93 L (96-108) mmol/L BUN 52 H (6-20) mg/dL Creatinine 6.6 H* (0.6-1.1) mg/dL Glucose 56 L (70-105) mg/dL Uric Acid (2.5-8.0) mg/dL Calcium 8.1 L (8.6-10.4) mg/dL Phosphorus (2.5-4.5) mg/dL Magnesium (1.6-2.5) mg/dL Direct Bilirubin (<0.3) mg/dL AST 39 H (<32) U/L Alkaline Phosphatase 201 H (39-117) U/L Lactate Dehydrogenase (135-225) U/L C-Reactive Protein (0.03-0.80) mg/dL Albumin 2.6 L (3.2-5.2) gm/dL Globulin 4.5 H (2.2-3.7) gm/dL Albumin/Globulin Ratio 0.6 L (1.0-2.3) Urine Appearance Cloudy A (Clear) Urine Protein >=500 A (Negative) mg/dL Urine Glucose (UA) (Negative) mg/dL Urine Occult Blood >=1.0 A (Negative) mg/dL Ur Leukocyte Esterase 250 A (Negative) /ug Urine RBC > 182 H (0-1) /hpf Urine WBC 87 H (0-4) /hpf Ur Squamous Epith Cells 16 H (0-4) /hpf Ur Transition Epith Cell 7 H (0-2) /hpf Hyaline Casts 15 H (0-2) /lph Urine Mucus Mod A (None) /hpf 11/28/20 11/28/20 11/28/20 Range/Units 12:39 13:10 13:10 WBC (4.5-11.0) K/mcL RBC (4.00-5.20) M/mcL Hgb (12.0-15.0) g/dL Hct (36.0-48.0) % RDW (11.5-14.5) % Plt Count (140-440) K/mcL MPV (7.4-10.4) fL Lymphocytes % (15-49) % Eosinophils % (Manual) (0-7) % Platelet Estimate (Normal) RBC Morphology (Normal) Anisocytosis (None Seen) ESR (0-20) mm/hr Percent Retic (0.50-1.50) % APTT 51.3 H (20.0-37.0) sec Fibrinogen 688 H (200-400) mg/dL D-Dimer (0.27-0.5) ug/mL Sodium (133-145) mmol/L Chloride (96-108) mmol/L BUN (6-20) mg/dL Creatinine (0.6-1.1) mg/dL Glucose (70-105) mg/dL Uric Acid (2.5-8.0) mg/dL Calcium (8.6-10.4) mg/dL Phosphorus (2.5-4.5) mg/dL Magnesium (1.6-2.5) mg/dL Direct Bilirubin (<0.3) mg/dL AST (<32) U/L Alkaline Phosphatase (39-117) U/L Lactate Dehydrogenase (135-225) U/L C-Reactive Protein 16.50 H (0.03-0.80) mg/dL Albumin (3.2-5.2) gm/dL Globulin (2.2-3.7) gm/dL Albumin/Globulin Ratio (1.0-2.3) Urine Appearance (Clear) Urine Protein (Negative) mg/dL Urine Glucose (UA) (Negative) mg/dL Urine Occult Blood (Negative) mg/dL Ur Leukocyte Esterase (Negative) /ug Urine RBC (0-1) /hpf Urine WBC (0-4) /hpf Ur Squamous Epith Cells (0-4) /hpf Ur Transition Epith Cell (0-2) /hpf Hyaline Casts (0-2) /lph Urine Mucus (None) /hpf 11/28/20 11/28/20 11/28/20 Range/Units 16:55 17:26 18:00 WBC (4.5-11.0) K/mcL RBC (4.00-5.20) M/mcL Hgb (12.0-15.0) g/dL Hct (36.0-48.0) % RDW (11.5-14.5) % Plt Count (140-440) K/mcL MPV (7.4-10.4) fL Lymphocytes % (15-49) % Eosinophils % (Manual) (0-7) % Platelet Estimate (Normal) RBC Morphology (Normal) Anisocytosis (None Seen) ESR 115 H (0-20) mm/hr Percent Retic 2.64 H (0.50-1.50) % APTT (20.0-37.0) sec Fibrinogen (200-400) mg/dL D-Dimer > 20.0 H (0.27-0.5) ug/mL Sodium (133-145) mmol/L Chloride (96-108) mmol/L BUN (6-20) mg/dL Creatinine (0.6-1.1) mg/dL Glucose (70-105) mg/dL Uric Acid (2.5-8.0) mg/dL Calcium (8.6-10.4) mg/dL Phosphorus (2.5-4.5) mg/dL Magnesium (1.6-2.5) mg/dL Direct Bilirubin (<0.3) mg/dL AST (<32) U/L Alkaline Phosphatase (39-117) U/L Lactate Dehydrogenase (135-225) U/L C-Reactive Protein (0.03-0.80) mg/dL Albumin (3.2-5.2) gm/dL Globulin (2.2-3.7) gm/dL Albumin/Globulin Ratio (1.0-2.3) Urine Appearance (Clear) Urine Protein (Negative) mg/dL Urine Glucose (UA) (Negative) mg/dL Urine Occult Blood (Negative) mg/dL Ur Leukocyte Esterase (Negative) /ug Urine RBC (0-1) /hpf Urine WBC (0-4) /hpf Ur Squamous Epith Cells (0-4) /hpf Ur Transition Epith Cell (0-2) /hpf Hyaline Casts (0-2) /lph Urine Mucus (None) /hpf 11/29/20 11/29/20 11/29/20 Range/Units 01:13 04:56 04:56 WBC 11.3 H (4.5-11.0) K/mcL RBC 3.48 L (4.00-5.20) M/mcL Hgb 10.7 L (12.0-15.0) g/dL Hct 32.9 L (36.0-48.0) % RDW 15.0 H (11.5-14.5) % Plt Count 88 L (140-440) K/mcL MPV 12.3 H (7.4-10.4) fL Lymphocytes % 10 L (15-49) % Eosinophils % (Manual) 10 H (0-7) % Platelet Estimate Decreased A (Normal) RBC Morphology (Normal) Anisocytosis (None Seen) ESR (0-20) mm/hr Percent Retic (0.50-1.50) % APTT (20.0-37.0) sec Fibrinogen (200-400) mg/dL D-Dimer (0.27-0.5) ug/mL Sodium 132 L (133-145) mmol/L Chloride 94 L (96-108) mmol/L BUN 51 H (6-20) mg/dL Creatinine 6.1 H* (0.6-1.1) mg/dL Glucose (70-105) mg/dL Uric Acid 8.8 H (2.5-8.0) mg/dL Calcium 7.9 L (8.6-10.4) mg/dL Phosphorus 5.1 H (2.5-4.5) mg/dL Magnesium 2.9 H (1.6-2.5) mg/dL Direct Bilirubin 0.3 H (<0.3) mg/dL AST 83 H (<32) U/L Alkaline Phosphatase 195 H (39-117) U/L Lactate Dehydrogenase 442 H (135-225) U/L C-Reactive Protein 12.30 H (0.03-0.80) mg/dL Albumin 2.8 L (3.2-5.2) gm/dL Globulin 4.0 H (2.2-3.7) gm/dL Albumin/Globulin Ratio 0.7 L (1.0-2.3) Urine Appearance Cloudy A (Clear) Urine Protein 100 A (Negative) mg/dL Urine Glucose (UA) 50 A (Negative) mg/dL Urine Occult Blood >=1.0 A (Negative) mg/dL Ur Leukocyte Esterase 500 A (Negative) /ug Urine RBC 83 H (0-1) /hpf Urine WBC 49 H (0-4) /hpf Ur Squamous Epith Cells 17 H (0-4) /hpf Ur Transition Epith Cell (0-2) /hpf Hyaline Casts 4 H (0-2) /lph Urine Mucus Few A (None) /hpf 11/29/20 11/29/20 Range/Units 04:57 04:57 WBC (4.5-11.0) K/mcL RBC (4.00-5.20) M/mcL Hgb (12.0-15.0) g/dL Hct (36.0-48.0) % RDW (11.5-14.5) % Plt Count (140-440) K/mcL MPV (7.4-10.4) fL Lymphocytes % (15-49) % Eosinophils % (Manual) (0-7) % Platelet Estimate (Normal) RBC Morphology (Normal) Anisocytosis (None Seen) ESR (0-20) mm/hr Percent Retic (0.50-1.50) % APTT 54.8 H (20.0-37.0) sec Fibrinogen 643 H (200-400) mg/dL D-Dimer > 20.0 H (0.27-0.5) ug/mL Sodium (133-145) mmol/L Chloride (96-108) mmol/L BUN (6-20) mg/dL Creatinine (0.6-1.1) mg/dL Glucose (70-105) mg/dL Uric Acid (2.5-8.0) mg/dL Calcium (8.6-10.4) mg/dL Phosphorus (2.5-4.5) mg/dL Magnesium (1.6-2.5) mg/dL Direct Bilirubin (<0.3) mg/dL AST (<32) U/L Alkaline Phosphatase (39-117) U/L Lactate Dehydrogenase (135-225) U/L C-Reactive Protein (0.03-0.80) mg/dL Albumin (3.2-5.2) gm/dL Globulin (2.2-3.7) gm/dL Albumin/Globulin Ratio (1.0-2.3) Urine Appearance (Clear) Urine Protein (Negative) mg/dL Urine Glucose (UA) (Negative) mg/dL Urine Occult Blood (Negative) mg/dL Ur Leukocyte Esterase (Negative) /ug Urine RBC (0-1) /hpf Urine WBC (0-4) /hpf Ur Squamous Epith Cells (0-4) /hpf Ur Transition Epith Cell (0-2) /hpf Hyaline Casts (0-2) /lph Urine Mucus (None) /hpf Diabetes panel 11/28/20 11/29/20 Range/Units 12:39 04:56 Sodium 133 132 L (133-145) mmol/L Potassium 4.6 4.5 (3.3-5.1) mmol/L Chloride 93 L 94 L (96-108) mmol/L Carbon Dioxide 26 25 (22-30) mmol/L BUN 52 H 51 H (6-20) mg/dL Creatinine 6.6 H* 6.1 H* (0.6-1.1) mg/dL Glucose 56 L 103 (70-105) mg/dL Calcium 8.1 L 7.9 L (8.6-10.4) mg/dL AST 39 H 83 H (<32) U/L ALT 22 32 (<40) U/L Alkaline Phosphatase 201 H 195 H (39-117) U/L Total Protein 7.1 6.8 (5.9-8.4) gm/dL Albumin 2.6 L 2.8 L (3.2-5.2) gm/dL Triglycerides 129 (<150) mg/dL Calcium panel 11/28/20 11/29/20 Range/Units 12:39 04:56 Calcium 8.1 L 7.9 L (8.6-10.4) mg/dL Phosphorus 5.1 H (2.5-4.5) mg/dL Albumin 2.6 L 2.8 L (3.2-5.2) gm/dL Pituitary panel 11/28/20 11/29/20 Range/Units 12:39 04:56 Sodium 133 132 L (133-145) mmol/L Potassium 4.6 4.5 (3.3-5.1) mmol/L Chloride 93 L 94 L (96-108) mmol/L Carbon Dioxide 26 25 (22-30) mmol/L BUN 52 H 51 H (6-20) mg/dL Creatinine 6.6 H* 6.1 H* (0.6-1.1) mg/dL Glucose 56 L 103 (70-105) mg/dL Calcium 8.1 L 7.9 L (8.6-10.4) mg/dL Adrenal panel 11/28/20 11/29/20 Range/Units 12:39 04:56 Sodium 133 132 L (133-145) mmol/L Potassium 4.6 4.5 (3.3-5.1) mmol/L Chloride 93 L 94 L (96-108) mmol/L Carbon Dioxide 26 25 (22-30) mmol/L BUN 52 H 51 H (6-20) mg/dL Creatinine 6.6 H* 6.1 H* (0.6-1.1) mg/dL Glucose 56 L 103 (70-105) mg/dL Calcium 8.1 L 7.9 L (8.6-10.4) mg/dL Total Bilirubin 0.5 0.6 (0.1-1.0) mg/dL AST 39 H 83 H (<32) U/L ALT 22 32 (<40) U/L Alkaline Phosphatase 201 H 195 H (39-117) U/L Total Protein 7.1 6.8 (5.9-8.4) gm/dL Albumin 2.6 L 2.8 L (3.2-5.2) gm/dL All other labs normal. A/P Narrative A/P Narrative: Assessment: Generalized petechial rash. ( ?? Drug induced / purpuric ) REKHA Superimposed on Stage 4 CKD. Creatinine > 6.0 Healed wounds Right and Left legs. Healing wound DFU plantar LEFT posterior heel. Stable. Plan: Clean wounds with Hibiclens. Cavilon topical skin prep application as discussed. Nothing more to add from wound care point at this time. Will see again PRN, Time Spent With Patient Time: Total time spent is greater than 50% in coordination of care (as documented) at patient's floor/unit and/or counseling patient: Total time spent with greater than 50% in coordination of care (as documented) at patient's floor/unit and/or counseling patient:: 25 - 35 minutes
[2020-11-30] MEDS: oxyCODONE HCL 5 MG TABLET PO PRN (03:17)
[2020-11-30] MEDS: 0.9 % SODIUM CHLORIDE 1,000 ML IV SCH (03:20)
[2020-11-30] MEDS: 0.9 % SODIUM CHLORIDE 10 ML SYRINGE IV SCH ×3 (04:05→21:41)
--- NOTE | 2020-11-30 07:18 | Internal Med Progress Note ---
SUBJECTIVE Subjective Patient information: Note initiated : 11/30/20 at 7:15 am Service Date, if different from initiated Date: [] Patient: Dawn Cabrera a 60 y/o F admitted on 11/28/20 for Weakness. Chief Complaint: [] Interval history: History of present illness: Ms. Cabrera is a 60 year old F presents to the ED sent over by nurse practitioner with concern for vasculitis as she had lower extremity petechiae. Also a bit lethargic. She was here in October for hemorrhagic cystitis and discharged on Zyvox. Work-up in the ED was significant for creatinine 6.6 with baseline around 2. She does have chronic anemia but it is similar to the past. Her platelets are typically in the low to mid twos and they have dropped to 110. Lactate was normal. Elevated CRP. No bilirubinemia. 11/29 Feeling a little better but still quite tired. When asked about the rash on her chest and how long its been there she thinks about 2 weeks. No new complaints. 11/30 She says she is feeling fine. Per nurses notes she is irritable at times and refusing certain cares last night. Rash seems to be showing a little bit of clearing. Review of Systems: denies headache/fever/chills/nausea/vomiting/chest or abdominal pain/cough/dyspnea/diarrhea. Otherwise see above. Constitutional Vitals: Vital Signs Temp Pulse Resp BP Pulse Ox 97.6 F 69 14 111/62 97 11/30/20 04:22 11/30/20 04:22 11/30/20 04:22 11/30/20 04:22 11/30/20 04:22 Period Temp Pulse Resp BP Sys/Nava Pulse Ox Last 24 Hr 95.8 F-97.6 F 64-75 12-16 104-152/41-80 92-100 Intake and Output 11/29/20 11/30/20 11/30/20 21:59 05:59 13:59 Intake Total 1000 1104 Output Total 850 475 Balance 150 629 Weight 174.86 kg Intake & Output: Intake & Output 11/29/20 11/30/20 11/30/20 21:59 05:59 13:59 Intake Total 1000 1104 Output Total 850 475 Balance 150 629 Weight 174.86 kg Intake: IV 1000 904 Sodium Chloride 0.9% 1,000 ml @ 1000 904 125 mls/hr IV .Q8H [facility] Rx#: [id number] Oral 200 Output: Urine Catheter Amount 850 475 Other: Meal Dinner Percent of Meal Consumed 0% Urine Appearance Small Blood Clots Urine Color Dark Red Blood Tinged Uretheral (Valentino) [place] Blood Tinged Exam: General: Awake, No acute Distress, morbidly obese Eyes/N/T: EOMI, Head/Neck: neck supple, CV: RRR, No murmurs, Pulm: Clear b/l, no wheezing/rhonchi/rales Abd: soft, nontender, +BS x4 Ext: no clubbing/cyanosis. b/l LE rash more petechiae/purpura than morbilliform (seems to have some improvement) and chronic wounds Neuro: mentation improving more clear, still a little slow to respond to ques tions, no focal deficits, moves all extremities, Skin: warm/dry. Chest with morbilliform rash. leg rash more petechiae/purpura than morbilliform OBJ DATA Labs CBC & Chem 7: 11/30/20 04:53 11/30/20 04:54 Labs: Abnormal Lab Results 11/29/20 11/29/20 11/29/20 04:57 04:57 04:56 WBC RBC Hgb Hct RDW Plt Count MPV Lymphocytes % Eosinophils % (Manual) Platelet Estimate RBC Morphology Anisocytosis ESR Percent Retic APTT 54.8 H Fibrinogen 643 H D-Dimer > 20.0 H Sodium 132 L Chloride 94 L BUN 51 H Creatinine 6.1 H* Glucose Uric Acid 8.8 H Calcium 7.9 L Phosphorus 5.1 H Magnesium 2.9 H Direct Bilirubin 0.3 H AST 83 H Alkaline Phosphatase 195 H Lactate Dehydrogenase 442 H C-Reactive Protein 12.30 H Albumin 2.8 L Globulin 4.0 H Albumin/Globulin Ratio 0.7 L Urine Appearance Urine Protein Urine Glucose (UA) Urine Occult Blood Ur Leukocyte Esterase Urine RBC Urine WBC Ur Squamous Epith Cells Ur Transition Epith Cell Hyaline Casts Urine Mucus 11/29/20 11/29/20 11/28/20 04:56 01:13 18:00 WBC 11.3 H RBC 3.48 L Hgb 10.7 L Hct 32.9 L RDW 15.0 H Plt Count 88 L MPV 12.3 H Lymphocytes % 10 L Eosinophils % (Manual) 10 H Platelet Estimate Decreased A RBC Morphology Anisocytosis ESR Percent Retic APTT Fibrinogen D-Dimer > 20.0 H Sodium Chloride BUN Creatinine Glucose Uric Acid Calcium Phosphorus Magnesium Direct Bilirubin AST Alkaline Phosphatase Lactate Dehydrogenase C-Reactive Protein Albumin Globulin Albumin/Globulin Ratio Urine Appearance Cloudy A Urine Protein 100 A Urine Glucose (UA) 50 A Urine Occult Blood >=1.0 A Ur Leukocyte Esterase 500 A Urine RBC 83 H Urine WBC 49 H Ur Squamous Epith Cells 17 H Ur Transition Epith Cell Hyaline Casts 4 H Urine Mucus Few A 11/28/20 11/28/20 11/28/20 17:26 16:55 13:10 WBC RBC Hgb Hct RDW Plt Count MPV Lymphocytes % Eosinophils % (Manual) Platelet Estimate RBC Morphology Anisocytosis ESR 115 H Percent Retic 2.64 H APTT Fibrinogen 688 H D-Dimer Sodium Chloride BUN Creatinine Glucose Uric Acid Calcium Phosphorus Magnesium Direct Bilirubin AST Alkaline Phosphatase Lactate Dehydrogenase C-Reactive Protein Albumin Globulin Albumin/Globulin Ratio Urine Appearance Urine Protein Urine Glucose (UA) Urine Occult Blood Ur Leukocyte Esterase Urine RBC Urine WBC Ur Squamous Epith Cells Ur Transition Epith Cell Hyaline Casts Urine Mucus 11/28/20 11/28/20 11/28/20 13:10 12:39 12:39 WBC RBC Hgb Hct RDW Plt Count MPV Lymphocytes % Eosinophils % (Manual) Platelet Estimate RBC Morphology Anisocytosis ESR Percent Retic APTT 51.3 H Fibrinogen D-Dimer Sodium Chloride 93 L BUN 52 H Creatinine 6.6 H* Glucose 56 L Uric Acid Calcium 8.1 L Phosphorus Magnesium Direct Bilirubin AST 39 H Alkaline Phosphatase 201 H Lactate Dehydrogenase C-Reactive Protein 16.50 H Albumin 2.6 L Globulin 4.5 H Albumin/Globulin Ratio 0.6 L Urine Appearance Urine Protein Urine Glucose (UA) Urine Occult Blood Ur Leukocyte Esterase Urine RBC Urine WBC Ur Squamous Epith Cells Ur Transition Epith Cell Hyaline Casts Urine Mucus 11/28/20 11/28/20 12:39 12:27 WBC RBC 3.03 L Hgb 9.4 L Hct 30.1 L RDW 15.2 H Plt Count 110 L MPV 12.0 H Lymphocytes % Eosinophils % (Manual) 11 H Platelet Estimate Decreased A RBC Morphology Abnormal A Anisocytosis Rare A ESR Percent Retic APTT Fibrinogen D-Dimer Sodium Chloride BUN Creatinine Glucose Uric Acid Calcium Phosphorus Magnesium Direct Bilirubin AST Alkaline Phosphatase Lactate Dehydrogenase C-Reactive Protein Albumin Globulin Albumin/Globulin Ratio Urine Appearance Cloudy A Urine Protein >=500 A Urine Glucose (UA) Urine Occult Blood >=1.0 A Ur Leukocyte Esterase 250 A Urine RBC > 182 H Urine WBC 87 H Ur Squamous Epith Cells 16 H Ur Transition Epith Cell 7 H Hyaline Casts 15 H Urine Mucus Mod A Meds: Medications Acetaminophen (Acetaminophen 325 Mg Tablet) 650 mg PO Q6HP PRN PRN Reason: PAIN/FEVER > 101 Albuterol/Ipratropium (Ipratropium/Albuterol 3 Ml Ampul.Neb) 3 ml NEB Q4HP PRN PRN Reason: Shortness Of Breath Albuterol/Ipratropium (Ipratropium/Albuterol Sulfate 1 Puff Inhaler) 1 puff INH Q4HP PRN PRN Reason: shortness of breath Aspirin (Aspirin 81 Mg Tab.Chew) 81 mg PO QDAY [facility] Last Admin: 11/29/20 08:42 Dose: 81 mg Documented by: Bisacodyl (Bisacodyl 10 Mg Supp.Rect) 10 mg IN QDAY PRN PRN Reason: Constipation Calcium Carbonate/Glycine (Calcium Carbonate 500 Mg Tab.Chew) 1,000 mg PO Q4HP PRN PRN Reason: gi issues Dextrose (Dextrose 50% 50 Ml Vial) 0 ml IV UD PRN PRN Reason: Hypoglycemia Last Admin: 11/29/20 22:18 Dose: 25 ml Documented by: Diagnostic Test (Pha) (Accu-Chek 1 Each Strip) 1 each FS ACHS [facility] Last Admin: 11/30/20 02:07 Dose: 1 each Documented by: Diphenhydramine HCl (Diphenhydramine 25 Mg Capsule) 25 mg PO Q6HP PRN PRN Reason: Allergy Symptoms Docusate Sodium (Docusate Sodium 100 Mg Capsule) 100 mg PO BID [facility] Last Admin: 11/29/20 21:44 Dose: 100 mg Documented by: Duloxetine HCl (Duloxetine 30 Mg Capsule) 60 mg PO QDAY [facility] Last Admin: 11/29/20 08:42 Dose: 60 mg Documented by: Fluticasone Propionate (Fluticasone Hfa 110mcg Inhaler) 1 puff INH BID [facility] Last Admin: 11/29/20 21:42 Dose: Not Given Documented by: Glucose (Dextrose 31 Gm Oral.Susp) 15 gm PO PRN PRN PRN Reason: Hypoglycemia Potassium Chloride 40 meq/ (Dextrose) 520 mls @ 130 mls/hr IV UD PRN PRN Reason: Potassium < 3 Magnesium Sulfate (Magnesium Sulfate) 2 gm in 50 mls @ 50 mls/hr IV UD PRN PRN Reason: Magnesium </= 1.6 Sodium Chloride (Sodium Chloride 0.9%) 1,000 mls @ 125 mls/hr IV .Q8H [facility] Last Admin: 11/30/20 03:20 Dose: 125 mls/hr Documented by: Insulin Human Lispro (Insulin Lispro 1 Unit/0.01 Ml Unit) 0 unit SQ ACHS [facility]; Protocol Last Admin: 11/29/20 21:43 Dose: Not Given Documented by: Lactobacillus Rhamnosus (Lactobacillus 1 Capsule) 1 cap PO QDAY [facility] Last Admin: 11/29/20 08:42 Dose: 1 cap Documented by: Lorazepam (Lorazepam 0.5 Mg Tablet) 0.5 mg PO Q6HP PRN PRN Reason: Anxiety Last Admin: 11/28/20 23:13 Dose: 0.5 mg Documented by: Magnesium Hydroxide (Magnesium Hydroxide 30 Ml Oral.Susp) 30 ml PO PRN PRN PRN Reason: Constipation Melatonin (Melatonin 3 Mg Tablet) 6 mg PO HSP PRN PRN Reason: Sleep Metoclopramide HCl (Metoclopramide 10 Mg/2 Ml Vial) 10 mg IV Q6HP PRN PRN Reason: Nausea And Vomiting Ondansetron HCl (Ondansetron 4 Mg/2 Ml Vial) 4 mg IV Q4HP PRN PRN Reason: Nausea And Vomiting Oxycodone HCl (Oxycodone Hcl 5 Mg Tablet) 10 mg PO Q4HP PRN PRN Reason: pain Last Admin: 11/30/20 03:17 Dose: 10 mg Documented by: Polyethylene Glycol (Polyethylene Glycol 3350 17 Gm Packet) 17 gm PO DAILYP PRN PRN Reason: Constipation Potassium Chloride (Potassium Chloride 20 Meq Tablet) 40 meq PO UD PRN PRN Reason: Potssium is 3-3.5 Potassium Chloride (Potassium Chloride 20 Meq Tablet) 40 meq PO UD PRN PRN Reason: Potassium < 3 Ropinirole HCl (Ropinirole 1 Mg Tablet) 4 mg PO DAILY [facility] Last Admin: 11/29/20 08:42 Dose: 4 mg Documented by: Senna (Sennosides 1 Tablet) 2 tab PO DAILYP PRN PRN Reason: Constipation Sodium Biphosphate/Sodium Phosphate (Fleets Adult Enema) 1 dose IN ONCE PRN PRN Reason: Constipation Sodium Chloride (0.9 % Sodium Chloride 10 Ml Syringe) 10 ml IV Q8 [facility] Last Admin: 11/30/20 04:05 Dose: 10 ml Documented by: A/P Narrative A/P Narrative: A: *REKHA on CKD IV(base Cr~2): etiology drug reaction (zyvox) vs vasculitis -Follows with Dr. Irvin -hepatitis/complements neg -Cr 6.2<6.1<6.6; UOP improved - *Thrombocytopenia with b/l LE petechia: suspect drug reaction (zyvox) -peripheral smear w/o schistocytes or other sig abnormalities *Morbilliform rash chest/arms: suspect drug reaction (zyvox) *Anemia, chronic: appears stable *Encephalopathy: metabolic from above + hypoglycemia *Poor functional status/deconditioning/debility: Is wheelchair-bound and requires abhinav lift *DM w/neuropathy: Hypoglycemia on admit, received home insulin but was not eating *COPD (not on home O2): Follows with Dr. Mejia *ZAID w/CPAP: *Morbid obesity: *Depression/anxiety: *UA difficult to interpret d/t chronic valentino, was recently on abx for UTI + has contamination *Chronic LLE wounds: follows with wound care P: -Discussed case with Dr. Regalado, confusing picture, did recommend plt transfustion given platelet drop to ~50 and gross hematuria in valentino bag. -Nephrology following, Dr. Mehta recommends transfer for potential hemodialysis -working on transfer and will re-discuss goal of care with pt. -monitor UOP -vasculitis studies ordered -case also discussed with Dr. Regalado from ED, would like f/u on haptoglobin(pending)/peripheral smear/ldh/rectic count -[facility] for wound care -hold home lasix for now -SSI, hold basal insulin until PO intake and hypoglycemia resolved - -CM -ppx: SCD tonight, hold chemical until f/u platelet and cbc DNR Time Spent With Patient Time: Total time spent is greater than 50% in coordination of care (as mouna templeton) at patient's floor/unit and/or counseling patient: QUALITY VTE Deep Vein Thrombosis/Pulmonary Embolism Present on Admission: No
[2020-11-30] MEDS ORDERED: 0.9 % SODIUM CHLORIDE 1,000 ML IV SCH (07:23)
[2020-11-30 07:34] LABS: ALT/SGPT 35 U/L (<40); AST/SGOT 67 U/L (<32); Albumin 2.4 gm/dL (3.2-5.2); Albumin/Globulin Ratio 0.5 (1.0-2.3); Alkaline Phosphatase 204 U/L (39-117); Bilirubin,Direct 0.3 mg/dL (<0.3); Bilirubin,Total 0.7 mg/dL (0.1-1.0); Blood Urea Nitrogen 53 mg/dL (6-20); Calcium 7.8 mg/dL (8.6-10.4); Carbon Dioxide 23 mmol/L (22-30); Chloride 97 mmol/L (96-108); Globulin 4.7 gm/dL (2.2-3.7); Glomerular Filtration Rate 7; Glucose 107 mg/dL (70-105); Lactate Dehydrogenase 461 U/L (135-225); Phosphorous 5.3 mg/dL (2.5-4.5); Triglycerides 151 mg/dL (<150); Uric Acid 8.1 mg/dL (2.5-8.0)
--- NOTE | 2020-11-30 07:42 | Nephrology Progress Note ---
SUBJECTIVE Subjective Patient information: Note initiated : 11/30/20 at 7:40 am Patient: Dawn Cabrera a 60 y/o F admitted on 11/28/20 for Weakness. Chief Complaint: Weakness Pertinent ROS: Weakness Skin rash Thomas catheter Bloody urine Constitutional Vitals: Vital Signs Temp Pulse Resp BP Pulse Ox 97.6 F 69 14 111/62 97 11/30/20 04:22 11/30/20 04:22 11/30/20 04:22 11/30/20 04:22 11/30/20 04:22 Period Temp Pulse Resp BP Sys/Nava Pulse Ox Last 24 Hr 95.8 F-97.6 F 64-75 12-16 104-152/41-80 92-100 Intake and Output 11/29/20 11/30/20 11/30/20 21:59 05:59 13:59 Intake Total 1000 1104 517 Output Total 850 475 Balance 150 629 517 Weight 385 lb 8 oz Intake & Output: Intake & Output 11/29/20 11/30/20 11/30/20 21:59 05:59 13:59 Intake Total 1000 1104 517 Output Total 850 475 Balance 150 629 517 Weight 385 lb 8 oz Intake: IV 1000 904 517 Sodium Chloride 0.9% 1,000 ml @ 1000 904 517 125 mls/hr IV .Q8H [facility] Rx#: [id number] Dextrose 10%-Water IV Solution 0 1,000 ml @ 50 mls/hr IV .Q20H [facility] Rx#:[id number] Oral 200 Output: Urine Catheter Amount 850 475 Other: Meal Dinner Percent of Meal Consumed 0% Urine Appearance Small Blood Clots Urine Color Dark Red Blood Tinged Uretheral ([place]) [place] Blood Tinged General appearance: cooperative, morbidly obese and no acute distress Head Head exam: Present normal inspection Eye Eye exam: Present normal appearance ENT ENT exam: Present mucous membranes moist Respiratory Respiratory exam: Absent respiratory distress Cardiovascular Cardiovascular exam: Present normal rate and rhythm GI/Abdominal GI/Abdominal exam: Present soft; Absent tenderness Extremities Exam Extremities exam: Absent joint swelling and pedal edema Neurological Exam Neurological exam: Present alert and oriented X3 Psychiatric Psychiatric exam: Present normal affect and normal mood Skin Skin exam: Present rash and warm A/P Assessment and plan (1) Acute renal failure superimposed on stage 4 chronic kidney disease: Assessment and plan: Dawn Cabrera is a 60-year-old female with hypertension, chronic obstructive pulmonary disease, diabetes mellitus type 2, chronic kidney disease stage 4, recurrent urinary tract infections, morbid obesity (BMI 56), obstructive sleep apnea on CPAP admitted on 11/28/20. Baseline serum creatinine: 1.5 to 2.1 (eGFR 24-38) July to October 2020. Nephrology consultation was requested for acute kidney injury. Acute kidney injury on chronic kidney disease stage 4, present on arrival. There is no recent history of IV contrast administration or NSAID use. Intravascular volume depletion is unlikely. Acute toxic nephropathy due to Gentamicin bladder irrigation considered, but less likely. Acute interstitial nephritis considered with eosinophilia and skin rash. Serologic work up is pending. Linezolid is the only new medication reported. Renal vasculitis is unlikely. ANCA screen requested. She stated having a kidney biopsy at age 11 in [place]. She does not remember the clinic or diagnosis. Work up: Urinalysis on 11/28/20: Yellow, cloudy, pH 6.0, SG 1.010, protein >500, blood >1.0, leukocyte esterase 250. Urinalysis on 11/29/20: Yellow, cloudy, pH 6.0, SG 1.006, protein 100, blood >1.0, leukocyte esterase 500, urine eosinophil none. Labs on 11/28/20: WBC 9.0 (Eosinophils 11%), Hb 9.4, PLT 110, D-Dimer >20, Fibrinogen 688, aPTT 51.3, PT 13.8. Labs on 11/28/20: C3 34.1 (N), C4 152.6 (N), HBsAg negative, anti-HCV Ab non reactive, ESR 115, CRP 16.5, ANCA Screen pending, cryoglobulin pending. CT Abdomen and Pelvis wo contrast on 11/28/20: Both kidneys are unremarkable. Mild urinary bladder wall thickening, Progress: Serum creatinine increased from a baseline of 1.5-2.1 to 6.6 (11/28/20), 6.1 (11/29/20), 6.2 (11/30/20). Baseline serum creatinine: 1.5 to 2.1 (eGFR 24-38) July to October 2020. Urine output: 1,325 ml reported in the past 24 hours. No uremic symptoms. Discussion: Kidney biopsy is recommended. Risks and benefits discussed with the patient. She agreed to proceed. Possible need for acute hemodialysis with risks and benefits discussed with the patient. Recommendations/Plan: Kidney biopsy by radiology. No urgent acute hemodialysis need. Avoid NSAIDs, nephrotoxic medications and IV contrast. Monitor BMP and urine output. Status: Acute Time Spent With Patient Time: Total time spent is greater than 50% in coordination of care (as documented) at patient's floor/unit and/or counseling patient:
[2020-11-30 08:16] LABS: Hemoglobin A1C 5.1 % Hgb (4.0-6.0)
[2020-11-30 08:17] LABS: Basophils # (Auto) 0.16 K/mcL (0.00-0.20); Basophils % (Auto) 1.2 % (0.0-2.0); Eosinophils # (Auto) 1.79 K/mcL (0.00-0.70); Eosinophils % (Auto) 13.9 % (0.0-7.0); Hematocrit 33.8 % (36.0-48.0); Hemoglobin 10.8 g/dL (12.0-15.0); Lymphocytes # (Auto) 1.58 K/mcL (1.50-4.80); Lymphocytes % (Auto) 12.3 % (15.0-49.0); Mean Cell Volume 96.6 fL (80.0-100.0); Mean Platelet Volume 13.2 fL (7.4-10.4); Monocytes # (Auto) 0.64 K/mcL (0.10-0.90); Neutrophils % (Auto) 67.6 % (38.0-78.0); Platelet Count 57 K/mcL (140-440); Red Cell Distribution Width 15.6 % (11.5-14.5); WBC 12.8 K/mcL (4.5-11.0)
[2020-11-30] MEDS: ASPIRIN 81 MG TAB.CHEW PO SCH (08:19)
[2020-11-30] MEDS: FLUTICASONE HFA 110MCG INHALER INH SCH ×2 (08:19→21:40)
[2020-11-30] MEDS: rOPINIRole 1 MG TABLET PO SCH (08:19)
[2020-11-30] MEDS: DULoxetine 30 MG CAPSULE PO SCH (08:20)
[2020-11-30] MEDS: DOCUSATE SODIUM 100 MG CAPSULE PO SCH ×2 (08:20→21:40)
[2020-11-30] MEDS: LACTOBACILLUS 1 CAPSULE PO SCH (08:20)
[2020-11-30] MEDS: INSULIN LISPRO 1 UNIT/0.01 ML UNIT SQ SCH ×4 (08:25→21:40)
[2020-11-30] MEDS ORDERED: 0.9 % SODIUM CHLORIDE 250 ML IV SCH (10:15)
--- NOTE | 2020-11-30 11:29 | Transfer Summary ---
Discharge Provider Provider Patient information: Note initiated : 11/30/20 at 11:28 am Service Date, if different from initiated Date: [] Patient: Dawn Cabrera 60 y/o F admitted on 11/28/20 for Weakness. Chief Complaint: [] Date of admission: 11/28/20 18:38 Discharge date: 11/30/20 Primary care physician: Unknown Unknown Consults: 11/28/20 Consult to Physician [CONS] Stat Comment: Consulting Provider: Nakul Bejarano Reason For Exam: Physician to Consult Consult to Physician [CONS] Stat Comment: Consulting Provider: Johnna Mehta Reason For Exam: Physician to Consult 11/28/20 18:47 Consult to Physician [CONS] Routine Comment: Consulting Provider: Martin Garcia Reason For Exam: Physician to Consult Discharge Meds Discharge Medications Home Medications Combivent Respimat 1 puff INHALATION Q4H PRN 07/20/20 [History Confirmed 11/28/20 Last Taken Unknown] Fleet Enema 118 ml LA ONCE PRN 07/20/20 [History Confirmed 11/28/20 Last Taken Unknown] Flovent HFA 1 puff INHALATION BID 07/20/20 [History Confirmed 11/28/20 Last Taken 11/28/20] Jardiance 10 mg PO QAM 07/20/20 [History Confirmed 11/28/20 Last Taken 11/28/20] Senna Plus 2 tab-cap PO BID 07/20/20 [History Confirmed 11/28/20 Last Taken 11/28/20] aspirin 81 mg PO QDAY 07/20/20 [History Confirmed 11/28/20 Last Taken 11/28/20] bisacodyl [Dulcolax (bisacodyl)] 10 mg LA QDAY PRN 07/20/20 [History Confirmed 11/28/20 Last Taken 10/23/20 04:00] calcium carbonate [Tums] 1,000 mg PO Q4HP PRN 07/20/20 [History Confirmed 11/28/20 Last Taken Unknown] cholecalciferol (vitamin D3) 1,000 unit PO QDAY 07/20/20 [History Confirmed 11/28/20 Last Taken 11/28/20] duloxetine [Cymbalta] 60 mg PO QDAY 07/20/20 [History Confirmed 11/28/20 Last Taken 11/28/20] ferrous sulfate 325 mg PO QDAY 07/20/20 [History Confirmed 11/28/20 Last Taken 11/28/20] furosemide [Lasix] 20 mg PO QDAY 07/20/20 [History Confirmed 11/28/20 Last Taken 11/28/20] insulin glargine 15 unit SUBCUT DAILY 07/20/20 [History Confirmed 11/28/20 Last Taken 11/28/20] magnesium hydroxide [Milk of Magnesia] 30 ml PO PRN PRN 07/20/20 [History Confirmed 11/28/20 Last Taken 10/23/20 13:15] melatonin 10 mg PO HS 07/20/20 [History Confirmed 11/28/20 Last Taken 11/27/20] polyethylene glycol 3350 17 g PO QDAY 07/20/20 [History Confirmed 11/28/20 Last Taken 10/25/20 09:00] ropinirole 4 mg PO DAILY 07/20/20 [History Confirmed 11/28/20 Last Taken 11/28/20] acetaminophen 1,000 mg PO Q6H PRN 09/07/20 [History Confirmed 11/28/20 Last Taken 10/19/20 12:00] oxycodone 10 mg PO Q4H PRN #10 tab 09/12/20 [Rx Confirmed 11/28/20 Last Taken 10/25/20 15:10] blood sugar diagnostic 10/27/20 [History Confirmed 11/28/20 Last Taken Unknown] glucagon 1 mg IM PRN PRN 10/27/20 [History Confirmed 11/28/20 Last Taken 11/28/20] melatonin 5 mg PO HS PRN 10/27/20 [History Confirmed 11/28/20 Last Taken 11/27/20] Lacto.acidophilus-Bif.animalis [Daily Probiotic] 1 cap PO QDAY 11/28/20 [History Confirmed 11/28/20 Last Taken 11/28/20] diphenhydramine HCl 25 mg PO Q6H PRN 11/28/20 [History Confirmed 11/28/20 Last Taken Unknown] linezolid 600 mg PO BID 11/28/20 [History Confirmed 11/28/20 Last Taken 11/28/20] lorazepam 0.5 mg PO Q6H PRN 11/28/20 [History Confirmed 11/28/20 Last Taken Unknown] COURSE Hospital Course Hospital course: Interval history: History of present illness: Ms. Cabrera is a 60 year old F presents to the ED sent over by nurse practitioner with concern for vasculitis as she had lower extremity petechiae. Also a bit lethargic. She was here in October for hemorrhagic cystitis and discharged on Zyvox. Work-up in the ED was significant for creatinine 6.6 with baseline around 2. She does have chronic anemia but it is similar to the past. Her platelets are typically in the low to mid twos and they have dropped to 110. Lactate was normal. Elevated CRP. No bilirubinemia. 11/29 Feeling a little better but still quite tired. When asked about the rash on her chest and how long its been there she thinks about 2 weeks. No new complaints. 11/30 She says she is feeling fine. Per nurses notes she is irritable at times and refusing certain cares last night. Rash seems to be showing a little bit of clearing. Kidney function not improving kidney function not improving. Head Waiter this patient likely need catheter placement and dialysis which we can do here. Her platelets have dropped to 50s and she has gross hematuria in her Valentino bag. I discussed case with weatherization and housing inspector who recommended platelets no other recommendations at this time. Still pending vasculitis labs. No schistocytes on smear or blast cells. Hemoglobin stable. Discussed the case with [facility] hospitalists and conductor orchestra who graciously excepted the patient A: *REKHA on CKD IV(base Cr~2): etiology drug reaction (zyvox) vs vasculitis -Follows with Dr. Irvin -hepatitis/complements neg -Cr 6.2<6.1<6.6; UOP improved - *Thrombocytopenia with b/l LE petechia: suspect drug reaction (zyvox) -peripheral smear w/o schistocytes or other sig abnormalities *Morbilliform rash chest/arms: suspect drug reaction (zyvox) *Anemia, chronic: appears stable *Encephalopathy: metabolic from above + hypoglycemia *Poor functional status/deconditioning/debility: Is wheelchair-bound and requires abhinav lift *DM w/neuropathy: Hypoglycemia on admit, received home insulin but was not eating *COPD (not on home O2): Follows with Dr. Mejia *ZAID w/CPAP: *Morbid obesity: *Depression/anxiety: *UA difficult to interpret d/t chronic valentino, was recently on abx for UTI + has contamination *Chronic LLE wounds: follows with wound care P: -Discussed case with Dr. Regalado, confusing picture, did recommend plt transfustion given platelet drop to ~50 and gross hematuria in valentino bag. -Nephrology following, Dr. Mehta recommends transfer for potential hemodialysis -vasculitis labs pending Discharge diagnosis: Acute kidney injury on chronic thrombocytopenia rash encephalopathy Secondary discharge diagnosis: Diabetes morbid obesity obstructive sleep apnea depression anxiety poor functional status and ability Time Spent with Patient Time attestation: Total time spent providing and/or coordinating discharge services: Time spent: Greater than 30 minutes EXAM Constitutional Vitals: Temp Pulse Resp BP Pulse Ox 97.6 F 67 14 141/74 94 11/30/20 08:00 11/30/20 08:00 11/30/20 08:00 11/30/20 08:00 11/30/20 08:00 Discharge Data Data Completed and Pending Labs on day of discharge: Labs from last 24 hours 11/30/20 11/30/20 11/30/20 05:43 04:54 04:53 WBC 12.8 H RBC 3.50 L Hgb 10.8 L Hct 33.8 L MCV 96.6 MCH 30.9 MCHC 32.0 RDW 15.6 H Plt Count 57 L MPV 13.2 H Neut % (Auto) 67.6 Lymph % (Auto) 12.3 L [place] % (Auto) 5.0 Eos % (Auto) 13.9 H Baso % (Auto) 1.2 Lymph # (Auto) 1.58 [place] # (Auto) 0.64 Eos # (Auto) 1.79 H Baso # (Auto) 0.16 Absolute Neutrophils 8.67 H Sodium 134 Potassium 5.2 H Chloride 97 Carbon Dioxide 23 Anion Gap 14.0 BUN 53 H Creatinine 6.2 H* GFR Calculation 7 Glucose 107 H Hemoglobin A1c 5.1 Estim Average Glucose 100 Uric Acid 8.1 H Calcium 7.8 L Phosphorus 5.3 H Magnesium 2.9 H Total Bilirubin 0.7 Direct Bilirubin 0.3 H GGT 28 AST 67 H ALT 35 Alkaline Phosphatase 204 H Lactate Dehydrogenase 461 H Total Protein 7.1 Albumin 2.4 L Globulin 4.7 H Albumin/Globulin Ratio 0.5 L Triglycerides 151 H Urine Eosinophils 11/29/20 01:13 WBC RBC Hgb Hct MCV MCH MCHC RDW Plt Count MPV Neut % (Auto) Lymph % (Auto) [place] % (Auto) Eos % (Auto) Baso % (Auto) Lymph # (Auto) [place] # (Auto) Eos # (Auto) Baso # (Auto) Absolute Neutrophils Sodium Potassium Chloride Carbon Dioxide Anion Gap BUN Creatinine GFR Calculation Glucose Hemoglobin A1c Estim Average Glucose Uric Acid Calcium Phosphorus Magnesium Total Bilirubin Direct Bilirubin GGT AST ALT Alkaline Phosphatase Lactate Dehydrogenase Total Protein Albumin Globulin Albumin/Globulin Ratio Triglycerides Urine Eosinophils None seen Preliminary micro results at discharge 11/28/20 14:16 Blood Culture - Preliminary Blood 11/28/20 13:10 Blood Culture - Preliminary Blood Discharge Plan Patient/Caregiver Discharge Instructions Activity: increase activity as tolerated Diet: Renal/Consistent Carbs Prescriptions: No Action bisacodyl [Dulcolax (bisacodyl)] 10 mg Suppository 10 mg LA QDAY PRN (Reason: Constipation) RF: 0 ferrous sulfate 325 mg (65 mg iron) Tablet 325 mg PO QDAY RF: 0 Fleet Enema 19-7 gram/118 mL Enema 118 ml LA ONCE PRN (Reason: Constipation) RF: 0 aspirin 81 mg Tablet,Chewable 81 mg PO QDAY RF: 0 Flovent HFA 110 mcg/actuation Hfa Aerosol Inhaler 1 puff INHALATION BID RF: 0 duloxetine [Cymbalta] 60 mg Capsule,Delayed Release(Dr/Ec) 60 mg PO QDAY RF: 0 melatonin 5 mg Tablet 10 mg PO HS RF: 0 Jardiance 10 mg Tablet 10 mg PO QAM RF: 0 Combivent Respimat 20-100 mcg/actuation Mist 1 puff INHALATION Q4H PRN (Reason: shortness of breath) RF: 0 furosemide [Lasix] 40 mg Tablet 20 mg PO QDAY RF: 0 cholecalciferol (vitamin D3) 25 mcg (1,000 unit) Capsule 1,000 unit PO QDAY RF: 0 magnesium hydroxide [Milk of Magnesia] 400 mg/5 mL suspension 30 ml PO PRN PRN (Reason: Constipation) RF: 0 ropinirole 4 mg tablet 4 mg PO DAILY RF: 0 polyethylene glycol 3350 17 gram/dose Powder 17 g PO QDAY RF: 0 insulin glargine 100 unit/mL Solution 15 unit SUBCUT DAILY RF: 0 Senna Plus 8.6-50 mg Capsule 2 tab-cap PO BID RF: 0 calcium carbonate [Tums] 300 mg (750 mg) Tablet,Chewable 1,000 mg PO Q4HP PRN (Reason: gi issues) RF: 0 acetaminophen 500 mg Tablet 1,000 mg PO Q6H PRN (Reason: Pain, Mild) RF: 0 oxycodone 10 mg tablet 10 mg PO Q4H PRN (Reason: pain) Qty: 10 RF: 0 (DME) blood sugar diagnostic Strip MISCELLANEOUS RF: 0 glucagon 1 mg Kit 1 mg IM PRN PRN (Reason: Hypoglycemia) RF: 0 melatonin 5 mg Tablet 5 mg PO HS PRN (Reason: Sleep) RF: 0 lorazepam 0.5 mg Tablet 0.5 mg PO Q6H PRN (Reason: Anxiety) RF: 0 linezolid 600 mg Tablet 600 mg PO BID RF: 0 diphenhydramine HCl 25 mg Tablet 25 mg PO Q6H PRN (Reason: Allergy Symptoms) RF: 0 Daily Probiotic 2.5 billion cell Capsule 1 cap PO QDAY RF: 0 Follow Up Plan Patient Disposition: [facility] Prognosis: Serious Overall status at discharge: patient is not back to baseline Discharge Orders: Discharge Order (Routine); Ordered 11/30/20 Ordered By: Nakul Bejarano [facility] Deep Vein Thrombosis/Pulmonary Embolism Present on Admission: No
[2020-11-30] MEDS ORDERED: DEXTROSE 50% 50 ML SYRINGE IV ONE (17:57)
[2020-11-30] MEDS ORDERED: DEXTROSE 50% 50 ML VIAL IV ONE (18:00)
[2020-11-30] MEDS: DEXTROSE 50% 50 ML VIAL IV PRN (18:01)
[2020-11-30] MEDS ORDERED: LORazepam 2 MG/ML VIAL IV ONE (18:46)
[2020-11-30 18:52] LABS: POC Blood Urea Nitrogen 53 mg/dL (6-20); POC CO2 24 mmol/L (22-30); POC Calcium, Ionized 1.04 mmEq/L (1.16-1.32); POC Chloride 101 mEq/L (96-108); POC Creatinine 6.7 mg/dL (0.6-1.2); POC Glucose, Random 117 mg/dL (70-105); POC Hematocrit 29 % (36-48); POC Potassium 4.9 mEql/L (3.3-5.1); POC Sodium 137 mEq/L (133-145)
[2020-11-30] MEDS ORDERED: LORazepam 2 MG/ML VIAL ONE (18:58)
[2020-12-03 23:12] LABS: Myeloperoxidase Antibody <1.0 AI (<1.0)
== END 2020-12-01 01:52 | disposition short-term general hospital (02) | DRG 682 ==
LOC: ED 11:55 → ICU 18:38
PROVIDERS: ADMIT Internal Medicine; ATTEND Internal Medicine